=== PATIENT | male | born 1960 | race Caucasian/White ===

== ENCOUNTER → 2017-03-21 | Outpatient (CLI) | payer BC ==
[~2017-03-21] MED LIST: AC500T PO; ALPR0.5T PO; ASP325TEC PO; ASPI-587 PO; ATOR10TA66 PO; ATOR80TA PO; CATHETER FLUSH 10 ML SYR IV PRN; CEFD300C3 PO; CLPD75T; CLPD75T PO; DICY20TA57 PO; GABA-486 PO; GMFB600T; HYDR-3454 PO; HYDR1CAP2 PO; METO-272 PO; MTP25TSR PO; NFPRILOC40 PO; OMEP-10 PO; ORPH100T PO; PANT40TA3 PO; PRILOSEC OTC; RANI150T90 PO; RNT150T PO; TRZ100T PO
[2017-03-21 13:08] VITALS: BP 136/88
== END ==
LOC: CARD 11:04
PROVIDERS: ATTEND Internal Medicine Cardiovascular Disease
DX: I25.10 Atherosclerotic heart disease of native coronary artery without angina pectoris (principal); I65.23 Occlusion and stenosis of bilateral carotid arteries; I49.3 Ventricular premature depolarization; E78.4 Other hyperlipidemia; I10 Essential (primary) hypertension
CPT/HCPCS: 78452; 93017

== ENCOUNTER → 2017-04-03 | Outpatient (CLI) | payer BC ==
[~2017-04-03] MED LIST changes: -CATHETER FLUSH 10 ML SYR IV PRN
[2017-04-03 07:15] LABS: RED BLOOD COUNT 5.03 10^6/uL (4.35-5.85); RED CELL DISTRIBUTION WIDTH 13.8 % (10.0-14.5); WHITE BLOOD COUNT 5.6 10^3/uL (4.3-11.0)
[2017-04-03 07:33] LABS: ALANINE AMINOTRANSFERASE 22 U/L (0-55); ALBUMIN 4.3 G/DL (3.2-4.5); ANION GAP 8 MMOL/L (5-14); ASPARTATE AMINO TRANSFERASE 19 U/L (5-34); BILIRUBIN,TOTAL 0.7 MG/DL (0.1-1.0); BLOOD UREA NITROGEN 13 MG/DL (7-18); BUN/CREATININE RATIO 14; CALCIUM 8.9 MG/DL (8.5-10.1); CARBON DIOXIDE 25 MMOL/L (21-32); CHLORIDE 105 MMOL/L (98-107); CHOLESTEROL 149 MG/DL (< 200); CREATININE SERUM 0.95 MG/DL (0.60-1.30); DIRECT LDL 89 MG/DL (1-129); GFR ESTIMATED > 60; GLUCOSE 114 MG/DL (70-105); POTASSIUM 4.1 MMOL/L (3.6-5.0); SODIUM 138 MMOL/L (135-145); TOTAL PROTEIN 7.2 G/DL (6.4-8.2); TRIGLYCERIDES 91 MG/DL (<150); VLDL CHOLESTEROL 18 MG/DL (5-40)
[2017-04-03 07:53] LABS: THYROID STIMULATING HORMONE 2.09 UIU/ML (0.35-4.94)
--- NOTE | 2017-04-03 13:50 | Diagnostic Imaging Report ---
Three views of the left knee. INDICATION: Chronic knee pain. FINDINGS: There is significant joint space loss in the medial compartment seen with [id number] appearance in the medial aspect of the medial compartment. Prominent osteophyte formation is also noted in the medial and patellofemoral compartments with tiny osteophytes laterally. There is no significant suprapatellar effusion. There is a small osteochondroma arising from the posteromedial supracondylar region of the left femur. No acute fracture, dislocation or radiopaque foreign body. IMPRESSION: 1. Osteoarthritis, severe in the medial compartment. 2. Small osteochondroma in the posteromedial supracondylar region of the left femur. Dictated by: Dictated on workstation # [id number]
== END ==
LOC: RAD 06:57
DX: M17.12 Unilateral primary osteoarthritis, left knee (principal); D16.22 Benign neoplasm of long bones of left lower limb
CPT/HCPCS: 36415; 73562; 80053; 80061; 84153; 84443; 85027

== ENCOUNTER 2017-10-18 07:37 | Outpatient (RCR) | payer BC ==
--- NOTE | 2017-10-16 15:15 | Diagnostic Imaging Report ---
EXAMINATION: Portable upright radiograph of the chest. INDICATION: PICC line placement. FINDINGS: The lungs are clear. The heart size is enlarged. No effusion or pneumothorax. The mediastinum and adalberto appear unremarkable. A right PICC line is in place with the tip at the upper SVC level. IMPRESSION: Cardiomegaly. Dictated by: Dictated on workstation # [id number]
[2017-10-16 15:28] LABS: BUN/CREATININE RATIO 20; CALCIUM 8.9 MG/DL (8.5-10.1); CARBON DIOXIDE 25 MMOL/L (21-32); CHLORIDE 103 MMOL/L (98-107); CREATININE SERUM 1.01 MG/DL (0.60-1.30); GFR ESTIMATED > 60; GLUCOSE 129 MG/DL (70-105); POTASSIUM 3.9 MMOL/L (3.6-5.0); SODIUM 137 MMOL/L (135-145)
[2017-10-16 15:30] VITALS: BP 115/66
[2017-10-17 07:35] VITALS: BP 114/74
[2017-10-17] MEDS: VANCOMYCIN 1,750 MG/NS 500 ML IVPB IV SCH ×4 (08:06→19:54)
[2017-10-17 22:35] VITALS: BP 131/78
[~2017-10-18] VITALS: Ht 180.3 cm; Wt 116.6 kg
[~2017-10-18 07:37] MED LIST changes: +ALPR1TAB7 PO; +ASPI-983 PO; +BACI28.4; +CLOP75TA28 PO; +HYDR-3820 PO; +METO-370 PO; +TRAZ150T72 PO; +TROUGH ORDER-PHARMACY XX NR; +VANCOMYCIN 1,750 MG/NS 500 ML IVPB IV SCH; +VANCOMYCIN INJECTION 2,250 MG in NS IV 500 ML 500 ML IV NR
[2017-10-18] MEDS: VANCOMYCIN 1,750 MG/NS 500 ML IVPB IV SCH ×2 (08:38)
[2017-10-18 10:50] VITALS: BP 115/66
== END 2018-01-14 | disposition home or self-care (01) ==
LOC: SDC 07:37
PROVIDERS: ATTEND Orthopaedic Surgery
DX: Z45.2 Encounter for adjustment and management of vascular access device (principal); L03.116 Cellulitis of left lower limb
CPT/HCPCS: 36415; 36569; 71010; 76937; 80048; 80202; 96365; 96366; 96367

== ENCOUNTER → 2017-12-01 | Outpatient (CLI) | payer BC ==
[~2017-12-01] MED LIST changes: -TROUGH ORDER-PHARMACY XX NR; -VANCOMYCIN 1,750 MG/NS 500 ML IVPB IV SCH; -VANCOMYCIN INJECTION 2,250 MG in NS IV 500 ML 500 ML IV NR
[2017-12-01 17:24] LABS: BODY FLUID SOURCE SYNOVIAL
[2017-12-01 17:26] LABS: GLUCOSE,BODY FLUID 90 MG/DL; TOTAL PROTEIN,BODY FLUID 4.8 G/DL
[2017-12-01 17:36] LABS: BF OTHER CELLS 0 %; BODY FLUID APPEARENCE MOD BLDY; BODY FLUID COLOR RED; BODY FLUID RBC COUNT 32400 /uL; BODY FLUID WBC TOTAL COUNT 400 /uL; LYMPHOCYTES,BODY FLUID 92 %
== END ==
LOC: LAB 16:31
PROVIDERS: ATTEND Orthopaedic Surgery
DX: M00.9 Pyogenic arthritis, unspecified (principal)
CPT/HCPCS: 82945; 84157; 87070; 87075; 87205; 89051; 89060

== ENCOUNTER 2018-03-16 14:44 | Outpatient (RCR) | payer BC | END 2018-03-30 11:11 | disposition home or self-care (01) | PROVIDERS: ATTEND Orthopaedic Surgery | DX: Z47.1 Aftercare following joint replacement surgery (principal); Z96.651 Presence of right artificial knee joint ==

== ENCOUNTER 2018-03-19 00:11 | Emergency (ER) | payer BC ==
--- OUTSIDE RECORDS SUMMARY | 2018-03-19 17:23 | XMS REPORT | Continuity of Care Document ---
Author Author [facility] Organization [facility] Address Unknown Phone Unavailable Allergies Active Description Code Type Severity Reaction Onset Reported/Identified Relationship to Patient Clinical Status Yes NKANo Known Allergies NKA Miscellaneous Allergy Unknown N/A 12/05/2005 Yes morphine [id number] Drug Allergy Unknown N/A 05/12/2015 Yes Ylxqjdu-Hxv-Gzf Reductase Inhibitor [id number] Drug Allergy Severe MUSCLE WEAKNESS 10/26/2015 Medications There is no data. Problems Date Dx Coded Attending Type Code Diagnosis Diagnosed By 11/01/2010 Ot 787.91 11/01/2010 Ot 789.09 11/17/2014 Ot 789.06 11/17/2014 Ot 272.4 11/17/2014 Ot V58.69 11/17/2014 Ot 272.4 11/17/2014 Ot 414.01 11/17/2014 Ot V58.69 11/25/2014 Ot 789.06 11/25/2014 Ot 272.4 11/25/2014 Ot V58.69 11/25/2014 Ot 272.4 11/25/2014 Ot 414.01 11/25/2014 Ot V58.69 11/26/2014 JAYLON العراقي FACC, LIBRADO FACP CCDS Ot 272.4 11/26/2014 JAYLON العراقي FACC, ALI FACP CCDS Ot 278.00 11/26/2014 JAYLON العراقي FACC, ALI FACP CCDS Ot 401.9 11/26/2014 JAYLON العراقي FACC, ALI FACP CCDS Ot 414.01 11/26/2014 JAYLON العراقي FACC, ALI FACP CCDS Ot 414.4 11/26/2014 JAYLON العراقي FACC, ALI FACP CCDS Ot 427.69 11/26/2014 JAYLON العراقي FACC, ALI FACP CCDS Ot V45.82 11/26/2014 JAYLON MINERC, ALI FACP CCDS Ot V58.69 11/26/2014 JAYLON العراقي FACC, ALI FACP CCDS Ot V85.36 11/26/2014 Ot 789.06 11/26/2014 Ot 272.4 11/26/2014 Ot V58.69 11/26/2014 Ot 272.4 11/26/2014 Ot 414.01 11/26/2014 Ot V58.69 12/02/2014 Ot 789.06 12/02/2014 Ot 272.4 12/02/2014 Ot V58.69 12/02/2014 Ot 272.4 12/02/2014 Ot 414.01 12/02/2014 Ot V58.69 12/10/2014 Ot 272.4 12/10/2014 Ot V58.69 12/10/2014 Ot 272.4 12/10/2014 Ot 414.01 12/10/2014 Ot V58.69 12/10/2014 BAIMA, WILFRED L GRASS CUTTER Ot 453.41 12/18/2014 BAIMA, WILFRED L GRASS CUTTER Ot 453.41 12/25/2014 BAIMA, WILFRED L GRASS CUTTER Ot 729.81 12/25/2014 BAIMA, WILFRED L GRASS CUTTER Ot 789.03 04/17/2015 BAIMA, WILFRED L GRASS CUTTER Ot 272.4 04/17/2015 BAIMA, WILFRED L GRASS CUTTER Ot 401.9 04/17/2015 BAIMA, WILFRED L GRASS CUTTER Ot 414.00 04/17/2015 BAIMA, WILFRED L GRASS CUTTER Ot V12.51 05/12/2015 RUCHI MICHELLE MANAGER [employer] Ot 414.00 CORON ATHEROSCLER NOS TYPE VESSEL, NATIV 05/12/2015 RUCHI MICHELLE MANAGER [employer] Ot 723.1 CERVICALGIA 05/12/2015 RUCHI MICHELLE MANAGER [employer] Ot 786.52 PAINFUL RESPIRATION 05/12/2015 RUCHI MICHELLE MANAGER [employer] Ot V45.82 PERCUTANEOUS TRANSLUM CORON ANGIOPLASTY 05/12/2015 RUCHI MICHELLE MANAGER [employer] Ot V58.66 LONG-TERM (CURRENT) USE OF ASPIRIN 05/12/2015 RUCHI MICHELLE MANAGER [employer] Ot V58.69 OT MED,LT,CURRENT USE 05/18/2015 BAIMA, WILFRED L GRASS CUTTER Ot 272.4 05/18/2015 BAIMA, WILFRED L GRASS CUTTER Ot 780.79 05/18/2015 BAIMA, WIFLRED L GRASS CUTTER Ot 790.29 05/28/2015 BAIMA, WILFRED L GRASS CUTTER Ot 272.4 05/28/2015 BAIWILFRED RIOS L GRASS CUTTER Ot 780.79 05/28/2015 BAIMA WILFRED L GRASS CUTTER Ot 790.29 10/12/2015 CAROLINE العراقي, THEODORE Avilez Ot K44.9 DIAPHRAGMATIC HERNIA WITHOUT OBSTRUCTION 10/12/2015 CAROLINE العراقي, THEODORE Avilez Ot R10.13 EPIGASTRIC PAIN 10/21/2015 Ot 272.4 10/21/2015 BAIMAANDERSONWILFRED L GRASS CUTTER Ot 272.4 10/21/2015 BAIMA, WILFRED L GRASS CUTTER Ot 401.9 10/21/2015 BAIMA, WILFRED L GRASS CUTTER Ot 414.00 10/21/2015 BAIMA WILFRED L GRASS CUTTER Ot V12.51 10/21/2015 MYRNA ALVARADO APRN Ot 719.46 10/21/2015 BAIMAWILFRED L GRASS CUTTER Ot 272.4 10/21/2015 BAIBLANCA WILFRED L GRASS CUTTER Ot 780.79 10/21/2015 BAIMA WILFRED L GRASS CUTTER Ot 790.29 10/21/2015 CAROLINE العراقي, THEODORE Avilez Ot Z01.818 10/21/2015 CAROLINE العراقي, THEODORE Avilez Ot K43.6 10/21/2015 CAROLINE العراقي, THEODORE Avilez Ot Z01.812 10/21/2015 CAROLINE العراقي, THEODORE Avilez Ot Z11.2 10/23/2015 CAROLINE العراقي, THEODORE Avilez Ot K43.6 OTHER AND UNSP VENTRAL HERNIA WITH OBSTR 10/28/2015 CAROLINE العراقي, THEODORE Avilez Ot I10 ESSENTIAL (PRIMARY) HYPERTENSION 10/28/2015 CAROLINE الرعاقي, THEODORE Avilez Ot I25.10 ATHSCL HEART DISEASE OF [place] CORONARY 10/28/2015 THEODORE VELAZQUEZ MD Ot K21.9 GASTRO-ESOPHAGEAL REFLUX DISEASE WITHOUT 10/28/2015 THEODORE VELAZQUEZ MD Ot K56.7 ILEUS, UNSPECIFIED 10/28/2015 CAROLINE العراقي, THEODORE Avilez Ot K91.89 OTH POSTPROCEDURAL COMPLICATIONS AND DIS 10/28/2015 THEODORE VELAZQUEZ MD Ot L03.311 CELLULITIS OF ABDOMINAL WALL 10/28/2015 CAROLINE العراقي, THEODORE Avilez Ot T81.4XXA INFECTION FOLLOWING A PROCEDURE, INITIAL 11/03/2015 CAROLINE العراقي, THEODORE Avilez Ot K43.6 11/03/2015 CAROLINE العراقي, THEODORE Avilez Ot Z01.812 11/03/2015 CAROLINE العراقي, THEODORE M Ot Z11.2 09/20/2016 BAIMA, WILFRED L GRASS CUTTER Ot E78.4 OTHER HYPERLIPIDEMIA 09/20/2016 BAIMA, WILFRED L GRASS CUTTER Ot I10 ESSENTIAL (PRIMARY) HYPERTENSION 09/20/2016 BAIMA, WILFRED L GRASS CUTTER Ot I25.10 ATHSCL HEART DISEASE OF [place] CORONARY 09/20/2016 BAIMA, WILFRED L GRASS CUTTER Ot I65.23 OCCLUSION AND STENOSIS OF BILATERAL PITTS 09/21/2016 BAIMA, WILFRED L GRASS CUTTER Ot E78.4 OTHER HYPERLIPIDEMIA 09/21/2016 BAIMA, WILFRED L GRASS CUTTER Ot I10 ESSENTIAL (PRIMARY) HYPERTENSION 09/21/2016 BAIMA, WILFRED L GRASS CUTTER Ot I25.10 ATHSCL HEART DISEASE OF [place] CORONARY 09/21/2016 BAIMA, WILFRED L GRASS CUTTER Ot I65.23 OCCLUSION AND STENOSIS OF BILATERAL PITTS 09/30/2016 BAIMA, WILFRED L GRASS CUTTER Ot E78.4 OTHER HYPERLIPIDEMIA 09/30/2016 BAIMA, WILFRED L GRASS CUTTER Ot I10 ESSENTIAL (PRIMARY) HYPERTENSION 09/30/2016 BAIMA, WILFRED L GRASS CUTTER Ot I25.10 ATHSCL HEART DISEASE OF [place] CORONARY 09/30/2016 BAIMA, WILFRED L GRASS CUTTER Ot I65.23 OCCLUSION AND STENOSIS OF BILATERAL PITTS 11/02/2016 BAIMA, WILFRED L GRASS CUTTER Ot E78.4 OTHER HYPERLIPIDEMIA 11/02/2016 BAIMA, WILFRED L GRASS CUTTER Ot I10 ESSENTIAL (PRIMARY) HYPERTENSION 11/02/2016 BAIMA, WILFRED L GRASS CUTTER Ot I25.10 ATHSCL HEART DISEASE OF [place] CORONARY 11/02/2016 BAIMA, WILFRED L GRASS CUTTER Ot I65.23 OCCLUSION AND STENOSIS OF BILATERAL PITTS 11/03/2016 BAIMA, WILFRED L GRASS CUTTER Ot E78.4 OTHER HYPERLIPIDEMIA 11/03/2016 BAIMA, WILFRED L GRASS CUTTER Ot I10 ESSENTIAL (PRIMARY) HYPERTENSION 11/03/2016 BAIMA, WILFRED L GRASS CUTTER Ot I25.10 ATHSCL HEART DISEASE OF [place] CORONARY 11/03/2016 BAIMA, WILFRED L GRASS CUTTER Ot I65.23 OCCLUSION AND STENOSIS OF BILATERAL PITTS 04/03/2017 JAYLON العراقي [facility], LIBRADO JACOB CCDS Ot E78.4 OTHER HYPERLIPIDEMIA 04/03/2017 JAYLON MINER, LIBRADO FACP CCDS Ot I10 ESSENTIAL (PRIMARY) HYPERTENSION 04/03/2017 JAYLON العراقي FACC, LIBRADO FACP CCDS Ot I25.10 ATHSCL HEART DISEASE OF [place] CORONARY 04/03/2017 JAYLON العراقي [facility], LIBRADO FACP CCDS Ot I49.3 VENTRICULAR PREMATURE DEPOLARIZATION 04/03/2017 JAYLON MINER, LIBRADO FACP CCDS Ot I65.23 OCCLUSION AND STENOSIS OF BILATERAL PITTS 04/04/2017 TREVON ARGUETA MD Ot D16.22 BENIGN NEOPLASM OF LONG BONES OF LEFT LO 04/04/2017 TREVON ARGUETA MD Ot M17.12 UNILATERAL PRIMARY OSTEOARTHRITIS, LEFT 04/12/2017 TREVON ARGUETA MD Ot D16.22 BENIGN NEOPLASM OF LONG BONES OF LEFT LO 04/12/2017 TREVON ARGUETA MD Ot M17.12 UNILATERAL PRIMARY OSTEOARTHRITIS, LEFT 10/18/2017 AFIA AVERY MD Ot L03.116 CELLULITIS OF LEFT LOWER LIMB 10/18/2017 AFIA AVERY MD, Ot Z45.2 ENCOUNTER FOR ADJUSTMENT AND MANAGEMENT 10/18/2017 AFIA AVERY MD Ot L03.116 CELLULITIS OF LEFT LOWER LIMB 10/18/2017 AFIA AVERY MD, Ot Z45.2 ENCOUNTER FOR ADJUSTMENT AND MANAGEMENT 11/30/2017 Ot 272.4 HYPERLIPIDEMIA NEC/NOS 11/30/2017 WILFRED TINEO GRASS CUTTER Ot 272.4 HYPERLIPIDEMIA NEC/NOS 11/30/2017 WILFRED TINEO GRASS CUTTER Ot 401.9 HYPERTENSION NOS 11/30/2017 WILFRED TINEO L GRASS CUTTER Ot 414.00 CORON ATHEROSCLER NOS TYPE VESSEL, NATIV 11/30/2017 WILFRED TINEO GRASS CUTTER Ot V12.51 HX-VENOUS THROMBOSIS EMBOLISM 11/30/2017 MYRNA ALVARADO APRN Ot 719.46 JOINT PAIN-L/LEG 11/30/2017 WILFRED TINEO L GRASS CUTTER Ot 272.4 HYPERLIPIDEMIA NEC/NOS 11/30/2017 WILFRED TINEO L GRASS CUTTER Ot 780.79 OTH MALAISE FATIGUE 11/30/2017 WILFRED TINEO L GRASS CUTTER Ot 790.29 OTHER ABNORMAL GLUCOSE 11/30/2017 CAROLINE العراقي, THEODORE Avilez Ot Z01.818 ENCOUNTER FOR OTHER PREPROCEDURAL EXAMIN 11/30/2017 THEODORE VELAZQUEZ MD Ot K43.6 OTHER AND UNSP VENTRAL HERNIA WITH OBSTR 11/30/2017 THEODORE VELAZQUEZ MD Ot Z01.812 ENCOUNTER FOR PREPROCEDURAL LABORATORY E 11/30/2017 THEODORE VELAZQUEZ MD Ot Z11.2 ENCOUNTER FOR SCREENING FOR OTHER BACTER 11/30/2017 JAYLON MINER, ALI FACP CCDS Ot E78.4 OTHER HYPERLIPIDEMIA 11/30/2017 JAYLON العراقي FACC, ALI FACP CCDS Ot I10 ESSENTIAL (PRIMARY) HYPERTENSION 11/30/2017 JAYLON العراقي FACC, ALI FACP CCDS Ot I25.10 ATHSCL HEART DISEASE OF [place] CORONARY 11/30/2017 JAYLON العراقي FACC, ALI FACP CCDS Ot I49.3 VENTRICULAR PREMATURE DEPOLARIZATION 11/30/2017 JAYLON العراقي FACC, ALI FACP CCDS Ot I65.23 OCCLUSION AND STENOSIS OF BILATERAL PITTS 11/30/2017 TREVON ARGUETA MD Ot D16.22 BENIGN NEOPLASM OF LONG BONES OF LEFT LO 11/30/2017 TREVON ARGUETA MD Ot M17.12 UNILATERAL PRIMARY OSTEOARTHRITIS, LEFT 11/30/2017 AFIA AVERY MD Ot L03.116 CELLULITIS OF LEFT LOWER LIMB 11/30/2017 AFIA AVERY MD Ot Z45.2 ENCOUNTER FOR ADJUSTMENT AND MANAGEMENT 12/01/2017 JAYLON العراقي FACC, LIBRADO FACP CCDS Ot E78.4 OTHER HYPERLIPIDEMIA 12/01/2017 JAYLON العراقي FACC, ALI FACP CCDS Ot I10 ESSENTIAL (PRIMARY) HYPERTENSION 12/01/2017 JAYLON العراقي FACC, ALI FACP CCDS Ot I25.10 ATHSCL HEART DISEASE OF [place] CORONARY 12/01/2017 JAYLON العراقي FACC, ALI FACP CCDS Ot I49.3 VENTRICULAR PREMATURE DEPOLARIZATION 12/01/2017 JAYLON العراقي FACC, ALI FACP CCDS Ot I65.23 OCCLUSION AND STENOSIS OF BILATERAL PITTS 12/01/2017 TREVON ARGUETA MD Ot D16.22 BENIGN NEOPLASM OF LONG BONES OF LEFT LO 12/01/2017 TREVON ARGUETA MD Ot M17.12 UNILATERAL PRIMARY OSTEOARTHRITIS, LEFT 12/01/2017 AFIA AVERY MD, Ot L03.116 CELLULITIS OF LEFT LOWER LIMB 12/01/2017 AFIA AVERY MD, Ot Z45.2 ENCOUNTER FOR ADJUSTMENT AND MANAGEMENT 12/04/2017 AFIA AVERY MD, Ot M00.9 PYOGENIC ARTHRITIS, UNSPECIFIED 12/13/2017 AFIA AVERY MD, Ot M00.9 PYOGENIC ARTHRITIS, UNSPECIFIED 01/14/2018 AFIA AVERY MD, Ot L03.116 CELLULITIS OF LEFT LOWER LIMB 01/14/2018 AFIA AVERY MD, Ot Z45.2 ENCOUNTER FOR ADJUSTMENT AND MANAGEMENT 01/15/2018 AFIA AVERY MD, Ot L03.116 CELLULITIS OF LEFT LOWER LIMB 01/15/2018 AFIA AVERY MD, Ot Z45.2 ENCOUNTER FOR ADJUSTMENT AND MANAGEMENT 01/26/2018 JAYLON العراقي FACC, ALI FACP CCDS Ot E78.4 OTHER HYPERLIPIDEMIA 01/26/2018 JAYLON العراقي FACC, ALI FACP CCDS Ot I10 ESSENTIAL (PRIMARY) HYPERTENSION 01/26/2018 JAYLON العراقي FACC, ALI FACP CCDS Ot I25.10 ATHSCL HEART DISEASE OF [place] CORONARY 01/26/2018 JAYLON العراقي FACC, ALI FACP CCDS Ot I49.3 VENTRICULAR PREMATURE DEPOLARIZATION 01/26/2018 JAYLON العراقي FACC, ALI FACP CCDS Ot I65.23 OCCLUSION AND STENOSIS OF BILATERAL PITTS 01/26/2018 ELLIE العراقي, TREVON Escalona Ot D16.22 BENIGN NEOPLASM OF LONG BONES OF LEFT LO 01/26/2018 TREVON ARGUETA MD Ot M17.12 UNILATERAL PRIMARY OSTEOARTHRITIS, LEFT 01/26/2018 AFIA AVERY MD, Ot M00.9 PYOGENIC ARTHRITIS, UNSPECIFIED 01/26/2018 AFIA AVERY MD, Ot L03.116 CELLULITIS OF LEFT LOWER LIMB 01/26/2018 AFIA AVERY MD, Ot Z45.2 ENCOUNTER FOR ADJUSTMENT AND MANAGEMENT 03/14/2018 AFIA AVERY MD, Ot Z47.1 AFTERCARE FOLLOWING JOINT REPLACEMENT CALDERÓN 03/14/2018 AFIA AVERY MD, Ot Z96.651 PRESENCE OF RIGHT ARTIFICIAL KNEE JOINT Procedures There is no data. Results Test Result Range Comprehensive metabolic panel - 11/22/16 07:22 Serum or plasma sodium measurement (moles/volume) 137 mmol/L 135-145 Serum or plasma potassium measurement (moles/volume) 4.2 mmol/L 3.6-5.0 Serum or plasma chloride measurement (moles/volume) 106 mmol/L 98-107 Carbon dioxide 23 mmol/L 21-32 Serum or plasma anion gap determination (moles/volume) 8 mmol/L 5-14 Serum or plasma urea nitrogen measurement (mass/volume) 22 mg/dL 7-18 Serum or plasma creatinine measurement (mass/volume) 0.96 mg/dL 0.60-1.30 Serum or plasma urea nitrogen/creatinine mass ratio 23 NRG Serum or plasma creatinine measurement with calculation of estimated glomerular filtration rate > NRG Serum or plasma glucose measurement (mass/volume) 116 mg/dL 70-105 Serum or plasma calcium measurement (mass/volume) 9.5 mg/dL 8.5-10.1 Serum or plasma total bilirubin measurement (mass/volume) 1.4 mg/dL 0.1-1.0 Serum or plasma alkaline phosphatase measurement (enzymatic activity/volume) 76 U/L 40-136 Serum or plasma aspartate aminotransferase measurement (enzymatic activity/ volume) 26 U/L 5-34 Serum or plasma alanine aminotransferase measurement (enzymatic activity/volume ) 23 U/L 0-55 Serum or plasma protein measurement (mass/volume) 7.1 g/dL 6.4-8.2 Serum or plasma albumin measurement (mass/volume) 4.4 g/dL 3.2-4.5 Lipid 1996 panel - 09/20/16 07:22 Serum or plasma triglyceride measurement (mass/volume) 64 mg/dL <150 Serum or plasma cholesterol measurement (mass/volume) 164 mg/dL < 200 Serum or plasma cholesterol in HDL measurement (mass/volume) 48 mg/ dL 40-60 Cholesterol in LDL [mass/volume] in serum or plasma by direct assay 105 mg/dL 1-129 Serum or plasma cholesterol in VLDL measurement (mass/volume) 13 mg/ dL 5-40 Automated blood complete blood count (hemogram) panel - 04/03/17 07:08 Blood leukocytes automated count (number/volume) 5.6 10*3/uL 4.3-11.0 Blood erythrocytes automated count (number/volume) 5.03 10*6/uL 4.35-5.85 Venous blood hemoglobin measurement (mass/volume) 15.3 g/dL 13.3-17.7 Blood hematocrit (volume fraction) 45 % 40-54 Automated erythrocyte mean corpuscular volume 90 [foz_us] 80-99 Automated erythrocyte mean corpuscular hemoglobin (mass per erythrocyte) 30 pg 25-34 Automated erythrocyte mean corpuscular hemoglobin concentration measurement ( mass/volume) 34 g/dL 32-36 Automated erythrocyte distribution width ratio 13.8 % 10.0-14.5 Automated blood platelet count (count/volume) 155 10*3/uL 130-400 Automated blood platelet mean volume measurement 11.0 [foz_us] 7.4-10.4 Comprehensive metabolic panel - 04/03/17 07:08 Serum or plasma sodium measurement (moles/volume) 138 mmol/L 135-145 Serum or plasma potassium measurement (moles/volume) 4.1 mmol/L 3.6-5.0 Serum or plasma chloride measurement (moles/volume) 105 mmol/L 98-107 Carbon dioxide 25 mmol/L 21-32 Serum or plasma anion gap determination (moles/volume) 8 mmol/L 5-14 Serum or plasma urea nitrogen measurement (mass/volume) 13 mg/dL 7-18 Serum or plasma creatinine measurement (mass/volume) 0.95 mg/dL 0.60-1.30 Serum or plasma urea nitrogen/creatinine mass ratio 14 NRG Serum or plasma creatinine measurement with calculation of estimated glomerular filtration rate > NRG Serum or plasma glucose measurement (mass/volume) 114 mg/dL 70-105 Serum or plasma calcium measurement (mass/volume) 8.9 mg/dL 8.5-10.1 Serum or plasma total bilirubin measurement (mass/volume) 0.7 mg/dL 0.1-1.0 Serum or plasma alkaline phosphatase measurement (enzymatic activity/volume) 66 U/L 40-136 Serum or plasma aspartate aminotransferase measurement (enzymatic activity/ volume) 19 U/L 5-34 Serum or plasma alanine aminotransferase measurement (enzymatic activity/volume ) 22 U/L 0-55 Serum or plasma protein measurement (mass/volume) 7.2 g/dL 6.4-8.2 Serum or plasma albumin measurement (mass/volume) 4.3 g/dL 3.2-4.5 Lipid 1996 panel - 04/03/17 07:08 Serum or plasma triglyceride measurement (mass/volume) 91 mg/dL <150 Serum or plasma cholesterol measurement (mass/volume) 149 mg/dL < 200 Serum or plasma cholesterol in HDL measurement (mass/volume) 41 mg/ dL 40-60 Cholesterol in LDL [mass/volume] in serum or plasma by direct assay 89 mg/dL 1-129 Serum or plasma cholesterol in VLDL measurement (mass/volume) 18 mg/ dL 5-40 THYROID STIMULATING HORMONE - 04/03/17 07:08 THYROID STIMULATING HORMONE 2.09 u[iU]/mL 0.35-4.94 Prostate specific ag [mass/volume] in serum or plasma - 04/03/17 07:08 Prostate specific ag [mass/volume] in serum or plasma 0.27 % 0.00-4.00 Whole blood basic metabolic panel - 10/16/17 14:56 Serum or plasma sodium measurement (moles/volume) 137 mmol/L 135-145 Serum or plasma potassium measurement (moles/volume) 3.9 mmol/L 3.6-5.0 Serum or plasma chloride measurement (moles/volume) 103 mmol/L 98-107 Carbon dioxide 25 mmol/L 21-32 Serum or plasma anion gap determination (moles/volume) 9 mmol/L 5-14 Serum or plasma urea nitrogen measurement (mass/volume) 20 mg/dL 7-18 Serum or plasma creatinine measurement (mass/volume) 1.01 mg/dL 0.60-1.30 Serum or plasma urea nitrogen/creatinine mass ratio 20 NRG Serum or plasma creatinine measurement with calculation of estimated glomerular filtration rate > NRG Serum or plasma glucose measurement (mass/volume) 129 mg/dL 70-105 Serum or plasma calcium measurement (mass/volume) 8.9 mg/dL 8.5-10.1 Vancomycin trough - 10/18/17 07:42 Vancomycin trough 13.5 ug/mL 10.0-20.0 Body fluid cell count - 12/01/17 16:44 Specimen source identification of body fluid SYNOVIAL NRG Evaluation of color of body fluid RED NRG Determination of appearance of body fluid MOD BLDY NRG Body fluid leukocytes count (number/volume) 400 /uL NRG Body fluid erythrocytes count (number/volume) 59380 /uL NRG Manual body fluid polymorphonuclear cells/100 leukocytes 8 % NRG Manual body fluid mononuclear cells/100 leukocytes 0 % NRG Manual body fluid lymphocytes/100 leukocytes 92 % NRG Other cells/100 leukocytes in body fluid by manual count 0 % NRG Glucose body fluid - 12/01/17 16:44 Glucose body fluid 90 mg/dL NRG Body fluid total protein measurement - 12/01/17 16:44 Body fluid total protein measurement 4.8 g/dL NRG Gram stain microscopy - 12/01/17 16:44 GRAM STAIN RESULT NO BACTERIA NRG Bacterial body fluid culture - 12/01/17 16:44 Bacterial body fluid culture NG NRG Bacteria identification in isolate by anaerobe culture - 12/01/17 16:44 Bacteria identification in isolate by anaerobe culture NG NRG * Body fluid crystals type by light microscopy - 12/01/17 16:50 * Body fluid crystals type by light microscopy NOT SEEN NRG Encounters ACCT No. Visit Date/Time Discharge Status Pt. Type Provider Facility Loc./Unit Complaint [id number] 03/14/2018 12:57:00 03/14/2018 23:59:59 CLS Outpatient AFIA AVERY MD [facility] REHAB S/P R TKR [id number] 01/15/2018 00:23:00 01/15/2018 23:59:59 CLS Preadmit AFIA AVERY MD [facility] SDC CELLULITIS L KNEE [id number] 10/18/2017 07:37:00 01/14/2018 00:01:00 DIS Outpatient AFIA AVERY MD [facility] SDC CELLULITIS L KNEE [id number] 12/01/2017 16:31:00 12/01/2017 23:59:59 CLS Outpatient AFIA AVERY MD [facility] LAB HX SEPTIC L KNEE [id number] 04/03/2017 06:57:00 04/03/2017 23:59:59 CLS Outpatient ELLIE العراقي, TREVON Escalona [facility] RAD M25.562 ADULT HEALTH EXAM HLP SCREENING [id number] 03/21/2017 11:04:00 03/21/2017 23:59:59 CLS Outpatient JAYLON العراقي FACCLIBRADO FACP CCDS [facility] CARD I25.10 CAD [id number] 09/20/2016 07:05:00 09/20/2016 23:59:59 CLS Outpatient WILFRED TINEO [facility] LAB CAD,CAROTID ARTERY NARROWING,HLP,HTN [id number] 10/25/2015 17:15:00 10/28/2015 16:30:00 DIS Inpatient THEODORE VELAZQUEZ MD [facility] 4TH SBO PNEUMONIA S/P LAP VENTRAL HERNIA REPAIR [id number] 10/21/2015 06:02:00 10/23/2015 11:20:00 DIS Outpatient THEODORE VELAZQUEZ MD [facility] INCARCERATED VENTRAL HERNIA [id number] 10/14/2015 09:29:00 10/14/2015 23:59:59 CLS Outpatient THEODORE VELAZQUEZ MD [facility] PREOP INCARCERATED VENTRAL HERNIA [id number] 10/12/2015 10:17:00 10/12/2015 12:25:00 DIS Outpatient THEODORE VELAZQUEZ MD [facility] GERD [id number] 10/09/2015 06:37:00 10/09/2015 23:59:59 CLS Outpatient THEODORE VELAZQUEZ MD [facility] PREOP GERD [id number] 05/12/2015 06:20:00 05/12/2015 23:59:59 CLS Outpatient WILFRED TINEO [facility] LAB MALAISE,FATIGUE, HYPERLIPIDEMIA [id number] 05/12/2015 14:00:00 05/12/2015 16:05:00 DIS Emergency RUCHI MICHELLE MANAGER [employer]QU[employer]MENT [facility] ER NECK/SHOULDER/UPPER BODY PAIN NAUSEA [id number] 03/20/2015 08:36:00 03/20/2015 23:59:59 CLS Outpatient MYRNA ALVARADO MANAGER [employer]MENT [facility] RAD PAIN IN LOWER LIMB [id number] 03/11/2015 08:02:00 03/11/2015 23:59:59 CLS Outpatient WILFRED TINEO [facility] RAD HX OF DVT [id number] 12/10/2014 10:07:00 12/10/2014 23:59:59 CLS Outpatient WILFRED TINEO [facility] RAD [id number] 12/02/2014 15:30:00 12/02/2014 23:59:59 CLS Outpatient WILFRED TINEO [employer] [facility] RAD [id number] 11/25/2014 06:38:00 11/26/2014 10:39:00 DIS Outpatient JAYLON العراقي FACC, LIBRADO JACOB CCDS [facility] CATH [id number] 12/24/2014 07:35:00 Document Registration [id number] 11/17/2014 11:48:00 Document Registration [id number] 11/17/2014 11:48:00 Document Registration [id number] 11/17/2014 11:48:00 Document Registration [id number] 11/17/2014 11:48:00 Document Registration [id number] 10/31/2010 21:35:00 Document Registration [id number] 03/11/2010 07:29:00 Document Registration [id number] 10/14/2009 07:32:00 Document Registration [id number] 06/19/2009 06:51:00 Document Registration [email or web address] 05/12/2015 14:02:04 ACT Document Registration
== END 2018-03-19 01:04 | disposition left against medical advice (07) ==
LOC: EDUNIT# 00:11 → ER 00:12
DX: G58.9 Mononeuropathy, unspecified (principal); M79.604 Pain in right leg

== ENCOUNTER 2018-05-21 05:36 | Outpatient (CLI) | payer BC ==
[~2018-05-21] VITALS: Ht 180.3 cm; Wt 116.6 kg
[2018-05-21] MEDS ORDERED: GABA-488 PO (15:21)
[2018-05-21] MEDS ORDERED: OXYC40TA46 PO (15:21)
== END 2018-05-21 15:22 | disposition home or self-care (01) ==
LOC: PREOP 05:36
PROVIDERS: ATTEND Surgery
DX: Z01.818 Encounter for other preprocedural examination (principal)

== ENCOUNTER 2018-05-28 08:15 | Day surgery (SDC) | payer BC ==
[~2018-05-28] VITALS: Ht 180.3 cm; Wt 126.1 kg
[~2018-05-28 08:15] MED LIST changes: +GABA-488 PO; +OXYC40TA46 PO
[2018-05-28 08:20] VITALS: BP 136/86
[2018-05-28] MEDS ORDERED: NS IV 500 ML 500 ML ONE (08:23)
[2018-05-28] MEDS ORDERED: NS IV 500 ML 500 ML IV PRN (08:24)
[2018-05-28] MEDS ORDERED: MIDAZOLAM 2 MG/2 ML (VERSED) VIAL ONE ×3 (08:26→08:52)
[2018-05-28] MEDS ORDERED: fentaNYL INJECTION 100 MCG/2 ML AMP ONE (08:27)
--- NOTE | 2018-05-28 08:38 | Conscious Sedation/ASA ---
Conscious Sedation Pre-Proced Time Reviewed: 08:38 ASA Class: 2 Airway Mallampati Classification: ([place] appropriate class) I. II. III, IV Lungs Heart ASA score ASA 1: a normal healthy patient ASA 2: a patient with a mild systemic disease (mid diabetes, controlled hypertension, obesity ASA 3: a patient with a severe systemic disease that limits activity (angina , COPD, prior Myocardial infarction) ASA 4: a patient with an incapacitating disease that is a constant threat to life (CHF, renal failure) ASA 5: a moribund patient not expected to survive 24 hrs. (ruptured aneurysm) ASA 6: a declared brain patient whose organs are being harvested. For emergent operations, add the letter E after the classification Grade 1 Sedation Plan: Discussed options with patient/fam Note The patient is an appropriate candidate to undergo the planned procedure, sedation, and anesthesia. The patient immediately re-assessed prior to indication. THEODORE VELAZQUEZ MD May 28, 2018 8:38 am
--- NOTE | 2018-05-28 08:38 | History & Physicial ---
History of Present Illness History of Present Illness Reason for visit/HPI to undergo screening colonoscopy Date of Admission 05/28/18 Date Seen by Provider: May 28, 2018 Time Seen by Provider: 08:35 I consulted on this patient on 05/28/18 08:35 Attending Physician Theodore Rich MD Admitting Physician Nacho Bill MD Consult Allergies and Home Medications Allergies Coded Allergies: Gcuhshm-Anz-Ihn Reductase Inhibitor (Verified Allergy, Severe, MUSCLE WEAKNESS, PT TAKE LIPITOR AT HOME, 10/26/15) morphine (Verified Adverse Reaction, Unknown, 05/12/15) Home Medications Alprazolam 1 Mg Tablet, 1 MG PO PRN PRN for ANXIETY, (Reported) Aspirin 81 Mg Tablet.dr, 81 MG PO DAILY, (Reported) Atorvastatin Calcium 10 Mg Tablet, 10 MG PO HS, (Reported) Clopidogrel Bisulfate 75 Mg Tablet, 75 MG PO DAILY, (Reported) Gabapentin 300 Mg Capsule, 600 MG PO BID, (Reported) take 2 (300mg) tab Metoprolol Succinate 50 Mg Tab.er.24h, 50 MG PO DAILY, (Reported) Oxycodone HCl 40 Mg Tab.er.12h, 40 MG PO Q12H, (Reported) Pantoprazole Sodium 40 Mg Tablet.dr, 40 MG PO DAILY, (Reported) Trazodone HCl 150 Mg Tablet, 150 MG PO HS PRN for SLEEP, (Reported) Patient Home Medication List Home Medication List Reviewed: Yes Past Vmjzjaa-Aygqai-Nuahso Hx Patient Social History Recent Foreign Travel: No Contact w/other who traveled: No Recent Hopitalizations: No Immunizations Up To Date Tetanus Booster (TDap): More than 5yrs Pediatric: No Date of Pneumonia Vaccine: Nov 03, 2014 Seasonal Allergies Seasonal Allergies: No Surgeries Abdominal, Appendectomy, Coronary Stent Respiratory Currently Using CPAP: No Currently Using BIPAP: No Cardiovascular Coronary Artery Disease, Deep Vein Thrombosis, Hypertension Reproductive System Hx Reproductive Disorders: No Sexually Transmitted Disease: No HIV/AIDS: No Genitourinary Kidney Stones Gastrointestinal Abdominal Hernia, Gastroesophageal Reflux Musculoskeletal Arthritis HEENT Loss of Vision: Bilateral Hearing Impairment: Denies Blood Transfusions Adverse Reaction to a Blood Tr: No Family Medical History Significant Family History: No Pertinent Family Hx Family Hx: Asthma G8 BROTHER Cancer of mouth G8 BROTHER Cardiovascular disease 19 MOTHER Cataracts G8 BROTHER Deafness or hearing loss G8 BROTHER Hypercholesterolemia G8 SISTER Myocardial infarction 19 FATHER Constitutional: no symptoms reported EENTM: no symptoms reported Respiratory: no symptoms reported Cardiovascular: no symptoms reported Gastrointestinal: no symptoms reported Genitourinary: no symptoms reported Musculoskeletal: no symptoms reported Skin: no symptoms reported Psychiatric/Neurological: No Symptoms Reported Physical Exam Vital Signs Capillary Refill : Height, Weight, BMI Height: 5'11.00" Weight: 257lbs. 2.0oz. 116.957652nu; 35.9 BMI Method:Stated General Appearance: No Apparent Distress Neck: Normal Inspection Respiratory: Lungs Clear Cardiovascular: Regular Rate, Rhythm Gastrointestinal: Non Tender, Soft Rectal: Deferred Extremity: Normal Inspection Neurologic/Psychiatric: Oriented x3 Skin: Warm/Dry Assessment/Plan Assessment and Plan gentleman to undergo screening colonoscopy. Discussed in detail. Admission Diagnosis Admission Status: Other (Outpt Proc) THEODORE RICH MD May 28, 2018 8:37 am
[2018-05-28] MEDS: fentaNYL INJECTION 100 MCG/2 ML AMP IVP PRN ×2 (08:47→08:55)
[2018-05-28] MEDS: MIDAZOLAM 2 MG/2 ML (VERSED) VIAL IVP PRN ×3 (08:50→08:58)
--- NOTE | 2018-05-28 09:05 | Endo Procedure Record ---
Endo Procedure Report Date of Procedure Last Colonoscopy: No May 28, 2018 Surgeon (s) THEODORE VELAZQUEZ MD Post Procedure/Op Diagnosis diffuse diverticulosis Procedure Performed colonoscopy to cecum Description of Procedure Anesthesia Type: Conscious Sedation Specimen(s) collected/removed None Description of the Procedure indication for the procedure: This gentleman came in for screening colonoscopy. He denied any relevant family history. Informed consent was obtained after reviewing the procedure in detail. Description of procedure: He was placed in left lateral decubitus position and his vital signs were monitored. Conscious sedation was achieved using Versed and fentanyl. Digital rectal examination was unremarkable. The colonoscope was then introduced in the rectum and advanced all the way up to the cecum. The quality of bowel preparation was rather sub-optimal. I was able to irrigate the mucosa and complete the examination The scope was then withdrawn slowly and the mucosa examined in a systematic fashion Finding: Diffuse diverticulosis. No polyps were found He tolerated the procedure well and was taken back to the nursing area in a stable condition. Impression: Screening colonoscopy. No polyps. No family history. Recommend repeat in 10 years. Copy Copies To 1: TREVON ARGUETA MD, XAVIER M MD May 28, 2018 9:05 am
--- NOTE | 2018-05-28 09:06 | Discharge Inst-Simple/Standard ---
Discharge Inst-Standard Discharge Medications New, Converted or Re-Newed RX: Other Patient Instructions/Follow Up Plan of Care/Instructions/FU: repeat colonoscopy in 10 years Activity as Tolerated: Yes Discharge Diet: No Restrictions THEODORE VELAZQUEZ MD May 28, 2018 9:06 am
[2018-05-28 09:20] VITALS: BP 152/77
[2018-05-28 10:00] VITALS: BP 117/71
[2018-05-28 10:10] VITALS: BP 117/71
== END 2018-05-28 10:50 | disposition home or self-care (01) ==
LOC: ENDO 08:15
PROVIDERS: ATTEND Surgery
DX: Z12.11 Encounter for screening for malignant neoplasm of colon (principal); K57.30 Diverticulosis of large intestine without perforation or abscess without bleeding; I25.10 Atherosclerotic heart disease of native coronary artery without angina pectoris; Z95.5 Presence of coronary angioplasty implant and graft; I10 Essential (primary) hypertension; Z86.718 Personal history of other venous thrombosis and embolism; K21.9 Gastro-esophageal reflux disease without esophagitis; Z87.442 Personal history of urinary calculi

== ENCOUNTER 2018-05-30 13:04 | Outpatient (RCR) | payer BC | END 2018-06-14 11:18 | disposition home or self-care (01) | PROVIDERS: ATTEND Orthopaedic Surgery Orthopaedic Trauma | DX: M47.26 Other spondylosis with radiculopathy, lumbar region (principal) ==

== ENCOUNTER 2018-09-18 16:52 | Observation (INO) | payer BC ==
[~2018-09-18] VITALS: Ht 180.3 cm; Wt 120.0 kg
[2018-09-18] VITALS (7 sets, daily range): BP systolic 130–165; BP diastolic 73–90
--- OUTSIDE RECORDS SUMMARY | 2018-09-18 17:16 | XMS REPORT | Continuity of Care Document ---
Author Author [facility] Organization [facility] Address Unknown Phone Unavailable Allergies Active Description Code Type Severity Reaction Onset Reported/Identified Relationship to Patient Clinical Status Yes NKANo Known Allergies NKA Miscellaneous Allergy Unknown N/A 12/05/2005 Yes morphine [id number] Drug Allergy Unknown N/A 05/12/2015 Yes Fyrirdp-Chd-Bpg Reductase Inhibitor [id number] Drug Allergy Severe MUSCLE WEAKNESS 10/26/2015 Medications There is no data. Problems Date Dx Coded Attending Type Code Diagnosis Diagnosed By 09/28/1110 BENNIE العراقي, AFIA Jackson Ot Z47.1 AFTERCARE FOLLOWING JOINT REPLACEMENT CALDERÓN 09/28/1110 BENNIE العراقي, AFIA Jackson Ot Z96.651 PRESENCE OF RIGHT ARTIFICIAL KNEE JOINT 09/28/1117 GAVINO CARSON DO Ot M47.26 OTHER SPONDYLOSIS WITH RADICULOPATHY, KEESHA 11/01/2010 Ot 787.91 11/01/2010 Ot 789.09 11/17/2014 Ot 789.06 11/17/2014 Ot 272.4 11/17/2014 Ot V58.69 11/17/2014 Ot 272.4 11/17/2014 Ot 414.01 11/17/2014 Ot V58.69 11/25/2014 Ot 789.06 11/25/2014 Ot 272.4 11/25/2014 Ot V58.69 11/25/2014 Ot 272.4 11/25/2014 Ot 414.01 11/25/2014 Ot V58.69 11/26/2014 JAYLON العراقي FACC, LIBRADO MINERP CCDS Ot 272.4 11/26/2014 JAYLON العراقي FACC, LIBRADO FACP CCDS Ot 278.00 11/26/2014 JAYLON العراقي FACC, LIBRADO FACP CCDS Ot 401.9 11/26/2014 JAYLON العراقي FACC, LIBRADO FACP CCDS Ot 414.01 11/26/2014 JAYLON العراقي FACC, LIBRADO FACP CCDS Ot 414.4 11/26/2014 JAYLON العراقي [facility], LIBRADO FACP CCDS Ot 427.69 11/26/2014 JAYLON العراقي FAC, ALI FACP CCDS Ot V45.82 11/26/2014 JAYLON العراقي [facility], [facility] FACP CCDS Ot V58.69 11/26/2014 JAYLON العراقي [facility], ALI FACP CCDS Ot V85.36 11/26/2014 Ot 789.06 11/26/2014 Ot 272.4 11/26/2014 Ot V58.69 11/26/2014 Ot 272.4 11/26/2014 Ot 414.01 11/26/2014 Ot V58.69 12/02/2014 Ot 789.06 12/02/2014 Ot 272.4 12/02/2014 Ot V58.69 12/02/2014 Ot 272.4 12/02/2014 Ot 414.01 12/02/2014 Ot V58.69 12/10/2014 Ot 272.4 12/10/2014 Ot V58.69 12/10/2014 Ot 272.4 12/10/2014 Ot 414.01 12/10/2014 Ot V58.69 12/10/2014 BAIMA, WILFRED L CASE PREPARER AND LINER Ot 453.41 12/18/2014 BAIMA, WILFRED L CASE PREPARER AND LINER Ot 453.41 12/25/2014 BAIMA, WILFRED L CASE PREPARER AND LINER Ot 729.81 12/25/2014 BAIMA, WILFRED L CASE PREPARER AND LINER Ot 789.03 04/17/2015 BAIMA, WILFRED L CASE PREPARER AND LINER Ot 272.4 04/17/2015 BAIMA, WILFRED L CASE PREPARER AND LINER Ot 401.9 04/17/2015 BAIMA, WILFRED L CASE PREPARER AND LINER Ot 414.00 04/17/2015 BAIMA, WILFRED L CASE PREPARER AND LINER Ot V12.51 05/12/2015 RUCHI MICHELLE APRN Ot 414.00 CORON ATHEROSCLER NOS TYPE VESSEL, NATIV 05/12/2015 RUCHI MICHELLE APRN Ot 723.1 CERVICALGIA 05/12/2015 RUCHI MICHELLE APRN Ot 786.52 PAINFUL RESPIRATION 05/12/2015 RUCHI MICHELLE APRN Ot V45.82 PERCUTANEOUS TRANSLUM CORON ANGIOPLASTY 05/12/2015 RUCHI MIHCELLE APRN Ot V58.66 LONG-TERM (CURRENT) USE OF ASPIRIN 05/12/2015 RUCHI MICHELLE APRN Ot V58.69 OT MED,LT,CURRENT USE 05/18/2015 BAIMA, WILFRED L CASE PREPARER AND LINER Ot 272.4 05/18/2015 BAIMA, WILFRED L CASE PREPARER AND LINER Ot 780.79 05/18/2015 BAIMA, WILFRED L CASE PREPARER AND LINER Ot 790.29 05/28/2015 BAIMA, WILFRED L CASE PREPARER AND LINER Ot 272.4 05/28/2015 BAIMA, WILFRED L CASE PREPARER AND LINER Ot 780.79 05/28/2015 BAIMA, WILFRED L CASE PREPARER AND LINER Ot 790.29 10/12/2015 CAROLINE العراقي, THEODORE Avilez Ot K44.9 DIAPHRAGMATIC HERNIA WITHOUT OBSTRUCTION 10/12/2015 CAROLINE العراقي, THEODORE Avilez Ot R10.13 EPIGASTRIC PAIN 10/21/2015 Ot 272.4 10/21/2015 BAIMA, WILFRED L CASE PREPARER AND LINER Ot 272.4 10/21/2015 BAIMA, WILFRED L CASE PREPARER AND LINER Ot 401.9 10/21/2015 BAIMA, WILFRED L CASE PREPARER AND LINER Ot 414.00 10/21/2015 BAIMA, WILFRED L CASE PREPARER AND LINER Ot V12.51 10/21/2015 JENNY MYRNA Javier LOSS PREVENTION LEAD Ot 719.46 10/21/2015 BAIMA, WILFRED L CASE PREPARER AND LINER Ot 272.4 10/21/2015 BAIMA, WILFRED L CASE PREPARER AND LINER Ot 780.79 10/21/2015 BAIMA, WILFRED L CASE PREPARER AND LINER Ot 790.29 10/21/2015 CAROLINE العراقي, THEODORE Avilez Ot Z01.818 10/21/2015 CAROLINE العراقي, THEODORE Avilez Ot K43.6 10/21/2015 CAROLINE العراقي, THEODORE Avilez Ot Z01.812 10/21/2015 CAROLINE العراقي, THEODORE Avilez Ot Z11.2 10/23/2015 CAROLINE العراقي, THEODORE Avilez Ot K43.6 OTHER AND UNSP VENTRAL HERNIA WITH OBSTR 10/28/2015 CAROLINE العراقي, THEODORE Avilez Ot I10 ESSENTIAL (PRIMARY) HYPERTENSION 10/28/2015 CAROLINE العراقي, THEODORE Avilez Ot I25.10 ATHSCL HEART DISEASE OF [place] CORONARY 10/28/2015 CAROLINE العراقي, THEODORE Avilez Ot K21.9 GASTRO-ESOPHAGEAL REFLUX DISEASE WITHOUT 10/28/2015 CAROLINE العراقي, THEODORE Avilez Ot K56.7 ILEUS, UNSPECIFIED 10/28/2015 CAROLINE العراقي, THEODORE Avilez Ot K91.89 OTH POSTPROCEDURAL COMPLICATIONS AND DIS 10/28/2015 CAROLINE العراقي, THEODORE Avilez Ot L03.311 CELLULITIS OF ABDOMINAL WALL 10/28/2015 CAROLINE العراقي, THEODORE Raghav Ot T81.4XXA INFECTION FOLLOWING A PROCEDURE, INITIAL 11/03/2015 CAROLINE العراقي, THEODORE M Ot K43.6 11/03/2015 CAROLINE العراقي, THEODORE Raghav Ot Z01.812 11/03/2015 CAROLINE العراقي, THEODORE Avilez Ot Z11.2 09/20/2016 BAIMA, WILFRED L CASE PREPARER AND LINER Ot E78.4 OTHER HYPERLIPIDEMIA 09/20/2016 BAIMA, WILFRED L CASE PREPARER AND LINER Ot I10 ESSENTIAL (PRIMARY) HYPERTENSION 09/20/2016 BAIMA, WILFRED L CASE PREPARER AND LINER Ot I25.10 ATHSCL HEART DISEASE OF [place] CORONARY 09/20/2016 BAIMA, WILFRED L CASE PREPARER AND LINER Ot I65.23 OCCLUSION AND STENOSIS OF BILATERAL PITTS 09/21/2016 BAIMA, WILFRED L CASE PREPARER AND LINER Ot E78.4 OTHER HYPERLIPIDEMIA 09/21/2016 BAIMA, WILFRED L CASE PREPARER AND LINER Ot I10 ESSENTIAL (PRIMARY) HYPERTENSION 09/21/2016 BAIMA, WILFRED L CASE PREPARER AND LINER Ot I25.10 ATHSCL HEART DISEASE OF [place] CORONARY 09/21/2016 BAIMA, WILFRED L CASE PREPARER AND LINER Ot I65.23 OCCLUSION AND STENOSIS OF BILATERAL PITTS 09/30/2016 BAIMA, WILFRED L CASE PREPARER AND LINER Ot E78.4 OTHER HYPERLIPIDEMIA 09/30/2016 BAIMA, WILFRED L CASE PREPARER AND LINER Ot I10 ESSENTIAL (PRIMARY) HYPERTENSION 09/30/2016 BAIMA, WILFRED L CASE PREPARER AND LINER Ot I25.10 ATHSCL HEART DISEASE OF [place] CORONARY 09/30/2016 BAIMA, WILFRED L CASE PREPARER AND LINER Ot I65.23 OCCLUSION AND STENOSIS OF BILATERAL PITTS 11/02/2016 BAIMA, WILFRED L CASE PREPARER AND LINER Ot E78.4 OTHER HYPERLIPIDEMIA 11/02/2016 BAIMA, WILFRED L CASE PREPARER AND LINER Ot I10 ESSENTIAL (PRIMARY) HYPERTENSION 11/02/2016 BAIMA, WILFRED L CASE PREPARER AND LINER Ot I25.10 ATHSCL HEART DISEASE OF [place] CORONARY 11/02/2016 BAIMA, WILFRED L CASE PREPARER AND LINER Ot I65.23 OCCLUSION AND STENOSIS OF BILATERAL PITTS 11/03/2016 BAIMA, WILFRED L CASE PREPARER AND LINER Ot E78.4 OTHER HYPERLIPIDEMIA 11/03/2016 BAIWILFRED RIOS L CASE PREPARER AND LINER Ot I10 ESSENTIAL (PRIMARY) HYPERTENSION 11/03/2016 BAIANDERSON RIOSHER L CASE PREPARER AND LINER Ot I25.10 ATHSCL HEART DISEASE OF [place] CORONARY 11/03/2016 BAIWILFRED RIOS L CASE PREPARER AND LINER Ot I65.23 OCCLUSION AND STENOSIS OF BILATERAL PITTS 04/03/2017 JAYLON العراقي FAC, ALI FACP CCDS Ot E78.4 OTHER HYPERLIPIDEMIA 04/03/2017 JAYLON العراقي FAC, ALI FACP CCDS Ot I10 ESSENTIAL (PRIMARY) HYPERTENSION 04/03/2017 JAYLON العراقي FAC, ALI FACP CCDS Ot I25.10 ATHSCL HEART DISEASE OF [place] CORONARY 04/03/2017 JAYLON العراقي FAC, ALI FACP CCDS Ot I49.3 VENTRICULAR PREMATURE DEPOLARIZATION 04/03/2017 JAYLON العراقي FACC, ALI FACP CCDS Ot I65.23 OCCLUSION AND STENOSIS OF BILATERAL PITTS 04/04/2017 ELLIE العراقي, TREVON Escalona Ot D16.22 BENIGN [...] 272.4 HYPERLIPIDEMIA NEC/NOS 11/30/2017 WILFRED TINEO L CASE PREPARER AND LINER Ot 272.4 HYPERLIPIDEMIA NEC/NOS 11/30/2017 WILFRED TINEO CASE PREPARER AND LINER Ot 401.9 HYPERTENSION NOS 11/30/2017 WILFRED TINEO CASE PREPARER AND LINER Ot 414.00 CORON ATHEROSCLER NOS TYPE VESSEL, NATIV 11/30/2017 WILFRED TINEO CASE PREPARER AND LINER Ot V12.51 HX-VENOUS THROMBOSIS EMBOLISM 11/30/2017 ALVARADO, ASHDEN N LOSS PREVENTION LEAD Ot 719.46 JOINT PAIN-L/LEG 11/30/2017 WILFRED TINEO CASE PREPARER AND LINER Ot 272.4 HYPERLIPIDEMIA NEC/NOS 11/30/2017 WILFRED TINEO CASE PREPARER AND LINER Ot 780.79 OTH MALAISE FATIGUE 11/30/2017 WILFRED TINEO CASE PREPARER AND LINER Ot 790.29 OTHER ABNORMAL GLUCOSE 11/30/2017 CAROLINE العراقي, THEODORE Avilez Ot Z01.818 ENCOUNTER FOR OTHER PREPROCEDURAL EXAMIN 11/30/2017 CAROLINE العراقي, THEODORE Avilez Ot K43.6 OTHER AND UNSP VENTRAL HERNIA WITH OBSTR 11/30/2017 CAROLINE العراقي, THEODORE Avilez Ot Z01.812 ENCOUNTER FOR PREPROCEDURAL LABORATORY E 11/30/2017 THEODORE VELAZQUEZ MD Ot Z11.2 ENCOUNTER FOR SCREENING FOR OTHER BACTER 11/30/2017 JAYLON العراقي FACC, LIBRADO FACP CCDS Ot E78.4 OTHER HYPERLIPIDEMIA 11/30/2017 JAYLON العراقي FACC, LIBRADO FACP CCDS Ot I10 ESSENTIAL (PRIMARY) HYPERTENSION 11/30/2017 JAYLON العراقي FACC, ALI FACP CCDS Ot I25.10 ATHSCL HEART DISEASE OF 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 12/01/2017 TREVON ARGUETA MD Ot M17.12 UNILATERAL PRIMARY OSTEOARTHRITIS, LEFT 12/01/2017 AFIA AVERY MD Ot L03.116 CELLULITIS OF LEFT LOWER LIMB 12/01/2017 AFIA AVERY MD Ot Z45.2 ENCOUNTER FOR ADJUSTMENT AND MANAGEMENT 12/04/2017 AFIA AVERY MD Ot M00.9 PYOGENIC ARTHRITIS, UNSPECIFIED 12/13/2017 AFIA AVERY MD, Ot M00.9 PYOGENIC ARTHRITIS, UNSPECIFIED 01/14/2018 AFIA AVERY MD Ot L03.116 CELLULITIS OF LEFT LOWER LIMB 01/14/2018 AFIA AVERY MD, Ot Z45.2 ENCOUNTER FOR ADJUSTMENT AND MANAGEMENT 01/15/2018 AFIA AVERY MD Ot L03.116 CELLULITIS OF LEFT LOWER LIMB 01/15/2018 AFIA AVERY MD Ot Z45.2 ENCOUNTER FOR ADJUSTMENT AND MANAGEMENT 01/26/2018 JAYLON العراقي FACManuel, LIBRADO FACP CCDS Ot E78.4 OTHER HYPERLIPIDEMIA 01/26/2018 JAYLON العراقي FACC, ALI FACP CCDS Ot I10 ESSENTIAL (PRIMARY) HYPERTENSION 01/26/2018 JAYLON العراقي FACManuel, ALI FACP CCDS Ot I25.10 ATHSCL HEART DISEASE OF 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 01/26/2018 TREVON ARGUETA MD Ot M17.12 UNILATERAL PRIMARY OSTEOARTHRITIS, LEFT 01/26/2018 AFIA AVERY MD Ot M00.9 PYOGENIC ARTHRITIS, UNSPECIFIED 01/26/2018 AFIA AVERY MD Ot L03.116 CELLULITIS OF LEFT LOWER LIMB 01/26/2018 BANWART MD, AFIA C Ot Z45.2 ENCOUNTER FOR ADJUSTMENT AND MANAGEMENT 03/14/2018 AFIA AVERY MD, Ot Z47.1 AFTERCARE FOLLOWING JOINT REPLACEMENT CALDERÓN 03/14/2018 AFIA AVERY MD, Ot Z96.651 PRESENCE OF RIGHT ARTIFICIAL KNEE JOINT 03/19/2018 JAYLON العراقي FACC, ALI FACP CCDS Ot E78.4 OTHER HYPERLIPIDEMIA 03/19/2018 JAYLON العراقي FACC, ALI FACP CCDS Ot I10 ESSENTIAL (PRIMARY) HYPERTENSION 03/19/2018 JAYLON العراقي FACC, ALI FACP CCDS Ot I25.10 ATHSCL HEART DISEASE OF 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 03/19/2018 TREVON ARGUETA MD Ot M17.12 UNILATERAL PRIMARY OSTEOARTHRITIS, LEFT 03/19/2018 AFIA AVERY MD Ot M00.9 PYOGENIC ARTHRITIS, UNSPECIFIED 03/19/2018 AFIA AVERY MD Ot L03.116 CELLULITIS OF LEFT LOWER LIMB 03/19/2018 AFIA AVERY MD, Ot Z45.2 ENCOUNTER FOR ADJUSTMENT AND MANAGEMENT 03/19/2018 AFIA AVERY MD, Ot Z47.1 AFTERCARE FOLLOWING JOINT REPLACEMENT CALDERÓN 03/19/2018 AFIA AVERY MD, Ot Z96.651 PRESENCE OF RIGHT ARTIFICIAL KNEE JOINT 03/21/2018 CASE GRACE DOA K Ot G58.9 MONONEUROPATHY, UNSPECIFIED 03/21/2018 QUE GRACE DO K Ot M79.604 PAIN IN RIGHT LEG 03/30/2018 AFIA AVERY MD, Ot Z47.1 AFTERCARE FOLLOWING JOINT REPLACEMENT CALDERÓN 03/30/2018 AFIA AVERY MD, Ot Z96.651 PRESENCE OF RIGHT ARTIFICIAL KNEE JOINT 05/18/2018 GAVINO CARSON DO Ot M47.26 OTHER SPONDYLOSIS WITH RADICULOPATHY, KEESHA 05/18/2018 GAVINO CARSON DO Ot M47.26 OTHER SPONDYLOSIS WITH RADICULOPATHY, KEESHA 05/22/2018 THEODORE VELAZQUEZ MD, Ot Z01.818 ENCOUNTER FOR OTHER PREPROCEDURAL EXAMIN 05/29/2018 THEODORE VELAZQUEZ MD Ot I10 ESSENTIAL (PRIMARY) HYPERTENSION 05/29/2018 THEODORE VELAZQUEZ MD, Ot I25.10 ATHSCL HEART DISEASE OF [place] CORONARY 05/29/2018 THEODORE VELAZQUEZ MD Ot K21.9 GASTRO-ESOPHAGEAL REFLUX DISEASE WITHOUT 05/29/2018 THEODORE VELAZQUEZ MD, Ot K57.30 DVRTCLOS OF LG INT W/O PERFORATION OR AB 05/29/2018 THEODORE VELAZQUEZ MD, Ot Z12.11 ENCOUNTER FOR SCREENING FOR MALIGNANT NE 05/29/2018 THEODORE VELAZQUEZ MD, Ot Z86.718 PERSONAL HISTORY OF OTHER VENOUS THROMBO 05/29/2018 THEODORE VELAZQUEZ MD, Ot Z87.442 PERSONAL HISTORY OF URINARY CALCULI 05/29/2018 THEODORE VELAZQUEZ MD, Ot Z95.5 PRESENCE OF CORONARY ANGIOPLASTY IMPLANT 06/14/2018 YAMILETH PRABHAKAR, GAVINO Silva Ot M47.26 OTHER SPONDYLOSIS WITH RADICULOPATHY, KEESHA 07/11/2018 BENNIE العراقي, AFIA Jackson Ot M00.9 PYOGENIC ARTHRITIS, UNSPECIFIED Procedures There is no data. Results Test Result Range Comprehensive metabolic panel - 09/20/16 07:22 Serum or plasma sodium measurement (moles/volume) [...] /uL NRG Body fluid erythrocytes count (number/volume) 75002 /uL NRG Manual body fluid polymorphonuclear cells/100 [...] Status Pt. Type Provider Facility Loc./Unit Complaint [id number] 05/30/2018 13:04:00 06/14/2018 11:18:00 DIS Outpatient CARSON DO, GAVINO G [facility] REHAB LUMBAR SPONDYLOSIS WITH RADICULOPATHY [id number] 05/28/2018 08:15:00 05/28/2018 10:50:00 DIS Outpatient THEODORE VELAZQUEZ MD [facility] ENDO SCREENING [id number] 05/21/2018 05:36:00 05/21/2018 15:22:00 DIS Outpatient THEODORE VELAZQUEZ MD [facility] PREOP COLONOSCOPY [id number] 03/16/2018 14:44:00 03/30/2018 11:11:00 DIS Outpatient AFIA AVERY MD [facility] REHAB S/P R TKR [id number] 03/19/2018 00:12:00 03/19/2018 01:04:00 DIS Outpatient QUE GRACE DO [facility] ER PINCHED NERVES IN BACK/R LEG PAIN [id number] 01/15/2018 00:23:00 01/15/2018 23:59:59 CLS Preadmit AFIA AVERY MD [facility] CELLULITIS L KNEE [id number] 10/18/2017 07:37:00 01/14/2018 00:01:00 DIS Outpatient AFIA AVERY MD [facility] CELLULITIS L KNEE [id number] 12/01/2017 16:31:00 12/01/2017 23:59:59 CLS Outpatient AFIA AVERY MD [facility] LAB HX SEPTIC L KNEE [id number] 04/03/2017 06:57:00 04/03/2017 23:59:59 CLS Outpatient ELLIE العراقي, TREVON Escalona [facility] RAD M25.562 ADULT HEALTH EXAM HLP SCREENING [id number] 03/21/2017 11:04:00 03/21/2017 23:59:59 CLS Outpatient JAYLON MINERCLIBRADO FACP CCDS [facility] CARD I25.10 CAD [id number] 09/20/2016 07:05:00 09/20/2016 23:59:59 CLS Outpatient WILFRED TINEO [facility] LAB CAD,CAROTID ARTERY NARROWING,HLP,HTN [id number] 10/25/2015 17:15:00 10/28/2015 16:30:00 DIS Inpatient THEODORE VELAZQUEZ MD [facility] 4TH SBO PNEUMONIA S/P LAP VENTRAL HERNIA REPAIR [id number] 10/21/2015 06:02:00 10/23/2015 11:20:00 DIS Outpatient THEODORE VELAZQUEZ MD [facility] INCARCERATED VENTRAL HERNIA [id number] 10/14/2015 09:29:00 10/14/2015 23:59:59 CLS Outpatient THEODORE VELAZQUEZ MD [facility] PREOP INCARCERATED VENTRAL HERNIA [id number] 10/12/2015 10:17:00 10/12/2015 12:25:00 DIS Outpatient THEODORE VELAZQUEZ MD [facility] GERD [id number] 10/09/2015 06:37:00 10/09/2015 23:59:59 CLS Outpatient THEODORE VELAZQUEZ MD [facility] PREOP GERD [id number] 05/12/2015 06:20:00 05/12/2015 23:59:59 CLS Outpatient WILFRED TINEO [facility] LAB MALAISE,FATIGUE, HYPERLIPIDEMIA [id number] 05/12/2015 14:00:00 05/12/2015 16:05:00 DIS Emergency RUCHI MICHELLE LOSS PREVENTION LEAD [facility] ER NECK/SHOULDER/UPPER BODY PAIN NAUSEA [id number] 03/20/2015 08:36:00 03/20/2015 23:59:59 CLS Outpatient MYRNA ALVARADO LOSS PREVENTION LEAD [facility] RAD PAIN IN LOWER LIMB [id number] 03/11/2015 08:02:00 03/11/2015 23:59:59 CLS Outpatient WILFRED TINEO [facility] RAD HX OF DVT [id number] 12/10/2014 10:07:00 12/10/2014 23:59:59 CLS Outpatient WILFRED TINEO [facility] RAD [id number] 12/02/2014 15:30:00 12/02/2014 23:59:59 CLS Outpatient WILFRED TINEO Sundeep HERNANDEZ [facility] RAD [id number] 11/25/2014 06:38:00 11/26/2014 10:39:00 DIS Outpatient JAYLON العراقي FACCLIBRADO FACP CCDS [facility] CATH [id number] 09/18/2018 16:53:00 ACT Emergency SIMONE GAMEZ MD [facility] ER WEAK,NAUSEA,CAN HARDLY STAND,SENT BY TECHNOLOGY ADOPTION MANAGER [id number] 12/24/2014 07:35:00 Document Registration [id number] 11/17/2014 11:48:00 Document Registration [id number] 11/17/2014 11:48:00 Document Registration [id number] 11/17/2014 11:48:00 Document Registration [id number] 11/17/2014 11:48:00 Document Registration [id number] 10/31/2010 21:35:00 Document Registration [id number] 03/11/2010 07:29:00 Document Registration [id number] 10/14/2009 07:32:00 Document Registration [id number] 06/19/2009 06:51:00 Document Registration [id number] 05/12/2015 14:02:04 ACT Document Registration
[2018-09-18 17:38] LABS: BASOPHILS % (AUTO) 0 % (0-10); EOSINOPHILS # (AUTO) 0.1 10^3/uL (0.0-0.3); EOSINOPHILS % (AUTO) 1 % (0-10); HEMATOCRIT 44 % (40-54); HEMOGLOBIN 14.9 G/DL (13.3-17.7); LYMPHOCYTES # (AUTO) 2.3 X 10^3 (1.0-4.0); LYMPHOCYTES % (AUTO) 34 % (12-44); MEAN CORPUSCULAR HEMOGLOBIN 30 PG (25-34); MEAN CORPUSCULAR HGB CONC 34 G/DL (32-36); MEAN CORPUSCULAR VOLUME 88 FL (80-99); MEAN PLATELET VOLUME 10.9 FL (7.4-10.4); MONOCYTES # (AUTO) 0.6 X 10^3 (0.0-1.0); MONOCYTES % (AUTO) 9 % (0-12); NEUTROPHILS # (AUTO) 3.7 X 10^3 (1.8-7.8); NEUTROPHILS % (AUTO) 56 % (42-75); PLATELET COUNT 181 10^3/uL (130-400); RED BLOOD COUNT 4.97 10^6/uL (4.35-5.85); RED CELL DISTRIBUTION WIDTH 13.6 % (10.0-14.5); WHITE BLOOD COUNT 6.7 10^3/uL (4.3-11.0)
[2018-09-18] MEDS ORDERED: HYDR-3063 PO (17:40)
[2018-09-18] MEDS ORDERED: ONDANSETRON 4 MG/2 ML (SDV) Z0FRAN IVP ONE (17:45)
[2018-09-18] MEDS ORDERED: ASPIRIN 81 MG CHEW (CHILDREN'S ASA) PO ONE (17:45)
[2018-09-18 17:46] LABS: INR 1.1 (0.8-1.4); PROTHROMBIN TIME PATIENT 13.8 SEC (12.2-14.7)
[2018-09-18 17:54] LABS: ALANINE AMINOTRANSFERASE 23 U/L (0-55); ALBUMIN 4.7 GM/DL (3.2-4.5); ALKALINE PHOSPHATASE 98 U/L (40-136); BILIRUBIN,TOTAL 1.4 MG/DL (0.1-1.0); BUN/CREATININE RATIO 16; CALCIUM 10.1 MG/DL (8.5-10.1); CARBON DIOXIDE 24 MMOL/L (21-32); CHLORIDE 106 MMOL/L (98-107); CREATININE SERUM 0.87 MG/DL (0.60-1.30); GFR ESTIMATED > 60; GLUCOSE 130 MG/DL (70-105); MAGNESIUM 2.5 MG/DL (1.8-2.4); POTASSIUM 3.9 MMOL/L (3.6-5.0); SODIUM 141 MMOL/L (135-145); TOTAL PROTEIN 7.9 GM/DL (6.4-8.2)
--- NOTE | 2018-09-18 17:57 | Diagnostic Imaging Report ---
INDICATION: Weakness, nausea, vomiting. COMPARISON: 10/16/2017 FINDINGS: Single view of the chest demonstrates stable cardiac enlargement. The lungs are clear. There is no pneumothorax. The osseous structures are normal. IMPRESSION: Stable cardiac enlargement without pulmonary edema or infiltrate. Dictated by: Dictated on workstation # [id number]
[2018-09-18 18:01] LABS: MYOGLOBIN SERUM 54.3 NG/ML (10.0-92.0)
--- NOTE | 2018-09-18 18:25 | ED Chest Pain ---
General Chief Complaint: Chest Pain Stated Complaint: WEAK,NAUSEA,CAN HARDLY STAND,SENT BY [employer]ER[employer]OR Nursing Triage Note: PT AMBULATED TO ROOM 4 PT CO OF CHEST PAIN LAST PM, L ARM PAIN AND NUMBNESS TODAY CO OF BEING VERY WEAK NOT ABLE TO GO TODAY.CO OF NAUSEA Nursing Sepsis Screen: No Definite Risk Source: patient Exam Limitations: no limitations History of Present Illness Date Seen by Provider: Sep 18, 2018 Time Seen by Provider: 17:20 Initial Comments Patient is a 57-year-old male who presents to the emergency room with complaints of chest pain, left arm pain and nausea that started last night and progressed throughout today. He reports that he's also been very weak today and he has not been able to do a lot due to low energy. He has had history of AR and stents in the past. Denies any shortness of breath. Describes the pain as an ache that is substernal and radiates down his left arm. Timing/Duration: 1-2 days Location: substernal Radiation: arms (left) Activities at Onset: none Prior CP/Workup: cardiac cath, heart attack ASA po POWER SHOVEL MECHANIC: No NTG SL POWER SHOVEL MECHANIC: No Associated Symptoms: fatigue, nausea/vomiting, weakness Allergies and Home Medications Allergies Coded Allergies: Modoaqt-Ulp-Hxd Reductase Inhibitor (Verified Allergy, Severe, MUSCLE WEAKNESS, PT TAKE LIPITOR AT HOME, 10/26/15) ezetimibe (Verified Allergy, Unknown, 09/18/18) morphine (Verified Adverse Reaction, Unknown, 05/12/15) Home Medications Alprazolam 1 Mg Tablet, 1 MG PO PRN PRN for ANXIETY, (Reported) Aspirin 81 Mg Tablet.dr, 81 MG PO DAILY, (Reported) Atorvastatin Calcium 10 Mg Tablet, 10 MG PO HS, (Reported) Clopidogrel Bisulfate 75 Mg Tablet, 75 MG PO DAILY, (Reported) Gabapentin 300 Mg Capsule, 600 MG PO BID, (Reported) take 2 (300mg) tab Hydrocodone/Acetaminophen 1 Each Tablet, 1 EACH PO Q4H PRN for PAIN-MODERATE, ( Reported) Metoprolol Succinate 50 Mg Tab.er.24h, 50 MG PO DAILY, (Reported) Oxycodone HCl 40 Mg Tab.er.12h, 40 MG PO Q12H, (Reported) Pantoprazole Sodium 40 Mg Tablet.dr, 40 MG PO DAILY, (Reported) Trazodone HCl 150 Mg Tablet, 150 MG PO HS PRN for SLEEP, (Reported) Patient Home Medication List Home Medication List Reviewed: Yes Review of Systems Review of Systems Constitutional: see HPI, malaise, weakness Cardiovascular: See HPI, Chest Pain Gastrointestinal: See HPI, Nausea All Other Systems Reviewed Negative Unless Noted: Yes Past Bkvunwc-Rkpjsq-Qxzocr Hx Past Med/Social Hx: Reviewed Nursing Past Med/Soc Hx Patient Social History Alcohol Use: Denies Use Recreational Drug Use: No Smoking Status: Never a Smoker Recent Foreign Travel: No Contact w/Someone Who Travel: No Recent Infectious Disease Expo: No Recent Hopitalizations: No Physical Abuse: No Sexual Abuse: No Immunizations Up To Date Tetanus Booster (TDap): More than 5yrs PED Vaccines UTD: No Date of Pneumonia Vaccine: Nov 03, 2014 Seasonal Allergies Seasonal Allergies: Yes (at times) Past Medical History Surgeries: Yes (STENTS IN HEART x2, ESOPHAGEAL STRETCHING, HERNIA REPAIR) Abdominal, Appendectomy, Coronary Stent, Joint Replacement Respiratory: No Currently Using CPAP: No Currently Using BIPAP: No Cardiac: Yes (stents x2) Coronary Artery Disease, Deep Vein Thrombosis, Hypertension Neurological: No Reproductive Disorders: No Sexually Transmitted Disease: No HIV/AIDS: No Kidney Stones Gastrointestinal: Yes (ESOPHAGEAL STRETCHING) Gastroesophageal Reflux Musculoskeletal: Yes (ARTHRITIS ON LEGS/KNEES) Arthritis Endocrine: No Loss of Vision: Bilateral Hearing Impairment: Denies Cancer: No Psychosocial: No Integumentary: No Blood Disorders: No Adverse Reaction/Blood Tranf: No Family Medical History Reviewed Nursing Family Hx Asthma G8 BROTHER Cancer of mouth G8 BROTHER Cardiovascular disease 19 MOTHER Cataracts G8 BROTHER Deafness or hearing loss G8 BROTHER Hypercholesterolemia G8 SISTER Myocardial infarction 19 FATHER No Pertinent Family Hx Physical Exam Vital Signs Vital Signs - First Documented 09/18/18 17:15 Temp 98.0 Pulse 90 Resp 18 B/P (MAP) 140/94 (109) Pulse Ox 99 O2 Delivery Room Air Capillary Refill : Less Than 3 Seconds Height, Weight, BMI Height: 5'11.00" Weight: 280lbs. 0.0oz. 127.429380ta; 38.8 BMI Method:Stated General Appearance: No Apparent Distress, WD/WN Neck: Full Range of Motion, Normal Inspection, Non Tender Respiratory: Chest Non Tender, Lungs Clear, Normal Breath Sounds, No Accessory Muscle Use, No Respiratory Distress Cardiovascular: Regular Rate, Rhythm, No Edema, No Gallop, No JVD, No Murmur, Normal Peripheral Pulses Gastrointestinal: Normal Bowel Sounds, No Organomegaly, No Pulsatile Mass, Non Tender Neurologic/Psychiatric: Alert, Oriented x3, Normal Mood/Affect Skin: Normal Color, Warm/Dry Progress/Results/Core Measures Results/Orders Lab Results Laboratory Tests Test 09/18/18 17:20 Range/Units White Blood Count 6.7 4.3-11.0 10^3/uL Red Blood Count 4.97 4.35-5.85 10^6/uL Hemoglobin 14.9 13.3-17.7 G/DL Hematocrit 44 40-54 % Mean Corpuscular Volume 88 80-99 FL Mean Corpuscular Hemoglobin 30 25-34 PG Mean Corpuscular Hemoglobin Concent 34 32-36 G/DL Red Cell Distribution Width 13.6 10.0-14.5 % Platelet Count 181 130-400 10^3/uL Mean Platelet Volume 10.9 H 7.4-10.4 FL Neutrophils (%) (Auto) 56 42-75 % Lymphocytes (%) (Auto) 34 12-44 % Monocytes (%) (Auto) 9 0-12 % Eosinophils (%) (Auto) 1 0-10 % Basophils (%) (Auto) 0 0-10 % Neutrophils # (Auto) 3.7 1.8-7.8 X 10^3 Lymphocytes # (Auto) 2.3 1.0-4.0 X 10^3 Monocytes # (Auto) 0.6 0.0-1.0 X 10^3 Eosinophils # (Auto) 0.1 0.0-0.3 10^3/uL Basophils # (Auto) 0.0 0.0-0.1 10^3/uL Prothrombin Time 13.8 12.2-14.7 SEC INR Comment 1.1 0.8-1.4 Activated Partial Thromboplast Time 28 24-35 SEC Sodium Level 141 135-145 MMOL/L Potassium Level 3.9 3.6-5.0 MMOL/L Chloride Level 106 98-107 MMOL/L Carbon Dioxide Level 24 21-32 MMOL/L Anion Gap 11 5-14 MMOL/L Blood Urea Nitrogen 14 7-18 MG/DL Creatinine 0.87 0.60-1.30 MG/DL Estimat Glomerular Filtration Rate > 60 BUN/Creatinine Ratio 16 Glucose Level 130 H 70-105 MG/DL Calcium Level 10.1 8.5-10.1 MG/DL Corrected Calcium 8.5-10.1 MG/DL Magnesium Level 2.5 H 1.8-2.4 MG/DL Total Bilirubin 1.4 H 0.1-1.0 MG/DL Aspartate Amino Transf (AST/SGOT) 24 5-34 U/L Alanine Aminotransferase (ALT/SGPT) 23 0-55 U/L Alkaline Phosphatase 98 40-136 U/L Myoglobin 54.3 10.0-92.0 NG/ML Troponin I < 0.30 <0.30 NG/ML B-Type Natriuretic Peptide 29.6 <100.0 PG/ML Total Protein 7.9 6.4-8.2 GM/DL Albumin 4.7 H 3.2-4.5 GM/DL My Orders Orders - NAIMA SIFUENTES Cbc With Automated Diff (09/18/18 17:31) Magnesium (09/18/18:) Chest 1 View, Ap/Pa Only (09/18/18:31) Ekg Tracing (09/18/18:31) Cardiac Profile 1 (09/18/18 17:31) Comprehensive Metabolic Panel (09/18/18:) Myoglobin Serum (09/18/18:31) Protime With Inr (09/18/18:) Partial Thromboplastin Time (09/18/18 17:31) O2 (09/18/18:31) Monitor-Rhythm Ecg Trace Only (09/18/18 17:31) Lipid Panel (09/19/18 06:00) Aspirin Chewable Tablet (Baby Aspirin Ch (09/18/18 17:45) Saline Lock/Iv-Start (09/18/18 17:31) BNP (09/18/18 17:31) Ondansetron Injection (Zofran Injectio (09/18/18 17:45) Medications Given in ED Current Medications Medications Dose Ordered Sig/Lane Route Start Time Stop Time Status Last Admin Dose Admin Aspirin 324 mg ONCE ONCE PO 09/18/18 17:45 09/18/18 17:46 DC 09/18/18 18:12 324 MG Ondansetron HCl 4 mg ONCE ONCE IVP 09/18/18 17:45 09/18/18 17:46 DC 09/18/18 17:57 4 MG Vital Signs/I&O 09/18/18 09/18/18 17:15 17:15 Temp 98.0 Pulse 90 Resp 18 B/P (MAP) 140/94 (109) Pulse Ox 99 O2 Delivery Room Air Blood Pressure Mean: 109 Progress Progress Note : Time: 18:27 Progress Note I have seen and evaluated the patient. I informed him with plans for admission. I spoke to Dr. Hoyt at this time and she agrees to accept the patient to her service with a consult to cardiology. Dr. Santamaria was consulted. Initial ECG Impression Date: Sep 18, 2018 Initial ECG Impression Time: 17:20 Initial ECG Rate: 84 Initial ECG Rhythm: Normal Sinus Initial ECG Intervals: Normal Initial ECG Comparisson: Unchanged Diagnostic Imaging Diagonstic Imaging: Xray Plain Films/CT/US/NM/MRI: chest Comments NAME: BERTHA FELIZ [facility] REC#: [id number] PT STATUS: REG ER : 1960 PHYSICIAN: NAIMA SIFUENTES ADMIT DATE: 09/18/18/ER Signed Date of Exam: 09/18/18 CHEST 1 VIEW, AP/PA ONLY INDICATION: Weakness, nausea, vomiting. COMPARISON: 10/16/2017 FINDINGS: Single view of the chest demonstrates stable cardiac enlargement. The lungs are clear. There is no pneumothorax. The osseous structures are normal. IMPRESSION: Stable cardiac enlargement without pulmonary edema or infiltrate. Dictated by: Dictated on workstation # [id number] Dict: 09/18/181749 Trans: 09/18/181757 Interpreted by: SAMARA WINKLER Electronically signed by: SAMARA WINKLER 09/18/181757 Reviewed: Reviewed by Me Departure Communication (Admissions) Time/Spoke to Admitting Phy: 18:27 Dr. Hoyt Time/Spoke to Consulting Phy: 18:59 Dr. Santamaria Impression Primary Impression: Chest pain Disposition: ADMITTED INPATIENT Condition: Stable/Unchanged Admissions Decision to Admit Reason: Admit from ER (General) Decision to Admit/Date: Sep 18, 2018 Time/Decision to Admit Time: 18:59 Departure-Patient Inst. Referrals: TREVON ARGUETA MD (PCP/Family) Primary Care Physician NAIMA SIFUENTES Sep 18, 2018 18:25
--- OUTSIDE RECORDS SUMMARY | 2018-09-18 19:08 | XMS REPORT | Continuity of Care Document ---
Author Author [facility] Organization [facility] Address Unknown Phone Unavailable Allergies Active Description Code Type Severity Reaction Onset Reported/Identified Relationship to Patient Clinical Status Yes NKANo Known Allergies NKA Miscellaneous Allergy Unknown N/A 12/05/2005 Yes morphine [id number] Drug Allergy Unknown N/A 05/12/2015 Yes Uzizyxw-Odw-Gnc Reductase Inhibitor [id number] Drug Allergy Severe MUSCLE WEAKNESS 10/26/2015 Yes ezetimibe [id number] Drug Allergy Unknown N/A 09/18/2018 Medications There is no data. Problems Date [...] FACP CCDS Ot 414.01 11/26/2014 JAYLON العراقي FAC, LIBRADO FACP CCDS Ot 414.4 11/26/2014 JAYLON MINER, ALI FACP CCDS Ot 427.69 11/26/2014 JAYLON MINER, LIBRADO FACP CCDS Ot V45.82 11/26/2014 JAYLON العراقي FACC, ALI FACP CCDS Ot V58.69 11/26/2014 JAYLON MINER, ALI FACP CCDS Ot V85.36 11/26/2014 Ot 789.06 11/26/2014 Ot 272.4 11/26/2014 Ot V58.69 11/26/2014 Ot 272.4 11/26/2014 Ot 414.01 11/26/2014 Ot V58.69 12/02/2014 Ot 789.06 12/02/2014 Ot 272.4 12/02/2014 Ot V58.69 12/02/2014 Ot 272.4 12/02/2014 Ot 414.01 12/02/2014 Ot V58.69 12/10/2014 Ot 272.4 12/10/2014 Ot V58.69 12/10/2014 Ot 272.4 12/10/2014 Ot 414.01 12/10/2014 Ot V58.69 12/10/2014 BAIMA, WILFRED L MOTORIZED SQUAD LIEUTENANT Ot 453.41 12/18/2014 BAIMA, WILFRED L MOT[employer]ED [employer] Ot 453.41 12/25/2014 BAIMA, WILFRED L MOTORIZED [employer] Ot 729.81 12/25/2014 BAIMA, WILFRED L MOTORIZED [employer] Ot 789.03 04/17/2015 BAIMA, WILFRED L MOTORIZED [employer] Ot 272.4 04/17/2015 BAIMA, WILFRED L MOTORIZED [employer] Ot 401.9 04/17/2015 BAIMA, WILFRED L MOTORIZED [employer] Ot 414.00 04/17/2015 BAIMA, WILFRED L MOTORIZED [employer] Ot V12.51 05/12/2015 RUCHI MICHELLE APRN Ot 414.00 CORON ATHEROSCLER NOS TYPE VESSEL, NATIV 05/12/2015 RUCHI MICHELLE APRN Ot 723.1 CERVICALGIA 05/12/2015 RUCHI MICHELLE APRN Ot 786.52 PAINFUL RESPIRATION 05/12/2015 RUCHI MICHELLE APRN Ot V45.82 PERCUTANEOUS TRANSLUM CORON ANGIOPLASTY 05/12/2015 MICHELLE, PETER J RUBBER MOLDER Ot V58.66 LONG-TERM (CURRENT) USE OF ASPIRIN 05/12/2015 RUCHI MICHELLE RUBBER MOLDER Ot V58.69 OTH MED,LT,CURRENT USE 05/18/2015 BAIMA, WILFRED L MOTORIZED [employer]QU[employer] Ot 272.4 05/18/2015 BAIMA, WILFRED L MOTORIZED [employer] Ot 780.79 05/18/2015 BAIMA, WILFRED L MOTORIZED [employer] Ot 790.29 05/28/2015 BAIMA, WILFRED L MOTORIZED [employer] Ot 272.4 05/28/2015 BAIMA, WILFRED L MOTORIZED [employer] Ot 780.79 05/28/2015 BAIMA, WILFRED L MOTORIZED [employer] Ot 790.29 10/12/2015 CAROLINE العراقي, THEODORE Avilez Ot K44.9 DIAPHRAGMATIC HERNIA WITHOUT OBSTRUCTION 10/12/2015 CAROLINE العراقي, THEODORE Avilez Ot R10.13 EPIGASTRIC PAIN 10/21/2015 Ot 272.4 10/21/2015 BAIMA, WILFRED L MOTORIZED [employer] Ot 272.4 10/21/2015 BAIMA, WILFRED L MOTORIZED [employer] Ot 401.9 10/21/2015 BAIMA, WILFRED L MOTORIZED [employer] Ot 414.00 10/21/2015 BAIMA, WILFRED L MOTORIZED [employer] Ot V12.51 10/21/2015 MYRNA ALVARADO RUBBER MOLDER Ot 719.46 10/21/2015 BAIMA, WILFRED L MOTORIZED [employer] Ot 272.4 10/21/2015 BAIMA, WILFRED L MOTORIZED [employer] Ot 780.79 10/21/2015 BAIMA, WILFRED L MOTORIZED [employer] Ot 790.29 10/21/2015 CAROLINE العراقي, THEODORE Avilez [...] Avilez Ot I25.10 ATHSCL HEART DISEASE OF [place] CORONARY 10/28/2015 CAROLINE العراقي, THEODORE Avilez Ot K21.9 GASTRO-ESOPHAGEAL REFLUX DISEASE WITHOUT 10/28/2015 CAROLINE العراقي, THEODORE Avilez Ot K56.7 ILEUS, UNSPECIFIED 10/28/2015 CAROLINE العراقي, THEODORE M Ot K91.89 OTH POSTPROCEDURAL COMPLICATIONS AND DIS 10/28/2015 CAROLINE العراقي, THEODORE Avilez Ot L03.311 CELLULITIS OF ABDOMINAL WALL 10/28/2015 CAROLINE العراقي, THEODORE Avilez Ot T81.4XXA INFECTION FOLLOWING A PROCEDURE, INITIAL 11/03/2015 CAROLINE العراقي, THEODORE Avilez Ot K43.6 11/03/2015 CAROLINE العراقي, THEODORE Raghav Ot Z01.812 11/03/2015 CAROLINE العراقي, THEODORE Avilez Ot Z11.2 09/20/2016 BAIMA, WILFRED L [employer]ORIZED [employer] Ot E78.4 OTHER HYPERLIPIDEMIA 09/20/2016 BAIMA, WILFRED L [employer]IZED [employer] Ot I10 ESSENTIAL (PRIMARY) HYPERTENSION 09/20/2016 BAIMA, WILFRED L MOTORIZED [employer] Ot I25.10 ATHSCL HEART DISEASE OF [place] CORONARY 09/20/2016 BAIMA, WILFRED L MOTORIZED [employer] Ot I65.23 OCCLUSION AND STENOSIS OF BILATERAL PITTS 09/21/2016 BAIMA, WILFRED L MOTORIZED [employer] Ot E78.4 OTHER HYPERLIPIDEMIA 09/21/2016 BAIMA, WILFRED L MOTORIZED [employer] Ot I10 ESSENTIAL (PRIMARY) HYPERTENSION 09/21/2016 BAIMA, WILFRED L MOTORIZED S[employer] Ot I25.10 ATHSCL HEART DISEASE OF [place] CORONARY 09/21/2016 BAIMA, WILFRED L MOTORIZED SQU[employer] Ot I65.23 OCCLUSION AND STENOSIS OF BILATERAL PITTS 09/30/2016 BAIMA, WILFRED L MOTORIZED [employer] Ot E78.4 OTHER HYPERLIPIDEMIA 09/30/2016 BAIMA, WILFRED L MOTORIZED [employer] Ot I10 ESSENTIAL (PRIMARY) HYPERTENSION 09/30/2016 BAIMA, WILFRED L MOTORIZED [employer] Ot I25.10 ATHSCL HEART DISEASE OF [place] CORONARY 09/30/2016 BAIMA, WILFRED L MOTORIZED SQU[employer] Ot I65.23 OCCLUSION AND STENOSIS OF BILATERAL PITTS 11/02/2016 BAIMA, WILFRED L MOTORIZED [employer] Ot E78.4 OTHER HYPERLIPIDEMIA 11/02/2016 BAIMA, WILFRED L MOTORIZED [employer] Ot I10 ESSENTIAL (PRIMARY) HYPERTENSION 11/02/2016 BAIMA, WILFRED L MOTORIZED [employer] Ot I25.10 ATHSCL HEART DISEASE OF [place] CORONARY 11/02/2016 BAIMA, WILFRED L MOTORIZED SQU[employer] Ot I65.23 OCCLUSION AND STENOSIS OF BILATERAL PITTS 11/03/2016 BAIMAWILFRED L MOTORIZED SQUAD LIEUTENANT Ot E78.4 OTHER HYPERLIPIDEMIA 11/03/2016 BAIMA, WILFRED L MOTORIZED [employer] Ot I10 ESSENTIAL (PRIMARY) HYPERTENSION 11/03/2016 BAIMA, WILFRED L MOTORIZED [employer] Ot I25.10 ATHSCL HEART DISEASE OF [place] CORONARY 11/03/2016 BAIMAANDERSONWILFRED L MOTORIZED SQUAD LIE[employer]ENANT Ot I65.23 OCCLUSION AND STENOSIS OF BILATERAL PITTS 04/03/2017 JAYLON العراقي FAC, ALI FACP CCDS Ot E78.4 OTHER HYPERLIPIDEMIA 04/03/2017 JAYLON العراقي FAC, ALI FACP CCDS Ot I10 ESSENTIAL (PRIMARY) HYPERTENSION 04/03/2017 JAYLON العراقي FAC, ALI FACP CCDS Ot I25.10 ATHSCL HEART DISEASE OF [place] CORONARY 04/03/2017 JAYLON العراقي FAC, ALI FACP CCDS Ot I49.3 VENTRICULAR PREMATURE DEPOLARIZATION 04/03/2017 JAYLON العراقي FAC, ALI FACP CCDS Ot I65.23 OCCLUSION AND [...] OF LEFT LOWER LIMB 10/18/2017 AFIA AVERY MD Ot Z45.2 ENCOUNTER FOR ADJUSTMENT AND MANAGEMENT 10/18/2017 AFIA AVERY MD Ot L03.116 CELLULITIS OF LEFT LOWER LIMB 10/18/2017 AFIA AVERY MD, Ot Z45.2 ENCOUNTER FOR ADJUSTMENT AND MANAGEMENT 11/30/2017 Ot 272.4 HYPERLIPIDEMIA NEC/NOS 11/30/2017 BAIMA, WILFRED L MOTORIZED [employer]QU[employer] Ot 272.4 HYPERLIPIDEMIA NEC/NOS 11/30/2017 BAIMA WILFRED L MOTORIZED SQU[employer] Ot 401.9 HYPERTENSION NOS 11/30/2017 RIVKA WILFRED L MOTORIZED SQU[employer]ENANT Ot 414.00 CORON ATHEROSCLER NOS TYPE VESSEL, NATIV 11/30/2017 RIVKA WILFRED L MOTORIZED SQU[employer]ENA[employer] Ot V12.51 HX-VENOUS THROMBOSIS EMBOLISM 11/30/2017 MYRNA ALVARADO RUBBER MOLDER Ot 719.46 JOINT PAIN-L/LEG 11/30/2017 WILFRED TINEO MOTORIZED SQU[employer]ENANT Ot 272.4 HYPERLIPIDEMIA NEC/NOS 11/30/2017 WILFRED TINEO MOTORIZED SQU[employer] Ot 780.79 OTH MALAISE FATIGUE 11/30/2017 WILFRED TINEO MOTORIZED [employer]QU[employer] Ot 790.29 OTHER ABNORMAL GLUCOSE 11/30/2017 CAROLINE العراقي, THEODORE Avilez Ot Z01.818 ENCOUNTER FOR OTHER PREPROCEDURAL EXAMIN 11/30/2017 THEODORE VELAZQUEZ MD Ot K43.6 OTHER AND UNSP VENTRAL HERNIA WITH OBSTR 11/30/2017 CAROLINE العراقي, THEODORE Avilez Ot Z01.812 ENCOUNTER FOR PREPROCEDURAL LABORATORY E 11/30/2017 THEODORE VELAZQUEZ MD Ot Z11.2 ENCOUNTER FOR SCREENING FOR OTHER BACTER 11/30/2017 JAYLON العراقي FACC, ALI FACP CCDS Ot E78.4 OTHER HYPERLIPIDEMIA 11/30/2017 JAYLON العراقي FACC, ALI FACP CCDS Ot I10 ESSENTIAL (PRIMARY) HYPERTENSION 11/30/2017 JAYLON العراقي FACC, ALI FACP CCDS Ot I25.10 ATHSCL HEART DISEASE OF [place] CORONARY 11/30/2017 JAYLON العراقي FACC, ALI FACP [...] ADJUSTMENT AND MANAGEMENT 12/01/2017 JAYLON العراقي FACC, ALI FACP CCDS Ot E78.4 OTHER HYPERLIPIDEMIA 12/01/2017 JAYLON العراقي FACC, ALI FACP CCDS Ot I10 ESSENTIAL (PRIMARY) HYPERTENSION 12/01/2017 JAYLON العراقي FACC, ALI FACP CCDS Ot I25.10 ATHSCL HEART DISEASE OF [place] CORONARY 12/01/2017 JAYLON MINER, ALI FACP CCDS Ot I49.3 VENTRICULAR PREMATURE DEPOLARIZATION 12/01/2017 JAYLON العراقي FACManuel, ALI FACP CCDS Ot [...] OF LEFT LOWER LIMB 01/14/2018 AFIA AVERY MD Ot Z45.2 ENCOUNTER FOR ADJUSTMENT AND MANAGEMENT 01/15/2018 AFIA AVERY MD Ot L03.116 CELLULITIS OF LEFT LOWER LIMB 01/15/2018 AFIA AVERY MD Ot Z45.2 ENCOUNTER FOR ADJUSTMENT AND MANAGEMENT 01/26/2018 JAYLON العراقي [facility], LIBRADO FACP CCDS Ot E78.4 OTHER HYPERLIPIDEMIA 01/26/2018 JAYLON MINER, ALI FACP CCDS Ot I10 ESSENTIAL (PRIMARY) HYPERTENSION 01/26/2018 JAYLON العراقي FACC, ALI FACP CCDS Ot I25.10 ATHSCL HEART DISEASE OF [place] CORONARY 01/26/2018 JAYLON العراقي FAC, ALI FACP CCDS Ot [...] Z47.1 AFTERCARE FOLLOWING JOINT REPLACEMENT CALDERÓN 03/14/2018 AIFA AVERY MD, Ot Z96.651 PRESENCE OF RIGHT ARTIFICIAL KNEE JOINT 03/19/2018 JAYLON العراقي FAC, ALI FACP CCDS Ot E78.4 OTHER HYPERLIPIDEMIA 03/19/2018 JAYLON العراقي FACC, ALI FACP CCDS Ot I10 ESSENTIAL (PRIMARY) HYPERTENSION 03/19/2018 JAYLON العراقي FAC, ALI FACP CCDS Ot I25.10 ATHSCL HEART DISEASE OF [place] CORONARY 03/19/2018 JAYLON العراقي FACC, ALI FACP [...] PRESENCE OF RIGHT ARTIFICIAL KNEE JOINT 03/21/2018 QUE GRACE DO Ot G58.9 MONONEUROPATHY, UNSPECIFIED 03/21/2018 QUE GRACE DO Ot M79.604 PAIN IN RIGHT LEG 03/30/2018 AFIA AVERY MD Ot Z47.1 AFTERCARE FOLLOWING JOINT REPLACEMENT CALDERÓN [...] MD, Ot I25.10 ATHSCL HEART DISEASE OF [place] CORONARY 05/29/2018 THEODORE VELAZQUEZ MD, Ot K21.9 GASTRO-ESOPHAGEAL REFLUX DISEASE WITHOUT 05/29/2018 [...] Z95.5 PRESENCE OF CORONARY ANGIOPLASTY IMPLANT 06/14/2018 GAVINO CARSON DO Ot M47.26 OTHER SPONDYLOSIS WITH RADICULOPATHY, KEESHA 07/11/2018 AFIA AVERY MD, Ot M00.9 PYOGENIC ARTHRITIS, UNSPECIFIED 09/18/2018 AFIA AVERY MD Ot L03.116 CELLULITIS OF LEFT LOWER LIMB 09/18/2018 AFIA AVERY MD, Ot Z45.2 ENCOUNTER FOR ADJUSTMENT AND MANAGEMENT Procedures There is no data. Results Test [...] /uL NRG Body fluid erythrocytes count (number/volume) 07763 /uL NRG Manual body fluid polymorphonuclear cells/100 leukocytes 8 % NRG Manual body fluid mononuclear cells/100 leukocytes 0 % NRG Manual body fluid lymphocytes/100 leukocytes 92 % NRG Other cells/100 leukocytes in body fluid by manual count 0 % NRG Glucose body fluid - 12/01/17 16:44 Glucose body fluid 90 mg/dL NR Body fluid total protein measurement - 12/01/17 16:44 Body fluid total protein measurement 4.8 g/dL NRG Gram stain microscopy - 12/01/17 16:44 GRAM STAIN RESULT NO BACTERIA NRG Bacterial body fluid culture - 12/01/17 16:44 Bacterial body fluid culture [facility] Bacteria identification in isolate by anaerobe culture - 12/01/17 16:44 Bacteria identification in isolate by anaerobe culture [facility] * Body fluid crystals type by light microscopy - 12/01/17 16:50 * Body fluid crystals type by light microscopy NOT SEEN NRG Complete blood count (CBC) with automated white blood cell (WBC) differential - 09/18/18 17:20 Blood leukocytes automated count (number/volume) 6.7 10*3/uL 4.3-11.0 Blood erythrocytes automated count (number/volume) 4.97 10*6/uL 4.35-5.85 Venous blood hemoglobin measurement (mass/volume) 14.9 g/dL 13.3-17.7 Blood hematocrit (volume fraction) 44 % 40-54 Automated erythrocyte mean corpuscular volume 88 [foz_us] 80-99 Automated erythrocyte mean corpuscular hemoglobin (mass per erythrocyte) 30 pg 25-34 Automated erythrocyte mean corpuscular hemoglobin concentration measurement ( mass/volume) 34 g/dL 32-36 Automated erythrocyte distribution width ratio 13.6 % 10.0-14.5 Automated blood platelet count (count/volume) 181 10*3/uL 130-400 Automated blood platelet mean volume measurement 10.9 [foz_us] 7.4-10.4 Automated blood neutrophils/100 leukocytes 56 % 42-75 Automated blood lymphocytes/100 leukocytes 34 % 12-44 Blood monocytes/100 leukocytes 9 % 0-12 Automated blood eosinophils/100 leukocytes 1 % 0-10 Automated blood basophils/100 leukocytes 0 % 0-10 Blood neutrophils automated count (number/volume) 3.7 10*3 1.8-7.8 Blood lymphocytes automated count (number/volume) 2.3 10*3 1.0-4.0 Blood monocytes automated count (number/volume) 0.6 10*3 0.0-1.0 Automated eosinophil count 0.1 10*3/uL 0.0-0.3 Automated blood basophil count (count/volume) 0.0 10*3/uL 0.0-0.1 PT panel in platelet poor plasma by coagulation assay - 09/18/18 17:20 Prothrombin time (PT) in platelet poor plasma by coagulation assay 13.8 s 12.2-14.7 INR in platelet poor plasma or blood by coagulation assay 1.1 0.8-1.4 Activated partial thromboplastin time (aPTT) in platelet poor plasma bycoagulation assay - 09/18/18 17:20 Activated partial thromboplastin time (aPTT) in platelet poor plasma bycoagulation assay 28 s 24-35 Comprehensive metabolic panel - 09/18/18 17:20 Serum or plasma sodium measurement (moles/volume) 141 mmol/L 135-145 Serum or plasma potassium measurement (moles/volume) 3.9 mmol/L 3.6-5.0 Serum or plasma chloride measurement (moles/volume) 106 mmol/L 98-107 Carbon dioxide 24 mmol/L 21-32 Serum or plasma anion gap determination (moles/volume) 11 mmol/L 5-14 Serum or plasma urea nitrogen measurement (mass/volume) 14 mg/dL 7-18 Serum or plasma creatinine measurement (mass/volume) 0.87 mg/dL 0.60-1.30 Serum or plasma urea nitrogen/creatinine mass ratio 16 NRG Serum or plasma creatinine measurement with calculation of estimated glomerular filtration rate > NRG Serum or plasma glucose measurement (mass/volume) 130 mg/dL 70-105 Serum or plasma calcium measurement (mass/volume) 10.1 mg/dL 8.5-10.1 Serum or plasma total bilirubin measurement (mass/volume) 1.4 mg/dL 0.1-1.0 Serum or plasma alkaline phosphatase measurement (enzymatic activity/volume) 98 U/L 40-136 Serum or plasma aspartate aminotransferase measurement (enzymatic activity/ volume) 24 U/L 5-34 Serum or plasma alanine aminotransferase measurement (enzymatic activity/volume ) 23 U/L 0-55 Serum or plasma protein measurement (mass/volume) 7.9 g/dL 6.4-8.2 Serum or plasma albumin measurement (mass/volume) 4.7 g/dL 3.2-4.5 Magnesium - 09/18/18 17:20 Magnesium 2.5 mg/dL 1.8-2.4 Serum or plasma troponin i.cardiac measurement (mass/volume) - 09/18/18 17:20 Serum or plasma troponin i.cardiac measurement (mass/volume) < ng/ mL <0.30 Serum or plasma lithium measurement (moles/volume) - 09/18/18 17:20 BNP level 29.6 pg/mL <100.0 Myoglobin, serum - 09/18/18 17:20 Myoglobin, serum 54.3 ng/mL 10.0-92.0 Encounters ACCT No. Visit Date/Time Discharge Status Pt. Type Provider Facility Loc./Unit Complaint [id number] 05/30/2018 13:04:00 06/14/2018 11:18:00 DIS Outpatient GAVINO CARSON DO [facility] REHAB LUMBAR SPONDYLOSIS WITH RADICULOPATHY [id number] 05/28/2018 08:15:00 05/28/2018 10:50:00 DIS Outpatient THEODORE VELAZQUEZ MD [facility] ENDO SCREENING [id number] 05/21/2018 05:36:00 05/21/2018 15:22:00 DIS Outpatient THEODORE VELAZQUEZ MD [facility] PREOP COLONOSCOPY [id number] 03/16/2018 14:44:00 03/30/2018 11:11:00 DIS Outpatient AFIA AVERY MD [facility] REHAB S/P R TKR [id number] 03/19/2018 00:12:00 03/19/2018 01:04:00 DIS Outpatient SANJAY QUE PRABHAKAR [facility] ER PINCHED NERVES IN BACK/R LEG PAIN [id number] 01/15/2018 00:23:00 01/15/2018 23:59:59 CLS Preadmit AFIA AVERY MD [facility] CELLULITIS L KNEE [id number] 10/18/2017 07:37:00 01/14/2018 00:01:00 DIS Outpatient AFIA AVERY MD [facility] CELLULITIS L KNEE [id number] 12/01/2017 16:31:00 12/01/2017 23:59:59 CLS Outpatient AFIA AVERY MD [facility] LAB HX SEPTIC L KNEE [id number] 04/03/2017 06:57:00 04/03/2017 23:59:59 CLS Outpatient ELLIE العراقي, TREVON Escalona [facility] RAD M25.562 ADULT HEALTH EXAM HLP SCREENING [id number] 03/21/2017 11:04:00 03/21/2017 23:59:59 CLS Outpatient JAYLON العراقي FACC, LIBRADO JACOB CCDS [facility] CARD I25.10 CAD [id number] 09/20/2016 07:05:00 09/20/2016 23:59:59 CLS Outpatient WILFRED TINEO [facility] LAB CAD,CAROTID ARTERY NARROWING,HLP,HTN [id number] 10/25/2015 17:15:00 10/28/2015 16:30:00 DIS Inpatient THEODORE VELAZQUEZ MD [facility] 4TH SBO PNEUMONIA S/P LAP VENTRAL HERNIA REPAIR [id number] 10/21/2015 06:02:00 10/23/2015 11:20:00 DIS Outpatient THEODORE VELAZQUEZ MD [facility] INCARCERATED VENTRAL HERNIA [id number] 10/14/2015 09:29:00 10/14/2015 23:59:59 CLS Outpatient THEODORE VELAZQUEZ MD [facility] PREOP INCARCERATED VENTRAL HERNIA [id number] 10/12/2015 10:17:00 10/12/2015 12:25:00 DIS Outpatient THEODORE VELAZQUEZ MD [facility] GERD [id number] 10/09/2015 06:37:00 10/09/2015 23:59:59 CLS Outpatient THEODORE VELAZQUEZ MD [facility] PREOP GERD [id number] 05/12/2015 06:20:00 05/12/2015 23:59:59 CLS Outpatient WILFRED TINEO [facility] LAB MALAISE,FATIGUE, HYPERLIPIDEMIA [id number] 05/12/2015 14:00:00 05/12/2015 16:05:00 DIS Emergency RUCHI MICHELLE APRN [facility] ER NECK/SHOULDER/UPPER BODY PAIN NAUSEA [id number] 03/20/2015 08:36:00 03/20/2015 23:59:59 CLS Outpatient MYRNA ALVARADO APRN [facility] RAD PAIN IN LOWER LIMB [id number] 03/11/2015 08:02:00 03/11/2015 23:59:59 CLS Outpatient WILFRED TINEO [facility] RAD HX OF DVT [id number] 12/10/2014 10:07:00 12/10/2014 23:59:59 CLS Outpatient WILFRED TINEOP [facility] RAD [id number] 12/02/2014 15:30:00 12/02/2014 23:59:59 CLS Outpatient WILFRED TINEOP [facility] RAD [id number] 11/25/2014 06:38:00 11/26/2014 10:39:00 DIS Outpatient JAYLON العراقي FACC, LIBRADO JACOB CCDS [facility] [id number] 09/18/2018 19:01:00 ACT Inpatient SAMUEL العراقي, VIANNEY Avilez [facility] 4TH CHEST PAIN [id number] 12/24/2014 07:35:00 Document Registration [id number] 11/17/2014 11:48:00 Document Registration [id number] 11/17/2014 11:48:00 Document Registration [id number] 11/17/2014 11:48:00 Document Registration [id number] 11/17/2014 11:48:00 Document Registration [id number] 10/31/2010 21:35:00 Document Registration [id number] 03/11/2010 07:29:00 Document Registration [id number] 10/14/2009 07:32:00 Document Registration [id number] 06/19/2009 06:51:00 Document Registration [email or web address] 05/12/2015 14:02:04 ACT Document Registration
[2018-09-18 23:41] LABS: CREATINE KINASE 113 U/L (30-200)
[2018-09-19 00:06] VITALS: BP 154/83
[2018-09-19] MEDS ORDERED: NITROGLYCERIN 0.4 MG SL TABS BTL 25'S SL PRN (02:15)
[2018-09-19 04:08] VITALS: BP 147/81
[2018-09-19 06:27] LABS: BASOPHILS % (AUTO) 1 % (0-10); EOSINOPHILS # (AUTO) 0.1 10^3/uL (0.0-0.3); EOSINOPHILS % (AUTO) 2 % (0-10); HEMATOCRIT 42 % (40-54); HEMOGLOBIN 13.8 G/DL (13.3-17.7); LYMPHOCYTES % (AUTO) 37 % (12-44); MEAN CORPUSCULAR HEMOGLOBIN 29 PG (25-34); MEAN CORPUSCULAR HGB CONC 33 G/DL (32-36); MEAN CORPUSCULAR VOLUME 89 FL (80-99); MEAN PLATELET VOLUME 11.2 FL (7.4-10.4); MONOCYTES # (AUTO) 0.6 X 10^3 (0.0-1.0); MONOCYTES % (AUTO) 12 % (0-12); NEUTROPHILS # (AUTO) 2.6 X 10^3 (1.8-7.8); NEUTROPHILS % (AUTO) 48 % (42-75); PLATELET COUNT 152 10^3/uL (130-400); RED BLOOD COUNT 4.71 10^6/uL (4.35-5.85); RED CELL DISTRIBUTION WIDTH 13.6 % (10.0-14.5); WHITE BLOOD COUNT 5.4 10^3/uL (4.3-11.0)
[2018-09-19 06:49] LABS: ALANINE AMINOTRANSFERASE 17 U/L (0-55); ALBUMIN 4.1 GM/DL (3.2-4.5); ALKALINE PHOSPHATASE 81 U/L (40-136); BILIRUBIN,TOTAL 1.2 MG/DL (0.1-1.0); BUN/CREATININE RATIO 17; CALCIUM 9.1 MG/DL (8.5-10.1); CARBON DIOXIDE 24 MMOL/L (21-32); CHLORIDE 107 MMOL/L (98-107); CHOLESTEROL 128 MG/DL (< 200); CREATINE KINASE 95 U/L (30-200); CREATININE SERUM 0.83 MG/DL (0.60-1.30); GFR ESTIMATED > 60; GLUCOSE 102 MG/DL (70-105); HDL CHOLESTEROL 38 MG/DL (40-60); POTASSIUM 4.2 MMOL/L (3.6-5.0); SODIUM 141 MMOL/L (135-145); TOTAL PROTEIN 6.6 GM/DL (6.4-8.2); TRIGLYCERIDES 72 MG/DL (<150); VLDL CHOLESTEROL 14 MG/DL (5-40)
[2018-09-19 08:00] VITALS: BP 156/90
[2018-09-19] MEDS ORDERED: ASPIRIN E.C. 81 MG (ECOTRIN) TAB PO SCH (09:00)
[2018-09-19] MEDS ORDERED: HYDR80TA PO (09:34)
[2018-09-19] MEDS ORDERED: MELO7.5T46 PO (09:36)
[2018-09-19 12:00] VITALS: BP 131/92
--- NOTE | 2018-09-19 12:44 | Short Stay Summary-Hospitalist ---
History of Present Illness HPI/Chief Complaint Pt is a 57yoCM with a PMH of CAD and [place] who presented to the ERe with CC of nausea and weakness. He states he felt very weak yesterday and and was hardly able to get out of bed. He states he was lightheaded during this and was nauseated. He did not have any chest pain but had some left side pain. He did not think his symptoms were similar to his previous heart attack. He was found to have a a negative troponin but was admitted for ACS rule out and cardiology evaluation. Source: patient Date Seen 09/19/18 Time Seen by a Provider: 12:01 Attending Physician Vianney Hoyt MD PCP Nacho Bill MD Referring Physician Date of Admission Sep 18, 2018 at 7:01 pm Home Medications & Allergies Home Medications Reviewed patient Home Medication Reconciliation performed by pharmacy medication reconciliations claim technician and/or nursing. Patients Allergies have been reviewed. Allergies Allergies Coded Allergies Bphhgiw-Jep-Qnr Reductase Inhibitor (Verified Allergy, Severe, MUSCLE WEAKNESS , PT TAKE LIPITOR AT HOME, 10/26/15) ezetimibe (Verified Allergy, Unknown, 09/18/18) morphine (Verified Adverse Reaction, Unknown, 05/12/15) Past Ypajtzs-Gnucwh-Fqcrus Hx Past Med/Social Hx: Reviewed Nursing Past Med/Soc Hx Patient Social History Alcohol Use: Denies Use Recreational Drug Use: No Smoking Status: Never a Smoker Physical Abuse Screen: No Sexual Abuse: No Recent Foreign Travel: No Contact w/other who traveled: No Recent Hopitalizations: No Recent Infectious Disease Expo: No Immunizations Up To Date Tetanus Booster (TDap): More than 5yrs Pediatric: No Date of Pneumonia Vaccine: Nov 03, 2014 Date of Influenza Vaccine: Aug 18, 2018 Seasonal Allergies Seasonal Allergies: Yes (at times) Past Medical History Surgeries: Abdominal, Appendectomy, Coronary Stent, Joint Replacement Currently Using CPAP: No Currently Using BIPAP: No Cardiac: Coronary Artery Disease, Deep Vein Thrombosis, Hypertension Reproductive: No Sexually Transmitted Disease: No HIV/AIDS: No Genitourinary: Kidney Stones Gastrointestinal: Gastroesophageal Reflux Musculoskeletal: Arthritis Loss of Vision: Bilateral Hearing Impairment: Denies Psychosocial: Anxiety History of Blood Disorders: No Adverse Reaction to Blood Meek: No Family History Reviewed Nursing Family Hx Asthma G8 BROTHER Cancer of mouth G8 BROTHER Cardiovascular disease 19 MOTHER Cataracts G8 BROTHER Deafness or hearing loss G8 BROTHER Hypercholesterolemia G8 SISTER Myocardial infarction 19 FATHER No Pertinent Family Hx Review of Systems Constitutional: diaphoresis EENTM: No blurred vision, No double vision, No nose congestion, No throat pain Respiratory: short of breath Cardiovascular: see HPI Gastrointestinal: nausea Genitourinary: No dysuria, No frequency Musculoskeletal: No joint pain, No muscle pain Skin: No lesions, No rash Psychiatric/Neurological: Denies Headache, Denies Numbness, Denies Tingling Physical Exam Physical Exam Vital Signs Vital Signs - First Documented 09/18/18 17:15 Temp 98.0 Pulse 90 Resp 18 B/P (MAP) 140/94 (109) Pulse Ox 99 O2 Delivery Room Air Capillary Refill : Less Than 3 Seconds Height, Weight, BMI Height: 5'11.00" Weight: 264lbs. 10.0oz. [id number]; 36.9 BMI Method:Stated General Appearance: No Apparent Distress, WD/WN HEENT: PERRL/EOMI, Moist Mucous Membranes Neck: Non Tender, Supple Respiratory: Lungs Clear, No Respiratory Distress Cardiovascular: Regular Rate, Rhythm, No Murmur Gastrointestinal: Normal Bowel Sounds, Non Tender, Soft Extremity: Normal Capillary Refill, No Calf Tenderness Neurologic/Psychiatric: Alert, Oriented x3, Normal Mood/Affect Skin: Normal Color, Warm/Dry Results Results/Procedures Labs Patient resulted labs reviewed. Imaging: Reviewed Imaging Report Short Stay Diagnosis Discharge Diagnosis-Short Stay Admission Diagnosis Chest Pain Final Discharge Diagnosis Atypical Chest Pain Conclusion Plan Atypical chest pain Has personal history of CAD and stents Serial Troponins negative Discussed with Dr Santamaria who will attempt to get close follow up for outpatient stress test Attempted to get echo prior to discharge but patient elected to leave AMA prior to it getting done Diagnosis/Problems Diagnosis/Problems (1) CAD (coronary artery disease) Qualifiers: Qualified Codes: I25.10 - Atherosclerotic heart disease of [place] coronary artery without angina pectoris (2) Chest pain Status: Acute Qualifiers: Qualified Codes: R07.89 - Other chest pain Clinical Quality Measures AMI/AHF: ASA po Prior to arrival: No DVT/VTE Risk/Contraindication: Risk Factor Score Per Nursin RFS Level Per Nursing on Admit: 2=Moderate VIANNEY HOYT MD Sep 19, 2018 12:43
--- NOTE | 2018-09-19 13:13 | Discharge Inst-Simple/Standard ---
Discharge Inst-Standard Patient Instructions/Follow Up Plan of Care/Instructions/FU: Please continue to take your medications as written. Please follow up with your PCP as recommended below. Activity as Tolerated: Yes Discharge Diet: Cardiac Diet Return to The Hospital For: Chest pain, shortness of breath, if you feel you are getting worse. VIANNEY BAKER MD Sep 19, 2018 1:13 pm
--- NOTE | 2018-09-19 13:21 | Consultation-Cardiology ---
HPI-Cardiology Cardiology Consultation: Date of Consultation 09/19/18 Date of Admission Attending Physician Katey Hoyt MD Admitting Physician Nacho Bill MD Consulting Physician Raghav SANTAMARIA MD HPI: Time Seen by a Provider: 12:30 Chief Complaint: Chest pain This is a 57-year-old gentleman who sees Dr. Lopes as an outpatient. He has history of CAD with PCI in 2004 and in 2014. The patient also had an NE in 2004. He complained of chest pain radiating to the left arm with nausea. He also felt weakness as well. Substernal with radiation. No shortness of breath , syncope or near syncope. Moderate intensity with no exacerbating or relieving factors. Review of Systems-Cardiology Review of Systems Constitutional: As described under HPI; No As described under HPI, No no symptoms reported, No chills, No fever, No lightheadedness Eyes: No As described under HPI, No no symptoms reported, No blindness, No blurred vision, No contact lenses, No drainage, No decreased acuity, No foreign body sensation, No pain, No vision change Ears/Nose/Throat: No As described under HPI, No no symptoms reported, No chronic hearing loss, No ear discharge, No ear pain, No nasal drainage, No ulcerations Respiratory: No no symptoms reported; As described under HPI; No As described under HPI, No cough, No orthopnea, No shortness of breath, No SOB with excertion Cardiovascular: No no symptoms reported; As described under HPI; No As described under HPI; chest pain; No edema, No irregular heart rate, No lightheadedness, No palpitations Gastrointestinal: No no symptoms reported, No As described under HPI, No abdomen distended, No abdominal pain, No blood streaked bowels, No constipation , No diarrhea, No nausea, No vomiting, No stool coloration changes Genitourinary: No As described under HPI, No burning, No dysuria, No discharge , No frequency, No flank pain, No hematuria, No urgency Skin: No rash, No skin related problems, No ulcerations Psychiatric/Neurological: No anxiety, No depression, No seizure, No focal weakness, No syncope Hematologic: No bleeding abnormalities All Other Systems Reviewed Negative Unless Noted: Yes [facility] Hx Patient Social History Alcohol Use: Denies Use Recreational Drug Use: No Smoking Status: Never a Smoker Recent Foreign Travel: No Recent Infectious Disease Expo: No Hospitalization with Isolation: Denies Physical Abuse Screen: No Sexual Abuse: No Immunizations Up To Date Tetanus Booster (TDap): More than 5yrs Date of Pneumonia Vaccine: Nov 03, 2014 Date of Influenza Vaccine: Aug 18, 2018 Past Medical History PMH As described under Assessment. Family Medical History Family History: Asthma G8 BROTHER Cancer of mouth G8 BROTHER Cardiovascular disease 19 MOTHER Cataracts G8 BROTHER Deafness or hearing loss G8 BROTHER Hypercholesterolemia G8 SISTER Myocardial infarction 19 FATHER Allergies and Home Medications Allergies Coded Allergies: Pljapoz-Hzj-Pdv Reductase Inhibitor (Verified Allergy, Severe, MUSCLE WEAKNESS, PT TAKE LIPITOR AT HOME, 10/26/15) ezetimibe (Verified Allergy, Unknown, 09/18/18) morphine (Verified Adverse Reaction, Unknown, 05/12/15) Home Medications Alprazolam 1 Mg Tablet, 1 MG PO BID PRN for ANXIETY, (Reported) Aspirin 81 Mg Tablet.dr, 81 MG PO DAILY, (Reported) Atorvastatin Calcium 10 Mg Tablet, 10 MG PO HS, (Reported) Clopidogrel Bisulfate 75 Mg Tablet, 75 MG PO DAILY, (Reported) Gabapentin 300 Mg Capsule, 300 MG PO HS, (Reported) Hydrocodone Bitartrate 80 Mg Tab.er.24h, 80 MG PO HS, (Reported) Meloxicam 7.5 Mg Tablet, 7.5 MG PO BID, (Reported) Metoprolol Succinate 50 Mg Tab.er.24h, 50 MG PO DAILY, (Reported) Pantoprazole Sodium 40 Mg Tablet.dr, 40 MG PO DAILY, (Reported) Trazodone HCl 150 Mg Tablet, 150 MG PO HS PRN for SLEEP, (Reported) Patient Home Medication List Home Medication List Reviewed: Yes Physical Exam-Cardiology Physical Exam Vital Signs/I&O 09/19/18 09/19/18 09/19/18 09/19/18 08:00 08:00 12:00 13:00 Temp 98.0 98.0 Pulse 80 80 79 Resp 20 16 B/P (MAP) 156/90 (112) 131/92 (105) Pulse Ox 95 97 O2 Delivery Room Air Room Air Room Air 09/19/18 00:00 Intake Total 570 ml Output Total 125 ml Balance 445 ml Capillary Refill : Less Than 3 Seconds Constitutional: appears stated age; No apparent distress; well-developed, well- nourished HEENT: PERRL; No normal ENT inspection, No TMs normal, No pharynx normal, No scleral icterus (R), No scleral icterus (L), No pale conjunctivae (R), No pale conjunctivae (L), No photophobia, No TM abnormal (R), No TM abnormal (L), No pharyngeal erythema, No tonsillar exudate, No other, No discharge, No EOMI; hearing is well preserved; No hard of hearing; oral hygience is good; No ulceration, No xanthelasmas are seen Neck: No non-tender, No full range of motion, No supple, No normal inspection, No carotid bruit, No limited range of motion, No lymphadenopathy (R), No lymphadenopathy (L), No tender lateral, No tender midline, No thyromegaly, No other; carotid pulses are 2 + bilaterally; No with good upstrokes Respiratory: No accessory muscle use, No respiratory distress, No chest tender , No chest expansion is symmetric; chest is bilaterally symmetric; No lungs clear to percussion; lungs clear to auscultation; No crackles, No rhonchi, No rales, No stridor, No wheezing, No pleural rub, No other Cardiovascular: regular rate-rhythm; No irregularly irregular, No extra beats, No parasternal heave is noted, No JVD, No edema, No bradycardia, No tachycardia , No point of maximal impulse, No cardiac thrills are palpable; S1 and S2; No gallop/S3, No gallop/S4, No diastolic murmur, No systolic murmur, No friction rub, No click, No other Gastrointestinal: No tender, No soft, No round, No distended, No pulsatile mass , No organomegaly, No guarding, No rebound, No tenderness, No hernia, No mass, No audible bowel sounds, No abnormal bowel sounds, No abdominal bruits, No spleenomegaly, No other Rectal: deferred Extremities: No normal range of motion, No non-tender, No normal inspection, No pedal edema, No calf tenderness, No normal capillary refill, No pelvis stable , No calf tenderness, No inflammation, No pedal edema, No slow capillary refill , No swelling, No other, No abrasion, No clubbing, No cyanosis, No ecchymosis, No laceration, No no lower extremity edema bilateral, No significant edema, No tenderness, No wound Neurologic/Psychiatric: no motor/sensory deficits, alert, normal mood/affect, oriented x 3, power is 5/5 both on sides Skin: No normal color, No warm/dry, No cyanosis, No cool, No diaphoresis, No damp, No ecchymosis, No jaundice, No mottled, No pallor, No rash, No tattoos/ piercings, No ulcerations, No rash on exposed areas, No ulcerations on exposed areas, No other Data Review Labs Laboratory Tests 09/18/18 23:15: Total Creatine Kinase 113, Troponin I < 0.30 09/19/18 05:25: Total Creatine Kinase 95, Troponin I < 0.30, White Blood Count 5.4, Red Blood Count 4.71, Hemoglobin 13.8, Hematocrit 42, Mean Corpuscular Volume 89, Mean Corpuscular Hemoglobin 29, Mean Corpuscular Hemoglobin Concent 33, Red Cell Distribution Width 13.6, Platelet Count 152, Mean Platelet Volume 11.2H, Neutrophils (%) (Auto) 48, Lymphocytes (%) (Auto) 37, Monocytes (%) (Auto) 12, Eosinophils (%) (Auto) 2, Basophils (%) (Auto) 1, Neutrophils # (Auto) 2.6, Lymphocytes # (Auto) 2.0, Monocytes # (Auto) 0.6, Eosinophils # (Auto) 0.1, Basophils # (Auto) 0.0, Sodium Level 141, Potassium Level 4.2, Chloride Level 107, Carbon Dioxide Level 24, Anion Gap 10, Blood Urea Nitrogen 14, Creatinine 0.83, Estimat Glomerular Filtration Rate > 60, BUN/Creatinine Ratio 17, Glucose Level 102, Calcium Level 9.1, Corrected Calcium 9.0, Total Bilirubin 1.2H, Aspartate Amino Transf (AST/SGOT) 20, Alanine Aminotransferase (ALT/SGPT) 17, Alkaline Phosphatase 81, Myoglobin 32.0, Total Protein 6.6, Albumin 4.1, Triglycerides Level 72, Cholesterol Level 128, LDL Cholesterol Direct 78, VLDL Cholesterol 14, HDL Cholesterol 38L ECG Impression ECG Initial ECG Rhythm: Normal Sinus Initial ECG Impression: Normal A/P-Cardiology Assessment/Admission Diagnosis Chest pain, CAD, Hypertension, Hyperlipidemia Plan Chest pain: Acute coronary syndrome ruled out with negative serial troponin and negative EKG. Nuclear stress test is recommended but patient would like to get it done as an outpatient. I have recommended that he follows with Dr. Lopes on Monday. If he has any further chest pain he should seek immediate medical attention. CAD: Continue dual antiplatelet therapy. Hyperlipidemia: Continue statin therapy. LDL is on target. Hypertension: Well controlled. Thank you for your consultation. Please call me if you have any questions. Marla Santamaria MD, FACP, FACC, FSCAI, FHRS, CCDS Interventional Cardiology Cardiac Electrophysiology Vascular Medicine and Endovascular Interventions Clinical Quality Measures AMI/AHF: ASA po Prior to arrival: No DVT/VTE Risk/Contraindication: Risk Factor Score Per Nursin RFS Level Per Nursing on Admit: 2=Moderate Raghav SANTAMARIA MD Sep 19, 2018 13:21
== END 2018-09-19 13:15 | disposition left against medical advice (07) ==
LOC: EDUNIT# 16:52 → ER 16:53 → 4TH 19:01 → UNDOADMOB 19:01 → 4TH 19:55 → UNDODISOB 09-19 14:30
PROVIDERS: ADMIT Family Medicine; ATTEND Family Medicine
DX: R07.89 Other chest pain (principal); I25.10 Atherosclerotic heart disease of native coronary artery without angina pectoris; I10 Essential (primary) hypertension; R53.1 Weakness; K21.9 Gastro-esophageal reflux disease without esophagitis; F41.9 Anxiety disorder, unspecified; I25.2 Old myocardial infarction; Z95.5 Presence of coronary angioplasty implant and graft; Z79.82 Long term (current) use of aspirin; Z79.899 Other long term (current) drug therapy; Z86.718 Personal history of other venous thrombosis and embolism
CPT/HCPCS: 36415; 71045; 80053; 80061; 82550; 83735; 83874; 83880; 84484; 85025; 85610; 85730; 93005; 93041; 93306; G0378

== ENCOUNTER 2018-09-25 09:39 | Day surgery (SDC) | payer BC ==
[~2018-09-25] VITALS: Ht 180.3 cm; Wt 123.8 kg
[~2018-09-25 09:39] MED LIST changes: +HYDR-3063 PO; +HYDR80TA PO; +MELO7.5T46 PO
[2018-09-25] MEDS ORDERED: LIDOCAINE 1% INJ 20 ML 20 ML VIAL ONE (09:45)
[2018-09-25] MEDS ORDERED: HEParin (CATH LAB) 2,000 ML IV ONE (09:45)
[2018-09-25] MEDS ORDERED: NS IV 1000 ML 1,000 ML ONE ×2 (09:45→15:10)
[2018-09-25 10:22] VITALS: BP 125/83
[2018-09-25] MEDS: NS IV 1000 ML 1,000 ML IV SCH ×2 (10:26→15:34)
[2018-09-25 10:29] LABS: HEMOGLOBIN 14.4 G/DL (13.3-17.7); MEAN PLATELET VOLUME 10.7 FL (7.4-10.4); RED BLOOD COUNT 4.83 10^6/uL (4.35-5.85); RED CELL DISTRIBUTION WIDTH 14.1 % (10.0-14.5); WHITE BLOOD COUNT 6.2 10^3/uL (4.3-11.0)
[2018-09-25] MEDS ORDERED: NORT25CA3 PO (10:32)
[2018-09-25 10:44] LABS: INR 1.1 (0.8-1.4); PROTHROMBIN TIME PATIENT 13.9 SEC (12.2-14.7)
[2018-09-25 10:52] LABS: ALANINE AMINOTRANSFERASE 23 U/L (0-55); ALBUMIN 4.3 GM/DL (3.2-4.5); ALKALINE PHOSPHATASE 88 U/L (40-136); BILIRUBIN,TOTAL 1.7 MG/DL (0.1-1.0); BUN/CREATININE RATIO 18; CARBON DIOXIDE 21 MMOL/L (21-32); CHLORIDE 109 MMOL/L (98-107); CHOLESTEROL 144 MG/DL (< 200); CREATININE SERUM 0.84 MG/DL (0.60-1.30); GFR ESTIMATED > 60; GLUCOSE 105 MG/DL (70-105); HDL CHOLESTEROL 40 MG/DL (40-60); SODIUM 141 MMOL/L (135-145); TOTAL PROTEIN 7.1 GM/DL (6.4-8.2); TRIGLYCERIDES 66 MG/DL (<150); VLDL CHOLESTEROL 13 MG/DL (5-40)
[2018-09-25] MEDS ORDERED: fentaNYL INJECTION 100 MCG/2 ML AMP ONE (14:06)
[2018-09-25] MEDS ORDERED: MIDAZOLAM 5 MG/5 ML (VERSED) VIAL ONE (14:06)
[2018-09-25] MEDS ORDERED: ADENOSINE 3 MG/1 ML (ADENOSCAN) 30ML VIAL IV ONE ×2 (14:57→15:20)
[2018-09-25] MEDS ORDERED: HEParin 1000 UNIT/ML (10ML VIAL) FOR BOLUS ONE (14:57)
[2018-09-25] MEDS ORDERED: NITRO DRIP 25000 MCG/D5W 250 ML IV ONE (15:11)
[2018-09-25] MEDS ORDERED: EPTIFIBATIDE BOLUS 20 ML IV ONE (15:12)
[2018-09-25] MEDS ORDERED: EPTIFIBATIDE BOLUS 10 ML IV ONE (15:15)
[2018-09-25] MEDS ORDERED: ASPIRIN 81 MG CHEW (CHILDREN'S ASA) ONE (16:00)
[2018-09-25] MEDS ORDERED: CLOPIDOGREL 300 MG (PLAVIX) TABLET PO ONE (16:00)
[2018-09-25] MEDS ORDERED: NS IV 1000 ML 1,000 ML IV SCH (16:14)
--- NOTE | 2018-09-25 16:14 | Cardiac Procedure Note-CS/ASA ---
Pre-Procedure Note Pre-Op Procedure Note H&P Reviewed The H&P was reviewed, patient examined and no changes noted. Date H&P Reviewed: Sep 25, 2018 Time H&P Reviewed: 15:10 Conscious Sedation Pre-Proced Time 15:10 ASA Score 3 For ASA 3 and 4: Consider anesthesia and medical clearance. Also, for patients with a history of failed moderate sedation consider anesthesia. Airway Lungs Heart ASA score ASA 1: a normal healthy patient ASA 2: a patient with a mild systemic disease (mid diabetes, controlled hypertension, obesity ASA 3: a patient with a severe systemic disease that limits activity (angina , COPD, prior Myocardial infarction) ASA 4: a patient with an incapacitating disease that is a constant threat to life (CHF, renal failure) ASA 5: a moribund patient not expected to survive 24 hrs. (ruptured aneurysm) ASA 6: a declared brain patient whose organs are being harvested. For emergent operations, add the letter E after the classification Mallampati Classification Grade 2 Sedation Plan Analgesia, Amnesia, Plan communicated to team members, Discussed options with patient/fam, Discussed risks with patient/fam The patient is an appropriate candidate to undergo the planned procedure, sedation, and anesthesia. The patient immediately re-assessed prior to indication. LIBRADO IYER MD FACP FAC CCDS Sep 25, 2018 16:14
[2018-09-25] MEDS ORDERED: ALPRAZolam 1 MG (XANAX) TAB PO PRN (16:15)
[2018-09-25] MEDS ORDERED: PATIENT MAY USE OWN MEDS, ALL PO SCH (16:15)
[2018-09-25] MEDS ORDERED: traZODone 150 MG (DESYREL) TABLET PO PRN (16:15)
[2018-09-25 18:00] VITALS: BP 132/92
[2018-09-25 20:00] VITALS: BP 129/80
[2018-09-25] MEDS: MELOXICAM 7.5 MG (MOBIC) TABLET PO SCH (20:17)
[2018-09-25] MEDS ORDERED: HYDROCODONE PO SCH (21:00)
[2018-09-25] MEDS ORDERED: GABAPENTIN 300 MG (NEURONTIN) CAP PO SCH (21:00)
[2018-09-25] MEDS ORDERED: HYDROCODONE BITARTRATE 80 MG PO SCH (21:00)
[2018-09-25] MEDS ORDERED: ATORVASTATIN 10 MG (LIPITOR) TABLET PO SCH (21:00)
--- NOTE | 2018-09-25 21:42 | CARDIAC CATHETERIZATION ---
DATE OF SERVICE: 09/25/2018 CARDIAC CATHETERIZATION AND CORONARY INTERVENTION REPORT The patient is a 57-year-old man who is known to have coronary artery disease and has had stenting of the mid left anterior descending and the first diagonal of the left anterior descending artery a few years back. He has lately started to have chest discomfort suggestive of recurrent angina. Cardiac catheterization was carried out today after having obtained an informed consent for cardiac catheterization and possible ad hoc coronary intervention. PROCEDURE: He was brought to the cardiac catheterization laboratory in a fasting state. Right groin was prepared and draped in usual sterile fashion. A 1% lidocaine was used for local anesthesia. Modified Seldinger technique was used to advance a 5-Turkish sheath in the right femoral artery. We used 5-Turkish JL4 catheter for left coronary angiography and 5-Turkish JR4 catheter for right coronary angiography. We used a 5-Turkish pigtail catheter for left heart catheterization, left ventricular angiography. FRACTIONAL FLOW RESERVE MEASUREMENT IN THE RIGHT CORONARY ARTERY: Following completion of the diagnostic procedure, we carried out fractional flow reserve measurement in the right coronary artery, which was exhibiting 60% to 70% stenosis in the mid right coronary artery. We exchanged the sheath over a wire for a 6-Turkish sheath. We gave 8000 units of intravenous heparin. We used 6-Turkish JR4 guide catheter to engage the right coronary artery. We used pressure wire X (PWX), which was advanced across the mid right coronary artery lesion and the tip of the wire was placed in the posterior descending branch of the right coronary artery. We gave adenosine 140 mcg per kilogram per minute infusion. The fractional flow reserve was measured at 0.79, indicating hemodynamic significance. PERCUTANEOUS INTERVENTION TO THE RIGHT CORONARY ARTERY: Because the mid right coronary artery lesion was hemodynamically significant, as indicated by a significant fractional flow reserve measurement, we stented the mid right coronary artery with Xience Alma 4.0 x 18 mm stent that was deployed at 16 atmospheres. Subsequent angiography revealed 0% residual stenosis at the previous site of 70% stenosis in the mid right coronary artery. Flow throughout the vessel is normal. The distal right coronary artery, prior to the origin of the posterior descending branch has approximately 40% stenosis, which was not intervened on. Prior to the intervention procedure, we did initiate a double bolus of Integrilin, weight-based. FRACTIONAL FLOW RESERVE MEASUREMENT IN THE OBTUSE MARGINAL OF THE LEFT CIRCUMFLEX ARTERY: Following completion of the intervention procedure of the right coronary artery, we carried out fractional flow reserve measurement in the first obtuse marginal branch of the left circumflex artery that was exhibiting approximately 60% to 70% angiographic stenosis. We removed right coronary guide catheter and advanced JL4 guide catheter to engage the left coronary artery and advanced the same pressure wire across the lesion in the first obtuse marginal branch with moderate difficulty and the tip was placed in the distal vessel. We gave adenosine infusion 140 mcg per kilogram per minute. Fractional flow reserve was 0.79, indicating hemodynamic significance and we proceeded with percutaneous intervention as noted below. PERCUTANEOUS INTERVENTION TO THE FIRST OBTUSE MARGINAL BRANCH OF THE LEFT CIRCUMFLEX ARTERY: Over the pressure wire X, we advanced Emerge 2.0 x 20 mm balloon and balloon angioplasty was carried out in the proximal and ostial first obtuse marginal branch of the left circumflex artery reducing the stenosis from approximately 70% to less than 40%. Flow throughout the vessel was normal and he tolerated the procedure well. The angioplasty equipment was then removed. Angiography of the right femoral artery was carried out through the sheath. Mynx was used to achieve hemostasis. He tolerated the procedure well. HEMODYNAMICS: Left ventricular end-diastolic pressure following coronary angiography was 21 mmHg. There is no significant pressure gradient on pullback across the aortic valve. The ascending aortic pressure was 123/75 with a mean of 85 mmHg. CORONARY ANGIOGRAPHY: Diffuse moderate coronary calcification is seen and involving all three coronary vessels. Left main coronary artery does not exhibit significant obstructive disease. Left anterior descending artery has patent stents in its mid portion and in the proximal portion of his first diagonal branch. The left anterior descending artery has diffuse mild to moderate disease. The stent in the mid left anterior descending artery is known to be Promus Premier 3.0 mm x 32 mm and the stent in the first diagonal branch, left anterior descending artery is known to the Taxus 2.5 x 16 mm. The left circumflex artery had diffuse mild to moderate disease. The first obtuse marginal branch, left circumflex artery had 70% ostial and proximal stenosis with a fractional flow reserve 0.79 and balloon angioplasty was carried out to this lesion reducing the stenosis to less than 40%. The right coronary artery is large and dominant and had a 70% mid vessel stenosis. Fractional flow reserve 0.79 and the stenting was carried out to this mid vessel lesion with Alma 4.0 x 18 mm stent with reduction of stenosis to 0% residual. CONCLUSIONS: 1. Coronary artery disease as detailed above. Left main coronary artery does not have significant disease. Left anterior descending artery has previously placed patent stents, Promus Premier 3.0 mm x 32 mm in the mid left anterior descending and a Taxus 2.5 x 16 mm in the first diagonal branch. The first obtuse marginal branch of the left circumflex artery had 70% stenosis to which successful balloon angioplasty was carried out with reduction of stenosis to less than 40%. The right coronary artery had 70% mid vessel stenosis to which successful stenting was carried out with Alma 4.0 x 18 mm stent. 2. Elevated left ventricular end-diastolic pressure. 3. Normal global left ventricular systolic function with ejection fraction approximately 60%. DISCUSSION AND RECOMMENDATIONS: He is being admitted for overnight observation. Dual antiplatelet therapy and previous cardiac regimen are being continued. Job ID: [id number] DocumentID: [id number] Dictated Date: 09/25/2018 16:08:27 Hydro Generation Manager Date: 09/25/2018 21:41:12 Dictated By: LIBRADO IYER MD, MA, FACP, FACC, MTDD
[2018-09-26] VITALS: BP 142/77
[2018-09-26 02:00] VITALS: BP 144/88
[2018-09-26 03:00] VITALS: BP 114/71
[2018-09-26 03:21] LABS: HEMOGLOBIN 13.6 G/DL (13.3-17.7); MEAN PLATELET VOLUME 11.1 FL (7.4-10.4); RED BLOOD COUNT 4.44 10^6/uL (4.35-5.85); WHITE BLOOD COUNT 5.2 10^3/uL (4.3-11.0)
[2018-09-26 03:39] LABS: BUN/CREATININE RATIO 15; CALCIUM 8.7 MG/DL (8.5-10.1); CARBON DIOXIDE 21 MMOL/L (21-32); CHLORIDE 109 MMOL/L (98-107); CREATININE SERUM 0.78 MG/DL (0.60-1.30); GFR ESTIMATED > 60; GLUCOSE 111 MG/DL (70-105); POTASSIUM 3.9 MMOL/L (3.6-5.0); SODIUM 140 MMOL/L (135-145)
[2018-09-26 05:00] VITALS: BP 122/73
[2018-09-26] MEDS: NS IV 1000 ML 1,000 ML IV SCH (05:11)
[2018-09-26 07:00] VITALS: BP 134/97
[2018-09-26] MEDS ORDERED: PANTOPRAZOLE 40 MG (PROTONIX) TAB PO SCH (07:00)
--- NOTE | 2018-09-26 07:59 | Progress Note-Cardiology ---
Cardiology SOAP Progress Note Subjective: Sitting up in bed. Denies any c/o CP, dyspnea, palpitations, syncope or near syncope. No c/o right groin pain. Objective: I&O/Vital Signs 09/26/18 09/26/18 09/26/18 09/26/18 00:00 01:00 02:00 03:00 Pulse 62 62 61 66 Resp 12 14 7 B/P (MAP) 142/77 (98) 144/88 (106) 114/71 (85) O2 Delivery Room Air Room Air Room Air 09/26/18 09/26/18 09/26/18 09/26/18 05:00 07:00 07:00 07:42 Temp 98.6 Pulse 61 66 66 Resp 11 12 B/P (MAP) 122/73 (89) 134/97 (109) O2 Delivery Room Air Room Air 09/26/18 08:00 Pulse Ox 97 O2 Delivery Room Air 09/26/18 00:00 Intake Total 1000 ml Balance 1000 ml Weight (Pounds): 273 Weight (Ounces): 0.0 Weight (Calculated Kilograms): 123.396890 Side: right Groin site without hematoma: Yes Condition: DP/PT pulses palpable, extremity w/d/p Bruising: mild bruising Constitutional: AAO x 3 Respiratory: No accessory muscle use, No respiratory distress; chest expansion is symmetric, chest is bilaterally symmetric, lungs clear to auscultation Cardiovascular: regular rate-rhythm; No JVD; S1 and S2 Gastrointestional: No tender; soft, round, audible bowel sounds Extremities: no lower extremity edema bilateral Neurologic/Psychiatric: grossly intact Skin: No rash, No ulcerations Results/Procedures: Labs Laboratory Tests 09/25/18 10:20: White Blood Count 6.2, Red Blood Count 4.83, Hemoglobin 14.4, Hematocrit 43, Mean Corpuscular Volume 88, Mean Corpuscular Hemoglobin 30, Mean Corpuscular Hemoglobin Concent 34, Red Cell Distribution Width 14.1, Platelet Count 171, Mean Platelet Volume 10.7H, Prothrombin Time 13.9, INR Comment 1.1, Activated Partial Thromboplast Time 27, Sodium Level 141, Potassium Level 4.0, Chloride Level 109H, Carbon Dioxide Level 21, Anion Gap 11, Blood Urea Nitrogen 15, Creatinine 0.84, Estimat Glomerular Filtration Rate > 60, BUN/Creatinine Ratio 18, Glucose Level 105, Calcium Level 9.0, Corrected Calcium 8.8, Total Bilirubin 1.7H, Aspartate Amino Transf (AST/SGOT) 22, Alanine Aminotransferase ( ALT/SGPT) 23, Alkaline Phosphatase 88, Total Protein 7.1, Albumin 4.3, Triglycerides Level 66, Cholesterol Level 144, LDL Cholesterol Direct 92, VLDL Cholesterol 13, HDL Cholesterol 40 09/26/18 03:00: White Blood Count 5.2, Red Blood Count 4.44, Hemoglobin 13.6, Hematocrit 39L, Mean Corpuscular Volume 88, Mean Corpuscular Hemoglobin 31, Mean Corpuscular Hemoglobin Concent 35, Red Cell Distribution Width 14.0, Platelet Count 159, Mean Platelet Volume 11.1H, Sodium Level 140, Potassium Level 3.9, Chloride Level 109H, Carbon Dioxide Level 21, Anion Gap 10, Blood Urea Nitrogen 12, Creatinine 0.78, Estimat Glomerular Filtration Rate > 60, BUN/Creatinine Ratio 15, Glucose Level 111H, Calcium Level 8.7 Procedures S/P cardiac cath with successful intervention on 09-25-18. Please refer to Dr Lopes's cardiac cath report for details. A/P: Assessment: Coronary artery disease. Last card cath on 09/25/18: Left main coronary artery does not have significant disease. Left anterior descending artery has previously placed patent stents, Promus Premier 3.0 mm x 32 mm in the mid left anterior descending and a Taxus 2.5 x 16 mm in the first diagonal branch. The first obtuse marginal branch of the left circumflex artery had 70% stenosis to which successful balloon angioplasty was carried out with reduction of stenosis to less than 40%. The right coronary artery had 70% mid vessel stenosis to which successful stenting was carried out with Alma 4.0 x 18 mm stent. LVEF was 60% MPI of February 2017 showed no evidence of significant myocardial ischemia or infarction. Normal regional wall motion LVEF 71% Mild bilat carotid art disease on u/s of 08/18/18 Hyperlipidemia Relative intolerance to statin. Currently on low dose statin and able to tolerate it well Chronic ventral abdominal hernia Impaired fasting glucose GERD H/o esophageal stricture that was dilated several years ago PVCs Hypertension Obesity, with BMI approx 38 Suspected sleep apnea Plan: Discussed results of cardiac cath Risk factor modification advised Continue current medication regimen including statin, ASA, Plavix and BB Out pt f/u in a week Will make out pt referral for sleep studies d/t suspected sleep apnea Physician Assessment Physician Assessment No cp or palp or syncope or shortness of breath or groin discomfort. Wishes to go home Lung: good bilat air entry Cor: reg Ext: no c/c/e No significant groin swelling, mild bruising, palp distal pulses A&R: * As documented in our note above that I updated (italics) * I had a detailed discussion with him and his and explained the procedures and interventions undertaken * We discussed risk factor mod * We recommended sleep studies and outpt f/u. He agrees. Arrangements are being made WLIFRED TINEO [employer] START ASSISTANT TEACHER Sep 26, 2018 07:59 LIBRADO LOPES MD [facility] Sep 26, 2018 09:32
[2018-09-26] MEDS: MELOXICAM 7.5 MG (MOBIC) TABLET PO SCH (08:34)
--- NOTE | 2018-09-26 08:46 | Discharge Inst-Cardiology ---
Discharge Inst-Cardiac Discharge Medications Continued Medications: Alprazolam (Alprazolam) 1 Mg Tablet 1 MG PO BID PRN for ANXIETY, TAB Aspirin (Aspirin EC) 81 Mg Tablet.dr 81 MG PO DAILY, TAB Atorvastatin Calcium (Atorvastatin Calcium) 10 Mg Tablet 10 MG PO HS, TAB Clopidogrel Bisulfate (Clopidogrel) 75 Mg Tablet 75 MG PO DAILY, TAB Gabapentin (Gabapentin) 300 Mg Capsule 300 MG PO HS, CAP Hydrocodone Bitartrate (Hysingla ER) 80 Mg Tab.er.24h 80 MG PO HS, TAB Meloxicam (Meloxicam) 7.5 Mg Tablet 7.5 MG PO BID, TAB Metoprolol Succinate (Metoprolol Succinate) 50 Mg Tab.er.24h 50 MG PO DAILY, TAB Pantoprazole Sodium (Pantoprazole Sodium) 40 Mg Tablet.dr 40 MG PO DAILY, TAB Trazodone HCl (Trazodone HCl) 150 Mg Tablet 150 MG PO HS PRN for SLEEP, TAB Patient Instructions Patient Instructions: Please schedule out pt follow up appointment to see Dr. Lopes in one week WILFRED TINEO Sep 26, 2018 08:45
[2018-09-26] MEDS ORDERED: CLOPIDOGREL 75 MG (PLAVIX) TABLET PO SCH (09:00)
[2018-09-26] MEDS ORDERED: ASPIRIN 81 MG CHEW (CHILDREN'S ASA) PO SCH (09:00)
[2018-09-26] MEDS ORDERED: meTOproloL SUCCINATE 50 MG (TOPROL XL) TAB PO SCH (09:00)
== END 2018-09-26 09:17 | disposition home or self-care (01) ==
LOC: CATH 09:39 → ICU 16:12 → CATH 09-26 09:17
PROVIDERS: ATTEND Internal Medicine Cardiovascular Disease
DX: I25.10 Atherosclerotic heart disease of native coronary artery without angina pectoris (principal); I10 Essential (primary) hypertension; E78.5 Hyperlipidemia, unspecified; I65.23 Occlusion and stenosis of bilateral carotid arteries; I49.3 Ventricular premature depolarization; R73.01 Impaired fasting glucose; K21.9 Gastro-esophageal reflux disease without esophagitis; E66.9 Obesity, unspecified; Z68.38 Body mass index [BMI] 38.0-38.9, adult; Z79.82 Long term (current) use of aspirin; Z79.899 Other long term (current) drug therapy; Z95.5 Presence of coronary angioplasty implant and graft
CPT/HCPCS: 36415; 80048; 80053; 80061; 85027; 85610; 85730; 87081; 93005; 93458

== ENCOUNTER 2018-11-25 22:54 | Emergency (ER) | payer BC ==
[~2018-11-25] VITALS: Ht 180.3 cm; Wt 124.7 kg
[~2018-11-25 22:54] MED LIST changes: +NORT25CA3 PO
[2018-11-25 23:34] LABS: CLARITY,URINE CLEAR; COLOR,URINE AMBER; GLUCOSE, URINE (UA) NEGATIVE (NEGATIVE); KETONES,URINE NEGATIVE (NEGATIVE); LEUKOCYTE ESTERASE ,URINE 1+ (NEGATIVE); NITRITE,URINE POSITIVE (NEGATIVE); PH,URINE 6 (5-9); PROTEIN,URINE NEGATIVE (NEGATIVE); UROBILINOGEN,URINE 4 MG/DL (NORMAL)
[2018-11-25 23:59] LABS: BACTERIA,URINE NEGATIVE /HPF; BILIRUBIN,URINE 1+ (NEGATIVE); SQUAMOUS EPITHELIAL CELL,UR 0-2 /HPF; WBC,URINE 0-2 /HPF
[2018-11-26] MEDS ORDERED: ORPHENADRINE 60 MG/2 ML (NORFLEX) AMP IM ONE
[2018-11-26] MEDS ORDERED: diphenhydrAMINE 50 MG/ML INJ (BENADRYL) IM ONE
[2018-11-26] MEDS ORDERED: KETOROLAC 60 MG/2 ML VIAL IM ONE
[2018-11-26] MEDS ORDERED: TIZA4CAP PO (00:15)
[2018-11-26] MEDS ORDERED: SULF1TAB35 PO (00:15)
[2018-11-26] MEDS ORDERED: RX-TRIMETH/SULFA. 160-800 MG (BACTRIM DS) TAB PPK#2 PO STA (00:15)
--- NOTE | 2018-11-26 00:15 | ED Back Pain ---
General Chief Complaint: Back Problems Stated Complaint: BACK PAIN Nursing Triage Note: Patient advises that he has been experiencing severe back pain since monday that has become progressively worse. He advises that the pain radiates down both legs and into his groin area. He advises hx of tension in L4 and L5 and received injections last year. Nursing Sepsis Screen: No Definite Risk Source of Information: Patient History of Present Illness Date Seen by Provider: Nov 25, 2018 Time Seen by Provider: 23:15 Initial Comments PT ARRIVES VIA POV FROM HOME C/O LOWER BACK PAIN SINCE MONDAY / 1 WEEK AGO NO INJURY OR UNUSUAL ACTIVITY HAS CHRONIC LOWER BACK PAIN AND STATES HE "WAS SUPPOSED TO HAVE SURGERY ON IT LAST YEAR" BUT DID NOT GO THROUGH WITH IT. HAS HAD INJECTIONS IN HIS BACK, OVER A YEAR AGO, FOR THIS PROBLEM. ALSO STATES HE WAS TOLD HE NEEDED LEFT KNEE REPLACEMENT BUT HAS NOT GONE THROUGH WITH THAT EITHER. HAS HAD RIGHT KNEE REPLACEMENT IN THE PAST. STATES HE HAS "L4-L5 RESTRICTIONS" STATES PAIN ALWAYS GOES DOWN INTO BOTH OF HIS LEGS, BUT STATES FOR THE LAST WEEK IT HAS ALSO BEEN RADIATING TO HIS GROIN AND RECTAL AREA WELL NO PARESTHESIAS OR MOTOR DEFICITS NO PROBLEMS WITH BOWEL FUNCTION--IS ALWAYS CONSTIPATED DUE TO CHRONIC NARCOTIC USE, AND TAKES STOOL SOFTENERS, AND HAS HAD 2 BM'S TODAY HAS CHRONIC URINARY URGENCY AND FREQUENCY, BUT HAS BEEN WORSE "LATELY" . NO INCONTINENCE. NO PAIN OR BURNING ON URINATION. PT TAKES HYDROCODONE 10/325 MG EVERY 4 HOURS EVERY DAY, ALSO TAKES MELOXICAM DAILY--STATES IT IS NOT HELPING Other Comments PCP: DR. ARGUETA ORTHOPEDIC SURGEON: DR. CARSON [facility] STATES--HAS AN APPOINTMENT ON MONDAY FOR THIS PROBLEM 11/27/18 Allergies and Home Medications Allergies Coded Allergies: Cexpvcc-Qzy-Usf Reductase Inhibitor (Verified Allergy, Severe, MUSCLE WEAKNESS, PT TAKE LIPITOR AT HOME, 11/25/18) ezetimibe (Verified Allergy, Unknown, 11/25/18) morphine (Verified Adverse Reaction, Unknown, 11/25/18) Home Medications Alprazolam 1 Mg Tablet, 1 MG PO BID PRN for ANXIETY, (Reported) Aspirin 81 Mg Tablet., 81 MG PO DAILY, (Reported) Atorvastatin Calcium 10 Mg Tablet, 10 MG PO HS, (Reported) Clopidogrel Bisulfate 75 Mg Tablet, 75 MG PO DAILY, (Reported) Gabapentin 300 Mg Capsule, 300 MG PO HS, (Reported) Hydrocodone Bitartrate 80 Mg Tab.er.24h, 80 MG PO HS, (Reported) Meloxicam 7.5 Mg Tablet, 7.5 MG PO BID, (Reported) Metoprolol Succinate 50 Mg Tab.er.24h, 50 MG PO DAILY, (Reported) Pantoprazole Sodium 40 Mg Tablet.dr, 40 MG PO DAILY, (Reported) Sulfamethoxazole/Trimethoprim 1 Each Tablet, 1 EACH PO BID Prescribed by: UQE GRACE on 11/26/1814 Tizanidine HCl 4 Mg Capsule, 4 MG PO BID Prescribed by: QUE GRACE on 11/26/1814 Trazodone HCl 150 Mg Tablet, 150 MG PO HS PRN for SLEEP, (Reported) Patient Home Medication List Home Medication List Reviewed: Yes Review of Systems Constitutional: no symptoms reported Respiratory: no symptoms reported Cardiovascular: no symptoms reported Gastrointestinal: no symptoms reported Genitourinary: see HPI, frequency Musculoskeletal: see HPI, back pain Skin: no symptoms reported Psychiatric/Neurological: No Symptoms Reported Past Affjlvy-Yvqlxr-Pyaoao Hx Patient Social History Alcohol Use: Denies Use Recreational Drug Use: No Smoking Status: Never a Smoker Recent Foreign Travel: No Contact w/Someone Who Travel: No Recent Infectious Disease Expo: No Recent Hopitalizations: No Immunizations Up To Date Tetanus Booster (TDap): More than 5yrs PED Vaccines UTD: No Date of Pneumonia Vaccine: Nov 03, 2014 Date of Influenza Vaccine: Aug 18, 2018 Seasonal Allergies Seasonal Allergies: Yes (at times) Past Medical History Surgeries: Yes (CARDIAC CATHS WITH STENTS IN HEART x 4 ( 2001, 2014, 2017 ); EGD'S WITH ESOPHAGEAL DILATION; COLONOSCOPY; HERNIA REPAIR; RIGHT TOTAL KNEE REPLACEMENT) Abdominal, Appendectomy, Cardiac, Coronary Stent, Joint Replacement, Orthopedic Respiratory: No Currently Using CPAP: No Currently Using BIPAP: No Cardiac: Yes (SCAR 2004; CARDIAC CATHS WITH CARDIAC STENTS X 4 ( 2004, 2014, 2017 )) Chronic Edema/Swelling, Coronary Artery Disease, Deep Vein Thrombosis, Heart Attack, High Cholesterol, Hypertension Neurological: No Reproductive Disorders: No Sexually Transmitted Disease: No HIV/AIDS: No Genitourinary: Yes Kidney Stones Gastrointestinal: Yes (ESOPHAGEAL DILATION; DIVERTICULITIS) Abdominal Hernia, Gastroesophageal Reflux, Diverticulosis Musculoskeletal: Yes (ARTHRITIS ON LEGS/KNEES) Degenerate Disk Disease, Arthritis, Chronic Back Pain Endocrine: No HEENT: No Loss of Vision: Denies Hearing Impairment: Denies Cancer: No Psychosocial: Yes Anxiety Integumentary: Yes (MRSA) Blood Disorders: No Adverse Reaction/Blood Tranf: No Family Medical History Asthma G8 BROTHER Cancer of mouth G8 BROTHER Cardiovascular disease 19 MOTHER Cataracts G8 BROTHER Deafness or hearing loss G8 BROTHER Hypercholesterolemia G8 SISTER Myocardial infarction 19 FATHER No Pertinent Family Hx Physical Exam Vital Signs Vital Signs - First Documented 11/25/18 23:09 Temp 98.6 Pulse 86 Resp 14 B/P (MAP) 128/112 (117) Pulse Ox 94 O2 Delivery Room Air Capillary Refill : Less Than 3 Seconds Height, Weight, BMI Height: 5'11.00" Weight: 275lbs. 0.0oz. 124.111577vk; 38.1 BMI Method:Stated General Appearance: No Apparent Distress, WD/WN, Other (CONSTANT MOVEMENTS, PACING, BENDING OVER BED, SITTING ON BED, ETC. ) Neck: Full Range of Motion, Normal Inspection, Non Tender, Carotid Bruit Cardiovascular: Regular Rate, Rhythm, No Edema, No Murmur Respiratory: Normal Breath Sounds, No Accessory Muscle Use, No Respiratory Distress Peripheral Pulses: 1+ Dorsalis Pedis (R), 1+ Left Dors-Pedis (L) Back: No CVA Tenderness, Decreased Range of Motion, Other (VERY MILD LOWER LUMBAR TENDERNESS; DTR'S +1/4 BILATERALLY. NEGATIVE STRAIGHT LEG RAISING AT 90 DEGREES BILATERALLY) Extremity: Normal Range of Motion, Non Tender, No Calf Tenderness, No Pedal Edema Neurologic/Psychiatric: Alert, Oriented x3, No Motor/Sensory Deficits, Normal Mood/Affect, air brush decorator II-XII Norm as Tested Skin: Normal Color, Warm/Dry; No Rash Progress/Results/Core Measures Results/Orders Lab Results Laboratory Tests Test 11/25/18 23:09 Range/Units Urine Color AAMIR H Urine Clarity CLEAR Urine pH 6 5-9 Urine Specific [place] 1.010 L 1.016-1.022 Urine Protein NEGATIVE NEGATIVE Urine Glucose (UA) NEGATIVE NEGATIVE Urine Ketones NEGATIVE NEGATIVE Urine Nitrite POSITIVE H NEGATIVE Urine Bilirubin 1+ H NEGATIVE Urine Urobilinogen 4 H NORMAL MG/DL Urine Leukocyte Esterase 1+ H NEGATIVE Urine RBC (Auto) NEGATIVE NEGATIVE Urine RBC NONE /HPF Urine WBC 0-2 /HPF Urine Squamous Epithelial Cells 0-2 /HPF Urine Crystals NONE /LPF Urine Bacteria NEGATIVE /HPF Urine Casts NONE /LPF Urine Mucus NEGATIVE /LPF Urine Culture Indicated YES My Orders Orders - QUE RGACE DO Ua Culture If Indicated (11/25/18 23:18) Ketorolac Injection (Toradol Injection) (11/26/18 00:00) Orphenadrine Injection (Norflex Injectio (11/26/18 00:00) Diphenhydramine Injection (Benadryl Inje (11/26/18 00:00) Urine Culture (11/25/18 23:09) Rx-Trimeth/Sulfameth Ds Tab (Rx-Bactrim/ (11/26/18 00:15) Medications Given in ED Current Medications Medications Dose Ordered Sig/Lane Route Start Time Stop Time Status Last Admin Dose Admin Diphenhydramine HCl 50 mg ONCE ONCE IM 11/26/18 00:00 11/26/18 00:01 DC 11/26/18 00:08 50 MG Ketorolac Tromethamine 60 mg ONCE ONCE IM 11/26/18 00:00 11/26/18 00:01 DC 11/26/18 00:09 60 MG Orphenadrine Citrate 60 mg ONCE ONCE IM 11/26/18 00:00 11/26/18 00:01 DC 11/26/18 00:09 60 MG Vital Signs/I&O 11/25/18 11/26/18 23:09 00:35 Temp 98.6 Pulse 86 76 Resp 14 14 B/P (MAP) 128/112 (117) 114/80 (91) Pulse Ox 94 98 O2 Delivery Room Air Room Air Blood Pressure Mean: 117 Departure Impression Primary Impression: Acute exacerbation of chronic low back pain Additional Impression: UTI (urinary tract infection) Disposition: HOME, SELF-CARE Condition: Stable Departure-Patient Inst. Referrals: GAVINO CARSON RICK D MD (PCP/Family) Primary Care Physician Patient Instructions: Low Back Pain (DC), MANAGING YOUR CHRONIC PAIN, Urinary Tract Infection, Adult (DC) Add. Discharge Instructions: MOIST HEAT TO BACK AT 20 MINUTE INTERVALS CONTINUE YOUR CURRENT MEDICATIONS PRESCRIBED LOTS OF CLEAR LIQUIDS KEEP YOUR APPOINTMENT WITH DR. CARSON ON MONDAY All discharge instructions reviewed with patient and/or family. Voiced understanding. Scripts Tizanidine HCl (Zanaflex) 4 Mg Capsule 4 MG PO BID, #10 CAP Prov: QUE GRACE DO 11/26/18 Sulfamethoxazole/Trimethoprim (Bactrim Ds Tablet) 1 Each Tablet 1 EACH PO BID, #20 TAB Prov: QUE GRACE DO 11/26/18 QUE GRACE DO Nov 26, 2018 00:15
[2018-11-26 00:35] VITALS: BP 114/80
== END 2018-11-26 00:37 | disposition home or self-care (01) ==
LOC: EDUNIT# 22:54 → ER 22:55
DX: M54.5 Low back pain (principal); G89.29 Other chronic pain; N39.0 Urinary tract infection, site not specified; I25.10 Atherosclerotic heart disease of native coronary artery without angina pectoris; I25.2 Old myocardial infarction; E78.00 Pure hypercholesterolemia, unspecified; I10 Essential (primary) hypertension; K21.9 Gastro-esophageal reflux disease without esophagitis; M17.0 Bilateral primary osteoarthritis of knee; F41.9 Anxiety disorder, unspecified; Z86.14 Personal history of Methicillin resistant Staphylococcus aureus infection; Z80.0 Family history of malignant neoplasm of digestive organs; Z82.49 Family history of ischemic heart disease and other diseases of the circulatory system; Z87.19 Personal history of other diseases of the digestive system; Z87.442 Personal history of urinary calculi; Z86.718 Personal history of other venous thrombosis and embolism; Z88.8 Allergy status to other drugs, medicaments and biological substances; Z88.5 Allergy status to narcotic agent; Z79.82 Long term (current) use of aspirin; Z79.02 Long term (current) use of antithrombotics/antiplatelets; Z95.5 Presence of coronary angioplasty implant and graft; Z98.890 Other specified postprocedural states; Z96.651 Presence of right artificial knee joint; Z90.49 Acquired absence of other specified parts of digestive tract
CPT/HCPCS: 81000; 87088; 96372; 99284

== ENCOUNTER → 2018-11-26 | Outpatient (CLI) | payer BC ==
[~2018-11-26] MED LIST changes: +SULF1TAB35 PO; +TIZA4CAP PO
--- NOTE | 2018-11-26 11:14 | Diagnostic Imaging Report ---
PROCEDURE: CT abdomen and pelvis without contrast. TECHNIQUE: Multiple contiguous axial images were obtained through the abdomen and pelvis without the use of intravenous contrast. INDICATION: Left lower quadrant pain. CORRELATION STUDY: 10/25/2015. FINDINGS: LOWER THORAX: Heart size is enlarged with at least moderate severity of coronary artery calcification. There are areas of scarring and/or atelectasis about the lung bases. No significant basilar infiltrate. Trace effusions. LIVER: Unremarkable. GALLBLADDER: Present and does contain likely some sludge or debris. Probable small gallstone. No definitive gallbladder wall thickening. No significant bile ductal dilatation. SPLEEN: Unremarkable. PANCREAS: Fatty atrophic changes are present. ADRENAL GLANDS: Unremarkable. KIDNEYS: 13 mm rounded low-density foci in the interpolar region of the left kidney. There is probable cyst as visualized on prior study. Mild perinephric stranding. No calcification or evidence for obstructive uropathy. ABDOMINAL AORTA: Normal in contour. Minimal wall calcification. GASTROINTESTINAL TRACT: Prominent severity of colonic diverticulosis without evidence for acute diverticulitis. No obstruction. The appendix is not localized. No right lower quadrant inflammatory changes. No abdominal ascites or free air. URINARY BLADDER: Relatively decompressed and therefore not well evaluated. REPRODUCTIVE: Prostate gland is likely within normal limits in size. A few calcifications are present. OSSEOUS STRUCTURES: Mild to moderately advanced degenerative changes about the lumbar spine. Likely benign sclerotic bone on the right femoral head. Slight bony protuberance off the left pubic ramus. OTHER: Fat-containing retro-umbilical hernia. A few closely positioned loops of bowel seen in the anterior abdominal wall could be reflective of adhesions. There is a small gas collection in the subcutaneous fat tissues of the left gluteal region. IMPRESSION: 1. Extensive colonic diverticulosis. No definitive evidence for acute diverticulitis. 2. Trace pleural effusions. 3. Probable gallstone and some biliary sludge. Dictated by: Dictated on workstation # [id number]
== END ==
LOC: RAD 09:54
PROVIDERS: ATTEND Nurse Practitioner Family
DX: K57.30 Diverticulosis of large intestine without perforation or abscess without bleeding (principal); J90 Pleural effusion, not elsewhere classified
CPT/HCPCS: 74176

== ENCOUNTER → 2018-11-30 | Outpatient (CLI) | payer BC ==
--- NOTE | 2018-11-30 18:13 | Diagnostic Imaging Report ---
INDICATION: Left leg pain. COMPARISON: 12/10/2014. FINDINGS: Minimal atherosclerosis is seen throughout the lower extremity arterial system. Peak systolic velocities are normal. The flow pattern is triphasic. Runoff flow is present. There is no vascular occlusion or stenosis. IMPRESSION: Minimal atherosclerosis without stenosis or occlusion. Dictated by: Dictated on workstation # [id number]
== END ==
LOC: RAD 12:13
PROVIDERS: ATTEND Nurse Practitioner Family
DX: M79.605 Pain in left leg (principal)
CPT/HCPCS: 93926

== ENCOUNTER 2019-02-02 20:52 | Emergency (ER) | payer BC ==
[~2019-02-02] VITALS: Ht 180.3 cm; Wt 129.3 kg
[~2019-02-02 20:52] MED LIST changes: -HYDR-3454 PO; +HYDR-3455 PO
[2019-02-02] MEDS ORDERED: methylPREDNISolone 125 MG (Solu-MEDROL) VIAL IV STA (21:04)
--- NOTE | 2019-02-02 21:13 | ED Respiratory ---
General Stated Complaint: CONGESTION,SOA Source: patient History of Present Illness Date Seen by Provider: Feb 02, 2019 Time Seen by Provider: 20:57 Initial Comments PT ARRIVES VIA POV FROM HOME, USING A WALKER C/O SHORTNESS OF BREATH AND PAIN WITH BREATHING SINCE MONDAY HAD FEVER OF 102 LAST PM HAS PRODUCTIVE COUGH WITH COLORED SPUTUM C/O HEADACHE C/O BODY ACHES C/O NASAL CONGESTION HAS NOT TAKEN ANYTHING FOR SYMPTOMS PT AND WERE ON VACATION IN [place]--LEFT LAST MONDAY/1 WEEK AGO ([place]) -- AND GOT SICK WITH SAME SYMPTOMS WHILE THEY WERE IN [place], AND THEY CAME HOME ON MONDAY, A FEW DAYS EARLY, DUE TO THEM BEING SICK. STATES SHE IS GETTING BETTER ( DID NOT SEEK TREATMENT) PT DENIES HISTORY OF RESPIRATORY PROBLEMS PT HAS HAD PA IN WITH STENTS X4--LAST STENT WAS 08/2018 PT HAS OCCASIONAL SWELLING IN LEGS/FEET AND NO SWELLING TODAY PCP: DR. ARGUETA TROMMEL TENDER: DR. IYER Allergies and Home Medications Allergies Coded Allergies: Khbxhvi-Ckj-Itt Reductase Inhibitor (Verified Allergy, Severe, MUSCLE WEAKNESS, PT TAKE LIPITOR AT HOME, 11/25/18) ezetimibe (Verified Allergy, Unknown, 11/25/18) morphine (Verified Adverse Reaction, Unknown, 11/25/18) Home Medications Albuterol Sulfate 2.5 Mg/3 Ml Vial.neb, 2.5 MG IH Q4H Prescribed by: QUE GRACE on 02/02/192253 Alprazolam 1 Mg Tablet, 1 MG PO BID PRN for ANXIETY, (Reported) Aspirin 81 Mg Tablet.dr, 81 MG PO DAILY, (Reported) Atorvastatin Calcium 10 Mg Tablet, 10 MG PO HS, (Reported) Benzonatate 100 Mg Capsule, 1-2 TAB PO TID Prescribed by: QUE GRACE on 02/02/192254 Cefdinir 300 Mg Capsule, 300 MG PO BID FOR INFECTION Prescribed by: QUE GRACE on 02/02/192253 Clopidogrel Bisulfate 75 Mg Tablet, 75 MG PO DAILY, (Reported) Gabapentin 300 Mg Capsule, 300 MG PO HS, (Reported) Guaifenesin/Dextromethorphan 1 Each Tbmp.12hr, 1 EACH PO BID Prescribed by: QUE GRACE on 02/02/192253 Hydrocodone Bitartrate 80 Mg Tab.er.24h, 80 MG PO HS, (Reported) Meloxicam 7.5 Mg Tablet, 7.5 MG PO BID, (Reported) Methylprednisolone 4 Mg Tab.ds.pk, 4 MG PO UD Prescribed by: QUE GRACE on 02/02/192253 Metoprolol Succinate 50 Mg Tab.er.24h, 50 MG PO DAILY, (Reported) Pantoprazole Sodium 40 Mg Tablet.dr, 40 MG PO DAILY, (Reported) Sulfamethoxazole/Trimethoprim 1 Each Tablet, 1 EACH PO BID Prescribed by: QUE GRACE on 11/26/1814 Tizanidine HCl 4 Mg Capsule, 4 MG PO BID Prescribed by: QUE GRACE on 11/26/1814 Trazodone HCl 150 Mg Tablet, 150 MG PO HS PRN for SLEEP, (Reported) Review of Systems Review of Systems Constitutional: see HPI, fever EENTM: see HPI, nose congestion Respiratory: see HPI, cough, dyspnea on exertion, phlegm, short of breath Cardiovascular: see HPI, chest pain Gastrointestinal: no symptoms reported Genitourinary: no symptoms reported Musculoskeletal: see HPI (BODY ACHES) Skin: no symptoms reported Psychiatric/Neurological: Headache Hematologic/Lymphatic: No Symptoms Reported Immunological/Allergic: no symptoms reported Past Uwkaqyj-Iyygag-Feyscp Hx Patient Social History Alcohol Use: Denies Use Recreational Drug Use: No Smoking Status: Never a Smoker Type Used: Smokeless Tobacco (QUIT CHEWING TOBACCO > 20 YEARS AGO) Recent Foreign Travel: No Contact w/Someone Who Travel: No Recent Hopitalizations: No Immunizations Up To Date Tetanus Booster (TDap): More than 5yrs PED Vaccines UTD: No Date of Pneumonia Vaccine: Nov 03, 2014 Date of Influenza Vaccine: Aug 18, 2018 Seasonal Allergies Seasonal Allergies: Yes (at times) Past Medical History Surgeries: Yes (HERNIA REPAIR; CARDIAC CATHS WITH STENTS X 4--LAST ONE 08/2018 ; RIGHT KNEE REPLACEMENT; EGD/ESOPHAGEAL DILATIONS) Abdominal, Appendectomy, Cardiac, Coronary Stent, Joint Replacement, Orthopedic Respiratory: No Currently Using CPAP: No Currently Using BIPAP: No Cardiac: Yes (SCAR 2004; CARDIAC CATHS WITH CARDIAC STENTS X 4 ( 2004, 2014, 2017 )) Chronic Edema/Swelling, Coronary Artery Disease, Deep Vein Thrombosis, Heart Attack, High Cholesterol, Hypertension Neurological: No Reproductive Disorders: No Sexually Transmitted Disease: No HIV/AIDS: No Genitourinary: Yes Kidney Stones Gastrointestinal: Yes (ESOPHAGEAL DILATION; DIVERTICULITIS) Abdominal Hernia, Gastroesophageal Reflux, Diverticulosis Musculoskeletal: Yes (ARTHRITIS ON LEGS/KNEES; RIGHT KNEE REPLACEMENT; 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 0.0oz. 124.938249so; 38.1 BMI Method:Stated General Appearance: mild distress (MILDLY DYSPNEIC ON ARRIVAL), obese HEENT: PERRL/EOMI, TMs normal, pharynx normal, other (NASAL CONGESTION WITH CLEAR RHINORRHEA) Respiratory: decreased breath sounds (IN BASES ), other (MILDLY DYSPNEIC ON ARRIVAL, ABLE TO TALK IN FULL SENTENCES. O2 SATS 96% ON ROOM AIR ON ARRIVAL) Cardiovascular: regular rate, rhythm, no edema, no JVD, no murmur Gastrointestinal: non tender, soft Extremities: normal inspection, no pedal edema, no calf tenderness, normal capillary refill Neurologic/Psychiatric: business continuity specialist II-XII nml as tested, no motor/sensory deficits, alert, normal mood/affect, oriented x 3 Skin: normal color, warm/dry Focused Exam Lactate Level 02/02/19 21:12: Lactic Acid Level 1.16 Lactic Acid Level Laboratory Tests Test 02/02/19 21:12 Lactic Acid Level 1.16 MMOL/L (0.50-2.00) Progress/Results/Core Measures Suspected Sepsis SIRS Temperature: Pulse: Respiratory Rate: Laboratory Tests 02/02/19 21:12: White Blood Count 4.2L Blood Pressure / Mean: 02/02/19 21:12: Lactic Acid Level 1.16 Laboratory Tests 02/02/19 21:12: Creatinine 0.91, INR Comment 0.9, Platelet Count 118L, Total Bilirubin 1.0 Results/Orders Lab Results Laboratory Tests Test 02/02/19 21:12 Range/Units White Blood Count 4.2 L 4.3-11.0 10^3/uL Red Blood Count 4.63 4.35-5.85 10^6/uL Hemoglobin 14.2 13.3-17.7 G/DL Hematocrit 41 40-54 % Mean Corpuscular Volume 88 80-99 FL Mean Corpuscular Hemoglobin 31 25-34 PG Mean Corpuscular Hemoglobin Concent 35 32-36 G/DL Red Cell Distribution Width 14.3 10.0-14.5 % Platelet Count 118 L 130-400 10^3/uL Mean Platelet Volume 10.7 H 7.4-10.4 FL Neutrophils (%) (Auto) 41 L 42-75 % Lymphocytes (%) (Auto) 36 12-44 % Monocytes (%) (Auto) 22 H 0-12 % Eosinophils (%) (Auto) 1 0-10 % Basophils (%) (Auto) 1 0-10 % Neutrophils # (Auto) 1.7 L 1.8-7.8 X 10^3 Lymphocytes # (Auto) 1.5 1.0-4.0 X 10^3 Monocytes # (Auto) 0.9 0.0-1.0 X 10^3 Eosinophils # (Auto) 0.0 0.0-0.3 10^3/uL Basophils # (Auto) 0.0 0.0-0.1 10^3/uL Neutrophils % (Manual) 50 % Lymphocytes % (Manual) 30 % Monocytes % (Manual) 18 % Eosinophils % (Manual) 0 % Basophils % (Manual) 1 % Band Neutrophils 0 % Reactive Lymphocytes 1 % Blood Morphology Comment NORMAL Prothrombin Time 12.8 12.2-14.7 SEC INR Comment 0.9 0.8-1.4 Activated Partial Thromboplast Time 29 24-35 SEC Sodium Level 139 135-145 MMOL/L Potassium Level 3.4 L 3.6-5.0 MMOL/L Chloride Level 106 98-107 MMOL/L Carbon Dioxide Level 23 21-32 MMOL/L Anion Gap 10 5-14 MMOL/L Blood Urea Nitrogen 12 7-18 MG/DL Creatinine 0.91 0.60-1.30 MG/DL Estimat Glomerular Filtration Rate > 60 BUN/Creatinine Ratio 13 Glucose Level 91 70-105 MG/DL Lactic Acid Level 1.16 0.50-2.00 MMOL/L Calcium Level 8.9 8.5-10.1 MG/DL Corrected Calcium 8.7 8.5-10.1 MG/DL Magnesium Level 2.5 H 1.8-2.4 MG/DL Total Bilirubin 1.0 0.1-1.0 MG/DL Aspartate Amino Transf (AST/SGOT) 24 5-34 U/L Alanine Aminotransferase (ALT/SGPT) 24 0-55 U/L Alkaline Phosphatase 73 40-136 U/L Troponin I < 0.028 <0.028 NG/ML B-Type Natriuretic Peptide 99.9 <100.0 PG/ML Total Protein 7.3 6.4-8.2 GM/DL Albumin 4.2 3.2-4.5 GM/DL Micro Results Microbiology 02/02/19 Influenza Types A,B Antigen (TIM) - Final, Complete My Orders Orders - QUE GRACE DO Chest Pa/Lat (2 View) (02/02/19 21:04) BNP (02/02/19 21:04) Cbc With Automated Diff (02/02/19 21:04) Comprehensive Metabolic Panel (02/02/19 21:04) Lactic Acid Analyzer (02/02/19 21:04) Magnesium (02/02/19 21:04) Protime With Inr (02/02/19 21:04) Partial Thromboplastin Time (02/02/19 21:04) Troponin I (02/02/19 21:04) Blood Culture (02/02/19 21:04) Influenza A And B Antigens (02/02/19 21:04) Methylprednisolone Sod Succ (Solu-Medrol (02/02/19 21:04) Albuterol/Ipra Inhalation Soln (Duoneb I (02/02/19 21:15) Rt Request For Service (02/02/19 21:04) Ekg Tracing (02/02/19 21:04) Monitor-Rhythm Ecg Trace Only (02/02/19 21:04) Svn Small Volume Nebulizer (02/02/19 21:04) Manual Differential (02/02/19 21:12) Rx-Oseltamivir Caps (Rx-Tamiflu Caps) (02/02/19 22:07) Ceftriaxone For Iv Use (Rocephin For I (02/02/19 22:15) Benzonatate Capsule (Tessalon Perles) (02/02/19 23:00) Rx-Albuterol Nebs (Rx-Proventil Nebs) (02/02/19 22:51) Breathing Machine Home Use-Dme (02/02/19 22:51) Medications Given in ED Current Medications Medications Dose Ordered Sig/Lane Route Start Time Stop Time Status Last Admin Dose Admin Albuterol/ Ipratropium 3 ml ONCE ONCE INH 02/02/19 21:15 02/02/19 21:16 DC 02/02/19 21:50 3 ML Ceftriaxone Sodium 1000 mg/ Sterile Water 10 ml @ 200 mls/hr ONCE ONCE IV 02/02/19 22:15 02/02/19 22:17 DC 02/02/19 22:32 200 MLS/HR Vital Signs/I&O 02/02/19 02/02/19 02/02/19 20:55 20:55 21:50 Temp 99.8 Pulse 69 Resp 24 B/P (MAP) 156/115 (129) Pulse Ox 95 97 O2 Delivery Room Air Room Air Capillary Refill : ECG Initial ECG Impression Date: Feb 02, 2019 Initial ECG Impression Time: 21:03 Initial ECG Rate: 60 Initial ECG Rhythm: Normal Sinus Departure Impression Primary Impression: Influenza A Additional Impression: POSSIBLE PNEUMONIA Disposition: 01 HOME, SELF-CARE Condition: Improved Departure-Patient Inst. Referrals: TREVON ARGUETA MD (PCP/Family) Primary Care Physician Patient Instructions: Flu, Adult (DC), Pneumonia, Adult (DC) Add. Discharge Instructions: TYLENOL 1 GRAM MOTRIN 800 MG 4 TIMES A DAY FOR PAIN OR FEVER OVER 101 LOTS OF FLUIDS USE NEBULIZER EVERY 4 HOURS NEEDED FOR BREATHING TAKE TAMIFLU TWICE A DAY FOR 5 DAYS FOLLOW UP WITH YOUR DR IN 3-4 DAYS IF NO BETTER, RETURN TO ER IF WORSE Scripts Nebulizer (Compact Compressor Nebulizer) 1 Each Each EACH MC for BREATHING, #1 Prov: QUE GRACE DO 02/02/19 Benzonatate (TESSALON PERLES) 100 Mg Capsule 1-2 TAB PO TID for Cough, #30 CAP Prov: SANJAYQUE K DO 02/02/19 Guaifenesin/Dextromethorphan (Mucinex Dm ER 1,200-60 mg Tab) 1 Each Tbmp.12hr 1 EACH PO BID for 10 Days, #20 EA Prov: QUE GRACE DO 02/02/19 Methylprednisolone (Medrol) 4 Mg Tab.ds.pk 4 MG PO UD, #1 PKG Prov: QUE GRACE DO 02/02/19 Cefdinir (Cefdinir) 300 Mg Capsule 300 MG PO BID, #20 CAP FOR INFECTION Prov: QUE GRACE DO 02/02/19 Albuterol Sulfate (Albuterol Sulfate) 2.5 Mg/3 Ml Vial.neb 2.5 MG IH Q4H, #1 EA Prov: QUE GRACE DO 02/02/19 QUE GRACE DO Feb 02, 2019 21:13
[2019-02-02] MEDS ORDERED: RT-ALBUTEROL/IPRATROPIUM 3 ML (DUONEB) VIAL INH ONE (21:15)
[2019-02-02 21:26] LABS: BASOPHILS % (AUTO) 1 % (0-10); EOSINOPHILS % (AUTO) 1 % (0-10); HEMATOCRIT 41 % (40-54); HEMOGLOBIN 14.2 G/DL (13.3-17.7); LYMPHOCYTES # (AUTO) 1.5 X 10^3 (1.0-4.0); LYMPHOCYTES % (AUTO) 36 % (12-44); MEAN CORPUSCULAR HEMOGLOBIN 31 PG (25-34); MEAN CORPUSCULAR HGB CONC 35 G/DL (32-36); MEAN CORPUSCULAR VOLUME 88 FL (80-99); MEAN PLATELET VOLUME 10.7 FL (7.4-10.4); MONOCYTES # (AUTO) 0.9 X 10^3 (0.0-1.0); MONOCYTES % (AUTO) 22 % (0-12); NEUTROPHILS # (AUTO) 1.7 X 10^3 (1.8-7.8); NEUTROPHILS % (AUTO) 41 % (42-75); PLATELET COUNT 118 10^3/uL (130-400); RED CELL DISTRIBUTION WIDTH 14.3 % (10.0-14.5); WHITE BLOOD COUNT 4.2 10^3/uL (4.3-11.0)
[2019-02-02 21:37] LABS: INR 0.9 (0.8-1.4); PROTHROMBIN TIME PATIENT 12.8 SEC (12.2-14.7)
[2019-02-02 21:42] LABS: BAND NEUTROPHILS 0 %; BASOPHILS % (MANUAL) 1 %; EOSINOPHILS % (MANUAL) 0 %; LYMPHOCYTES % (MANUAL) 30 %; MONOCYTES % (MANUAL) 18 %; NEUTROPHILS % (MANUAL) 50 %
[2019-02-02 21:43] LABS: RBC MORPH NORMAL; REACTIVE LYMPHOCYTES 1 %
[2019-02-02 21:45] LABS: BUN/CREATININE RATIO 13; CALCIUM 8.9 MG/DL (8.5-10.1); CARBON DIOXIDE 23 MMOL/L (21-32); CHLORIDE 106 MMOL/L (98-107); CREATININE SERUM 0.91 MG/DL (0.60-1.30); GFR ESTIMATED > 60; GLUCOSE 91 MG/DL (70-105); MAGNESIUM 2.5 MG/DL (1.8-2.4); POTASSIUM 3.4 MMOL/L (3.6-5.0); SODIUM 139 MMOL/L (135-145)
[2019-02-02 21:46] LABS: ALANINE AMINOTRANSFERASE 24 U/L (0-55); ALBUMIN 4.2 GM/DL (3.2-4.5); ALKALINE PHOSPHATASE 73 U/L (40-136); TOTAL PROTEIN 7.3 GM/DL (6.4-8.2)
[2019-02-02] MEDS ORDERED: RX-OSELTAMIVIR 75 MG (TAMIFLU) BOX OF 10 PO STA (22:07)
[2019-02-02] MEDS ORDERED: cefTRIAXone FOR IV USE 1,000 MG in WATER (STERILE) FOR INJECTION 10 ML IV ONE (22:15)
[2019-02-02] MEDS ORDERED: RX-ALBUTEROL NEB 2.5 MG/3 ML PACK #5 IH STA (22:51)
[2019-02-02] MEDS ORDERED: GUAI1TBM19 PO (22:54)
[2019-02-02] MEDS ORDERED: CEFD300C3 PO (22:54)
[2019-02-02] MEDS ORDERED: METH4TAB PO (22:54)
[2019-02-02] MEDS ORDERED: ALBU2.5V4 IH (22:54)
[2019-02-02] MEDS ORDERED: BENZ100C18 PO (22:55)
[2019-02-02] MEDS ORDERED: BENZONATATE 100 MG (TESSALON) CAPSULE PO SCH (23:00)
[2019-02-02] MEDS ORDERED: NEBU1KIT3 MC (23:20)
--- NOTE | 2019-02-02 23:25 | NUR ---
No take home nebulizers available in house or with DME at this time. Dr Myles aware.
[2019-02-02 23:32] VITALS: BP 156/115
--- NOTE | 2019-02-03 07:29 | Diagnostic Imaging Report ---
INDICATION: Cough and shortness of breath. Comparison made with prior examination from 09/18/2018. FINDINGS: Heart size is normal. There is some venous congestion. There are some patchy bibasilar infiltrates. No pleural effusion or pneumothorax. The mediastinum is unremarkable. IMPRESSION: Patchy bibasilar infiltrates. Mild central pulmonary venous congestion. Dictated by: Dictated on workstation # [id number]
== END 2019-02-02 23:33 | disposition home or self-care (01) ==
LOC: EDUNIT# 20:52 → ER 20:53
DX: J10.1 Influenza due to other identified influenza virus with other respiratory manifestations (principal); I25.2 Old myocardial infarction; E78.00 Pure hypercholesterolemia, unspecified; I10 Essential (primary) hypertension; I25.10 Atherosclerotic heart disease of native coronary artery without angina pectoris; F41.9 Anxiety disorder, unspecified; F17.220 Nicotine dependence, chewing tobacco, uncomplicated; Z88.5 Allergy status to narcotic agent; Z87.19 Personal history of other diseases of the digestive system; Z86.14 Personal history of Methicillin resistant Staphylococcus aureus infection; Z80.0 Family history of malignant neoplasm of digestive organs; Z82.49 Family history of ischemic heart disease and other diseases of the circulatory system; Z86.718 Personal history of other venous thrombosis and embolism; Z87.442 Personal history of urinary calculi; Z90.49 Acquired absence of other specified parts of digestive tract; Z96.651 Presence of right artificial knee joint; Z95.5 Presence of coronary angioplasty implant and graft; Z98.890 Other specified postprocedural states; Z88.8 Allergy status to other drugs, medicaments and biological substances; Z79.82 Long term (current) use of aspirin; Z79.02 Long term (current) use of antithrombotics/antiplatelets; Z79.52 Long term (current) use of systemic steroids
CPT/HCPCS: 36415; 71046; 80053; 83605; 83735; 83880; 84484; 85007; 85027; 85610; 85730; 87040; 87804; 93005; 93041; 94640; 96365; 96375

== ENCOUNTER → 2019-04-25 | Outpatient (CLI) | payer BC ==
[~2019-04-25] MED LIST changes: +ALBU2.5V4 IH; +BENZ100C18 PO; +GUAI1TBM19 PO; +METH4TAB PO; +NEBU1KIT3 MC
--- NOTE | 2019-04-25 12:14 | Diagnostic Imaging Report ---
PROCEDURE: CT abdomen and pelvis without contrast. TECHNIQUE: Multiple contiguous axial images were obtained through the abdomen and pelvis without the use of intravenous contrast. Auto Exposure Controls were utilized during the CT exam to meet ALARA standards for radiation dose reduction. INDICATION: Abdominal pain for several months worse over the last month as well as nausea. COMPARISON: Correlation is made with prior exam from 11/26/2018. FINDINGS: The lung bases are clear. No discrete liver mass is identified. There may be a small stone within the gallbladder. No biliary ductal dilatation is seen. The pancreas and spleen are unremarkable. No adrenal mass is identified. There is a 16 mm cortical low density in the left kidney, similar to prior exam. This may represent a small cyst. No calculi or hydronephrosis is seen. Aorta is nonaneurysmal. Diverticulosis of the descending colon and sigmoid is again seen. There is no evidence of acute diverticulitis. There is no ascites. There is a small fat-containing umbilical hernia. Bladder is decompressed. Prostate is normal in size. Bony structures are nonacute. IMPRESSION: 1. Probable cholelithiasis. 2. Uncomplicated diverticulosis. 3. Fat-containing umbilical hernia. 4. No acute feature in the abdomen or pelvis is identified. Dictated by: Dictated on workstation # [id number]
== END ==
LOC: RAD 11:46
PROVIDERS: ATTEND Nurse Practitioner Family
DX: K57.30 Diverticulosis of large intestine without perforation or abscess without bleeding (principal); K42.9 Umbilical hernia without obstruction or gangrene
CPT/HCPCS: 74176

== ENCOUNTER 2019-10-29 11:20 | Outpatient (RCR) | payer BC | END 2019-11-01 08:10 | disposition home or self-care (01) | PROVIDERS: ATTEND Physician Assistant | DX: M17.12 Unilateral primary osteoarthritis, left knee (principal); Z96.652 Presence of left artificial knee joint ==

== ENCOUNTER 2019-11-29 08:25 | Outpatient (RCR) | payer BC, OTHER ==
[~2019-11-29 08:25] MED LIST changes: +ACHYD1T PO; -HYDR-3820 PO; -METO-370 PO; +METO50TA7 PO
== END 2020-01-21 11:05 | disposition home or self-care (01) ==
PROVIDERS: ATTEND Physician Assistant
DX: Z47.1 Aftercare following joint replacement surgery (principal); Z96.653 Presence of artificial knee joint, bilateral; K21.9 Gastro-esophageal reflux disease without esophagitis; I51.9 Heart disease, unspecified

== ENCOUNTER 2019-12-31 13:55 | Emergency (ER) | payer OTHER ==
[~2019-12-31] VITALS: Ht 180 cm; Wt 117.0 kg
[2019-12-31] MEDS ORDERED: fentaNYL INJECTION 100 MCG/2 ML AMP IVP ONE (14:15)
[2019-12-31] MEDS ORDERED: KETOROLAC 30 MG/ML VIAL IVP ONE (14:15)
--- NOTE | 2019-12-31 14:15 | ED Back Pain ---
General Chief Complaint: Back Problems Stated Complaint: BACK/GROIN PAIN Nursing Triage Note: PT STATES HE HAS BEEN HAVING EXTREME GROIN PAIN AND FLANK PAIN FOR ONE WEEK Nursing Sepsis Screen: No Definite Risk Source of Information: Patient Exam Limitations: No Limitations History of Present Illness Date Seen by Provider: Dec 31, 2019 Time Seen by Provider: 14:14 Initial Comments To ER with reports of suprapubic/low back pain for one week and has been intolerable. He's been treated with antibiotics by Dr. Argueta's office for 3 weeks now for prostatitis. Location: Lumbar Spine Timing/Duration: 1-2 Days Severity: Moderate Pain/Injury Location: Back Associated Symptoms: lower back pain Allergies and Home Medications Allergies Coded Allergies: Dkxiuym-Cka-Woh Reductase Inhibitor (Verified Allergy, Severe, MUSCLE WEAKNESS, PT TAKE LIPITOR AT HOME, 11/25/18) ezetimibe (Verified Allergy, Unknown, 11/25/18) morphine (Verified Adverse Reaction, Unknown, 11/25/18) Home Medications Albuterol Sulfate 2.5 Mg/3 Ml Vial.neb, 2.5 MG IH Q4H Prescribed by: QUE GRACE on 02/02/192253 Alprazolam 1 Mg Tablet, 1 MG PO BID PRN for ANXIETY, (Reported) Aspirin 81 Mg Tablet.dr, 81 MG PO DAILY, (Reported) Atorvastatin Calcium 10 Mg Tablet, 10 MG PO HS, (Reported) Benzonatate 100 Mg Capsule, 1-2 TAB PO TID Prescribed by: QUE GRACE on 02/02/192254 Cefdinir 300 Mg Capsule, 300 MG PO BID FOR INFECTION Prescribed by: QUE GRACE on 02/02/192253 Clopidogrel Bisulfate 75 Mg Tablet, 75 MG PO DAILY, (Reported) Gabapentin 300 Mg Capsule, 300 MG PO HS, (Reported) Guaifenesin/Dextromethorphan 1 Each Tbmp.12hr, 1 EACH PO BID Prescribed by: QUE GRACE on 02/02/192253 Hydrocodone Bitartrate 80 Mg Tab.er.24h, 80 MG PO HS, (Reported) Meloxicam 7.5 Mg Tablet, 7.5 MG PO BID, (Reported) Methylprednisolone 4 Mg Tab.ds.pk, 4 MG PO UD Prescribed by: QUE GRACE on 02/02/192253 Metoprolol Succinate 50 Mg Tab.er.24h, 50 MG PO DAILY, (Reported) Pantoprazole Sodium 40 Mg Tablet.dr, 40 MG PO DAILY, (Reported) Sulfamethoxazole/Trimethoprim 1 Each Tablet, 1 EACH PO BID Prescribed by: QUE GRACE on 11/26/1814 Tizanidine HCl 4 Mg Capsule, 4 MG PO BID Prescribed by: QUE GRACE on 11/26/1814 Trazodone HCl 150 Mg Tablet, 150 MG PO HS PRN for SLEEP, (Reported) Patient Home Medication List Home Medication List Reviewed: Yes Review of Systems Constitutional: see HPI; No chills, No fever EENTM: see HPI Respiratory: no symptoms reported Cardiovascular: no symptoms reported Gastrointestinal: abdominal pain; No nausea, No vomiting Genitourinary: see HPI Musculoskeletal: see HPI, back pain Skin: no symptoms reported Psychiatric/Neurological: No Symptoms Reported Past Zkdgffn-Cbpcxr-Zpgpyv Hx Patient Social History Alcohol Use: Denies Use Recreational Drug Use: No Smoking Status: Former Smoker Type Used: Smokeless Tobacco 2nd Hand Smoke Exposure: Yes Recent Foreign Travel: No Contact w/Someone Who Travel: No Recent Infectious Disease Expo: No Recent Hopitalizations: No Physical Abuse: No Sexual Abuse: No Mistreated: No Fear: No Immunizations Up To Date Tetanus Booster (TDap): More than 5yrs PED Vaccines UTD: No Date of Pneumonia Vaccine: Nov 03, 2014 Date of Influenza Vaccine: Aug 18, 2018 Seasonal Allergies Seasonal Allergies: Yes (at times) Past Medical History Surgeries: Yes Abdominal, Appendectomy, Cardiac, Coronary Stent, Joint Replacement, Orthopedic Respiratory: No Currently Using CPAP: No Currently Using BIPAP: No Cardiac: Yes (SCAR 2004; CARDIAC CATHS WITH CARDIAC STENTS X 4 ( 2004, 2014, 2017 )) Chronic Edema/Swelling, Coronary Artery Disease, Deep Vein Thrombosis, Heart Attack, High Cholesterol, Hypertension Neurological: No Reproductive Disorders: No Sexually Transmitted Disease: No HIV/AIDS: No Genitourinary: Yes Kidney Stones Gastrointestinal: Yes (ESOPHAGEAL DILATION; DIVERTICULITIS) Abdominal Hernia, Gastroesophageal Reflux, Diverticulosis Musculoskeletal: Yes Degenerate Disk Disease, Arthritis, Chronic Back Pain Endocrine: No HEENT: No Loss of Vision: Denies Hearing Impairment: Denies Cancer: No Psychosocial: Yes Anxiety Integumentary: Yes (MRSA) Blood Disorders: No Adverse Reaction/Blood Tranf: No Family Medical History Asthma G8 BROTHER Cancer of mouth G8 BROTHER Cardiovascular disease 19 MOTHER Cataracts G8 BROTHER Deafness or hearing loss G8 BROTHER Hypercholesterolemia G8 SISTER Myocardial infarction 19 FATHER No Pertinent Family Hx Physical Exam Vital Signs Vital Signs - First Documented 12/31/19 13:59 Temp 36.6 Pulse 78 Resp 20 B/P (MAP) 132/82 (99) Pulse Ox 95 O2 Delivery Room Air Capillary Refill : Less Than 3 Seconds Height, Weight, BMI Height: 5'11.00" Weight: 285lbs. 0.0oz. 129.959094su; 36.00 BMI Method:Stated General Appearance: No Apparent Distress, WD/WN Neck: Full Range of Motion, Normal Inspection Respiratory: Normal Breath Sounds, No Accessory Muscle Use, No Respiratory Distress Gastrointestinal: Non Tender, Soft, Tenderness Neurologic/Psychiatric: Alert, Oriented x3 Skin: Normal Color, Warm/Dry Progress/Results/Core Measures Results/Orders Lab Results Laboratory Tests Test 12/31/19 14:19 12/31/19 14:59 Range/Units White Blood Count 6.8 4.3-11.0 10^3/uL Red Blood Count 5.20 4.35-5.85 10^6/uL Hemoglobin 15.2 13.3-17.7 G/DL Hematocrit 46 40-54 % Mean Corpuscular Volume 88 80-99 FL Mean Corpuscular Hemoglobin 29 25-34 PG Mean Corpuscular Hemoglobin Concent 33 32-36 G/DL Red Cell Distribution Width 14.2 10.0-14.5 % Platelet Count 180 130-400 10^3/uL Mean Platelet Volume 10.9 H 7.4-10.4 FL Neutrophils (%) (Auto) 55 42-75 % Lymphocytes (%) (Auto) 32 12-44 % Monocytes (%) (Auto) 10 0-12 % Eosinophils (%) (Auto) 2 0-10 % Basophils (%) (Auto) 1 0-10 % Neutrophils # (Auto) 3.7 1.8-7.8 X 10^3 Lymphocytes # (Auto) 2.2 1.0-4.0 X 10^3 Monocytes # (Auto) 0.7 0.0-1.0 X 10^3 Eosinophils # (Auto) 0.1 0.0-0.3 10^3/uL Basophils # (Auto) 0.0 0.0-0.1 10^3/uL Sodium Level 139 135-145 MMOL/L Potassium Level 4.0 3.6-5.0 MMOL/L Chloride Level 106 98-107 MMOL/L Carbon Dioxide Level 24 21-32 MMOL/L Anion Gap 9 5-14 MMOL/L Blood Urea Nitrogen 22 H 7-18 MG/DL Creatinine 1.04 0.60-1.30 MG/DL Estimat Glomerular Filtration Rate > 60 BUN/Creatinine Ratio 21 Glucose Level 153 H 70-105 MG/DL Calcium Level 9.4 8.5-10.1 MG/DL Urine Color YELLOW Urine Clarity CLEAR Urine pH 5.5 5-9 Urine Specific [place] >=1.030 1.016-1.022 Urine Protein NEGATIVE NEGATIVE Urine Glucose (UA) NEGATIVE NEGATIVE Urine Ketones NEGATIVE NEGATIVE Urine Nitrite NEGATIVE NEGATIVE Urine Bilirubin NEGATIVE NEGATIVE Urine Urobilinogen 0.2 < = 1.0 MG/DL Urine Leukocyte Esterase NEGATIVE NEGATIVE Urine RBC (Auto) NEGATIVE NEGATIVE Urine RBC NONE /HPF Urine WBC NONE /HPF Urine Squamous Epithelial Cells RARE /HPF Urine Crystals NONE /LPF Urine Bacteria NEGATIVE /HPF Urine Casts NONE /LPF Urine Mucus NEGATIVE /LPF Urine Culture Indicated NO My Orders Orders - RUCHI MICHELLE APRN Basic Metabolic Panel (12/31/19 14:08) Ua Culture If Indicated (12/31/19 14:08) Ed Iv/Invasive Line Start (12/31/19 14:12) Ct Abd/Pelvis Wo(Kidney Stone) (12/31/19 14:12) Ketorolac Injection (Toradol Injection) (12/31/19 14:15) Fentanyl Injection (Sublimaze Injection (12/31/19 14:15) Cbc With Automated Diff (12/31/19 14:19) Hydrocodone/Apap 5/325 Tablet (Lortab 5 (12/31/19 15:15) Medications Given in ED Current Medications Medications Dose Ordered Sig/Lane Route Start Time Stop Time Status Last Admin Dose Admin Acetaminophen/ Hydrocodone Bitart 1 tab ONCE ONCE PO 12/31/19 15:15 12/31/19 15:16 DC 12/31/19 15:20 1 TAB Fentanyl Citrate 25 mcg ONCE ONCE IVP 12/31/19 14:15 12/31/19 14:16 DC 12/31/19 14:24 25 MCG Ketorolac Tromethamine 15 mg ONCE ONCE IVP 12/31/19 14:15 12/31/19 14:16 DC 12/31/19 14:24 15 MG Vital Signs/I&O 12/31/19 13:59 Temp 36.6 Pulse 78 Resp 20 B/P (MAP) 132/82 (99) Pulse Ox 95 O2 Delivery Room Air Blood Pressure Mean: 99 Departure Communication (Admissions) [id number] that he is already on gabapentin, Xanax, hydrocodone 10. From an emergency room standpoint I don't find any reason to add to his pain medication regimen. He does not list hydrocodone on his list of medications to us. Impression Primary Impression: Pelvic pain Disposition: HOME, SELF-CARE Condition: Stable Departure-Patient Inst. Decision time for Depature: 15:38 Referrals: AFIA AVERY MD (PCP) Primary Care Physician JOSE GARCIA MD Patient Instructions: Acute Pelvic Pain (DC) Add. Discharge Instructions: 1. Follow-up with primary care 2. Return to ER for any concerns 3. Take the hydrocodone that you have at home for pain All discharge instructions reviewed with patient and/or family. Voiced understanding. Copy Copies To 1: TREVON ARGUETA MD; JOSE GARCIA MD, PETER J APRN Dec 31, 2019 14:15
[2019-12-31 14:39] LABS: BASOPHILS % (AUTO) 1 % (0-10); EOSINOPHILS # (AUTO) 0.1 10^3/uL (0.0-0.3); EOSINOPHILS % (AUTO) 2 % (0-10); HEMATOCRIT 46 % (40-54); HEMOGLOBIN 15.2 G/DL (13.3-17.7); LYMPHOCYTES # (AUTO) 2.2 X 10^3 (1.0-4.0); LYMPHOCYTES % (AUTO) 32 % (12-44); MEAN CORPUSCULAR HEMOGLOBIN 29 PG (25-34); MEAN CORPUSCULAR HGB CONC 33 G/DL (32-36); MEAN CORPUSCULAR VOLUME 88 FL (80-99); MEAN PLATELET VOLUME 10.9 FL (7.4-10.4); MONOCYTES # (AUTO) 0.7 X 10^3 (0.0-1.0); MONOCYTES % (AUTO) 10 % (0-12); NEUTROPHILS # (AUTO) 3.7 X 10^3 (1.8-7.8); NEUTROPHILS % (AUTO) 55 % (42-75); PLATELET COUNT 180 10^3/uL (130-400); RED CELL DISTRIBUTION WIDTH 14.2 % (10.0-14.5); WHITE BLOOD COUNT 6.8 10^3/uL (4.3-11.0)
[2019-12-31 14:47] LABS: BUN/CREATININE RATIO 21; CALCIUM 9.4 MG/DL (8.5-10.1); CARBON DIOXIDE 24 MMOL/L (21-32); CHLORIDE 106 MMOL/L (98-107); CREATININE SERUM 1.04 MG/DL (0.60-1.30); GFR ESTIMATED > 60; GLUCOSE 153 MG/DL (70-105); SODIUM 139 MMOL/L (135-145)
[2019-12-31 15:07] LABS: BILIRUBIN,URINE NEGATIVE (NEGATIVE); CLARITY,URINE CLEAR; COLOR,URINE YELLOW; GLUCOSE, URINE (UA) NEGATIVE (NEGATIVE); KETONES,URINE NEGATIVE (NEGATIVE); LEUKOCYTE ESTERASE ,URINE NEGATIVE (NEGATIVE); NITRITE,URINE NEGATIVE (NEGATIVE); PH,URINE 5.5 (5-9); PROTEIN,URINE NEGATIVE (NEGATIVE)
--- NOTE | 2019-12-31 15:07 | Diagnostic Imaging Report ---
INDICATION: Low back pain with radiation to groin. TECHNIQUE: Multiple contiguous axial images were obtained through the abdomen and pelvis without the use of intravenous contrast. Auto Exposure Controls were utilized during the CT exam to meet ALARA standards for radiation dose reduction. COMPARISON: 04/25/2019. FINDINGS: The visualized portions of the lung bases are clear. There were no pleural fluid collections. There is no free intraperitoneal air. Incidental note made of coronary artery calcifications. The liver shows no focal lesion without contrast. There is an incidental gallstone in the gallbladder. The spleen, adrenals, and pancreas appear normal. Kidneys bilaterally show no intrarenal calculi or hydronephrosis. There is a hypodense lesion in the left kidney compatible with cysts, this has not changed from the prior study and measures about 11 mm. There are no stones along the course of the ureters of either side. There is no retroperitoneal mass or adenopathy. There is no ascites or abnormal fluid question. Visualized bowel loops show no sign of obstruction. There are uncomplicated left colonic diverticuli. There is no pelvic mass or free fluid. IMPRESSION: No evidence of urinary tract stone or hydronephrosis. Stable small cyst in left kidney. Incidental gallstone in the gallbladder. Uncomplicated clonic diverticuli. Dictated by: Dictated on workstation # [id number]
[2019-12-31 15:14] LABS: BACTERIA,URINE NEGATIVE /HPF; SQUAMOUS EPITHELIAL CELL,UR RARE /HPF
[2019-12-31] MEDS ORDERED: HYDROcodone/APAP 5 MG/325 MG (LORTAB) TAB PO ONE (15:15)
[2019-12-31 15:56] VITALS: BP 139/83
== END 2019-12-31 15:55 | disposition home or self-care (01) ==
LOC: EDUNIT# 13:55 → ER 13:56
DX: R10.2 Pelvic and perineal pain (principal); I10 Essential (primary) hypertension; I25.2 Old myocardial infarction; E78.00 Pure hypercholesterolemia, unspecified; I25.10 Atherosclerotic heart disease of native coronary artery without angina pectoris; K21.9 Gastro-esophageal reflux disease without esophagitis; F41.9 Anxiety disorder, unspecified; Z88.5 Allergy status to narcotic agent; Z88.8 Allergy status to other drugs, medicaments and biological substances; Z79.82 Long term (current) use of aspirin; Z79.02 Long term (current) use of antithrombotics/antiplatelets; Z87.891 Personal history of nicotine dependence; Z77.22 Contact with and (suspected) exposure to environmental tobacco smoke (acute) (chronic); Z95.5 Presence of coronary angioplasty implant and graft; Z86.711 Personal history of pulmonary embolism; Z82.49 Family history of ischemic heart disease and other diseases of the circulatory system; Z80.8 Family history of malignant neoplasm of other organs or systems
CPT/HCPCS: 36415; 74176; 80048; 81000; 85025

== ENCOUNTER → 2020-03-03 | Outpatient (CLI) | payer OTHER | LOC: RAD 12:48 | PROVIDERS: ATTEND Nurse Practitioner Family | DX: I70.213 Atherosclerosis of native arteries of extremities with intermittent claudication, bilateral legs (principal); I25.10 Atherosclerotic heart disease of native coronary artery without angina pectoris; I77.9 Disorder of arteries and arterioles, unspecified; I10 Essential (primary) hypertension; E78.5 Hyperlipidemia, unspecified | CPT/HCPCS: 93923 ==

== ENCOUNTER → 2020-03-26 | Outpatient (CLI) | payer OTHER | LOC: LAB 12:22 | PROVIDERS: ATTEND Specialist | DX: N42.81 Prostatodynia syndrome (principal) | CPT/HCPCS: 36415; 84153; 84154 ==

== ENCOUNTER 2020-06-11 08:01 | Outpatient (RCR) | payer OTHER ==
[~2020-06-11 08:01] MED LIST changes: +ASPI-1238 PO; -ASPI-983 PO; -PANT40TA3 PO; +PANT40TA52 PO
== END 2020-07-23 14:08 | disposition home or self-care (01) ==
PROVIDERS: ATTEND Nurse Practitioner Family
DX: M54.5 Low back pain (principal); Z91.09 Other allergy status, other than to drugs and biological substances; Z96.653 Presence of artificial knee joint, bilateral

== ENCOUNTER → 2020-08-28 | Outpatient (CLI) | payer OTHER ==
[~2020-08-28] VITALS: Ht 180 cm; Wt 139.0 kg
[~2020-08-28] MED LIST changes: +CATHETER FLUSH 10 ML SYR IV PRN; +REGADENOSON 0.4 MG/5 ML SYR (LEXISCAN) IV ONE
[2020-08-28 09:36] VITALS: BP 177/95
--- NOTE | 2020-08-31 19:35 | STRESS TEST ---
DATE OF SERVICE: 08/28/2020 RESTING AND POST REGADENOSON TECHNETIUM-99M TETROFOSMIN SPECT CT IMAGING ORDERING PHYSICIAN: Dr. Lopes. PRIMARY PHYSICIAN: Dr. Bill. CLINICAL DIAGNOSES: Coronary artery disease, hyperlipidemia, hypertension, frequent premature ventricular contractions. Baseline images were carried out after injection of 10.31 mCi of technetium-99m tetrofosmin. This was followed by 0.4 mg of regadenoson and 31 mCi of technetium-99m tetrofosmin for stress imaging. The electrocardiogram showed sinus rhythm at baseline and did not change significantly with regadenoson infusion. The patient tolerated the procedure well. Review of images at rest and following stress does not indicate any distinct perfusion defects consistent with significant myocardial ischemia or infarction. Gated images show normal global left ventricular systolic function with normal regional wall motion. Left ventricular ejection fraction is calculated to be 69%. Left ventricular end diastolic volume 82 mL. TID is absent (0.92). CONCLUSIONS: 1. No evidence of any significant myocardial ischemia or infarction on this study. 2. Normal regional wall motion. 3. Normal global left ventricular systolic function with a calculated ejection fraction of 69%. Job ID: [id number] DocumentID: [id number] Dictated Date: 08/31/2020 12:59:09 Electronics Processing Supervisor Date: 08/31/2020 19:33:44 Dictated By: LIBRADO LOPES MD, MA, FACP, FACC,
== END ==
LOC: CARD 08:15
PROVIDERS: ATTEND Internal Medicine Cardiovascular Disease
DX: I25.10 Atherosclerotic heart disease of native coronary artery without angina pectoris (principal); I65.29 Occlusion and stenosis of unspecified carotid artery; I49.3 Ventricular premature depolarization; E78.5 Hyperlipidemia, unspecified; I10 Essential (primary) hypertension
CPT/HCPCS: 78452; 93017; A9502

== ENCOUNTER 2020-12-22 15:05 | Observation (INO) | payer OTHER ==
[~2020-12-22] VITALS: Ht 180.3 cm; Wt 130.4 kg
[~2020-12-22 15:05] MED LIST changes: -CATHETER FLUSH 10 ML SYR IV PRN; -REGADENOSON 0.4 MG/5 ML SYR (LEXISCAN) IV ONE
[2020-12-22] MEDS ORDERED: NITROGLYCERIN 0.4 MG SL TABS BTL 25'S SL ONE (15:13)
[2020-12-22] MEDS ORDERED: ASPIRIN 81 MG CHEW (CHILDREN'S ASA) ONE (15:13)
[2020-12-22] MEDS: NITROGLYCERIN 0.4 MG SL TABS BTL 25'S SL PRN ×2 (15:20→15:31)
--- NOTE | 2020-12-22 15:24 | ED Chest Pain ---
General Stated Complaint: BACK PAIN/BILAT ARM WEAKNESS/HEADACHE Source: patient Exam Limitations: no limitations History of Present Illness Date Seen by Provider: Dec 22, 2020 Time Seen by Provider: 15:09 Initial Comments Patient presents to the ER by private conveyance with chief complaint of 6-7 out of 10 pain in his back radiating more to his left shoulder starting about 1:00, 2 hours prior to arrival. He had a small episode of this yesterday evening. The pain is worse with exertion. No shortness of breath cough fevers or chills. He does have a history of coronary disease stents and known to Dr. Lopes. Dr. Argueta is his primary care doctor. He is taking his routine medications including aspirin daily. He did not take any nitroglycerin today. He did not take anything else for the pain. He is having no nausea. He is had an umbilical hernia, appendix and bilateral knee replacement but still has his gallbladder. For lunch he had a couple chicken strips out of the air Fryer. No diarrhea or constipation. Allergies and Home Medications Allergies Coded Allergies: Ndolsph-Ucy-Pak Reductase Inhibitor (Verified Allergy, Severe, MUSCLE WEAKNESS, PT TAKE LIPITOR AT HOME, 11/25/18) ezetimibe (Verified Allergy, Unknown, 11/25/18) morphine (Verified Adverse Reaction, Unknown, 11/25/18) Home Medications Albuterol Sulfate 2.5 Mg/3 Ml Vial.neb, 2.5 MG IH Q4H Prescribed by: QUE GRACE on 02/02/192253 Alprazolam 1 Mg Tablet, 1 MG PO BID PRN for ANXIETY, (Reported) Aspirin 81 Mg Tablet.dr, 81 MG PO DAILY, (Reported) Atorvastatin Calcium 10 Mg Tablet, 10 MG PO HS, (Reported) Benzonatate 100 Mg Capsule, 1-2 TAB PO TID Prescribed by: QUE GRACE on 02/02/192254 Cefdinir 300 Mg Capsule, 300 MG PO BID FOR INFECTION Prescribed by: QUE GRACE on 02/02/192253 Clopidogrel Bisulfate 75 Mg Tablet, 75 MG PO DAILY, (Reported) Gabapentin 300 Mg Capsule, 300 MG PO HS, (Reported) Guaifenesin/Dextromethorphan 1 Each Tbmp.12hr, 1 EACH PO BID Prescribed by: QUE GRACE on 02/02/192253 Hydrocodone Bitartrate 80 Mg Tab.er.24h, 80 MG PO HS, (Reported) Meloxicam 7.5 Mg Tablet, 7.5 MG PO BID, (Reported) Methylprednisolone 4 Mg Tab.ds.pk, 4 MG PO UD Prescribed by: QUE GRACE on 02/02/192253 Metoprolol Succinate 50 Mg Tab.er.24h, 50 MG PO DAILY, (Reported) Pantoprazole Sodium 40 Mg Tablet.dr, 40 MG PO DAILY, (Reported) Sulfamethoxazole/Trimethoprim 1 Each Tablet, 1 EACH PO BID Prescribed by: QUE GRACE on 11/26/1814 Tizanidine HCl 4 Mg Capsule, 4 MG PO BID Prescribed by: QUE GRACE on 11/26/1814 Trazodone HCl 150 Mg Tablet, 150 MG PO HS PRN for SLEEP, (Reported) Patient Home Medication List Home Medication List Reviewed: Yes Review of Systems Review of Systems Constitutional: No chills, No diaphoresis EENTM: No Blurred Vision, No Double Vision Respiratory: Denies Cough, Denies Shortness of Air; SOA With Exertion Cardiovascular: See HPI, Chest Pain; Denies Edema, Denies Irregular Heart Rate, Denies Lightheadedness, Denies Palpitations, Denies Syncope Gastrointestinal: Denies Abdominal Pain, Denies Constipated, Denies Diarrhea, Denies Nausea Genitourinary: Denies Burning, Denies Discharge Musculoskeletal: see HPI, back pain (Chronic low back pain but the pain between her shoulder blades is new) All Other Systems Reviewed Negative Unless Noted: Yes Past Uczqohc-Fykqyi-Zwcwzq Hx Patient Social History Alcohol Use: Denies Use Smoking Status: Former Smoker Type Used: Smokeless Tobacco 2nd Hand Smoke Exposure: Yes Recent Hopitalizations: No Immunizations Up To Date Tetanus Booster (TDap): More than 5yrs PED Vaccines UTD: No Date of Pneumonia Vaccine: Nov 03, 2014 Date of Influenza Vaccine: Aug 18, 2018 Seasonal Allergies Seasonal Allergies: Yes (at times) Past Medical History Surgeries: Yes Abdominal, Appendectomy, Cardiac, Coronary Stent, Joint Replacement, Orthopedic Respiratory: No Currently Using CPAP: No Currently Using BIPAP: No Cardiac: Yes (SCAR 2004; CARDIAC CATHS WITH CARDIAC STENTS X 4 ( 2004, 2014, 2017 )) Chronic Edema/Swelling, Coronary Artery Disease, Deep Vein Thrombosis, Heart Attack, High Cholesterol, Hypertension Neurological: No Reproductive Disorders: No Sexually Transmitted Disease: No HIV/AIDS: No Genitourinary: Yes Kidney Stones Gastrointestinal: Yes (ESOPHAGEAL DILATION; DIVERTICULITIS) Abdominal Hernia, Gastroesophageal Reflux, Diverticulosis Musculoskeletal: Yes Degenerate Disk Disease, Arthritis, Chronic Back Pain Endocrine: No HEENT: No Loss of Vision: Denies Hearing Impairment: Denies Cancer: No Psychosocial: Yes Anxiety Integumentary: Yes (MRSA) Blood Disorders: No Adverse Reaction/Blood Tranf: No Family Medical History Asthma G8 BROTHER Cancer of mouth G8 BROTHER Cardiovascular disease 19 MOTHER Cataracts G8 BROTHER Deafness or hearing loss G8 BROTHER Hypercholesterolemia G8 SISTER Myocardial infarction 19 FATHER No Pertinent Family Hx Physical Exam Vital Signs Vital Signs - First Documented 12/22/20 15:07 Temp 36.3 Pulse 75 Resp 18 B/P (MAP) 134/96 (109) Pulse Ox 95 O2 Delivery Room Air Capillary Refill : Height, Weight, BMI Height: 5'11.00" Weight: 285lbs. 0.0oz. 129.920654kd; 42.90 BMI Method:Stated General Appearance: WD/WN, Moderate Distress HEENT: PERRL/EOMI, Pharynx Normal, Moist Mucous Membranes Neck: Full Range of Motion, Normal Inspection, Non Tender, Supple Respiratory: Chest Non Tender, Lungs Clear, Normal Breath Sounds, No Accessory Muscle Use, No Respiratory Distress Cardiovascular: Regular Rate, Rhythm, No Edema, Normal Peripheral Pulses Gastrointestinal: Normal Bowel Sounds, Non Tender, Soft Extremity: Normal Capillary Refill, Normal Inspection, Normal Range of Motion, No Pedal Edema, Other (Nontender vertebral spine all levels. No paraspinous tenderness to palpation) Neurologic/Psychiatric: Alert, Oriented x3 Skin: Normal Color, Warm/Dry Progress/Results/Core Measures Results/Orders Lab Results Laboratory Tests Test 12/22/20 15:15 Range/Units White Blood Count 7.6 4.3-11.0 10^3/uL Red Blood Count 4.84 4.30-5.52 10^6/uL Hemoglobin 14.5 13.3-17.7 g/dL Hematocrit 44 40-54 % Mean Corpuscular Volume 91 80-99 fL Mean Corpuscular Hemoglobin 30 25-34 pg Mean Corpuscular Hemoglobin Concent 33 32-36 g/dL Red Cell Distribution Width 13.7 10.0-14.5 % Platelet Count 173 130-400 10^3/uL Mean Platelet Volume 10.9 9.0-12.2 fL Immature Granulocyte % (Auto) 0 % Neutrophils (%) (Auto) 60 42-75 % Lymphocytes (%) (Auto) 29 12-44 % Monocytes (%) (Auto) 8 0-12 % Eosinophils (%) (Auto) 2 0-10 % Basophils (%) (Auto) 1 0-10 % Neutrophils # (Auto) 4.5 1.8-7.8 10^3/uL Lymphocytes # (Auto) 2.2 1.0-4.0 10^3/uL Monocytes # (Auto) 0.6 0.0-1.0 10^3/uL Eosinophils # (Auto) 0.1 0.0-0.3 10^3/uL Basophils # (Auto) 0.0 0.0-0.1 10^3/uL Immature Granulocyte # (Auto) 0.0 0.0-0.1 10^3/uL Prothrombin Time 13.2 12.2-14.7 SEC INR Comment 1.0 0.8-1.4 Activated Partial Thromboplast Time 28 24-35 SEC D-Dimer 0.29 0.00-0.49 UG/ML Sodium Level 142 135-145 MMOL/L Potassium Level 4.1 3.6-5.0 MMOL/L Chloride Level 106 98-107 MMOL/L Carbon Dioxide Level 24 21-32 MMOL/L Anion Gap 12 5-14 MMOL/L Blood Urea Nitrogen 17 7-18 MG/DL Creatinine 0.91 0.60-1.30 MG/DL Estimat Glomerular Filtration Rate > 60 BUN/Creatinine Ratio 19 Glucose Level 112 H 70-105 MG/DL Calcium Level 9.4 8.5-10.1 MG/DL Corrected Calcium 8.5-10.1 MG/DL Magnesium Level 1.9 1.6-2.4 MG/DL Total Bilirubin 1.0 0.1-1.0 MG/DL Aspartate Amino Transf (AST/SGOT) 30 5-34 U/L Alanine Aminotransferase (ALT/SGPT) 48 0-55 U/L Alkaline Phosphatase 81 40-136 U/L Myoglobin 71.1 10.0-92.0 NG/ML Troponin I < 0.028 <0.028 NG/ML Total Protein 7.6 6.4-8.2 GM/DL Albumin 4.6 H 3.2-4.5 GM/DL Lipase 41 8-78 U/L My Orders Orders - CRISTOPHER HARDWICK Ekg Tracing (12/22/20 15:08) Continuous Ekg Monitoring (12/22/20 15:08) Cbc With Automated Diff (12/22/20 15:17) Magnesium (12/22/20 15:17) Chest 1 View, Ap/Pa Only (12/22/20 15:17) Comprehensive Metabolic Panel (12/22/20 15:17) Myoglobin Serum (12/22/20 15:17) Protime With Inr (12/22/20 15:17) Partial Thromboplastin Time (12/22/20 15:17) O2 (12/22/20 15:17) Monitor-Rhythm Ecg Trace Only (12/22/20 15:17) Lipid Panel (12/23/20 06:00) Ed Iv/Invasive Line Start (12/22/20 15:17) Lipase (12/22/20 15:17) Fibrin Degradation Products (12/22/20 15:17) Troponin I (12/22/20 15:17) Nitroglycerin 0.4 Mg Btl 25's (Nitrostat (12/22/20 15:30) Aspirin Chewable Tablet (Baby Aspirin Ch (12/22/20 15:30) Nitroglycerin 0.4 Mg Btl 25's (Nitrostat (12/22/20 15:13) Aspirin Chewable Tablet (Baby Aspirin Ch (12/22/20 15:13) Ekg Tracing (12/22/20 15:31) Morphine Injection (Morphine Injection (12/22/20 15:32) Morphine Injection (Morphine Injection (12/22/20 16:05) Medications Given in ED Current Medications Medications Dose Ordered Sig/Lane Route Start Time Stop Time Status Last Admin Dose Admin Aspirin 324 mg ONCE ONCE PO 12/22/20 15:30 12/22/20 15:31 DC 12/22/20 15:20 324 MG Morphine Sulfate 10 mg STK-MED ONCE .ROUTE 12/22/20 15:32 12/22/20 15:37 DC 12/22/20 15:39 2 MG Nitroglycerin 0.4 mg UD PRN SL 12/22/20 15:30 12/22/20 15:31 0.4 MG Vital Signs/I&O 12/22/20 12/22/20 15:07 15:07 Temp 36.3 Pulse 75 Resp 18 B/P (MAP) 134/96 (109) Pulse Ox 95 O2 Delivery Room Air Room Air Progress Progress Note #1: Time: 15:22 Progress Note Certainly an atypical angina since he has had pain in his left chest left shoulder and left neck with previous heart attacks. The initial EKG is reassuring. Other possibilities include his gallbladder, pancreatitis, AAA, renal origin. Plan to get labs give him some aspirin and nitroglycerin to see if this helps with his pain first. We will give him a liter of fluids and Previous imaging shows a hypodense lesion in the left kidney compatible with cysts unchanged from previous studies. No history of kidney stones. History of bowel obstruction and diverticulosis. No history of AAA seen on [address] chest, abdomen and pelvis. Progress Note #2: Time: 15:40 Progress Note 2 doses of nitroglycerin brought the patient's blood pressure down to 115 but did not do anything for his pain. He still rates it as a 6 or 7 out of 10. He says the pain was feeling a little different radiating more to his left shoulder and left arm getting some paresthesias in the left arm. Because of the change we repeated an EKG which did not demonstrate any significant changes. Instead of giving more nitroglycerin were going to give him 2 of morphine. In the past he states he felt he got the morphine too quickly and got some side effects from it such as a head gill. He says he is tolerated morphine several times since then. Initial ECG Impression Date: Dec 22, 2020 Initial ECG Impression Time: 15:12 Initial ECG Rate: 76 Initial ECG Rhythm: Normal Sinus Initial ECG Intervals: Normal Initial ECG Impression: Normal Initial ECG Comparisson: No Previous ECG Available Comment Normal sinus rhythm without clinically relevant ST elevation or depression. EKG : EKG Time: 15:30 Rate: 79 Rhythm: Normal Sinus Intervals: Normal ECG Comparisson: Unchanged ECG Impression: Normal Comment Normal sinus rhythm without clinically relevant ST changes. Diagnostic Imaging Diagonstic Imaging: Xray Plain Films/CT/US/NM/MRI: chest Comments [facility]. [place], [place] NAME: BERTHA FELIZ [facility] REC#: [id number] PT STATUS: REG ER : 1960 PHYSICIAN: CRISTOPHER HARDWICK MD ADMIT DATE: 12/22/20/ER Draft Date of Exam:12/22/20 CHEST 1 VIEW, AP/PA ONLY INDICATION: Chest pain. FINDINGS: The heart size is at the upper limits of normal. The pulmonary vascularity is unremarkable. Mild density in the left base may represent atelectasis or scarring. Otherwise, no consolidation, pneumothorax, or significant adverse change is seen. IMPRESSION: Mild left basilar atelectasis and/or scarring with possible pleural thickening. Overall, there is no significant adverse change. Dictated on workstation # [id number] Dict: 12/22/20 1555 Trans: 12/22/20 1557 [id number] Interpreted by: SEBLE SHEN MD Electronically signed by: Reviewed: Reviewed by Me Departure Communication (Admissions) Time/Spoke to Admitting Phy: 15:35 1615: Discussed the case with Dr. Hoyt and she agrees to observe the patient with cardiac consultation. Time/Spoke to Consulting Phy: 16:[address] Godfrey and he will see the patient. He agrees to consult. Impression Primary Impression: Unstable angina pectoris Disposition: 01 HOME, SELF-CARE Condition: Stable Admissions Decision to Admit Reason: Admit from ER (General) Decision to Admit/Date: Dec 22, 2020 Time/Decision to Admit Time: 15:30 Departure-Patient Inst. Referrals: TREVON ARGUETA MD (PCP/Family) Primary Care Physician CRISTOPHER HARDWICK Dec 22, 2020 15:24
[2020-12-22] MEDS ORDERED: ASPIRIN 81 MG CHEW (CHILDREN'S ASA) PO ONE (15:30)
[2020-12-22] MEDS ORDERED: morphine INJ 10 MG/ML 1ML (SYR OR VIAL) ONE (15:32)
[2020-12-22 15:39] LABS: BASOPHILS % (AUTO) 1 % (0-10); EOSINOPHILS # (AUTO) 0.1 10^3/uL (0.0-0.3); EOSINOPHILS % (AUTO) 2 % (0-10); HEMATOCRIT 44 % (40-54); HEMOGLOBIN 14.5 g/dL (13.3-17.7); LYMPHOCYTES # (AUTO) 2.2 10^3/uL (1.0-4.0); LYMPHOCYTES % (AUTO) 29 % (12-44); MEAN CORPUSCULAR HEMOGLOBIN 30 pg (25-34); MEAN CORPUSCULAR HGB CONC 33 g/dL (32-36); MEAN CORPUSCULAR VOLUME 91 fL (80-99); MEAN PLATELET VOLUME 10.9 fL (9.0-12.2); MONOCYTES # (AUTO) 0.6 10^3/uL (0.0-1.0); MONOCYTES % (AUTO) 8 % (0-12); NEUTROPHILS # (AUTO) 4.5 10^3/uL (1.8-7.8); NEUTROPHILS % (AUTO) 60 % (42-75); PLATELET COUNT 173 10^3/uL (130-400); WHITE BLOOD COUNT 7.6 10^3/uL (4.3-11.0)
[2020-12-22 15:49] LABS: ALBUMIN 4.6 GM/DL (3.2-4.5); CHLORIDE 106 MMOL/L (98-107); POTASSIUM 4.1 MMOL/L (3.6-5.0); SODIUM 142 MMOL/L (135-145)
[2020-12-22 15:51] LABS: CALCIUM 9.4 MG/DL (8.5-10.1)
[2020-12-22 15:52] LABS: GLUCOSE 112 MG/DL (70-105); TOTAL PROTEIN 7.6 GM/DL (6.4-8.2)
[2020-12-22 15:53] LABS: CARBON DIOXIDE 24 MMOL/L (21-32)
[2020-12-22 15:55] LABS: ALKALINE PHOSPHATASE 81 U/L (40-136); CREATININE SERUM 0.91 MG/DL (0.60-1.30); GFR ESTIMATED > 60
[2020-12-22 15:56] LABS: BUN/CREATININE RATIO 19
[2020-12-22 15:58] LABS: ALANINE AMINOTRANSFERASE 48 U/L (0-55)
--- NOTE | 2020-12-22 15:58 | Diagnostic Imaging Report ---
INDICATION: Chest pain. FINDINGS: The heart size is at the upper limits of normal. The pulmonary vascularity is unremarkable. Mild density in the left base may represent atelectasis or scarring. Otherwise, no consolidation, pneumothorax, or significant adverse change is seen. IMPRESSION: Mild left basilar atelectasis and/or scarring with possible pleural thickening. Overall, there is no significant adverse change. Dictated by: Dictated on workstation # [id number]
[2020-12-22 15:59] LABS: MAGNESIUM 1.9 MG/DL (1.6-2.4)
[2020-12-22 16:00] LABS: LIPASE 41 U/L (8-78); PROTHROMBIN TIME PATIENT 13.2 SEC (12.2-14.7)
[2020-12-22] MEDS ORDERED: morphine INJ 10 MG/ML 1ML (SYR OR VIAL) IVP STA (16:05)
[2020-12-22] MEDS ORDERED: PATIENT MAY USE OWN MEDS, ALL PO SCH (17:30)
[2020-12-22 17:33] VITALS: BP 126/81
[2020-12-22] MEDS ORDERED: ACETAMINOPHEN 325 MG TABLET PO PRN (18:00)
[2020-12-22] MEDS ORDERED: ONDANSETRON 4 MG/2 ML (SDV) Z0FRAN IV PRN (18:00)
[2020-12-22] MEDS ORDERED: CATHETER FLUSH 10 ML SYR IV PRN (18:15)
[2020-12-22] MEDS ORDERED: ENOXAPARIN 100 MG/1 ML (LOVENOX) SYR SC SCH (19:15)
[2020-12-22] MEDS ORDERED: morphine INJ 4 MG/ML 1 ML (VIAL/SYRINGE) IV PRN (20:00)
[2020-12-22] MEDS: ENOXAPARIN 300 MG/3 ML (LOVENOX) MULTI-DOSE VIAL SQ SCH (20:16)
[2020-12-22] MEDS: NITROGLYCERIN 0.4 MG/PATCH (NITRO-DUR) TD SCH (20:17)
[2020-12-22] MEDS: CATHETER FLUSH 10 ML SYR IV SCH (22:00)
[2020-12-23] MEDS: NITROGLYCERIN 0.4 MG SL TABS BTL 25'S SL PRN ×2 (03:35→10:42)
[2020-12-23] MEDS: morphine INJ 4 MG/ML 1 ML (VIAL/SYRINGE) IV PRN ×2 (03:36→10:53)
[2020-12-23 04:13] LABS: BASOPHILS # (AUTO) 0.1 10^3/uL (0.0-0.1); BASOPHILS % (AUTO) 1 % (0-10); EOSINOPHILS # (AUTO) 0.2 10^3/uL (0.0-0.3); EOSINOPHILS % (AUTO) 2 % (0-10); HEMATOCRIT 41 % (40-54); HEMOGLOBIN 13.1 g/dL (13.3-17.7); LYMPHOCYTES # (AUTO) 2.9 10^3/uL (1.0-4.0); LYMPHOCYTES % (AUTO) 41 % (12-44); MEAN CORPUSCULAR HEMOGLOBIN 30 pg (25-34); MEAN CORPUSCULAR HGB CONC 32 g/dL (32-36); MEAN CORPUSCULAR VOLUME 91 fL (80-99); MEAN PLATELET VOLUME 11.2 fL (9.0-12.2); MONOCYTES # (AUTO) 0.7 10^3/uL (0.0-1.0); MONOCYTES % (AUTO) 10 % (0-12); NEUTROPHILS # (AUTO) 3.2 10^3/uL (1.8-7.8); NEUTROPHILS % (AUTO) 45 % (42-75); PLATELET COUNT 145 10^3/uL (130-400)
[2020-12-23 04:25] LABS: ALBUMIN 4.2 GM/DL (3.2-4.5); CHLORIDE 106 MMOL/L (98-107); SODIUM 141 MMOL/L (135-145)
[2020-12-23 04:27] LABS: TRIGLYCERIDES 115 MG/DL (<150); VLDL CHOLESTEROL 23 MG/DL (5-40)
[2020-12-23 04:28] LABS: GLUCOSE 94 MG/DL (70-105); TOTAL PROTEIN 7.3 GM/DL (6.4-8.2)
[2020-12-23 04:29] LABS: BILIRUBIN,TOTAL 1.1 MG/DL (0.1-1.0); CARBON DIOXIDE 26 MMOL/L (21-32)
[2020-12-23 04:31] LABS: ALKALINE PHOSPHATASE 70 U/L (40-136); CREATININE SERUM 0.83 MG/DL (0.60-1.30); GFR ESTIMATED > 60
[2020-12-23 04:32] LABS: CHOLESTEROL 123 MG/DL (< 200)
[2020-12-23 04:33] LABS: BUN/CREATININE RATIO 28; HDL CHOLESTEROL 34 MG/DL (40-60)
[2020-12-23 04:34] LABS: ALANINE AMINOTRANSFERASE 40 U/L (0-55); BAND NEUTROPHILS 2 %; LYMPHOCYTES % (MANUAL) 49 %; MONOCYTES % (MANUAL) 6 %; NEUTROPHILS % (MANUAL) 43 %; RBC MORPH NORMAL
[2020-12-23] MEDS: CATHETER FLUSH 10 ML SYR IV SCH ×2 (05:49→14:00)
[2020-12-23] MEDS ORDERED: NITROGLYCERIN PATCH REMOVAL TP SCH (06:00)
[2020-12-23] MEDS: ENOXAPARIN 300 MG/3 ML (LOVENOX) MULTI-DOSE VIAL SQ SCH (07:30)
--- NOTE | 2020-12-23 08:53 | History & Physical-Hospitalist ---
JEFFREYLidiaGLENDA COOK, 12/23/20 0853: History of Present Illness HPI/Chief Complaint Mr. Pozo is a 60-year-old male with past medical history significant for HTN, CAD, TX with stent placement in 2004, 2014, 2018, HLD, NIDDM2, and neuropathy who presented to the [facility] ED for "spells" of pain between his shoulder blades. The first time it began on 12/21 in the evening that lasted for 1-1.5 hours with sharp pain between his shoulder blades with nausea. It eventually resolved after resting. On 12/22, he had a similar episode while working on new antique chairs but also had left-sided arm pain and weakness in both arms. He presented to the ED after his pain pills at home did not help. He also noted severe nausea and diaphoresis on this episode. He also admitted to headaches during these "episodes". Source: patient Date Seen 12/23/20 Time Seen by a Provider: 08:40 Attending Physician Vianney Hoyt MD PCP Nacho Bill MD Referring Physician Date of Admission Dec 22, 2020 at 16:45 Home Medications & Allergies Home Medications Reviewed patient Home Medication Reconciliation performed by pharmacy medication reconciliations lawn care technician and/or nursing. Patients Allergies have been reviewed. Allergies Allergies Coded Allergies Eoiuyxd-Dkp-Rak Reductase Inhibitor (Verified Allergy, Severe, MUSCLE WEA KNESS, PT TAKE LIPITOR AT HOME, 11/25/18) ezetimibe (Verified Allergy, Unknown, 11/25/18) morphine (Verified Adverse Reaction, Unknown, 11/25/18) Past Kdysrvc-Lynugs-Nynuzk Hx Patient Social History Marrital Status: Alcohol Use: Denies Use Recreational Drug Use: No Smoking Status: Never a Smoker Type Used: Smokeless Tobacco 2nd Hand Smoke Exposure: Yes Recent Foreign Travel: No Contact w/other who traveled: No Recent Hopitalizations: No Recent Infectious Disease Expo: No Immunizations Up To Date Tetanus Booster (TDap): More than 5yrs Pediatric: No Date of Pneumonia Vaccine: Nov 03, 2014 Date of Influenza Vaccine: Jul 30, 2020 Seasonal Allergies Seasonal Allergies: Yes (at times) Past Medical History Surgeries: Abdominal, Appendectomy, Cardiac, Coronary Stent, Joint Replacement, Orthopedic Currently Using CPAP: No Currently Using BIPAP: No Cardiac: Chronic Edema/Swelling, Coronary Artery Disease, Deep Vein Thrombosis, Heart Attack, High Cholesterol, Hypertension Reproductive: No Sexually Transmitted Disease: No HIV/AIDS: No Genitourinary: Kidney Stones Gastrointestinal: Abdominal Hernia, Gastroesophageal Reflux, Diverticulosis Musculoskeletal: Degenerate Disk Disease, Arthritis, Chronic Back Pain Endocrine: Diabetes, Non-Insulin dep Loss of Vision: Denies Hearing Impairment: Denies Psychosocial: Anxiety History of Blood Disorders: No Adverse Reaction to Blood Meek: No Family History Asthma G8 BROTHER Cancer of mouth G8 BROTHER Cardiovascular disease 19 MOTHER Cataracts G8 BROTHER Deafness or hearing loss G8 BROTHER Hypercholesterolemia G8 SISTER Myocardial infarction 19 FATHER Review of Systems Constitutional: diaphoresis, weakness EENTM: No blurred vision, No throat pain Respiratory: No cough, No short of breath Cardiovascular: chest pain; No palpitations Gastrointestinal: nausea; No vomiting Genitourinary: No dysuria, No hematuria Musculoskeletal: No muscle pain, No muscle cramps Skin: No lesions, No rash Psychiatric/Neurological: Headache; Denies Tremors Physical Exam Physical Exam Vital Signs Vital Signs - First Documented 12/22/20 12/23/20 15:07 03:35 Temp 36.3 Pulse 75 Resp 18 B/P (MAP) 134/96 (109) Pulse Ox 95 O2 Delivery Room Air O2 Flow Rate 2.00 Capillary Refill : Less Than 3 Seconds Height, Weight, BMI Height: 5'11.00" Weight: 285lbs. 0.0oz. 129.231871gs; 39.71 BMI Method:Stated General Appearance: No Apparent Distress, WD/WN Eyes: Bilateral Eye PERRL, Bilateral Eye EOMI HEENT: No Pale Conjunctivae (L), No Pale Conjunctivae (R) Neck: Non Tender, Supple Respiratory: Lungs Clear, Decreased Breath Sounds Cardiovascular: Regular Rate, Rhythm, No Murmur Gastrointestinal: Normal Bowel Sounds, Non Tender, Soft Extremity: No Calf Tenderness, Pedal Edema (1+) Neurologic/Psychiatric: Alert, Oriented x3 Skin: Normal Color, Warm/Dry Lymphatic: No Adenopathy Results Results/Procedures Labs Laboratory Tests 12/22/20 15:15 12/23/20 03:41 Patient resulted labs reviewed. Imaging: Reviewed Imaging Report Assessment/Plan Admission Diagnosis Unstable angina * Patient has residual nausea and chest pain * Currently on 2L NC but no O2 at baseline * Troponin has been negative x3 * No EKG changes * On lovenox * Hx of TX and stent placement x3 * Consult cardiology, appreciate their assistance * Continue ASA and plavix * Pain control, nitro available NIDDM2 with neuropathy * Patient is on metformin at home * Stop metformin, start SSI * Hypoglycemia protocol * Pain management for neuropathy HTN HLD CAD * Continue home medications Diet: CHO 60, Na 2g PPx: lovenox FULL CODE Dispo: likely >2 midnights for further medical management and interventions if indicated Clinical Quality Measures AMI/AHF: ASA po Prior to arrival: No VIANNEY HOYT MD 12/23/20 1807: Past Lhrnpje-Ieaijc-Ecclsx Hx Past Med/Social Hx: Reviewed Nursing Past Med/Soc Hx Family History Asthma G8 BROTHER Cancer of mouth G8 BROTHER Cardiovascular disease 19 MOTHER Cataracts G8 BROTHER Deafness or hearing loss G8 BROTHER Hypercholesterolemia G8 SISTER Myocardial infarction 19 FATHER Assessment/Plan Admission Diagnosis Patient was admitted due to chest pain. He reported pain in his back and arm after doing woodworking and fixing 90 year old chairs his had bought. He has a significant cardiac history and was observed overnight for serial troponins. These were negative but given his history he underwent cardiac cath which revealed patent stents and mild obstrucive disease. It was recommended that he continue with medical management for treatment of his CAD. He is to follow up with Dr Bill on Monday and with cardiology per their recommendations. Admission Status: Observation Supervisory-Addendum Brief Verification & Attestation Participated in pt care: history, MDM, physical Personally performed: exam, history, MDM, supervision of care Care discussed with: Medical Student Procedures: n/a Results interpretation: Verified all documentation Verification and Attestation of Medical Student E/M Service A medical student performed and documented this service in my presence. I reviewed and verified all information documented by the medical student and made modifications to such information, when appropriate. I personally performed the physical exam and medical decision making. Vianney Hoyt, Dec 23, 2020,18:01 GLENDA DIGGS, Dec 23, 2020 08:53 VIANNEY HOYT MD Dec 23, 2020 18:07
[2020-12-23] MEDS ORDERED: CLOPIDOGREL 75 MG (PLAVIX) TABLET PO SCH (09:00)
[2020-12-23] MEDS ORDERED: ASPIRIN E.C. 81 MG (ECOTRIN) TAB PO SCH (09:00)
[2020-12-23] MEDS ORDERED: PANTOPRAZOLE 40 MG (PROTONIX) TAB PO SCH (09:00)
[2020-12-23] MEDS ORDERED: HEParin (CATH LAB) 2,000 ML IV ONE (09:43)
[2020-12-23] MEDS ORDERED: LIDOCAINE 1% INJ 20 ML 20 ML VIAL ONE (09:43)
[2020-12-23] MEDS: NITROGLYCERIN 0.4 MG/PATCH (NITRO-DUR) TD SCH (10:44)
[2020-12-23] MEDS ORDERED: MIDAZOLAM 5 MG/5 ML (VERSED) VIAL ONE (11:02)
[2020-12-23] MEDS ORDERED: fentaNYL INJECTION 100 MCG/2 ML AMP ONE (11:02)
[2020-12-23] MEDS ORDERED: NS IV 1000 ML 1,000 ML ONE (11:24)
--- NOTE | 2020-12-23 11:38 | Cardiac Procedure Note-CS/ASA ---
Pre-Procedure Note Pre-Op Procedure Note H&P Reviewed The H&P was reviewed, patient examined and no changes noted. Date H&P Reviewed: Dec 23, 2020 Time H&P Reviewed: 11:37 Conscious Sedation Pre-Proced Time 11:37 ASA Score 3 For ASA 3 and 4: Consider anesthesia and medical clearance. Also, for patients with a history of failed moderate sedation consider anesthesia. Airway Lungs Heart ASA score ASA 1: a normal healthy patient ASA 2: a patient with a mild systemic disease (mid diabetes, controlled hypertension, obesity x ASA 3: a patient with a severe systemic disease that limits activity (angina, COPD, prior Myocardial infarction) ASA 4: a patient with an incapacitating disease that is a constant threat to life (CHF, renal failure) ASA 5: a moribund patient not expected to survive 24 hrs. (ruptured aneurysm) ASA 6: a declared brain- patient whose organs are being harvested. For emergent operations, add the letter E after the classification Mallampati Classification Grade 3 Sedation Plan Analgesia, Amnesia, Plan communicated to team members, Discussed options with patient/fam, Discussed risks with patient/fam The patient is an appropriate candidate to undergo the planned procedure, sedation, and anesthesia. The patient immediately re-assessed prior to indication. NATALIA CHINCHILLA MD Dec 23, 2020 11:38 am
--- NOTE | 2020-12-23 11:48 | Consultation-Cardiology ---
HPI-Cardiology Cardiology Consultation Date of Consultation 12/23/20 Date of Admission Time Seen by Provider: 08:40 Indication: Chest pain HPI Patient is a 60 y/o male with hx of CAD, HTN, HLP, GILDARDO. Dr. Lopes is primary tier in. 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 Describes pain as sharp stabbing pain, radiating to back and down left arm, lasting for approx 1 hour. Associated nausea and diaphoresis. Describes episode similar to this occurring last week. Denies any active chest pain, reporting some generalized malaise. Home Medications & Allergies Allergies: Coded Allergies: [place]c-Kbf-Flt Reductase Inhibitor (Verified Allergy, Severe, MUSCLE WEAKNESS, PT TAKE LIPITOR AT HOME, 11/25/18) ezetimibe (Verified Allergy, Unknown, 11/25/18) morphine (Verified Adverse Reaction, Unknown, 11/25/18) Home Medication List Reviewed: Yes RIL-Pxzxud-Pubcpi Hx Patient Social History Marital Status: Recreational Drug Use: No Smoking Status: Never a Smoker Type Used: Smokeless Tobacco 2nd Hand Smoke Exposure: Yes Recent Hopitalizations: No Have you traveled recently?: No Immunizations Up To Date Tetanus Booster (TDap): More than 5yrs Date of Pneumonia Vaccine: Nov 03, 2014 Date of Influenza Vaccine: Jul 30, 2020 Past Medical History CAD, HTN, HLP Family Medical History Family History: Asthma G8 BROTHER Cancer of mouth G8 BROTHER Cardiovascular disease 19 MOTHER Cataracts G8 BROTHER Deafness or hearing loss G8 BROTHER Hypercholesterolemia G8 SISTER Myocardial infarction 19 FATHER Review of Systems-General Review of Systems Constitutional: diaphoresis, weakness EENTM: No blurred vision, No throat pain Respiratory: No cough, No short of breath Cardiovascular: chest pain; No palpitations Gastrointestinal: nausea; No vomiting Genitourinary: No dysuria, No hematuria Musculoskeletal: No muscle pain, No muscle cramps Skin: No lesions, No rash Psychiatric/Neurological: Headache; Denies Tremors All Other Systems Reviewed Negative Unless Noted: Yes Reviewed Test Results Reviewed Test Results Lab Laboratory Tests 12/22/20 15:15: White Blood Count 7.6, Red Blood Count 4.84, Hemoglobin 14.5, Hematocrit 44, Mean Corpuscular Volume 91, Mean Corpuscular Hemoglobin 30, Mean Corpuscular Hemoglobin Concent 33, Red Cell Distribution Width 13.7, Platelet Count 173, Mean Platelet Volume 10.9, Immature Granulocyte % (Auto) 0, Neutrophils (%) (Auto) 60, Lymphocytes (%) (Auto) 29, Monocytes (%) (Auto) 8, Eosinophils (%) (Auto) 2, Basophils (%) (Auto) 1, Neutrophils # (Auto) 4.5, Lymphocytes # (Auto) 2.2, Monocytes # (Auto) 0.6, Eosinophils # (Auto) 0.1, Basophils # (Auto) 0.0, Immature Granulocyte # (Auto) 0.0, Prothrombin Time 13.2, INR Comment 1.0, Activated Partial Thromboplast Time 28, D-Dimer 0.29, Sodium Level 142, Potassium Level 4.1, Chloride Level 106, Carbon Dioxide Level 24, Anion Gap 12, Blood Urea Nitrogen 17, Creatinine 0.91, Estimat Glomerular Filtration Rate > 60, BUN/Creatinine Ratio 19, Glucose Level 112H, Calcium Level 9.4, Corrected Calcium , Magnesium Level 1.9, Total Bilirubin 1.0, Aspartate Amino Transf (AST/SGOT) 30, Alanine Aminotransferase (ALT/SGPT) 48, Alkaline Phosphatase 81, Myoglobin 71.1, Troponin I < 0.028, Total Protein 7.6, Albumin 4.6H, Lipase 41 12/22/20 19:19: Troponin I < 0.028 12/23/20 03:41: White Blood Count 7.0, Red Blood Count 4.43, Hemoglobin 13.1L, Hematocrit 41, Mean Corpuscular Volume 91, Mean Corpuscular Hemoglobin 30, Mean Corpuscular Hemoglobin Concent 32, Red Cell Distribution Width 14.0, Platelet Count 145, Mean Platelet Volume 11.2, Immature Granulocyte % (Auto) 0, Neutrophils (%) (Auto) 45, Lymphocytes (%) (Auto) 41, Monocytes (%) (Auto) 10, Eosinophils (%) (Auto) 2, Basophils (%) (Auto) 1, Neutrophils # (Auto) 3.2, Lymphocytes # (Auto) 2.9, Monocytes # (Auto) 0.7, Eosinophils # (Auto) 0.2, Basophils # (Auto) 0.1, Immature Granulocyte # (Auto) 0.0, Sodium Level 141, Potassium Level 4.0, Chloride Level 106, Carbon Dioxide Level 26, Anion Gap 9, Blood Urea Nitrogen 23H, Creatinine 0.83, Estimat Glomerular Filtration Rate > 60, BUN/Creatinine Ratio 28, Glucose Level 94, Calcium Level 9.0, Corrected Calcium 8.8, Total Bilirubin 1.1H, Aspartate Amino Transf (AST/SGOT) 32, Alanine Aminotransferase (ALT/SGPT) 40, Alkaline Phosphatase 70, Troponin I < 0.028, Total Protein 7.3, Albumin 4.2, Neutrophils % (Manual) 43, Lymphocytes % (Manual) 49, Monocytes % (Manual) 6, Band Neutrophils 2, Blood Morphology Comment NORMAL, Triglycerides Level 115, Cholesterol Level 123, LDL Cholesterol Direct 84, VLDL Cholesterol 23, HDL Cholesterol 34L Physical Exam Physical Exam Vital Signs Vital Signs - First Documented 12/22/20 12/23/20 15:07 03:35 Temp 36.3 Pulse 75 Resp 18 B/P (MAP) 134/96 (109) Pulse Ox 95 O2 Delivery Room Air O2 Flow Rate 2.00 Capillary Refill : Less Than 3 Seconds Height, Weight, BMI Height: 5'11.00" Weight: 285lbs. 0.0oz. [id number]; 39.71 BMI Method:Stated General Appearance: No Apparent Distress, WD/WN Eyes: Bilateral Eye PERRL, Bilateral Eye EOMI HEENT: No Pale Conjunctivae (L), No Pale Conjunctivae (R) Neck: Non Tender, Supple Respiratory: Lungs Clear, Decreased Breath Sounds Cardiovascular: Regular Rate, Rhythm, No Murmur Gastrointestinal: Normal Bowel Sounds, Non Tender, Soft Extremity: No Calf Tenderness, Pedal Edema (1+) Neurologic/Psychiatric: Alert, Oriented x3 Skin: Normal Color, Warm/Dry Lymphatic: No Adenopathy A/P-Cardiology Admission Diagnosis Chest pain CAD HTN HLP Assessment/Plan Chest pain, resembling unstable angina, EKG reveals no acute ST changes, cardiac enzymes negative. Has been having increasing chest pain at home over the past week, planning for [facility] for further evaluation Coronary artery disease. Last card cath on 09/25/18: Left main coronary artery does not have significant disease. Left anterior descending artery has previously placed patent stents, Promus Premier 3.0 mm x 32 mm in the mid left anterior descending and a Taxus 2.5 x 16 mm in the first diagonal branch. The first obtuse marginal branch of the left circumflex artery had 70% stenosis to which successful balloon angioplasty was carried out with reduction of stenosis to less than 40%. The right coronary artery had 70% mid vessel stenosis to which successful stenting was carried out with Alma 4.0 x 18 mm stent. LVEF was 60% Mild bilat carotid art disease on u/s of 08/18/18 Hyperlipidemia, relative intolerance to statin. Currently on low dose statin and able to tolerate it well Chronic ventral abdominal hernia Impaired fasting glucose GERD H/o esophageal stricture that was dilated several years ago PVCs Hypertension, restart home blood pressure medication and continue to monitor. Obesity, with BMI approx 42 GILDARDO - unable to tolerate tx d/t dry mouth - following with Dr. Berger Thank you for allowing us to participate in the management of Mr. Pozo. This is Kira Quintanilla PA-C, as a scribe for Dr. Godfrey. This is Dr. Godfrey, I have seen and evaluated the patient with Kira, perform physical examination and interviewed the patient. Patient was having recurrent chest pain reporting that it was similar to the chest pain when he had his heart attack, unstable angina, cardiac enzymes were negative. He was very concerned about his recurrent chest pain associated with his extensive coronary artery disease. I discussed with him and his the management plan recommended cardiac catheterization, it was carried out showing [id number] coronary artery disease small vessel disease, nonobstructive disease, patent stents. I recommend medical therapy, no intervention is warranted. Monitor blood pressure and lipids and an outpatient. If patient continued to have recurrent chest pain we can consider using long- acting nitroglycerin. Clinical Quality Measures AMI/AHF: ASA po Prior to arrival: No KIRA MONTES DE OCA Dec 23, 2020 11:48 am NATALIA GODFREY MD Dec 23, 2020 12:15 pm
[2020-12-23] MEDS ORDERED: PATIENT MAY USE OWN MEDS, ALL PO SCH (12:00)
[2020-12-23] MEDS ORDERED: NS IV 1000 ML 1,000 ML IV SCH (12:00)
--- NOTE | 2020-12-23 12:08 | Discharge Inst-Post CATH ---
Discharge Inst-CATH/EP Problems Reviewed?: Yes Post Cardiac Cath/EP D/C Inst Follow Up/Plan Appointment with Dr. Lopes in 4 weeks <b>CARDIAC CATH/EP PROCEDURE DISCHARGE INSTRUCTIONS</b> ACTIVITY * Go Home directly and rest. * Limit activity of the leg (or wrist if it was used) for 7 days including aerobics, swimming, jogging, bicycling, etc. * Restrict stair-climbing for 7 days if possible, if not, climb up with your non-cath leg, then bring together on the same step. * Avoid lifting, pushing, pulling or excessive movement of the affected extremity for 7 days. * Customary sexual activity may be resumed after 2 days-use caution not to use a position that strains or causes pain to the affected extremity. * No driving for 24 hours. * NO SMOKING. * Avoid straining for bowel movements for 7 days. * Gentle walking on level ground is allowed. * Returning to work will depend on the type of procedure and the results. Your doctor will discuss this with you. CALL YOUR DOCTOR FOR ANY OF THE FOLLOWING: *If bleeding from the puncture site occurs- Apply gentle pressure to site with clean cloth and call your doctor or EMS. * If a knot or lump forms under the skin, increases in size, or causes pain. * If bruising appears to be worsening or moving further down your leg instead of disappearing. * Temperature above 101 F. CARE OF YOUR GROIN INCISION; * Bruising or purple discoloration of the skin near the puncture site is common. * You may shower only, no bathtub bathing for 5 days. Be careful to avoid slipping as your leg may feel stiff. * If a closure device was used on your femoral artery, please see the attached guide regarding care of the device and your leg. * Leave dressing on FOR 24 hours. CARE OF YOUR WRIST INCISION; * Bruising or purple discoloration of the skin near the puncture site is common. * You may shower. * DO NOT submerge wrist. * Leave dressing on FOR 24 hours. NATALIA CHINCHILLA MD Dec 23, 2020 12:07 pm
--- NOTE | 2020-12-23 12:13 | Cardiac Cath Report ---
Cardiac Cath Report Physician (s)/Guardian Family Member (s) Physician NATALIA CHINCHILLA MD Pre-Procedure Diagnosis Pre-Procedure Diagnosis: coronary artery disease, chest pain Post-Procedure Note Procedure Start Date: Dec 23, 2020 Name of Procedure: [facility] Findings/Procedure Note PROCEDURE NOTE: 60 years old gentleman with history of coronary artery disease, admitted with unstable angina, was having typical chest pain in presentation, no acute EKG changes, decided to proceed with cardiac catheterization possible PTCA. After explaining the procedure to the patient, all pros and cons were explained, all questions were answered. The patient signed the consent and then he was placed on the cardiac catheterization laboratory. Groin was prepped SL fashion local anesthesia was used. Sheath placed in the right femoral artery. Saeed right and left catheter were used to access the coronary system. Pigtail was used to access the left ventricular cavity. Left ventriculogram was done At the end of the procedure the sheath was removed. Closure device was deployed FINDINGS: Hemodynamics LV 101/14, end-diastolic pressure 14 Aorta 107/61 mean of 80 ANATOMY: Left Main is free of obstructive disease Left Anterior Descending is tortuous, has patent stent, small vessel disease in the diagonal artery nonobstructive disease Left Circumflex is moderate in size with no obstructive disease Right Coronory Artery is dominant artery with patent stent, mild disease distally nonobstructive disease LV Gram was done showing normal left ventricular size and systolic function estimated ejection fraction 60 percent CONCLUSION: 1. Patent stents in the LAD and right coronary artery, mild disease in the diagonal artery and distal right, nonobstructive disease 2. Patent obtuse marginal branch, no significant obstructive disease. 3. Normal left ventricle size and systolic function estimated ejection fraction 60 percent DISCUSSION AND RECOMMENDATION: Medical therapy is recommended, recommend using nitroglycerin and isosorbide for recurrent chest pain. No intervention is warranted Anesthesia Type: Conscious Sedation Estimated blood loss (mL): 25 ml Contrast Amount: 65 ml Total Radiation Dose: 546 mGy Post-Procedure Diagnosis Post-operative diagnosis: Chest pain Coronary artery disease Hypertension Hyperlipidemia NATALIA CHINCHILLA MD Dec 23, 2020 12:13 pm
[2020-12-23] MEDS ORDERED: BACL10TA PO (13:30)
[2020-12-23] MEDS ORDERED: L.AC1CAP6 PO (13:30)
[2020-12-23] MEDS ORDERED: HYDR-3820 PO (13:30)
[2020-12-23] MEDS ORDERED: GABA300C PO ×2 (13:30)
[2020-12-23] MEDS ORDERED: METF-397 PO (13:30)
[2020-12-23] MEDS ORDERED: TMSL.4C PO (13:30)
[2020-12-23] MEDS ORDERED: OMEP40CA27 PO (13:30)
== END 2020-12-23 17:30 | disposition home or self-care (01) ==
LOC: EDUNIT# 15:05 → ER 15:07 → ICU 16:45
PROVIDERS: ADMIT Family Medicine; ATTEND Family Medicine
DX: I25.110 Atherosclerotic heart disease of native coronary artery with unstable angina pectoris (principal); E78.5 Hyperlipidemia, unspecified; E11.40 Type 2 diabetes mellitus with diabetic neuropathy, unspecified; K21.9 Gastro-esophageal reflux disease without esophagitis; K57.90 Diverticulosis of intestine, part unspecified, without perforation or abscess without bleeding; I49.3 Ventricular premature depolarization; I10 Essential (primary) hypertension; E78.00 Pure hypercholesterolemia, unspecified; M19.90 Unspecified osteoarthritis, unspecified site; I25.2 Old myocardial infarction; F41.9 Anxiety disorder, unspecified; E66.9 Obesity, unspecified; G47.33 Obstructive sleep apnea (adult) (pediatric); Z68.39 Body mass index [BMI] 39.0-39.9, adult; Z86.718 Personal history of other venous thrombosis and embolism; Z79.82 Long term (current) use of aspirin; Z79.01 Long term (current) use of anticoagulants; Z87.891 Personal history of nicotine dependence; Z95.5 Presence of coronary angioplasty implant and graft; Z79.02 Long term (current) use of antithrombotics/antiplatelets; Z79.891 Long term (current) use of opiate analgesic; Z88.5 Allergy status to narcotic agent
CPT/HCPCS: 71045; 80053 ×2; 80061; 83690; 83735; 83874; 84484 ×2; 85007; 85025; 85027; 85379; 85610; 85730; 93005 ×2; 93041; 93458; 99284; C1760; C1894; G0378; 36415

== ENCOUNTER → 2021-03-15 | Outpatient (CLI) | payer OTHER ==
[~2021-03-15] MED LIST changes: +BACL10TA PO; +GABA300C PO; +HYDR-3820 PO; +L.AC1CAP6 PO; +METF-397 PO; +OMEP40CA27 PO; +TMSL.4C PO
== END ==
LOC: LAB 06:43
DX: N40.1 Benign prostatic hyperplasia with lower urinary tract symptoms (principal); E11.9 Type 2 diabetes mellitus without complications; E78.2 Mixed hyperlipidemia; R53.83 Other fatigue

== ENCOUNTER → 2021-03-15 | Outpatient (CLI) | payer OTHER ==
[2021-03-15 07:10] LABS: BASOPHILS # (AUTO) 0.1 10^3/uL (0.0-0.1); BASOPHILS % (AUTO) 1 % (0-10); EOSINOPHILS # (AUTO) 0.1 10^3/uL (0.0-0.3); EOSINOPHILS % (AUTO) 2 % (0-10); HEMATOCRIT 43 % (40-54); HEMOGLOBIN 14.2 g/dL (13.3-17.7); LYMPHOCYTES # (AUTO) 2.3 10^3/uL (1.0-4.0); LYMPHOCYTES % (AUTO) 37 % (12-44); MEAN CORPUSCULAR HEMOGLOBIN 30 pg (25-34); MEAN CORPUSCULAR HGB CONC 33 g/dL (32-36); MEAN CORPUSCULAR VOLUME 92 fL (80-99); MONOCYTES # (AUTO) 0.6 10^3/uL (0.0-1.0); MONOCYTES % (AUTO) 10 % (0-12); NEUTROPHILS % (AUTO) 49 % (42-75); PLATELET COUNT 141 10^3/uL (130-400)
[2021-03-15 07:31] LABS: ALBUMIN 4.2 GM/DL (3.2-4.5); CHLORIDE 103 MMOL/L (98-107); POTASSIUM 4.1 MMOL/L (3.6-5.0); SODIUM 137 MMOL/L (135-145)
[2021-03-15 07:33] LABS: TOTAL PROTEIN 7.1 GM/DL (6.4-8.2); TRIGLYCERIDES 93 MG/DL (<150); VLDL CHOLESTEROL 19 MG/DL (5-40)
[2021-03-15 07:34] LABS: CARBON DIOXIDE 26 MMOL/L (21-32); GLUCOSE 107 MG/DL (70-105)
[2021-03-15 07:37] LABS: ALKALINE PHOSPHATASE 68 U/L (40-136); CREATININE SERUM 0.81 MG/DL (0.60-1.30); GFR ESTIMATED > 60
[2021-03-15 07:38] LABS: BUN/CREATININE RATIO 27; CHOLESTEROL 133 MG/DL (< 200)
[2021-03-15 07:39] LABS: HDL CHOLESTEROL 38 MG/DL (40-60)
[2021-03-15 07:40] LABS: ALANINE AMINOTRANSFERASE 19 U/L (0-55)
== END ==
LOC: LAB
DX: N40.1 Benign prostatic hyperplasia with lower urinary tract symptoms (principal); E11.9 Type 2 diabetes mellitus without complications; E78.2 Mixed hyperlipidemia; R53.83 Other fatigue
CPT/HCPCS: 36415; 80053; 80061; 83036; 84153; 84443; 85025

== ENCOUNTER → 2021-07-23 | Outpatient (CLI) | payer OTHER ==
[~2021-07-23] MED LIST changes: -OMEP40CA27 PO; +OMEP40CA6 PO; -SULF1TAB35 PO; +SULF1TAB38 PO
[2021-07-23 08:13] LABS: HEMATOCRIT 44 % (40-54); HEMOGLOBIN 14.3 g/dL (13.3-17.7); MEAN CORPUSCULAR HEMOGLOBIN 30 pg (25-34); MEAN CORPUSCULAR HGB CONC 33 g/dL (32-36); MEAN CORPUSCULAR VOLUME 92 fL (80-99); PLATELET COUNT 182 10^3/uL (130-400); WHITE BLOOD COUNT 6.2 10^3/uL (4.3-11.0)
[2021-07-23 08:23] LABS: ALBUMIN 4.2 GM/DL (3.2-4.5); POTASSIUM 4.1 MMOL/L (3.6-5.0)
[2021-07-23 08:24] LABS: CALCIUM 9.6 MG/DL (8.5-10.1)
[2021-07-23 08:26] LABS: TOTAL PROTEIN 7.3 GM/DL (6.4-8.2)
[2021-07-23 08:28] LABS: BILIRUBIN,TOTAL 1.2 MG/DL (0.1-1.0)
[2021-07-23 08:29] LABS: CREATININE SERUM 0.83 MG/DL (0.60-1.30)
== END ==
LOC: RAD 07:52
DX: E78.2 Mixed hyperlipidemia (principal); E11.9 Type 2 diabetes mellitus without complications; R53.83 Other fatigue
CPT/HCPCS: 36415; 80053; 80061; 83036; 85027

== ENCOUNTER → 2021-08-13 | Outpatient (CLI) | payer OTHER | LOC: LAB 07:58 | DX: M06.9 Rheumatoid arthritis, unspecified (principal) | CPT/HCPCS: 36415; 85652; 86038; 86039; 86431 ==

== ENCOUNTER 2021-10-29 14:28 | Observation (INO) | payer OTHER ==
[~2021-10-29] VITALS: Ht 180 cm; Wt 127.0 kg
--- NOTE | 2021-10-29 14:39 | ED Chest Pain ---
General Stated Complaint: CP/BACK PAIN, BI LAT ARM NUMBNESS Source: patient Exam Limitations: no limitations History of Present Illness Date Seen by Provider: Oct 29, 2021 Time Seen by Provider: 14:29 Initial Comments Patient presents ER by private conveyance from home with chief complaint he has had 1 to 2 days progressively worsening across the upper anterior chest wall, 10 out of 10 pain extending to bilateral arms and into his neck. He is nauseated but not having any vomiting. He has had no cough or shortness of air. No fevers or chills. He had 2 doses of Covid vaccination as well as a booster shot. He had an influenza vaccine. No diarrhea rash. He says this is reminiscent of his heart attack in the past. He has had 2 stents placed and followed by Dr. Lopes. He has hypertension, hyperlipidemia, diabetes on Metformin. He is not a smoker. Cardiac catheterization by Dr. Godfrey in November 2020 demonstrating patent stents to the LAD and right coronary artery with mild disease in the diagonal artery and distal right nonobstructive disease. Patent obtuse marginal branch without significant obstructive disease. EF of 60%. He recommended at that time using nitroglycerin and isosorbide for recurrent chest pain no further intervention warranted. Allergies and Home Medications Allergies Coded Allergies: Zloezzz-Nuk-Laj Reductase Inhibitor (Verified Allergy, Severe, MUSCLE WEAKNESS, PT TAKE LIPITOR AT HOME, 11/25/18) ezetimibe (Verified Allergy, Unknown, 11/25/18) morphine (Verified Adverse Reaction, Unknown, 11/25/18) Patient Home Medication List Home Medication List Reviewed: Yes Alprazolam (Alprazolam) 1 Mg Tablet, 1 MG PO BID PRN for ANXIETY, (Reported) Entered as Reported by: DARY SUMNER on 10/16/17 1539 Aspirin (Aspirin EC) 81 Mg Tablet., 81 MG PO DAILY, (Reported) Entered as Reported by: DARY SUMNER on 10/16/17 1539 Atorvastatin Calcium (Atorvastatin Calcium) 10 Mg Tablet, 10 MG PO HS, (Reported ) Entered as Reported by: DARY SUMNER on 10/16/17 153 Baclofen (Baclofen) 10 Mg Tablet, 10 MG PO TID PRN for MUSCLE SPASMS, (Reported) Entered as Reported by: LIBBY WEATHERS on 12/23/20 1330 Clopidogrel Bisulfate (Clopidogrel) 75 Mg Tablet, 75 MG PO DAILY, (Reported) Entered as Reported by: DARY SUMNER on 10/16/17 1539 Gabapentin (Neurontin) 300 Mg Capsule, 600 MG PO DAILY, (Reported) Entered as Reported by: LIBBY WEATHERS on 12/23/20 133 Gabapentin (Neurontin) 300 Mg Capsule, 900 MG PO HS, (Reported) Entered as Reported by: LIBBY WEATHERS on 12/23/20 133 Hydrocodone/Acetaminophen (Hydrocodone-Acetamin 10-325 mg) 1 Each Tablet, 1 EA PO Q6H PRN for PAIN-MODERATE (5-7), (Reported) Entered as Reported by: LIBBY WEATHERS on 12/23/20 133 L.acidoph & Paracasei,B.lactis (Probiotic) 1 Each Capsule, 1 EACH PO DAILY, (Reported) Entered as Reported by: LIBBY WEATHERS on 12/23/20 133 Meloxicam (Meloxicam) 7.5 Mg Tablet, 3.75 MG PO BID, (Reported) Entered as Reported by: JHOANA LIZAMA on 09/19/18 0936 Metformin HCl (Metformin HCl) 500 Mg Tablet, 500 MG PO DAILY, (Reported) Entered as Reported by: LIBBY WEATHERS on 12/23/20 133 Metoprolol Succinate (Metoprolol Succinate) 50 Mg Tab.er.24h, 50 MG PO DAILY, (Reported) Entered as Reported by: DARY SUMNER on 10/16/17 1539 Omeprazole (Omeprazole) 40 Mg Capsule.dr, 40 MG PO DAILY, (Reported) Entered as Reported by: LIBBY WEATHERS on 12/23/20 133 Tamsulosin HCl (Flomax) 0.4 Mg Cap, 0.4 MG PO HS, (Reported) Entered as Reported by: LIBBY WEATHERS on 12/23/201329 Review of Systems Review of Systems Constitutional: No chills, No diaphoresis EENTM: No Blurred Vision, No Double Vision Respiratory: Denies Cough, Denies Shortness of Air Cardiovascular: See HPI, Chest Pain; Denies Edema, Denies Irregular Heart Rate, Denies Lightheadedness Gastrointestinal: See HPI; Denies Abdominal Pain, Denies Constipated, Denies Diarrhea; Nausea; Denies Poor Fluid Intake, Denies Vomiting Genitourinary: Denies Burning, Denies Discharge Musculoskeletal: No back pain, No joint pain All Other Systems Reviewed Negative Unless Noted: Yes Past Jyjbfce-Yzqard-Dkmzrj Hx Patient Social History Tobacco Use?: No Use of E-Cig and/or Vaping dev: No Substance use?: No Immunizations Up To Date Tetanus Booster (TDap): More than 5yrs PED Vaccines UTD: No Seasonal Allergies Seasonal Allergies: Yes (at times) Past Medical History Surgeries: Yes Abdominal, Appendectomy, Cardiac, Coronary Stent, Joint Replacement, Orthopedic Respiratory: No Currently Using CPAP: No Currently Using BIPAP: No Cardiac: Yes (CSAR 2004; CARDIAC CATHS WITH CARDIAC STENTS X 4 ( 2004, 2014, 2018 )) Chronic Edema/Swelling, Coronary Artery Disease, Deep Vein Thrombosis, Heart Attack, High Cholesterol, Hypertension Neurological: No Reproductive Disorders: No Sexually Transmitted Disease: No HIV/AIDS: No Genitourinary: Yes Kidney Stones Gastrointestinal: Yes (ESOPHAGEAL DILATION; DIVERTICULITIS) Abdominal Hernia, Gastroesophageal Reflux, Diverticulosis Musculoskeletal: Yes Degenerate Disk Disease, Arthritis, Chronic Back Pain Endocrine: No Diabetes, Non-Insulin dep HEENT: No Loss of Vision: Denies Hearing Impairment: Denies Cancer: No Psychosocial: Yes Anxiety Integumentary: Yes (MRSA) Blood Disorders: No Adverse Reaction/Blood Tranf: No Family Medical History Asthma G8 BROTHER Cancer of mouth G8 BROTHER Cardiovascular disease 19 MOTHER Cataracts G8 BROTHER Deafness or hearing loss G8 BROTHER Hypercholesterolemia G8 SISTER Myocardial infarction 19 FATHER Physical Exam Vital Signs Vital Signs - First Documented 10/29/21 14:40 Temp 36.9 Pulse 66 Resp 14 B/P (MAP) 144/87 (106) Pulse Ox 95 Capillary Refill : Height, Weight, BMI Height: 5'11.00" Weight: 285lbs. 0.0oz. 129.856114za; 39.71 BMI Method:Stated General Appearance: Anxious, Mild Distress, Obese HEENT: PERRL/EOMI, Pharynx Normal, Moist Mucous Membranes Neck: Full Range of Motion, Normal Inspection Respiratory: Chest Non Tender, Lungs Clear, Normal Breath Sounds, No Accessory Muscle Use, No Respiratory Distress Cardiovascular: Regular Rate, Rhythm, No Edema, Normal Peripheral Pulses Gastrointestinal: Normal Bowel Sounds, Non Tender, Soft Extremity: Normal Capillary Refill, Non Tender, No Pedal Edema Neurologic/Psychiatric: Alert, Oriented x3 Skin: Normal Color, Warm/Dry Progress/Results/Core Measures Results/Orders Lab Results Laboratory Tests Test 10/29/21 14:36 10/29/21 14:53 Range/Units White Blood Count 7.9 4.3-11.0 10^3/uL Red Blood Count 5.22 4.30-5.52 10^6/uL Hemoglobin 15.8 13.3-17.7 g/dL Hematocrit 47 40-54 % Mean Corpuscular Volume 90 80-99 fL Mean Corpuscular Hemoglobin 30 25-34 pg Mean Corpuscular Hemoglobin Concent 34 32-36 g/dL Red Cell Distribution Width 13.4 10.0-14.5 % Platelet Count 177 130-400 10^3/uL Mean Platelet Volume 10.4 9.0-12.2 fL Immature Granulocyte % (Auto) 0 % Neutrophils (%) (Auto) 60 42-75 % Lymphocytes (%) (Auto) 29 12-44 % Monocytes (%) (Auto) 8 0-12 % Eosinophils (%) (Auto) 2 0-10 % Basophils (%) (Auto) 1 0-10 % Neutrophils # (Auto) 4.7 1.8-7.8 10^3/uL Lymphocytes # (Auto) 2.3 1.0-4.0 10^3/uL Monocytes # (Auto) 0.6 0.0-1.0 10^3/uL Eosinophils # (Auto) 0.1 0.0-0.3 10^3/uL Basophils # (Auto) 0.1 0.0-0.1 10^3/uL Immature Granulocyte # (Auto) 0.0 0.0-0.1 10^3/uL Prothrombin Time 13.3 12.2-14.7 SEC INR Comment 1.0 0.8-1.4 Activated Partial Thromboplast Time 28 24-35 SEC Sodium Level 136 135-145 MMOL/L Potassium Level 4.2 3.6-5.0 MMOL/L Chloride Level 98 98-107 MMOL/L Carbon Dioxide Level 29 21-32 MMOL/L Anion Gap 9 5-14 MMOL/L Blood Urea Nitrogen 17 7-18 MG/DL Creatinine 0.95 0.60-1.30 MG/DL Estimat Glomerular Filtration Rate 80 BUN/Creatinine Ratio 18 Glucose Level 141 H 70-105 MG/DL Calcium Level 9.6 8.5-10.1 MG/DL Corrected Calcium 9.3 8.5-10.1 MG/DL Magnesium Level 2.0 1.6-2.4 MG/DL Total Bilirubin 1.0 0.1-1.0 MG/DL Aspartate Amino Transf (AST/SGOT) 16 5-34 U/L Alanine Aminotransferase (ALT/SGPT) 20 0-55 U/L Alkaline Phosphatase 68 40-136 U/L Myoglobin 39.2 10.0-92.0 NG/ML Troponin I < 0.028 <0.028 NG/ML B-Type Natriuretic Peptide 15.4 <100.0 PG/ML Total Protein 8.0 6.4-8.2 GM/DL Albumin 4.4 3.2-4.5 GM/DL Lipase 19 8-78 U/L Influenza Type A (RT-PCR) Not Detected Not Detecte Influenza Type B (RT-PCR) Not Detected Not Detecte SARS-CoV-2 RNA (RT-PCR) Not Detected Not Detecte My Orders Orders - CRISTOPHER HARDWICK Cbc With Automated Diff (10/29/21 14:36) Magnesium (10/29/21 14:36) Chest 1 View, Ap/Pa Only (10/29/21 14:36) Ekg Tracing (10/29/21 14:36) Comprehensive Metabolic Panel (10/29/21 14:36) Myoglobin Serum (10/29/21 14:36) Protime With Inr (10/29/21 14:36) Partial Thromboplastin Time (10/29/21 14:36) O2 (10/29/21 14:36) Monitor-Rhythm Ecg Trace Only (10/29/21 14:36) Lipid Panel (10/30/21 06:00) Ed Iv/Invasive Line Start (10/29/21 14:36) Lipase (10/29/21 14:36) Troponin I Rooks (10/29/21 14:36) Nitroglycerin 0.4 Mg Btl 25's (Nitrostat (10/29/21 14:45) Aspirin Chewable Tablet (Baby Aspirin Ch (10/29/21 14:45) Covid 19 Inhouse Test (10/29/21 14:39) Influenza A And B By Pcr (10/29/21 14:39) Ondansetron Injection (Zofran Injectio (10/29/21 14:45) Bnp Kia (10/29/21 15:25) Fentanyl Inj (Sublimaze Injection) (10/29/21 15:30) Medications Given in ED Current Medications Medications Dose Ordered Sig/Lane Route Start Time Stop Time Status Last Admin Dose Admin Aspirin 324 mg ONCE ONCE PO 10/29/21 14:45 10/29/21 14:46 DC 10/29/21 14:51 324 MG Fentanyl Citrate 50 mcg ONCE ONCE IVP 10/29/21 15:30 10/29/21 15:31 DC 10/29/21 15:33 50 MCG Nitroglycerin 0.4 mg UD PRN SL 10/29/21 14:45 10/29/21 15:13 0.4 MG Ondansetron HCl 4 mg ONCE ONCE IVP 10/29/21 14:45 10/29/21 14:46 DC 10/29/21 14:51 4 MG Vital Signs/I&O 10/29/21 14:40 Temp 36.9 Pulse 66 Resp 14 B/P (MAP) 144/87 (106) Pulse Ox 95 Progress Progress Note #1: Time: 14:42 Progress Note 324 mg of aspirin and nitroglycerin. EKG unrevealing. With his history and statement that it feels similar to his previous heart attack we will go down that route. We will also provide him with a Covid and influenza swab, chest x- ray and labs to help look for other etiologies. Progress Note #2: Time: 15:31 Progress Note After 2 doses of nitroglycerin the patient states his pain is unchanged. He took some hydrocodone at home earlier so we will give him 50 mcg of fentanyl for his pain. Blood pressure is in the 1 teens systolic after the second dose of nitroglycerin. Labs are largely unremarkable. Because of his risk factors and high heart risk score we will recommend him for an overnight observation. Oxygen was 91% on room air so he put him on 2 L by nasal cannula. Initial ECG Impression Date: Oct 29, 2021 Initial ECG Impression Time: 14:29 Initial ECG Rate: 65 Initial ECG Rhythm: Normal Sinus Initial ECG Intervals: Normal Initial ECG Impression: Normal, Nonspecific Changes Comment Normal sinus rhythm without clinically relevant ST changes Diagnostic Imaging Diagonstic Imaging: Xray Plain Films/CT/US/NM/MRI: chest Comments [facility]. [place], [place] NAME: BERTHA FELIZ [facility] REC#: [id number] PT STATUS: REG ER : 1960 PHYSICIAN: CRISTOPHER HARDWICK MD ADMIT DATE: 10/29/21/ER Signed Date of Exam:10/29/21 CHEST 1 VIEW, AP/PA ONLY EXAMINATION: Chest 1 view. HISTORY: Chest pain. COMPARISON: 12/22/2020. FINDINGS: There is cardiomegaly with mild central pulmonary vascular congestion. No large pleural effusion or pneumothorax. No pulmonary mass or focal consolidations. No acute osseous abnormalities. IMPRESSION: Cardiomegaly with central pulmonary vascular congestion. Dictated by: Dictated on workstation # [id number] Dict: 10/29/21 1501 Trans: 10/29/21 1506 [facility] [id number] Interpreted by: KATIA LOVE DO Electronically signed by: KATIA LOVE DO 10/29/21 1506 Reviewed: Reviewed by Me Departure Communication (Admissions) Time/Spoke to Admitting Phy: 16:[address] Wade who agrees with consultation to cardiology and observation trend troponins Time/Spoke to Consulting Phy: 16:[address] Orellana and he recommends starting ranolazine 1000 mg now and in the morning and he would see the patient in the morning. Impression Primary Impression: Unstable angina pectoris Disposition: ADMITTED INPATIENT Condition: Stable Admissions Decision to Admit Reason: Admit from ER (General) Decision to Admit/Date: Oct 29, 2021 Time/Decision to Admit Time: 16:00 Departure-Patient Inst. Referrals: TREVON ARGUETA MD (PCP/Family) Primary Care Physician CRISTOPHER HARDWICK Oct 29, 2021 14:39
[2021-10-29 14:45] LABS: BASOPHILS # (AUTO) 0.1 10^3/uL (0.0-0.1); BASOPHILS % (AUTO) 1 % (0-10); EOSINOPHILS # (AUTO) 0.1 10^3/uL (0.0-0.3); EOSINOPHILS % (AUTO) 2 % (0-10); HEMATOCRIT 47 % (40-54); HEMOGLOBIN 15.8 g/dL (13.3-17.7); LYMPHOCYTES # (AUTO) 2.3 10^3/uL (1.0-4.0); LYMPHOCYTES % (AUTO) 29 % (12-44); MEAN CORPUSCULAR HEMOGLOBIN 30 pg (25-34); MEAN CORPUSCULAR HGB CONC 34 g/dL (32-36); MEAN CORPUSCULAR VOLUME 90 fL (80-99); MEAN PLATELET VOLUME 10.4 fL (9.0-12.2); MONOCYTES # (AUTO) 0.6 10^3/uL (0.0-1.0); MONOCYTES % (AUTO) 8 % (0-12); NEUTROPHILS # (AUTO) 4.7 10^3/uL (1.8-7.8); NEUTROPHILS % (AUTO) 60 % (42-75); PLATELET COUNT 177 10^3/uL (130-400); WHITE BLOOD COUNT 7.9 10^3/uL (4.3-11.0)
[2021-10-29] MEDS ORDERED: ONDANSETRON 4 MG/2 ML (SDV) Z0FRAN IVP ONE (14:45)
[2021-10-29] MEDS ORDERED: ASPIRIN 81 MG CHEW (CHILDREN'S ASA) PO ONE (14:45)
[2021-10-29] MEDS: NITROGLYCERIN 0.4 MG SL TABS BTL 25'S SL PRN ×2 (14:51→15:13)
[2021-10-29 14:53] LABS: ALBUMIN 4.4 GM/DL (3.2-4.5)
[2021-10-29 14:54] LABS: POTASSIUM 4.2 MMOL/L (3.6-5.0)
[2021-10-29 14:55] LABS: CALCIUM 9.6 MG/DL (8.5-10.1)
[2021-10-29 14:56] LABS: PROTHROMBIN TIME PATIENT 13.3 SEC (12.2-14.7)
[2021-10-29 15:00] LABS: CREATININE SERUM 0.95 MG/DL (0.60-1.30)
--- NOTE | 2021-10-29 15:05 | Diagnostic Imaging Report ---
EXAMINATION: Chest 1 view. HISTORY: Chest pain. COMPARISON: 12/22/2020. FINDINGS: There is cardiomegaly with mild central pulmonary vascular congestion. No large pleural effusion or pneumothorax. No pulmonary mass or focal consolidations. No acute osseous abnormalities. IMPRESSION: Cardiomegaly with central pulmonary vascular congestion. Dictated by: Dictated on workstation # [id number]
[2021-10-29] MEDS ORDERED: fentaNYL INJ 100 MCG/2 ML AMP IVP ONE (15:30)
[2021-10-29 17:00] VITALS: BP 127/72
[2021-10-29] MEDS ORDERED: NITROGLYCERIN 0.4 MG SL TABS BTL 25'S SL PRN (17:15)
[2021-10-29] MEDS ORDERED: ONDANSETRON 4 MG/2 ML (SDV) Z0FRAN IV PRN ×2 (17:15→18:00)
[2021-10-29] MEDS ORDERED: fentaNYL INJ 100 MCG/2 ML AMP IV PRN (17:15)
[2021-10-29] MEDS ORDERED: ACETAMINOPHEN 500 MG TAB (TYLENOL) PO PRN (17:15)
[2021-10-29] MEDS ORDERED: ALPRAZolam 1 MG (XANAX) TAB PO PRN (17:15)
[2021-10-29 20:00] VITALS: BP 129/75
[2021-10-29] MEDS ORDERED: RANOLAZINE ER 500 MG TAB (RANEXA) PO SCH ×2 (21:00)
[2021-10-29] MEDS ORDERED: GABAPENTIN 100 MG (NEURONTIN) CAP PO SCH (21:00)
[2021-10-29] MEDS ORDERED: TAMSULOSIN 0.4 MG (FLOMAX) CAP PO SCH (21:00)
[2021-10-30] VITALS: BP 134/85
[2021-10-30 04:25] VITALS: BP 123/79
[2021-10-30] MEDS: inSUlin ASPART (NovoLOG) 1 UNIT/0.01 ML (CHARGE PER UNIT) SC SCH ×2 (04:26→06:18)
[2021-10-30 05:16] LABS: BASOPHILS # (AUTO) 0.1 10^3/uL (0.0-0.1); BASOPHILS % (AUTO) 1 % (0-10); EOSINOPHILS # (AUTO) 0.1 10^3/uL (0.0-0.3); EOSINOPHILS % (AUTO) 1 % (0-10); HEMATOCRIT 46 % (40-54); HEMOGLOBIN 15.3 g/dL (13.3-17.7); LYMPHOCYTES # (AUTO) 2.1 10^3/uL (1.0-4.0); LYMPHOCYTES % (AUTO) 25 % (12-44); MEAN CORPUSCULAR HEMOGLOBIN 30 pg (25-34); MEAN CORPUSCULAR HGB CONC 34 g/dL (32-36); MEAN CORPUSCULAR VOLUME 90 fL (80-99); MEAN PLATELET VOLUME 10.9 fL (9.0-12.2); MONOCYTES # (AUTO) 0.8 10^3/uL (0.0-1.0); MONOCYTES % (AUTO) 9 % (0-12); NEUTROPHILS # (AUTO) 5.3 10^3/uL (1.8-7.8); NEUTROPHILS % (AUTO) 64 % (42-75); PLATELET COUNT 164 10^3/uL (130-400); WHITE BLOOD COUNT 8.4 10^3/uL (4.3-11.0)
[2021-10-30 05:42] LABS: CALCIUM 9.6 MG/DL (8.5-10.1)
[2021-10-30 05:44] LABS: TRIGLYCERIDES 142 MG/DL (<150); VLDL CHOLESTEROL 28 MG/DL (5-40)
[2021-10-30 05:47] LABS: CREATININE SERUM 0.87 MG/DL (0.60-1.30)
[2021-10-30 05:49] LABS: CHOLESTEROL 181 MG/DL (< 200); HDL CHOLESTEROL 41 MG/DL (40-60)
[2021-10-30 08:00] VITALS: BP 118/72
[2021-10-30] MEDS ORDERED: ASPIRIN E.C. 81 MG (ECOTRIN) TAB PO SCH (09:00)
[2021-10-30] MEDS ORDERED: CLOPIDOGREL 75 MG (PLAVIX) TABLET PO SCH (09:00)
[2021-10-30] MEDS ORDERED: meTOproloL SUCCINATE 50 MG (TOPROL XL) TAB PO SCH (09:00)
[2021-10-30] MEDS ORDERED: GABAPENTIN 600 MG (NEURONTIN) TAB PO SCH (09:00)
--- NOTE | 2021-10-30 09:28 | Consultation-Cardiology ---
HPI-Cardiology Cardiology Consultation: Date of Consultation 10/30/2021 Date of Admission 10/29/2021 Attending Physician Nivia Wade MD Admitting Physician Nacho Bill MD Consulting Physician YVONNE KNAPP JR, MD HPI: Time Seen by a Provider: 09:27 Chief Complaint: Reason for consultation: Chest pain. I had the pleasure of seeing Veto on the cardiac stepdown unit at [facility] in [place], [place] this morning. He normally follows with one of my partners, Dr. Lopes. He has known history of coronary artery disease with previous stents. He just had a cardiac catheterization in November, that did not show any disease requiring revascularization at that time. For the past several days he has been having intermittent back pain with radiation towards his shoulders and chest. At times this might make him feel short of breath. The discomfort was happening off and on for several days and yesterday he decided to come to the emergency room for further evaluation. He has nitroglycerin at home but did not think to take any. When he was in the emergency room, he was given nitroglycerin and his chest discomfort eventually resolved. I also asked the emergency room physician to give him a dose of ranolazine. This morning his back pain and chest pain has completely resolved. When he had his stents, his symptoms were mainly substernal chest tightness with radiation to his left arm. He did not have any of this symptom prior to this admission. He denies dyspnea on exertion, paroxysmal nocturnal dyspnea, orthopnea, palpitations, lightheadedness, syncope, or ankle edema. Because of the chest discomfort, a cardiology consultation was requested. Certain portions of this document may have been dictated utilizing voice recognition technology. Inherent to this technology, typographical and grammatical errors may exist. As much as I am diligent to identify and correct these mistakes, some errors may remain in the document. Review of Systems-Cardiology Review of Systems Other comments Review of 10 organ systems is as per the history of present illness, otherwise negative. All Other Systems Reviewed Negative Unless Noted: Yes [id number] Hx Patient Social History Marrital Status: Smoking Status: Former Smoker 2nd Hand Smoke Exposure: Yes Have you traveled recently?: No Alcohol Use?: No Pt feels they are or have been: No Immunizations Up To Date Tetanus Booster (TDap): More than 5yrs Date of Pneumonia Vaccine: Nov 03, 2014 Date of Influenza Vaccine: Aug 16, 2021 Past Medical History PMH As described under Assessment. Family Medical History Family Medical History: His mother of a myocardial infarction at the age of 50. Family History: Asthma G8 BROTHER Cancer of mouth G8 BROTHER Cardiovascular disease 19 MOTHER Cataracts G8 BROTHER Deafness or hearing loss G8 BROTHER Hypercholesterolemia G8 SISTER Myocardial infarction 19 FATHER Allergies and Home Medications Allergies Coded Allergies: Ukwbbun-OPE-ItP Reductase Inhibitor (Verified Allergy, Severe, MUSCLE WEAKNESS, PT TAKE LIPITOR AT HOME, 11/25/18) ezetimibe (Verified Allergy, Unknown, 11/25/18) morphine (Verified Adverse Reaction, Unknown, 11/25/18) Patient Home Medication List Home Medication List Reviewed: Yes Alprazolam (Alprazolam) 1 Mg Tablet, 1 MG PO BID PRN for ANXIETY, (Reported) Entered as Reported by: DARY SUMNER on 10/16/17 153 Aspirin (Aspirin EC) 81 Mg Tablet.dr, 81 MG PO DAILY, (Reported) Entered as Reported by: DARY SUMNER on 10/16/17 153 Atorvastatin Calcium (Atorvastatin Calcium) 10 Mg Tablet, 10 MG PO HS, (Reported) Entered as Reported by: DARY SUMNER on 10/16/17 153 Baclofen (Baclofen) 10 Mg Tablet, 10 MG PO TID PRN for MUSCLE SPASMS, (Reported) Entered as Reported by: LIBBY WEATHERS on 12/23/20 133 Clopidogrel Bisulfate (Clopidogrel) 75 Mg Tablet, 75 MG PO DAILY, (Reported) Entered as Reported by: DARY SUMNER on 10/16/17 1539 Gabapentin (Neurontin) 300 Mg Capsule, 600 MG PO DAILY, (Reported) Entered as Reported by: LIBBY WEATHERS on 12/23/20 1330 Gabapentin (Neurontin) 300 Mg Capsule, 900 MG PO HS, (Reported) Entered as Reported by: LIBBY WEATHERS on 12/23/20 1330 Hydrocodone/Acetaminophen (Hydrocodone-Acetamin 10-325 mg) 1 Each Tablet, 1 EA PO Q6H PRN for PAIN-MODERATE (5-7), (Reported) Entered as Reported by: LIBBY WEATHERS on 12/23/20 1330 L.acidoph & Paracasei,B.lactis (Probiotic) 1 Each Capsule, 1 EACH PO DAILY, (Reported) Entered as Reported by: LIBBY WEATHERS on 12/23/20 1330 Meloxicam (Meloxicam) 7.5 Mg Tablet, 3.75 MG PO BID, (Reported) Entered as Reported by: JHOANA LIZAMA on 09/19/18 0936 Metformin HCl (Metformin HCl) 500 Mg Tablet, 500 MG PO DAILY, (Reported) Entered as Reported by: LIBBY WEATHERS on 12/23/20 1330 Metoprolol Succinate (Metoprolol Succinate) 50 Mg Tab.er.24h, 50 MG PO DAILY, (Reported) Entered as Reported by: DARY SUMNER on 10/16/17 1539 Omeprazole (Omeprazole) 40 Mg Capsule.dr, 40 MG PO DAILY, (Reported) Entered as Reported by: LIBBY WEATHERS on 12/23/20 1330 Ranolazine (Ranexa) 500 Mg Tab.er.12h, 1,000 MG PO BID Prescribed by: YVONNE KNAPP JR, MD on 10/30/21 0929 Tamsulosin HCl (Flomax) 0.4 Mg Cap, 0.4 MG PO HS, (Reported) Entered as Reported by: LIBBY WEATHERS on 12/23/20 1330 Exam Vital Signs Vital Signs Date Time Temp Pulse Resp B/P (MAP) Pulse Ox O2 Delivery O2 Flow Rate FiO2 10/30/21 08:00 36.3 76 18 118/72 (87) 91 Nasal Cannula 2.00 Physical Exam General: Alert. No acute distress. Well nourished and appears stated age. Eye: Extraocular movements are intact. Conjunctivae are clear. There are no xanthelasma. HENT: Normocephalic. Atraumatic. Carotid pulsations 2/2 without bruits. Neck: Jugular venous pressure does not appear elevated. No thyromegaly appreciated. Respiratory: Lungs are clear to auscultation. Respirations are non-labored. Breath sounds are equal. Symmetrical chest wall expansion. Cardiovascular: Normal rate. Regular rhythm. No murmur. No gallop. Point of maximal impulse is not appear displaced. Good pulses equal in all extremities. No edema. Gastrointestinal: Soft. Normal bowel sounds. Skin: Skin turgor is normal. There is no pallor. Musculoskeletal: No kyphosis or scoliosis appreciated. Neurologic: Alert and oriented to person, place, time. Cranial nerves 3-12 appear grossly intact. The patient has good motor tone strength in the upper and lower extremities bilaterally. Psychiatric: Cooperative. Appropriate mood & affect. Labs Laboratory Tests Test 10/29/21 14:36 10/29/21 14:53 10/29/21 20:40 10/29/21 21:43 Range/Units White Blood Count 7.9 4.3-11.0 10^3/uL Red Blood Count 5.22 4.30-5.52 10^6/uL Hemoglobin 15.8 13.3-17.7 g/dL Hematocrit 47 40-54 % Mean Corpuscular Volume 90 80-99 fL Mean Corpuscular Hemoglobin 30 25-34 pg Mean Corpuscular Hemoglobin Concent 34 32-36 g/dL Red Cell Distribution Width 13.4 10.0-14.5 % Platelet Count 177 130-400 10^3/uL Mean Platelet Volume 10.4 9.0-12.2 fL Immature Granulocyte % (Auto) 0 % Neutrophils (%) (Auto) 60 42-75 % Lymphocytes (%) (Auto) 29 12-44 % Monocytes (%) (Auto) 8 0-12 % Eosinophils (%) (Auto) 2 0-10 % Basophils (%) (Auto) 1 0-10 % Neutrophils # (Auto) 4.7 1.8-7.8 10^3/uL Lymphocytes # (Auto) 2.3 1.0-4.0 10^3/uL Monocytes # (Auto) 0.6 0.0-1.0 10^3/uL Eosinophils # (Auto) 0.1 0.0-0.3 10^3/uL Basophils # (Auto) 0.1 0.0-0.1 10^3/uL Immature Granulocyte # (Auto) 0.0 0.0-0.1 10^3/uL Prothrombin Time 13.3 12.2-14.7 SEC INR Comment 1.0 0.8-1.4 Activated Partial Thromboplast Time 28 24-35 SEC Sodium Level 136 135-145 MMOL/L Potassium Level 4.2 3.6-5.0 MMOL/L Chloride Level 98 98-107 MMOL/L Carbon Dioxide Level 29 21-32 MMOL/L Anion Gap 9 5-14 MMOL/L Blood Urea Nitrogen 17 7-18 MG/DL Creatinine 0.95 0.60-1.30 MG/DL Estimat Glomerular Filtration Rate 80 BUN/Creatinine Ratio 18 Glucose Level 141 H 70-105 MG/DL Calcium Level 9.6 8.5-10.1 MG/DL Corrected Calcium 9.3 8.5-10.1 MG/DL Magnesium Level 2.0 1.6-2.4 MG/DL Total Bilirubin 1.0 0.1-1.0 MG/DL Aspartate Amino Transf (AST/SGOT) 16 5-34 U/L Alanine Aminotransferase (ALT/SGPT) 20 0-55 U/L Alkaline Phosphatase 68 40-136 U/L Myoglobin 39.2 10.0-92.0 NG/ML Troponin I < 0.028 < 0.028 <0.028 NG/ML B-Type Natriuretic Peptide 15.4 <100.0 PG/ML Total Protein 8.0 6.4-8.2 GM/DL Albumin 4.4 3.2-4.5 GM/DL Lipase 19 8-78 U/L Influenza Type A (RT-PCR) Not Detected Not Detecte Influenza Type B (RT-PCR) Not Detected Not Detecte SARS-CoV-2 RNA (RT-PCR) Not Detected Not Detecte Glucometer 180 H 70-110 MG/DL Test 10/30/21 02:30 10/30/21 04:35 Range/Units Troponin I < 0.028 <0.028 NG/ML White Blood Count 8.4 4.3-11.0 10^3/uL Red Blood Count 5.06 4.30-5.52 10^6/uL Hemoglobin 15.3 13.3-17.7 g/dL Hematocrit 46 40-54 % Mean Corpuscular Volume 90 80-99 fL Mean Corpuscular Hemoglobin 30 25-34 pg Mean Corpuscular Hemoglobin Concent 34 32-36 g/dL Red Cell Distribution Width 13.3 10.0-14.5 % Platelet Count 164 130-400 10^3/uL Mean Platelet Volume 10.9 9.0-12.2 fL Immature Granulocyte % (Auto) 0 % Neutrophils (%) (Auto) 64 42-75 % Lymphocytes (%) (Auto) 25 12-44 % Monocytes (%) (Auto) 9 0-12 % Eosinophils (%) (Auto) 1 0-10 % Basophils (%) (Auto) 1 0-10 % Neutrophils # (Auto) 5.3 1.8-7.8 10^3/uL Lymphocytes # (Auto) 2.1 1.0-4.0 10^3/uL Monocytes # (Auto) 0.8 0.0-1.0 10^3/uL Eosinophils # (Auto) 0.1 0.0-0.3 10^3/uL Basophils # (Auto) 0.1 0.0-0.1 10^3/uL Immature Granulocyte # (Auto) 0.0 0.0-0.1 10^3/uL Sodium Level 137 135-145 MMOL/L Potassium Level 4.0 3.6-5.0 MMOL/L Chloride Level 99 98-107 MMOL/L Carbon Dioxide Level 26 21-32 MMOL/L Anion Gap 12 5-14 MMOL/L Blood Urea Nitrogen 18 7-18 MG/DL Creatinine 0.87 0.60-1.30 MG/DL Estimat Glomerular Filtration Rate 89 BUN/Creatinine Ratio 21 Glucose Level 122 H 70-105 MG/DL Calcium Level 9.6 8.5-10.1 MG/DL Triglycerides Level 142 <150 MG/DL Cholesterol Level 181 < 200 MG/DL LDL Cholesterol Direct 130 H 1-129 MG/DL VLDL Cholesterol 28 5-40 MG/DL HDL Cholesterol 41 40-60 MG/DL Radiology Electrocardiogram obtained in the emergency room on 10/29 shows sinus rhythm and is a normal tracing. Diagnosis/Problems Diagnosis/Problems (1) Chest pain Assessment & Plan: Exact etiology unclear. His electrocardiogram is normal and his troponin levels were undetectable. His symptoms are somewhat different than what he had prior to his stents. On the other hand, his symptoms did improve w ith ranolazine. He had a cardiac catheterization less than 1 year ago that did not show any coronary artery disease that required revascularization. I did review the films and he has a fair amount of moderate coronary artery disease and likely may have some small vessel disease. I recommend he be discharged home on ranolazine. I will send a prescription to his pharmacy. He should continue on aspirin and beta-sim. He needs to be on a higher dose of atorvastatin. I will also send a prescription for that. From a cardiac standpoint, he can be discharged home today. I have asked him to call our office on Monday to schedule a follow-up appointment with Dr. Lopes within the next few weeks. (2) Coronary artery disease without angina pectoris Assessment & Plan: As above, unclear whether or not he is having angina or some other noncardiac etiology of chest discomfort. We will proceed as above. I am not entirely sure why he is on both aspirin and clopidogrel since his most recent stents were in 2018. He can discuss stopping JUAN Keyla L with his regular gusset edger after discharge. Although we do sometimes keep people on prolonged dual antiplatelet therapy, beyond 3 years could increase his risk of hemorrhagic side effects without yielding any benefit. An alternative would be aspirin and low-dose rivaroxaban. (3) Primary hypertension Assessment & Plan: Blood pressures well controlled with metoprolol. This should be continued. (4) Mixed hyperlipidemia Assessment & Plan: His LDL level is too high. He is taking the lowest dose of atorvastatin. I agree with increasing this to 40 mg daily. It seems when he had an allergy to ezetimibe, he may have been taking Vytorin. I suspect his reaction was more to the statin medication as opposed to ezetimibe. If he has side effects from the higher dose of atorvastatin or does not reach his goal LDL of 70 mg/dL, a trial of ezetimibe might be reasonable. Alternatively, a PCSK9 inhibitor may be helpful. (5) Type 2 diabetes mellitus with complication Assessment & Plan: This will be managed by the hospitalist. I have added an HbA1c to his previous blood sample. (6) Obesity Assessment & Plan: He needs to work on weight loss. (7) Obstructive sleep apnea of adult Assessment & Plan: He has not been using a CPAP. This could be causing some of his symptoms. This probably needs to be revisited after discharge. YVONNE KNAPP JR, MD Oct 30, 2021 09:28
[2021-10-30] MEDS ORDERED: RANO500T3 PO (09:29)
[2021-10-30] MEDS ORDERED: ATOR40TA PO (09:51)
[2021-10-30] MEDS ORDERED: NITR0.4T42 SL (09:52)
--- NOTE | 2021-10-30 13:55 | Discharge Summary ---
Discharge Summary Hospital Course Problems/Dx: (1) Chest pain Status: Acute Qualifiers: Qualified Codes: I20.8 - Other forms of angina pectoris (2) Coronary artery disease without angina pectoris Status: Acute (3) Primary hypertension Status: Chronic (4) Mixed hyperlipidemia Status: Chronic (5) Type 2 diabetes mellitus with complication Status: Chronic (6) Obesity Status: Chronic (7) Obstructive sleep apnea of adult Status: Chronic Hospital Course Date of Admission: Oct 29, 2021 at 16:10 Admission Diagnosis : Chest pain Family Physician/Provider: Nacho Bill MD Date of Discharge: 10/30/21 Discharge Diagnosis: Coronary artery disease with stable angina Hospital Course: Veto Pozo is a 60 year old male who was admitted with chest pain. He has a history of coronary artery disease with stent placement. He follows with Dr. Lopes. Cardiology was consulted and Dr. Orellana assisted with his care. His troponin remained normal. His chest pain resolved. He was started on Ranexa. His Lipitor was increased. He was discharged home in stable condition. He should follow up with his PCP and [employer]. Labs and Pending Lab Test: Laboratory Tests 10/29/21 14:36: White Blood Count 7.9, Red Blood Count 5.22, Hemoglobin 15.8, Hematocrit 47, Mean Corpuscular Volume 90, Mean Corpuscular Hemoglobin 30, Mean Corpuscular Hemoglobin Concent 34, Red Cell Distribution Width 13.4, Platelet Count 177, Mean Platelet Volume 10.4, Immature Granulocyte % (Auto) 0, Neutrophils (%) (Auto) 60, Lymphocytes (%) (Auto) 29, Monocytes (%) (Auto) 8, Eosinophils (%) (Auto) 2, Basophils (%) (Auto) 1, Neutrophils # (Auto) 4.7, Lymphocytes # (Auto) 2.3, Monocytes # (Auto) 0.6, Eosinophils # (Auto) 0.1, Basophils # (Auto) 0.1, Immature Granulocyte # (Auto) 0.0, Prothrombin Time 13.3, INR Comment 1.0, Activated Partial Thromboplast Time 28, Sodium Level 136, Potassium Level 4.2, Chloride Level 98, Carbon Dioxide Level 29, Anion Gap 9, Blood Urea Nitrogen 17, Creatinine 0.95, Estimat Glomerular Filtration Rate 80, BUN/Creatinine Ratio 18, Glucose Level 141H, Calcium Level 9.6, Corrected Calcium 9.3, Magnesium Level 2 .0, Total Bilirubin 1.0, Aspartate Amino Transf (AST/SGOT) 16, Alanine Aminotransferase (ALT/SGPT) 20, Alkaline Phosphatase 68, Myoglobin 39.2, Troponin I < 0.028, B-Type Natriuretic Peptide 15.4, Total Protein 8.0, Albumin 4.4, Lipase 19 10/29/21 14:53: Influenza Type A (RT-PCR) Not Detected, Influenza Type B (RT-PCR) Not Detected, SARS-CoV-2 RNA (RT-PCR) Not Detected 10/29/21 20:40: Glucometer 180H 10/29/21 21:43: Troponin I < 0.028 10/30/21 02:30: Troponin I < 0.028 10/30/21 04:35: White Blood Count 8.4, Red Blood Count 5.06, Hemoglobin 15.3, Hematocrit 46, Mean Corpuscular Volume 90, Mean Corpuscular Hemoglobin 30, Mean Corpuscular Hemoglobin Concent 34, Red Cell Distribution Width 13.3, Platelet Count 164, Mean Platelet Volume 10.9, Immature Granulocyte % (Auto) 0, Neutrophils (%) (Auto) 64, Lymphocytes (%) (Auto) 25, Monocytes (%) (Auto) 9, Eosinophils (%) (Auto) 1, Basophils (%) (Auto) 1, Neutrophils # (Auto) 5.3, Lymphocytes # (Auto) 2.1, Monocytes # (Auto) 0.8, Eosinophils # (Auto) 0.1, Basophils # (Auto) 0.1, Immature Granulocyte # (Auto) 0.0, Sodium Level 137, Potassium Level 4.0, Chloride Level 99, Carbon Dioxide Level 26, Anion Gap 12, Blood Urea Nitrogen 18, Creatinine 0.87, Estimat Glomerular Filtration Rate 89, BUN/Creatinine Ratio 21, Glucose Level 122H, Mean Blood Glucose [Pending], Hemoglobin A1c [Pending], Calcium Level 9.6, Triglycerides Level 142, Cholesterol Level 181, LDL Cho lesterol Direct 130H, VLDL Cholesterol 28, HDL Cholesterol 41 10/30/21 10:41: Glucometer 168H Home Meds Active Nitroglycerin 0.4 Mg Tab.subl 0 Mg SL UD PRN Lipitor (Atorvastatin Calcium) 40 Mg Tablet 40 Mg PO HS Ranexa (Ranolazine) 500 Mg Tab.er.12h 1,000 Mg PO BID Reported Probiotic (L.acidoph & Paracasei,B.lactis) 1 Each Capsule 1 Each PO DAILY Neurontin (Gabapentin) 300 Mg Capsule 900 Mg PO HS TAKES 3 (300MG) CAPS Neurontin (Gabapentin) 300 Mg Capsule 600 Mg PO DAILY TAKES 2 (300MG) CAPS Omeprazole 40 Mg Capsule.dr 40 Mg PO DAILY Hydrocodone-Acetamin 10-325 mg (Hydrocodone/Acetaminophen) 1 Each Tablet 1 Ea PO Q6H PRN Baclofen 10 Mg Tablet 10 Mg PO TID PRN Flomax (Tamsulosin HCl) 0.4 Mg Cap 0.4 Mg PO HS Metformin HCl 500 Mg Tablet 500 Mg PO DAILY Meloxicam 7.5 Mg Tablet 3.75 Mg PO BID TAKES OF A 7.5MG TAB Clopidogrel (Clopidogrel Bisulfate) 75 Mg Tablet 75 Mg PO DAILY Metoprolol Succinate 50 Mg Tab.er.24h 50 Mg PO DAILY Aspirin EC (Aspirin) 81 Mg Tablet.dr 81 Mg PO DAILY Alprazolam 1 Mg Tablet 1 Mg PO BID PRN Assessment/Pt Instructions See instructions Discharge Planning: <30 minutes discharge planning Discharge Instructions Discharge Diet: Low Sodium Diet Activity as Tolerated: Yes Discharge Physical Examination Vital Signs Vital Signs Date Time Temp Pulse Resp B/P (MAP) Pulse Ox O2 Delivery O2 Flow Rate FiO2 10/30/21 08:00 36.3 76 18 118/72 (87) 91 Nasal Cannula 2.00 General Appearance: No Apparent Distress, Obese HEENT: PERRL/EOMI, Pharynx Normal Respiratory: Lungs Clear, Normal Breath Sounds, No Respiratory Distress Cardiovascular: Regular Rate, Rhythm, No Edema, No Murmur Gastrointestinal: Normal Bowel Sounds, Non Tender, Soft Extremity: Normal Inspection, Non Tender, No Pedal Edema Skin: Normal Color, Warm/Dry Neurologic/Psychiatric: Alert, Oriented x3, No Motor/Sensory Deficits, Normal Mood/Affect Allergies: Coded Allergies: Wuarrpt-NOA-CvL Reductase Inhibitor (Verified Allergy, Severe, MUSCLE WEAKNESS, PT TAKE LIPITOR AT HOME, 11/25/18) ezetimibe (Verified Allergy, Unknown, 11/25/18) morphine (Verified Adverse Reaction, Unknown, 11/25/18) Discharge Summary Date of Admission Oct 29, 2021 at 16:10 Date of Discharge Discharge Date: Oct 30, 2021 Discharge Time: 13:53 Admission Diagnosis Chest pain Consults/Procedures Consulations Cardiology Discharge Diagnosis (1) Chest pain Status: Acute Qualifiers: Qualified Codes: I20.8 - Other forms of angina pectoris (2) Coronary artery disease without angina pectoris Status: Acute (3) Primary hypertension Status: Chronic (4) Mixed hyperlipidemia Status: Chronic (5) Type 2 diabetes mellitus with complication Status: Chronic (6) Obesity Status: Chronic (7) Obstructive sleep apnea of adult Status: Chronic MARY GILMORE MD Oct 30, 2021 13:52
== END 2021-10-30 12:15 | disposition home or self-care (01) ==
LOC: EDUNIT# 14:28 → ER 14:30 → CSD 16:10 → ICU 16:10 → CSD 16:10 → UNDOADMIN 16:10
PROVIDERS: ADMIT Internal Medicine; ATTEND Internal Medicine
DX: I25.118 Atherosclerotic heart disease of native coronary artery with other forms of angina pectoris (principal); I25.110 Atherosclerotic heart disease of native coronary artery with unstable angina pectoris; I10 Essential (primary) hypertension; I82.409 Acute embolism and thrombosis of unspecified deep veins of unspecified lower extremity; I25.2 Old myocardial infarction; E78.5 Hyperlipidemia, unspecified; E11.8 Type 2 diabetes mellitus with unspecified complications; G47.33 Obstructive sleep apnea (adult) (pediatric); E78.00 Pure hypercholesterolemia, unspecified; K21.9 Gastro-esophageal reflux disease without esophagitis; M19.90 Unspecified osteoarthritis, unspecified site; G89.29 Other chronic pain; M54.9 Dorsalgia, unspecified; F41.9 Anxiety disorder, unspecified; Z79.84 Long term (current) use of oral hypoglycemic drugs; Z79.899 Other long term (current) drug therapy; Z79.891 Long term (current) use of opiate analgesic; Z79.82 Long term (current) use of aspirin; Z79.02 Long term (current) use of antithrombotics/antiplatelets; Z68.39 Body mass index [BMI] 39.0-39.9, adult; Z90.89 Acquired absence of other organs; Z80.8 Family history of malignant neoplasm of other organs or systems
CPT/HCPCS: 36415; 71045; 80048; 80053; 80061; 82947; 83036; 83690; 83735; 83874; 83880; 84484; 85025; 85610; 85730; 87636; 93005; 93041

== ENCOUNTER → 2022-01-20 | Outpatient (CLI) | payer OTHER ==
[~2022-01-20] MED LIST changes: +ATOR40TA PO; +NITR0.4T42 SL; +RANO500T3 PO
== END ==
LOC: LAB 08:56
DX: E11.9 Type 2 diabetes mellitus without complications (principal)
CPT/HCPCS: 36415; 83036

== ENCOUNTER 2022-04-21 11:42 | Emergency (ER) | payer OTHER ==
[~2022-04-21] VITALS: Ht 180 cm; Wt 131.0 kg
[2022-04-21] MEDS ORDERED: ORPHENADRINE 60 MG/2 ML (NORFLEX) AMP (ED ONLY) IM ONE (12:15)
[2022-04-21] MEDS ORDERED: KETOROLAC 60 MG/2 ML VIAL IM ONE (12:15)
--- NOTE | 2022-04-21 12:16 | ED Back Pain ---
General Chief Complaint: Back Problems Stated Complaint: BACK PAIN / BILAT LEG PAIN Nursing Triage Note: PT STATES HIS DR AND HE HAS "A LOT OF HEALTH ISSUES." CC TODAY OF PAIN IN LOW BACK AND BOTH LEGS. Source of Information: Patient Exam Limitations: No Limitations History of Present Illness Date Seen by Provider: Apr 21, 2022 Time Seen by Provider: 12:12 Initial Comments Patient is a 61-year-old male with a history of chronic back pain who presents ED with back pain and pain in both legs. Patient states this is chronic. This became worse last night. States he has a sharp shooting pain bilateral legs with neuropathy. Currently on gabapentin and hydrocodone. He states his primary care physician 2 weeks ago and took his last pain dose yesterday. Schedule follow-up with a new primary care physician here in a few weeks. Patient is requesting a refill of his pain medication till he can see his new primary care physician. Has follow-up with Dr. Fowler at [facility] neurosurgery but states due to his health issues they do not recommend surgery. Has seen pain specialist for his chronic back pain. Denies any current chest pain, shortness of breath, nausea, vomiting, diarrhea fever, chills. Patient denies of any bowel or urine incontinence, saddle paresthesia, lower extremity muscle weakness Allergies and Home Medications Allergies Coded Allergies: Yyvczxy-SSG-RjQ Reductase Inhibitor (Verified Allergy, Severe, MUSCLE WEAKNESS, PT TAKE LIPITOR AT HOME, 11/25/18) ezetimibe (Verified Allergy, Unknown, 11/25/18) morphine (Verified Adverse Reaction, Unknown, 11/25/18) Patient Home Medication List Home Medication List Reviewed: Yes Alprazolam (Alprazolam) 1 Mg Tablet, 1 MG PO BID PRN for ANXIETY, (Reported) Entered as Reported by: DARY SUMNER on 10/16/17 1539 Aspirin (Aspirin EC) 81 Mg Tablet., 81 MG PO DAILY, (Reported) Entered as Reported by: DARY SUMNER on 10/16/17 1539 Atorvastatin Calcium (Lipitor) 40 Mg Tablet, 40 MG PO HS Prescribed by: YVONNE KNAPP JR, MD on 10/30/21 0995 Baclofen (Baclofen) 10 Mg Tablet, 10 MG PO TID PRN for MUSCLE SPASMS, (Reported) Entered as Reported by: LIBBY WEATHERS on 12/23/20 1330 Clopidogrel Bisulfate (Clopidogrel) 75 Mg Tablet, 75 MG PO DAILY, (Reported) Entered as Reported by: DARY SUMNER on 10/16/17 1539 Gabapentin (Neurontin) 300 Mg Capsule, 600 MG PO DAILY, (Reported) Entered as Reported by: LIBBY WEATHERS on 12/23/20 133 Gabapentin (Neurontin) 300 Mg Capsule, 900 MG PO HS, (Reported) Entered as Reported by: LIBBY WEATHERS on 12/23/20 133 Hydrocodone/Acetaminophen (Hydrocodone-Acetamin 10-325 mg) 1 Each Tablet, 1 EA PO Q6H PRN for PAIN-MODERATE (5-7), (Reported) Entered as Reported by: LIBBY WEATHERS on 12/23/20 133 Hydrocodone/Acetaminophen (Hydrocodone-Acetamin 10-325 mg) 10 Mg-325 Mg Tablet, 1 EACH PO Q6H PRN for PAIN-MODERATE (5-7) Prescribed by: CAROLE BAIN on 04/21/22 1219 L.acidoph & ParacaseiB.lactis (Probiotic) 1 Each Capsule, 1 EACH PO DAILY, (Reported) Entered as Reported by: LIBBY WEATHERS on 12/23/20 133 Meloxicam (Meloxicam) 7.5 Mg Tablet, 3.75 MG PO BID, (Reported) Entered as Reported by: JHOANA LIZAMA on 09/19/18 0936 Metformin HCl (Metformin HCl) 500 Mg Tablet, 500 MG PO DAILY, (Reported) Entered as Reported by: LIBBY WEATHERS on 12/23/20 133 Metoprolol Succinate (Metoprolol Succinate) 50 Mg Tab.er.24h, 50 MG PO DAILY, (Reported) Entered as Reported by: DARY SUMNER on 10/16/17 1539 Nitroglycerin (Nitroglycerin) 0.4 Mg Tab.subl, 0 MG SL UD PRN for CHEST PAIN (ANGINA) Prescribed by: YVONNE KNAPP JR, MD on 10/30/21 0952 Omeprazole (Omeprazole) 40 Mg Capsule.dr, 40 MG PO DAILY, (Reported) Entered as Reported by: LIBBY WEATHERS on 12/23/20 133 Ranolazine (Ranexa) 500 Mg Tab.er.12h, 1,000 MG PO BID Prescribed by: YVONNE KNAPP JR, MD on 10/30/21 3785 Tamsulosin HCl (Flomax) 0.4 Mg Cap, 0.4 MG PO HS, (Reported) Entered as Reported by: LIBBY WEATHERS on 12/23/20 1330 Review of Systems Constitutional: No chills, No diaphoresis EENTM: No hearing loss, No ear pain, No blurred vision, No double vision, No vision loss, No throat pain, No throat swelling Respiratory: No cough, No short of breath Cardiovascular: No chest pain, No edema Gastrointestinal: No abdominal pain, No diarrhea, No nausea, No vomiting Genitourinary: No decreased output, No discharge Musculoskeletal: back pain, joint pain Skin: No change in color All Other Systems Reviewed Negative Unless Noted: Yes Past Pkbhjzb-Dlrxmz-Jkbdtx Hx Patient Social History Tobacco Use?: No Substance use?: No Alcohol Use?: No Immunizations Up To Date Tetanus Booster (TDap): More than 5yrs PED Vaccines UTD: No First/Initial COVID19 Vaccinat: YES Second COVID19 Vaccination Edward: YES Third COVID19 Vaccination Date: 09/19 Seasonal Allergies Seasonal Allergies: Yes (at times) Past Medical History Surgery/Hospitalization HX: PMH: DM, HIGH CHOL, CAD, HTN, GERD. CHRONIC BACK PAIN, HEART CATH WITH STENTS Surgeries: Yes Abdominal, Appendectomy, Cardiac, Coronary Stent, Joint Replacement, Orthopedic Respiratory: No Currently Using CPAP: No Currently Using BIPAP: No Cardiac: Yes (SCAR 2004; CARDIAC CATHS WITH CARDIAC STENTS X 4 ( 2004, 2014, 2018 )) Chronic Edema/Swelling, Coronary Artery Disease, Deep Vein Thrombosis, Heart Attack, High Cholesterol, Hypertension Neurological: No Reproductive Disorders: No Sexually Transmitted Disease: No HIV/AIDS: No Genitourinary: Yes Kidney Stones Gastrointestinal: Yes (ESOPHAGEAL DILATION; DIVERTICULITIS) Abdominal Hernia, Gastroesophageal Reflux, Diverticulosis Musculoskeletal: Yes Degenerate Disk Disease, Arthritis, Chronic Back Pain Endocrine: No Diabetes, Non-Insulin dep HEENT: No Loss of Vision: Denies Hearing Impairment: Denies Cancer: No Psychosocial: Yes Anxiety Integumentary: Yes (MRSA) Blood Disorders: No Adverse Reaction/Blood Tranf: No Family Medical History Asthma G8 BROTHER Cancer of mouth G8 BROTHER Cardiovascular disease 19 MOTHER Cataracts G8 BROTHER Deafness or hearing loss G8 BROTHER Hypercholesterolemia G8 SISTER Myocardial infarction 19 FATHER Physical Exam Vital Signs Vital Signs - First Documented 04/21/22 11:52 Temp 36.7 Pulse 79 Resp 22 B/P (MAP) 137/69 (91) O2 Delivery Room Air Capillary Refill : Less Than 3 Seconds Height, Weight, BMI Height: 5'11.00" Weight: 285lbs. 0.0oz. [id number]; 40.00 BMI Method:Stated General Appearance: No Apparent Distress, WD/WN HEENT: PERRL/EOMI, TMs Normal, Normal ENT Inspection, Pharynx Normal Neck: Full Range of Motion, Normal Inspection, Non Tender, Supple Cardiovascular: Regular Rate, Rhythm, No Edema, No Gallop, No JVD Respiratory: Chest Non Tender, Lungs Clear, Normal Breath Sounds, No Accessory Muscle Use Gastrointestinal: Normal Bowel Sounds, No Organomegaly, No Pulsatile Mass, Non Tender, Soft Back: Vertebral Tenderness (Thoracic lumbar midline tenderness. Bilateral lumbar paraspinal muscle tenderness) Extremity: Normal Capillary Refill, Normal Inspection, Normal Range of Motion, Non Tender Neurologic/Psychiatric: Alert, Oriented x3, No Motor/Sensory Deficits, Normal Mood/Affect, rehabilitation supervisor II-XII Norm as Tested Skin: Normal Color, Warm/Dry Progress/Results/Core Measures Results/Orders My Orders Orders - ROBERT VASQUES Ketorolac Injection (Toradol Injection) (04/21/22 12:15) Orphenadrine Inj (Ed Only) (Norflex Inje (04/21/22 12:15) Hydrocodone/Apap 10/325 Tablet (Lortab 1 (04/21/22 12:10) Medications Given in ED Current Medications Medications Dose Ordered Sig/Lane Route Start Time Stop Time Status Last Admin Dose Admin Ketorolac Tromethamine 30 mg ONCE ONCE IM 04/21/22 12:15 04/21/22 12:16 DC 04/21/22 12:25 30 MG Orphenadrine Citrate 60 mg ONCE ONCE IM 04/21/22 12:15 04/21/22 12:16 DC 04/21/22 12:25 60 MG Vital Signs/I&O 04/21/22 04/21/22 04/21/22 04/21/22 11:52 12:25 12:25 13:20 Temp 36.7 36.7 36.7 36.7 Pulse 79 79 Resp 22 22 B/P (MAP) 137/69 (91) 137/69 O2 Delivery Room Air Room Air Blood Pressure Mean: 91 Departure Communication (PCP) Patient reports chronic back pain. Acute exacerbation on chronic back pain. No bowel or urine incontinence, saddle paresthesia, lower extremity weakness. Patient states his primary care physician 2 weeks ago. Scheduled to follow-up with a new primary care physician here in a few weeks. Requesting few days worth of his pain medication which was provided. Was given dose of pain medication here with some improvement. Denies of any recent trauma or falls. Denies chest pain, shortness of breath, nausea vomiting, diarrhea, fever, chills, weight loss. Patient will follow up with his primary care physician for further evaluation. Patient has seen neurosurgery and pain specialist for this chronic pain and states pain medication is his only option secondary to his chronic health conditions. Impression Primary Impression: Acute exacerbation of chronic low back pain Disposition: HOME, SELF-CARE Condition: Stable Departure-Patient Inst. Decision time for Depature: 12:17 Referrals: [facility] [place] NO,LOCAL PHYSICIAN (PCP) Primary Care Physician Patient Instructions: Low Back Pain (DC) Scripts Hydrocodone/Acetaminophen (Hydrocodone-Acetamin 10-325 mg) 10 Mg-325 Mg Tablet 1 EACH PO Q6H PRN for PAIN-MODERATE (5-7), #20 TAB Prov: ROBERT VASQUES 04/21/22 ROBERT VASQUES Apr 21, 2022 12:16
[2022-04-21] MEDS ORDERED: HYDR-3820 PO (12:19)
[2022-04-21 13:20] VITALS: BP 137/69
== END 2022-04-21 13:20 | disposition home or self-care (01) ==
LOC: EDUNIT# 11:42 → ER 11:44
DX: M54.50 Low back pain, unspecified (principal); G89.29 Other chronic pain
CPT/HCPCS: 99284

== ENCOUNTER → 2023-05-03 | Outpatient (CLI) | payer OTHER ==
[~2023-05-03] MED LIST changes: +CATHETER FLUSH 10 ML SYR IVP PRN; +REGADENOSON 0.4 MG/5 ML SYR (LEXISCAN) IV ONE
[2023-05-03 13:12] VITALS: BP 119/79
--- NOTE | 2023-05-03 21:11 | STRESS TEST ---
DATE OF SERVICE: 05/03/2023 RESTING AND POST REGADENOSON TECHNETIUM-99M TETROFOSMIN SPECT CT IMAGING ORDERING PHYSICIAN: Antonette Loyola APRN other. OTHER PHYSICIAN: Dr. Iyer. CLINICAL DIAGNOSIS: Coronary artery disease. Baseline images were carried out after injection of 10.95 mCi of technetium-99m tetrofosmin. This was followed by 0.4 mg regadenoson and 32.7 mCi of technetium-99m tetrofosmin for stress imaging. The electrocardiogram showed sinus rhythm at baseline. It did not change significantly with regadenoson infusion. The patient tolerated the procedure well. Review of images at rest and following stress indicates a small transient perfusion defect in the tony-apical wall and SDS is 4. Gated images show normal global left ventricular systolic function with normal regional wall motion. Left ventricular ejection fraction is calculated to be 63%. CONCLUSION: 1. This study is suggestive of a small amount of tony-apical ischemia (SDS 4). 2. Normal regional wall motion. 3. Normal global left systolic function with ejection fraction 63%. 4. Overall, this appears to be a relatively low risk study. Job ID: [id number] DocumentID: [id number] Dictated Date: 05/03/2023 17:45:14 Medical Records Auditor Date: 05/03/2023 21:08:00 Dictated By: LIBRADO IYER MD; BLANCA; FACP; FACC;
== END ==
LOC: CARD 11:24
PROVIDERS: ATTEND Nurse Practitioner Family
DX: I25.10 Atherosclerotic heart disease of native coronary artery without angina pectoris (principal)
CPT/HCPCS: 78452; 93017

== ENCOUNTER → 2023-05-11 | Outpatient (CLI) | payer OTHER ==
[~2023-05-11] MED LIST changes: -CATHETER FLUSH 10 ML SYR IVP PRN; -REGADENOSON 0.4 MG/5 ML SYR (LEXISCAN) IV ONE
[2023-05-11 10:40] LABS: BASOPHILS # (AUTO) 0.1 10^3/uL (0.0-0.1); BASOPHILS % (AUTO) 1 % (0-10); EOSINOPHILS # (AUTO) 0.1 10^3/uL (0.0-0.3); EOSINOPHILS % (AUTO) 1 % (0-10); HEMATOCRIT 45 % (40-54); HEMOGLOBIN 14.8 g/dL (13.3-17.7); LYMPHOCYTES % (AUTO) 32 % (12-44); MEAN CORPUSCULAR HEMOGLOBIN 30 pg (25-34); MEAN CORPUSCULAR HGB CONC 33 g/dL (32-36); MEAN CORPUSCULAR VOLUME 90 fL (80-99); MEAN PLATELET VOLUME 10.9 fL (9.0-12.2); MONOCYTES # (AUTO) 0.6 10^3/uL (0.0-1.0); MONOCYTES % (AUTO) 10 % (0-12); NEUTROPHILS # (AUTO) 3.4 10^3/uL (1.8-7.8); NEUTROPHILS % (AUTO) 55 % (42-75); PLATELET COUNT 170 10^3/uL (130-400); WHITE BLOOD COUNT 6.2 10^3/uL (4.3-11.0)
[2023-05-11 10:51] LABS: ALBUMIN 4.5 GM/DL (3.2-4.5); BILIRUBIN,TOTAL 1.7 MG/DL (0.1-1.0); CALCIUM 10.1 MG/DL (8.5-10.1); CREATININE SERUM 1.02 MG/DL (0.60-1.30); POTASSIUM 4.6 MMOL/L (3.6-5.0); TOTAL PROTEIN 7.8 GM/DL (6.4-8.2)
== END ==
LOC: LAB 10:22
PROVIDERS: ATTEND Nurse Practitioner Family
DX: E11.9 Type 2 diabetes mellitus without complications (principal); R10.84 Generalized abdominal pain
CPT/HCPCS: 36415; 80053; 85025

== ENCOUNTER 2023-06-06 07:40 | Day surgery (SDC) | payer OTHER ==
[~2023-06-06] VITALS: Ht 180.3 cm; Wt 127.7 kg
[2023-06-06] VITALS (9 sets, daily range): BP systolic 97–141; BP diastolic 55–79
[2023-06-06] MEDS ORDERED: LIDOCAINE 1% INJ 20 ML VIAL ONE (07:53)
[2023-06-06] MEDS ORDERED: NS IV 1000 ML 1,000 ML ONE (07:53)
[2023-06-06] MEDS ORDERED: HEParin (CATH LAB) 2,000 ML IV ONE (07:53)
[2023-06-06] MEDS ORDERED: NS IV 1000 ML 1,000 ML IV SCH ×2 (08:00→11:45)
[2023-06-06 08:13] LABS: HEMATOCRIT 44 % (40-54); HEMOGLOBIN 14.6 g/dL (13.3-17.7); MEAN CORPUSCULAR HEMOGLOBIN 30 pg (25-34); MEAN CORPUSCULAR HGB CONC 33 g/dL (32-36); MEAN CORPUSCULAR VOLUME 89 fL (80-99); MEAN PLATELET VOLUME 11.4 fL (9.0-12.2); PLATELET COUNT 150 10^3/uL (130-400); WHITE BLOOD COUNT 8.4 10^3/uL (4.3-11.0)
[2023-06-06 08:25] LABS: PROTHROMBIN TIME PATIENT 13.2 SEC (12.2-14.7)
[2023-06-06] MEDS ORDERED: GBPN600T PO (08:25)
[2023-06-06] MEDS ORDERED: SUCR1TAB36 PO (08:25)
[2023-06-06] MEDS ORDERED: GABA800T10 PO (08:25)
[2023-06-06 08:36] LABS: ALBUMIN 4.4 GM/DL (3.2-4.5); BILIRUBIN,TOTAL 1.4 MG/DL (0.1-1.0); CALCIUM 9.1 MG/DL (8.5-10.1); CREATININE SERUM 0.93 MG/DL (0.60-1.30); POTASSIUM 3.8 MMOL/L (3.6-5.0); TOTAL PROTEIN 7.7 GM/DL (6.4-8.2)
[2023-06-06] MEDS ORDERED: VERAPAMIL 5 MG/2 ML (CALAN) VIAL IV ONE (10:35)
[2023-06-06] MEDS ORDERED: NITRO DRIP 25000 MCG/D5W 250 ML IV ONE (10:35)
[2023-06-06] MEDS ORDERED: MIDAZOLAM 5 MG/5 ML (VERSED) VIAL ONE (10:35)
[2023-06-06] MEDS ORDERED: HEParin 1000 UNIT/ML (10ML VIAL) FOR BOLUS ONE (10:35)
[2023-06-06] MEDS ORDERED: fentaNYL INJECTION 100 MCG/2 ML VIAL ONE (10:35)
--- NOTE | 2023-06-06 11:26 | Cardiac Procedure Note-CS/ASA ---
Pre-Procedure Note Pre-Op Procedure Note Date of Available H&P: May 31, 2023 Date H&P Reviewed: Jun 06, 2023 Time H&P Reviewed: 10:00 History & Physical: H&P Reviewed, No changes noted Moderate Sedation PreProcedure ASA Score 3 Airway Lungs Heart ASA score ASA 1: a normal healthy patient ASA 2: a patient with a mild systemic disease (mid diabetes, controlled hypertension, obesity ASA 3: a patient with a severe systemic disease that limits activity (angina, COPD, prior Myocardial infarction) ASA 4: a patient with an incapacitating disease that is a constant threat to life (CHF, renal failure) ASA 5: a moribund patient not expected to survive 24 hrs. (ruptured aneurysm) ASA 6: a declared brain- patient whose organs are being harvested. For emergent operations, add the letter E after the classification Mallampati Classification Grade 2 Sedation Plan Analgesia, Amnesia, Plan communicated to team members The patient is an appropriate candidate to undergo the planned procedure, sedation, and anesthesia. The patient immediately re-assessed prior to indication. LIBRADO IYER MD FACP FAC CCDS Jun 06, 2023 11:26
--- NOTE | 2023-06-06 11:31 | Cardiac Cath Report ---
CARDIAC CATHETERIZATION DATE OF PROCEDURE: 06-06-23 INDICATION: CAD, abnormal stress test HISTORY: The patient is a 62 year old male with CAD and abnormal stress test PROCEDURES PERFORMED: 1. Cor angio 2. LHC PROCEDURE DESCRIPTION: After informed consent and in the fasting state, left heart catheterization was performed through the R radial artery utilizing a 6 Occitan system by percutaneous approach. 6F TIG for LCA, 5F JR4 for RCA and for LHC. LV angio not done. All catheters were exchanged over a guidewire. HEMODYNAMICS: LVEDP 14 mmHg. No significant pressure gradient on pullback across the aortic valve CORONARY ANGIOGRAPHY: Left main coronary artery: Ok Left anterior descending coronary artery: Diffuse, moderate disease; patent mid- LAD stent Left circumflex coronary artery: Diffuse, moderate disease Right coronary artery: Dominant; diffuse, moderate disease; patent mid-vessel stent IMPRESSION: 1. Diffuse, moderate disease w/o evidence of significant obstructive disease. Patent stents in mid-LAD and mid-RCA 2. LVEDP 14 mmHg LIBRADO IYER MD FACP FAC CCD Jun 06, 2023 11:31
--- NOTE | 2023-06-06 11:39 | Discharge Inst-Cardiology ---
Discharge Inst-Cardiac Discharge Medications Continued Medications: Alprazolam (Alprazolam) 1 Mg Tablet 1 MG PO BID PRN for ANXIETY, TAB Aspirin (Aspirin EC) 81 Mg Tablet.dr 81 MG PO DAILY, TAB Atorvastatin Calcium (Lipitor) 40 Mg Tablet 40 MG PO HS, #30 TAB 6 Refills Clopidogrel Bisulfate (Clopidogrel) 75 Mg Tablet 75 MG PO DAILY, TAB Gabapentin (Gabapentin) 800 Mg Tablet 1800 MG PO HS, TAB Gabapentin (Gabapentin) 600 Mg Tablet 600 MG PO BID, TAB Hydrocodone/Acetaminophen (Hydrocodone-Acetamin 10-325 mg) 1 Each Tablet 1 EA PO Q6H PRN for PAIN-MODERATE (5-7), TAB L.acidoph & Paracasei,B.lactis (Probiotic) 1 Each Capsule 1 EACH PO DAILY, CAP Metformin HCl (Metformin HCl) 500 Mg Tablet 500 MG PO DAILY, TAB Metoprolol Succinate (Metoprolol Succinate) 50 Mg Tab.er.24h 50 MG PO DAILY, TAB Omeprazole (Omeprazole) 40 Mg Capsule.dr 40 MG PO DAILY, CAP Sucralfate (Carafate) 1 Gram Tablet 1 GM PO AC, TAB Tamsulosin HCl (Flomax) 0.4 Mg Cap 0.4 MG PO HS, CAP LIBRADO IYER MD FACP [facility] CCDS Jun 06, 2023 11:39
--- NOTE | 2023-06-06 11:40 | Discharge Inst-Post CATH ---
Discharge Inst-CATH/EP Post Cardiac Cath/EP D/C Inst Follow Up/Plan F/u with Dr Lopes in 2 months ACTIVITY * Go Home directly and rest. * Limit activity of the leg (or wrist if it was used) for 7 days including aerobics, swimming, jogging, bicycling, etc. * Restrict stair-climbing for 7 days if possible, if not, climb up with your n on-cath leg, then bring together on the same step. * Avoid lifting, pushing, pulling or excessive movement of the affected ex tremity for 7 days. * Customary sexual activity may be resumed after 2 days-use caution not to use a position that strains or causes pain to the affected extremity. * No driving for 24 hours. * NO SMOKING. * Avoid straining for bowel movements for 7 days. * Gentle walking on level ground is allowed. * Returning to work will depend on the type of procedure and the results. Your doctor will discuss this with you. CALL YOUR DOCTOR FOR ANY OF THE FOLLOWING: *If bleeding from the puncture site occurs- Apply gentle pressure to site with clean cloth and call your doctor or EMS. * If a knot or lump forms under the skin, increases in size, or causes pain. * If bruising appears to be worsening or moving further down your leg instead of disappearing. * Temperature above 101 F. CARE OF YOUR GROIN INCISION; * Bruising or purple discoloration of the skin near the puncture site is common. * You may shower only, no bathtub bathing for 5 days. Be careful to avoid slipping as your leg may feel stiff. * If a closure device was used on your femoral artery, please see the attached guide regarding care of the device and your leg. * Leave dressing on FOR 24 hours. CARE OF YOUR WRIST INCISION; * Bruising or purple discoloration of the skin near the puncture site is common. * You may shower. * DO NOT submerge wrist. * Leave dressing on FOR 24 hours. LIBRADO LOPES MD [facility] CCDS Jun 06, 2023 11:40
[2023-06-06] MEDS ORDERED: PATIENT MAY USE OWN MEDS, ALL PO SCH (11:45)
== END 2023-06-06 14:10 | disposition home or self-care (01) ==
LOC: CATH 07:40 → SDC 11:51 → CATH 14:10
PROVIDERS: ATTEND Internal Medicine Cardiovascular Disease
DX: I25.10 Atherosclerotic heart disease of native coronary artery without angina pectoris (principal); R94.39 Abnormal result of other cardiovascular function study; E66.9 Obesity, unspecified; Z68.39 Body mass index [BMI] 39.0-39.9, adult; I65.23 Occlusion and stenosis of bilateral carotid arteries; E78.2 Mixed hyperlipidemia; K21.9 Gastro-esophageal reflux disease without esophagitis; K43.9 Ventral hernia without obstruction or gangrene; I49.3 Ventricular premature depolarization; I10 Essential (primary) hypertension; M54.30 Sciatica, unspecified side; M54.32 Sciatica, left side; G47.33 Obstructive sleep apnea (adult) (pediatric); E11.40 Type 2 diabetes mellitus with diabetic neuropathy, unspecified; Z79.899 Other long term (current) drug therapy; Z87.19 Personal history of other diseases of the digestive system
CPT/HCPCS: 36415; 80053; 80061; 85027; 85610; 85730; 87081; 93005; 93458

== ENCOUNTER 2023-06-15 05:28 | Outpatient (CLI) | payer OTHER ==
[~2023-06-15] VITALS: Ht 180.3 cm; Wt 125.7 kg
[~2023-06-15 05:28] MED LIST changes: +GABA800T10 PO; +GBPN600T PO; +SUCR1TAB36 PO
[2023-06-15] MEDS ORDERED: HYDR12.56 PO (10:44)
== END 2023-06-15 11:03 | disposition home or self-care (01) ==
LOC: PREOP 05:28
PROVIDERS: ATTEND Surgery
DX: Z01.818 Encounter for other preprocedural examination (principal)

== ENCOUNTER 2023-06-22 07:46 | Inpatient (IN) | payer OTHER ==
[2023-06-22] VITALS (21 sets, daily range): BP systolic 102–188; BP diastolic 64–106
[~2023-06-22] VITALS: Ht 180.3 cm; Wt 132.4 kg
[~2023-06-22 07:46] MED LIST changes: +HYDR12.56 PO
[2023-06-22] MEDS ORDERED: LIDOCAINE 1% w/EPI 1:100,000 20 ML VIAL ONE ×2 (07:50→13:39)
[2023-06-22] MEDS ORDERED: ceFAZolin INJECTION 2,000 MG in NS (IVPB) 50 ML 50 ML IV ONE ×2 (08:15→14:45)
[2023-06-22] MEDS: LACTATED RINGERS 1,000 ML 1,000 ML IV PRN ×3 (08:35→14:55)
[2023-06-22] MEDS ORDERED: LIDOCAINE PF 2% 5 ML VIAL ONE ×2 (08:37→13:38)
[2023-06-22] MEDS ORDERED: ONDANSETRON INJECTION 4 MG/2 ML (SDV) ONE ×3 (08:37→13:38)
[2023-06-22] MEDS ORDERED: SEVOFLURANE (ULTANE) 15 ML INHAL SOLN ONE ×3 (08:37→13:38)
[2023-06-22] MEDS ORDERED: proPOfol INJECTION 200 MG/20 ML VIAL IV ONE ×2 (08:37→13:38)
[2023-06-22] MEDS ORDERED: MIDAZOLAM INJ 2 MG/2 ML VIAL ONE (08:37)
[2023-06-22] MEDS ORDERED: fentaNYL INJECTION 100 MCG/2 ML VIAL ONE ×2 (08:37→13:38)
--- NOTE | 2023-06-22 08:44 | Progress Note-Pre Operative ---
Pre-Operative Progress Note Date H&P Reviewed: Jun 22, 2023 Time H&P Reviewed: 08:12 History & Physical: H&P Reviewed, Patient Examed, No changes noted Pre-Operative Diagnosis: cholelithiasis JOYCELYN GHOTRA DO Jun 22, 2023 08:44
[2023-06-22] MEDS ORDERED: PHENYLEPHRINE 100 MCG/ML 10 ML (ANESTHESIA) SYR ONE (08:58)
--- NOTE | 2023-06-22 09:44 | Progress Note-Post Operative ---
Post-Operative Progess Note Surgeon (s)/Sorority Supervisor (s) Surgeon JOYCELYN GHOTRA DO Sorority Supervisor: Dr. Byrd to assist in retraction dissection and closure. Pre-Operative Diagnosis cholelithiasis Post-Operative Diagnosis same Procedure & Operative Findings Date of Procedure 06/22/23 Procedure Performed/Findings PROCEDURE: Laparoscopic cholecystectomy with intraoperative cholangiogram. COMPLICATIONS: None. PROCEDURE: The patient was taken to the operating suite and was prepped and draped in sterile fashion. A surgical pause was performed. Just superior to the umbilicus, a 12 mm incision was made. Dissection was taken down to the fascia, which was then scored and grasped with a Nikhil and the abdomen was then entered. A 0 Vicryl suture was placed in a [id number] fashion and a Stuart trocar was placed and secured. Pneumoperitoneum was achieved. Small bowel was adherent up to the abdominal wall around the 12 mm trochar. A 5mm trochar place in the subxyphoid and 2 in the right upper quadrant. The gallbladder was then grasped and elevated. The cystic duct, and cystic artery were then dissected out. Clip was placed on the distal portion of the cystic duct which was then partially transected. An arrow catheter was inserted into the duct. The cholangiogram was then performed. No filing defects and contrast made its way into the duodenum. Catheter removed. Clips were placed on proximal portion of the cystic duct and then the duct was then transected. Clips were placed along the proximal and distal portion of the cystic artery which was then transected. Hook cautery was used to dissect the gallbladder from the gallbladder fossa achieving hemostasis. The gallbladder was placed in an Endobag and removed through the 12 mm trocar site. The abdomen was then reinspected. Copious amounts of irrigation were used to irrigate the abdomen and there were no signs of active bleeding. Hemostasis had been achieved. The 12 mm fascial defect was then closed with 0 Vicryl suture that had been placed in a fjzxjt-eg-[id number] fashion. The abdomen was then desufflated, the trocars were removed. The abdomen was then washed and dried. The skin was then closed using 4-0 Monocryl in a subcuticular fashion. The abdomen was washed and dried and Skin Affix was place over incisions. Patient tolerated the procedure well without any complications and was taken to the recovery room in stable condition. Anesthesia Type general Estimated Blood Loss Estimated blood loss (mL): minimal Specimens/Packing Specimens Removed gallbladder JOYCELYN GHOTRA DO Jun 22, 2023 09:44
[2023-06-22] MEDS ORDERED: MEPERIDINE INJ 50 MG/ML VIAL IVP ONE (10:00)
[2023-06-22] MEDS ORDERED: fentaNYL INJECTION 100 MCG/2 ML VIAL IVP ONE (10:00)
--- NOTE | 2023-06-22 10:02 | Anesthesia-General Post-Op ---
General Patient Condition Mental Status/LOC: Same as Preop Cardiovascular: Satisfactory Nausea/Vomiting: Absent Respiratory: Satisfactory Pain: Controlled Complications: Absent Post Op Complications Complications None Follow Up Care/Instructions Patient Instructions None needed. Anesthesia/Patient Condition Patient Condition Patient is doing well, no complaints, stable vital signs, no apparent adverse anesthesia problems. No complications reported per nursing. GUILLERMO ISAACS CRNA Jun 22, 2023 10:02
[2023-06-22] MEDS ORDERED: ACHD5005 PO (10:03)
[2023-06-22] MEDS ORDERED: DOCU-143 PO (10:03)
--- NOTE | 2023-06-22 10:04 | Discharge Inst-Simple/Standard ---
Discharge Inst-Standard Discharge Medications New, Converted or Re-Newed RX: Transmitted to Pharmacy Patient Instructions/Follow Up Plan of Care/Instructions/FU: 2 weeks Dain. Restart Plavix in 3 days. Activity as Tolerated: No Discharge Diet: Regular Diet Other Inst to Patient Follow up Appt: Make appointment for 2 weeks. Instructions: No lifting greater than 10 pounds. No strenuous activity. May shower in 24 hours, no tub bath or soaking. Use incentive spirometer at home as directed. No Smoking Skin/Wound Care: You have special glue over incision, it will fall off on it's own. Symptoms to Report: Appetite Changes, Extremity Discoloration, Numbness/Tingling, Swelling Increased, Bleeding Excessive, Eyesight Changes, Pain Increased, Urine Color Change, Constipation(Persistent), Fever over 101 degree F, Pain/Pressure in chest, Urinating Difficulty, Cough Up/Vomit Blood, Heart Beat Irreg/Pounding, Pain/Pressure in jaw, Vaginal Bleeding Increase, Cramps in feet or legs, Lightheadedness, Pain/Pressure in shoulder, Diarrhea(Persistent), Memory Changes Suddenly, Questions/Concerns, Weight gain consecutive days, Dizziness/Fainting, Nausea/Vomiting, Shortness of Breath, Weight gain over 2 pounds. If eyes or skin turn yellow notify physician. If questions or concerns contact your physician Or seek help at emergency department. JOYCELYN GHOTRA DO Jun 22, 2023 10:04
[2023-06-22] MEDS ORDERED: ROCURONIUM 50 MG/5 ML VIAL IV ONE ×3 (10:05→14:59)
[2023-06-22] MEDS: morphine INJ 10 MG/ML 1ML (SYR OR VIAL) IVP ONE ×2 (10:37→10:43)
[2023-06-22] MEDS ORDERED: HYDROmorphone INJECTION 2 MG/ML VIAL ONE ×2 (11:17→16:43)
[2023-06-22] MEDS ORDERED: HYDROmorphone INJECTION 2 MG/ML VIAL IV ONE ×2 (11:30→16:45)
[2023-06-22] MEDS ORDERED: HYDROcodone/ACETAMINOPHEN 5 MG/325 MG TABLET PO ONE (11:45)
[2023-06-22] MEDS ORDERED: HYDROcodone/ACETAMINOPHEN 5 MG/325 MG TABLET ONE (11:46)
[2023-06-22] MEDS ORDERED: ONDANSETRON INJECTION 4 MG/2 ML (SDV) IVP ONE (12:15)
--- NOTE | 2023-06-22 13:38 | Progress Note - Surgery ---
Subjective Date Seen by a Provider: Jun 22, 2023 Time Seen by a Provider: 13:31 Subjective/Events-last exam Patient with severe pain. Despite pain medication. Abdomen more distended after surgery. O2 sat high 80's/low 90's on 3 L. at bedside. Objective Exam Vital Signs Date Time Temp Pulse Resp B/P (MAP) Pulse Ox O2 Delivery O2 Flow Rate FiO2 06/22/23 11:30 36.5 18 130/64 (86) 95 Nasal Cannula 2.00 06/22/23 11:25 Nasal Cannula 2.00 06/22/23 11:20 36.5 18 131/82 (98) 95 Nasal Cannula 3.00 06/22/23 11:10 36.5 18 140/87 (104) 95 Nasal Cannula 4.00 06/22/23 11:10 OxyMask 8.00 06/22/23 11:00 36.5 18 120/82 (95) 97 OxyMask 8.00 06/22/23 10:55 OxyMask 10.00 06/22/23 10:50 36.5 18 113/69 (84) 97 OxyMask 10.00 06/22/23 10:40 36.5 18 137/89 (105) 97 OxyMask 10.00 06/22/23 10:40 OxyMask 10.00 06/22/23 10:30 36.5 18 137/83 (101) 97 OxyMask 10.00 06/22/23 10:25 OxyMask 10.00 06/22/23 10:20 36.5 18 133/79 (97) 96 OxyMask 10.00 06/22/23 10:10 36.5 18 124/79 (94) 96 OxyMask 10.00 06/22/23 10:10 OxyMask 10.00 06/22/23 10:00 36.5 18 124/69 (87) 97 OxyMask 10.00 06/22/23 09:55 36.5 18 133/64 (87) 95 OxyMask 10.00 06/22/23 09:55 OxyMask 10.00 06/22/23 08:00 36.5 73 20 134/78 (96) 94 Room Air Capillary Refill : General Appearance: Moderate Distress HEENT: PERRL/EOMI, Normal ENT Inspection Neck: Full Range of Motion, Normal Inspection Respiratory: Chest Non Tender, No Accessory Muscle Use, Other (slight labored breathing) Cardiovascular: No JVD, Tachycardia Gastrointestinal: non tender, soft Extremity: Non Tender, No Calf Tenderness Neurologic/Psychiatric: Alert, Other (anxious) Skin: Normal Color, Warm/Dry Lymphatic: No Adenopathy Results Lab Laboratory Tests 06/22/23 08:32: Glucometer 152H 06/22/23 09:59: Glucometer 171H 06/22/23 12:47: Glucometer 253H Assessment/Plan Assessment/Plan Assessment/Plan s/p lap adán c ioc. severe abdominal pain. discussed with patient and that i am concerned that he could have acute pathology in his abdomen postoperatively. He had small bowel adhered to the abdominal wall which concern is that could have small perforation from this area. will plan diagnostic laparoscopy possible open all other indicated procedures. Will admit post operatively. Patient and agree with plan. Understand higher risk of anesthesia for aspiration JOYCELYN GHOTRA DO Jun 22, 2023 13:38
[2023-06-22] MEDS ORDERED: SUCCINYLCHOLINE INJ 20 MG/1 ML 10 ML VIAL ONE (13:41)
[2023-06-22] MEDS ORDERED: NS (IVPB) 50 ML 50 ML ONE (13:44)
[2023-06-22] MEDS ORDERED: ceFAZolin INJECTION 2,000 MG ONE (13:44)
[2023-06-22] MEDS ORDERED: GLYCOPYRROLATE INJ 0.2 MG/ML 2 ML VIAL ONE (13:45)
[2023-06-22] MEDS ORDERED: NEOSTIGMINE 1 MG/1ML 10 ML VIAL ONE (13:45)
[2023-06-22] MEDS ORDERED: metroNIDAZOLE 500MG/100ML IVPB 100 ML ONE (14:54)
[2023-06-22] MEDS ORDERED: ISOFLURANE (FORANE) 15 ML/15 MIN INHALATION ONE (15:58)
[2023-06-22] MEDS ORDERED: morphine INJ 10 MG/ML 1ML (SYR OR VIAL) IVP ONE (16:45)
[2023-06-22] MEDS ORDERED: ONDANSETRON INJECTION 4 MG/2 ML (SDV) IVP PRN (16:45)
--- NOTE | 2023-06-22 17:05 | Progress Note-Post Operative ---
Post-Operative Progess Note Surgeon (s)/Aerobics Instructor (s) Surgeon JOYCELYN GHOTRA DO Aerobics Instructor: Dr. Byrd to assist in retraction dissection and closure. Pre-Operative Diagnosis severe postoperative abdominal pain Post-Operative Diagnosis small bowel perforation Procedure & Operative Findings Date of Procedure 06/22/23 Procedure Performed/Findings diagnostic laparoscopy converted to open, lysis of adhesions, small bowel resection. Anesthesia Type general Estimated Blood Loss Estimated blood loss (mL): 150mL Specimens/Packing Specimens Removed small bowel with mesh JOYCELYN GHOTRA DO Jun 22, 2023 17:05
[2023-06-22] MEDS: ONDANSETRON INJECTION 4 MG/2 ML (SDV) IVP PRN ×3 (17:54→18:50)
[2023-06-22] MEDS: fentaNYL INJECTION 100 MCG/2 ML VIAL IVP PRN ×5 (18:15→22:44)
[2023-06-22] MEDS: LACTATED RINGERS 1,000 ML 1,000 ML IV SCH (18:16)
--- NOTE | 2023-06-22 18:37 | Consultation-Cardiology ---
HPI-Cardiology Cardiology Consultation Date of Consultation 06/22/23 Date of Admission Time Seen by Provider: 18:33 Indication: Sinus tachycardia HPI 62-year-old gentleman with history of coronary artery disease, hypertension hyperlipidemia, underwent laparoscopic cholecystectomy complicated by small bowel perforation and small bowel resection. Postoperatively he was tachycardic, complaining of generalized fatigue, abdominal pain, denied any chest pain. No shortness of breath. Lethargic. Home Medications & Allergies Allergies: Coded Allergies: Qliechy-VXV-XxR Reductase Inhibitor (Verified Allergy, Severe, MUSCLE WEAKNESS, PT TAKE LIPITOR AT HOME, 11/25/18) ezetimibe (Verified Allergy, Unknown, 11/25/18) Home Medication List Reviewed: Yes UQI-[id number]-Giiagy Hx Patient Social History Marital Status: Employed/Student: employed Recreational Drug Use: No Smoking Status: Never a Smoker Type Used: Smokeless Tobacco 2nd Hand Smoke Exposure: Yes Recent Hopitalizations: No Immunizations Up To Date Tetanus Booster (TDap): More than 5yrs Date of Pneumonia Vaccine: Nov 03, 2014 Date of Influenza Vaccine: Aug 16, 2021 Past Medical History Discussed Family Medical History Family History: Asthma G8 BROTHER Cancer of mouth G8 BROTHER Cardiovascular disease 19 MOTHER Cataracts G8 BROTHER Deafness or hearing loss G8 BROTHER Hypercholesterolemia G8 SISTER Myocardial infarction 19 FATHER Review of Systems-General Review of Systems Constitutional: malaise, weakness EENTM: see HPI, no symptoms reported Respiratory: no symptoms reported, see HPI Cardiovascular: see HPI Gastrointestinal: see HPI Genitourinary: no symptoms reported, see HPI Musculoskeletal: no symptoms reported, see HPI Skin: no symptoms reported, see HPI Psychiatric/Neurological: No Symptoms Reported, See HPI Reviewed Test Results Reviewed Test Results Lab Laboratory Tests Test 06/22/23 08:32 06/22/23 09:59 06/22/23 12:47 06/22/23 16:38 Range/Units Glucometer 152 H 171 H 253 H 187 H 70-110 MG/DL Physical Exam Physical Exam Vital Signs Vital Signs - First Documented 06/22/23 08:00 Temp 36.5 Pulse 73 Resp 20 B/P (MAP) 134/78 (96) Pulse Ox 94 O2 Delivery Room Air Capillary Refill : Height, Weight, BMI Height: 5'11.00" Weight: 285lbs. 0.0oz. 129.032690kr; 38.66 BMI Method:Stated General Appearance: Moderate Distress HEENT: PERRL/EOMI, Normal ENT Inspection Neck: Full Range of Motion, Normal Inspection Respiratory: Chest Non Tender, No Accessory Muscle Use, Other (slight labored breathing) Cardiovascular: No JVD, Tachycardia Extremity: Non Tender, No Calf Tenderness Neurologic/Psychiatric: Alert, Other (anxious) Skin: Normal Color, Warm/Dry Lymphatic: No Adenopathy A/P-Cardiology Admission Diagnosis Abdominal pain Coronary artery disease Sinus tachycardia Hypertension Assessment/Plan Status post cholecystectomy complicated by perforated small bowel and small bowel resection. Postop day #0 Still having abdominal pain, recovering slowly. Coronary artery disease, Cardiac catheterization done in August 2018 had patent stent 3 x 32 in the mid LAD and 2.5 x 16 in the first diagonal artery, the obtuse marginal branch has 70% stenosis and had balloon angioplasty done to it. The right coronary artery has 70% mid vessel stenosis with successful stenting using [place] 4 x 18 mm. Cardiac catheterization in 2020 showing patent stent with mild to moderate disease nonobstructive disease Cardiac catheterization done and May 2023 showing mild to moderate disease nonobstructive disease Patient has been maintained on aspirin. Sinus tachycardia, probably secondary to pain and postoperative We will start low-dose beta-sim and monitor closely Hypertension, patient is having significant pain. History of hypertension Starting low-dose beta-blockers Hyperlipidemia Intolerant to statin. Obstructive sleep apnea, unable to tolerate CPAP Chronic bilateral leg discomfort secondary to peripheral neuropathy Mild bilateral carotid stenosis I discussed with the patient the management plan, recommended stopping aspirin for now until he is fully recovered Monitor blood pressure and start low-dose beta-blockers. NATALIA CHINCHILLA MD Jun 22, 2023 18:37
[2023-06-22] MEDS ORDERED: RT-ALBUTEROL SULF 2.5 MG/3 ML PRE-MIX VIAL INH PRN (18:45)
[2023-06-22] MEDS: metroNIDAZOLE 500MG/100ML IVPB 100 ML IV SCH (21:47)
[2023-06-22] MEDS: HYDROcodone/ACETAMINOPHEN 5 MG/325 MG TABLET PO PRN (21:47)
--- NOTE | 2023-06-22 23:27 | Tele-ICU Progress Note ---
Subjective Date Seen by a Provider: Jun 22, 2023 Time Seen by a Provider: 23:21 Subjective/Events-last exam called for severe abd pain following lap adán, has small bowel perforation, now getting IV cefazolin, Flagyl, getting IV Fentanyl 25 mg every hour but still having pain, pt is awake, not sleepy, but has Hx of GILDARDO Also received dose of [place] Pt weighs 125 kg, Sepsis Event Evaluation Height, Weight, BMI Height: 5'11.00" Weight: 285lbs. 0.0oz. 129.273820rq; 38.66 BMI Method:Stated Exam Exam Patient acknowledged, consented, and participated in this virtual visit which was conducted using real time audio/video Vital Signs Date Time Temp Pulse Resp B/P (MAP) Pulse Ox O2 Delivery O2 Flow Rate FiO2 06/22/23 20:06 Nasal Cannula 2.00 06/22/23 19:22 93 Nasal Cannula 3.00 06/22/23 18:32 36.9 73 92 06/22/23 18:00 123 169/102 (124) 93 06/22/23 17:35 93 Nasal Cannula 3.00 06/22/23 17:35 Nasal Cannula 3.00 06/22/23 17:30 36.9 20 163/103 (123) 92 Nasal Cannula 3.00 06/22/23 17:20 18 175/102 (126) 93 Nasal Cannula 3.00 06/22/23 17:15 Nasal Cannula 4.00 06/22/23 17:10 22 161/94 (116) 93 Nasal Cannula 3.00 06/22/23 17:00 Nasal Cannula 4.00 06/22/23 17:00 108 28 148/84 (105) 06/22/23 17:00 20 154/95 (114) 94 Nasal Cannula 4.00 06/22/23 16:50 16 188/92 (124) 95 OxyMask 6.00 06/22/23 16:45 OxyMask 6.00 06/22/23 16:40 18 172/106 (128) 92 OxyMask 6.00 06/22/23 16:29 36.8 20 173/97 (122) 98 OxyMask 6.00 06/22/23 16:29 OxyMask 6.00 06/22/23 12:30 36.8 86 20 137/74 92 Nasal Cannula 2.00 06/22/23 12:00 36.3 75 20 120/74 91 Nasal Cannula 2.00 06/22/23 11:30 36.5 18 130/64 (86) 95 Nasal Cannula 2.00 06/22/23 11:30 36.5 75 20 102/74 95 Nasal Cannula 2.00 06/22/23 11:25 Nasal Cannula 2.00 06/22/23 11:20 36.5 18 131/82 (98) 95 Nasal Cannula 3.00 06/22/23 11:10 36.5 18 140/87 (104) 95 Nasal Cannula 4.00 06/22/23 11:10 OxyMask 8.00 06/22/23 11:00 36.5 18 120/82 (95) 97 OxyMask 8.00 06/22/23 10:55 OxyMask 10.00 06/22/23 10:50 36.5 18 113/69 (84) 97 OxyMask 10.00 06/22/23 10:40 36.5 18 137/89 (105) 97 OxyMask 10.00 06/22/23 10:40 OxyMask 10.00 06/22/23 10:30 36.5 18 137/83 (101) 97 OxyMask 10.00 06/22/23 10:25 OxyMask 10.00 06/22/23 10:20 36.5 18 133/79 (97) 96 OxyMask 10.00 06/22/23 10:10 36.5 18 124/79 (94) 96 OxyMask 10.00 06/22/23 10:10 OxyMask 10.00 06/22/23 10:00 36.5 18 124/69 (87) 97 OxyMask 10.00 06/22/23 09:55 36.5 18 133/64 (87) 95 OxyMask 10.00 06/22/23 09:55 OxyMask 10.00 06/22/23 08:00 36.5 73 20 134/78 (96) 94 Room Air Height & Weight Height: 5'11.00" Weight: 285lbs. 0.0oz. 129.068175ql; 38.66 BMI Method:Stated General Appearance: Moderate Distress HEENT: PERRL/EOMI, Normal ENT Inspection Neck: Full Range of Motion, Normal Inspection Respiratory: Chest Non Tender, Lungs Clear, No Accessory Muscle Use, Other (slight labored breathing) Cardiovascular: Regular Rate, Rhythm, No JVD, Tachycardia Gastrointestinal: non tender, soft, distended, other (distended since surgery) Extremity: Non Tender, No Calf Tenderness Neurologic/Psychiatric: Alert, Other (anxious) Skin: Normal Color, Warm/Dry Lymphatic: No Adenopathy Assessment/Plan Assessment/Plan has SB perforation, increased pain, mild increase in distension, will get CBC, BMP, LA, KUB Surgeon has ordered Dilaudid Spoke with mechanical engineering intern: Critically Ill Patient Time spent with patient (mins): 25 GWEN COOK MD Jun 22, 2023 23:27
[2023-06-22] MEDS ORDERED: ACETAMINOPHEN 325 MG TABLET PO PRN (23:30)
[2023-06-22] MEDS: meTOprolol INJECTION 5 MG/5 ML VIAL IV SCH (23:36)
[2023-06-22] MEDS: ceFAZolin INJECTION 2,000 MG in NS (IVPB) 50 ML 50 ML IV SCH (23:38)
[2023-06-22] MEDS: HYDROmorphone INJECTION 2 MG/ML VIAL IV PRN (23:45)
[2023-06-23 00:20] LABS: BASOPHILS % (AUTO) 0 % (0-10); EOSINOPHILS % (AUTO) 0 % (0-10); HEMATOCRIT 44 % (40-54); HEMOGLOBIN 14.6 g/dL (13.3-17.7); LYMPHOCYTES # (AUTO) 0.7 10^3/uL (1.0-4.0); LYMPHOCYTES % (AUTO) 9 % (12-44); MEAN CORPUSCULAR HEMOGLOBIN 30 pg (25-34); MEAN CORPUSCULAR HGB CONC 33 g/dL (32-36); MEAN CORPUSCULAR VOLUME 90 fL (80-99); MEAN PLATELET VOLUME 10.8 fL (9.0-12.2); MONOCYTES # (AUTO) 0.6 10^3/uL (0.0-1.0); MONOCYTES % (AUTO) 8 % (0-12); NEUTROPHILS # (AUTO) 6.6 10^3/uL (1.8-7.8); NEUTROPHILS % (AUTO) 83 % (42-75); PLATELET COUNT 142 10^3/uL (130-400); WHITE BLOOD COUNT 7.9 10^3/uL (4.3-11.0)
[2023-06-23 00:31] LABS: BAND NEUTROPHILS 20 %; LYMPHOCYTES % (MANUAL) 15 %; MONOCYTES % (MANUAL) 6 %; NEUTROPHILS % (MANUAL) 55 %; REACTIVE LYMPHOCYTES 4 %
[2023-06-23 00:40] LABS: POTASSIUM 4.4 MMOL/L (3.6-5.0)
[2023-06-23 00:41] LABS: CALCIUM 8.3 MG/DL (8.5-10.1)
[2023-06-23 00:45] LABS: CREATININE SERUM 0.87 MG/DL (0.60-1.30)
[2023-06-23] MEDS: LACTATED RINGERS 1,000 ML 1,000 ML IV SCH ×3 (00:51→19:05)
[2023-06-23] MEDS: fentaNYL INJECTION 100 MCG/2 ML VIAL IVP PRN (00:52)
--- NOTE | 2023-06-23 01:16 | Tele-ICU Progress Note ---
Subjective Date Seen by a Provider: Jun 23, 2023 Time Seen by a Provider: 01:14 Subjective/Events-last exam Pain a little better with IV Dilaudid, VS ok, KUB does not show an increase in free air LA 2.14, CBC, BMP no change will follow, spoke with RN Sepsis Event Evaluation Height, Weight, BMI Height: 5'11.00" Weight: 285lbs. 0.0oz. 129.187055xf; 38.66 BMI Method:Stated Focused Exam Lactate Level 06/23/23 00:11: Lactic Acid Level 2.14*H Lactic Acid Level Laboratory Tests Test 06/23/23 00:11 Lactic Acid Level 2.14 MMOL/L (0.50-2.00) *H Exam Exam Patient acknowledged, consented, and participated in this virtual visit which was conducted using real time audio/video Vital Signs Date Time Temp Pulse Resp B/P (MAP) Pulse Ox O2 Delivery O2 Flow Rate FiO2 06/23/23 00:00 38.0 06/22/23 23:55 Nasal Cannula 2.00 06/22/23 23:00 115 10 150/97 (114) 93 Room Air 06/22/23 22:00 116 13 142/84 (103) 94 Room Air 06/22/23 21:00 123 7 151/75 (100) 92 Room Air 06/22/23 20:06 Nasal Cannula 2.00 06/22/23 20:00 118 10 157/123 (134) 93 Room Air 06/22/23 19:22 93 Nasal Cannula 3.00 06/22/23 19:00 118 10 155/83 (107) 94 Room Air 06/22/23 19:00 121 06/22/23 18:32 36.9 73 92 06/22/23 18:00 123 169/102 (124) 93 06/22/23 17:35 93 Nasal Cannula 3.00 06/22/23 17:35 Nasal Cannula 3.00 06/22/23 17:30 36.9 20 163/103 (123) 92 Nasal Cannula 3.00 06/22/23 17:20 18 175/102 (126) 93 Nasal Cannula 3.00 06/22/23 17:15 Nasal Cannula 4.00 06/22/23 17:10 22 161/94 (116) 93 Nasal Cannula 3.00 8/24/23 17:00 Nasal Cannula 4.00 06/22/23 17:00 108 28 148/84 (105) 06/22/23 17:00 20 154/95 (114) 94 Nasal Cannula 4.00 06/22/23 16:50 16 188/92 (124) 95 OxyMask 6.00 06/22/23 16:45 OxyMask 6.00 06/22/23 16:40 18 172/106 (128) 92 OxyMask 6.00 06/22/23 16:29 36.8 20 173/97 (122) 98 OxyMask 6.00 06/22/23 16:29 OxyMask 6.00 06/22/23 12:30 36.8 86 20 137/74 92 Nasal Cannula 2.00 06/22/23 12:00 36.3 75 20 120/74 91 Nasal Cannula 2.00 06/22/23 11:30 36.5 18 130/64 (86) 95 Nasal Cannula 2.00 06/22/23 11:30 36.5 75 20 102/74 95 Nasal Cannula 2.00 06/22/23 11:25 Nasal Cannula 2.00 06/22/23 11:20 36.5 18 131/82 (98) 95 Nasal Cannula 3.00 06/22/23 11:10 36.5 18 140/87 (104) 95 Nasal Cannula 4.00 06/22/23 11:10 OxyMask 8.00 06/22/23 11:00 36.5 18 120/82 (95) 97 OxyMask 8.00 06/22/23 10:55 OxyMask 10.00 06/22/23 10:50 36.5 18 113/69 (84) 97 OxyMask 10.00 06/22/23 10:40 36.5 18 137/89 (105) 97 OxyMask 10.00 06/22/23 10:40 OxyMask 10.00 06/22/23 10:30 36.5 18 137/83 (101) 97 OxyMask 10.00 06/22/23 10:25 OxyMask 10.00 06/22/23 10:20 36.5 18 133/79 (97) 96 OxyMask 10.00 06/22/23 10:10 36.5 18 124/79 (94) 96 OxyMask 10.00 06/22/23 10:10 OxyMask 10.00 06/22/23 10:00 36.5 18 124/69 (87) 97 OxyMask 10.00 06/22/23 09:55 36.5 18 133/64 (87) 95 OxyMask 10.00 06/22/23 09:55 OxyMask 10.00 06/22/23 08:00 36.5 73 20 134/78 (96) 94 Room Air I & O 06/23/23 07:00 Intake Total 3900 ml Output Total 700 ml Balance 3200 ml Height & Weight Height: 5'11.00" Weight: 285lbs. 0.0oz. 129.308093lv; 38.66 BMI Method:Stated General Appearance: Moderate Distress HEENT: PERRL/EOMI, Normal ENT Inspection Neck: Full Range of Motion, Normal Inspection Respiratory: Chest Non Tender, Lungs Clear, No Accessory Muscle Use, Other (slight labored breathing) Cardiovascular: Regular Rate, Rhythm, No JVD, Tachycardia Gastrointestinal: non tender, soft, distended, other (distended since surgery) Extremity: Non Tender, No Calf Tenderness Neurologic/Psychiatric: Alert, Other (anxious) Skin: Normal Color, Warm/Dry Lymphatic: No Adenopathy Results Lab Laboratory Tests 06/23/23 00:11 Assessment/Plan Assessment/Plan Pain a little better with IV Dilaudid, VS ok, KUB does not show an increase in free air LA 2.14, CBC, BMP no change will follow, spoke with baker: Critically Ill Patient Time spent with patient (mins): 10 GWEN COOK MD Jun 23, 2023 01:16
[2023-06-23] MEDS: HYDROcodone/ACETAMINOPHEN 5 MG/325 MG TABLET PO PRN ×2 (01:59→06:11)
[2023-06-23] MEDS: ONDANSETRON INJECTION 4 MG/2 ML (SDV) IVP PRN ×3 (02:10→06:17)
--- NOTE | 2023-06-23 02:14 | OPERATIVE REPORT ---
DATE OF SERVICE: 06/22/2023 PREOPERATIVE DIAGNOSIS: Severe postoperative abdominal pain. POSTOPERATIVE DIAGNOSIS: Small bowel perforation. PROCEDURE: Diagnostic laparoscopy converted to open, lysis of adhesions, small bowel resection. SURGEON: Joycelyn Gautam DO AUTOMOTIVE DESIGN LAYOUT DRAFTER: Jaydon Byrd DO., assisted in retraction, dissection, and closure. ANESTHESIA: General. ESTIMATED BLOOD LOSS: 150 mL. COMPLICATIONS: None. INDICATIONS: The patient is a 62-year-old male who underwent laparoscopic cholecystectomy with intraoperative cholangiogram. He postoperatively was having severe abdominal pain and due to physical exam with noting a previous bowel adhered to mesh elected to proceed with diagnostic laparoscopy to reevaluate this area. The patient and the patient's understand risks and benefits and wishes to proceed. Consent was signed in chart. DESCRIPTION OF PROCEDURE: The patient was taken to the operating suite. He was prepped and draped in sterile fashion. Timeout was performed. Local anesthetic was infiltrated around the previous incisions. An 11 blade scalpel was used to open up the existing incisions and a katz trocar was inserted at the 12 mm incision site and 5 mm trocars were placed in the subxiphoid region and 2 ports in the right upper quadrant. The patient had blood in the gutter and above the liver, also gallbladder fossa. The abdomen was irrigated and suctioned. Clot in the gutter was washed and irrigated. The gallbladder fossa had no active bleeding. The abdomen was then continued to be inspected. When examining the umbilical area where the bowel or bowel loops were adhered, there was a piece of bowel that did have perforation. At this time, we converted to open. The midline incision was made extending the 12 mm trocar site. Multiple adhesions up to this, which both cautery and Metzenbaums were used to cut down adhesions [ ] there is a part where perforation was, this was significantly adhered to the mesh where this mesh had to be excised out with the bowel. Once all the adhesions were taken down, the small bowel was then ran from the ileocecal valve all the way to the ligament of Treitz, noting no other pathology. Where the bowel perforation was present along with the mesh that was removed adherent to it. A kcyl-ky-bghz anastomosis was created in a [ ] 2-step fashion using a linear stapler. LigaSure was then used to divide the mesentery. The mesentery was then closed using 3-0 Vicryl. The anastomosis was viable and had a patent anastomosis. The abdomen was then irrigated with copious amounts of irrigation. It was further inspected noting no other pathology. The midline incision was then closed using 1-0 looped PDS. The wound was then irrigated. The abdomen was then reinsufflated. The 5 mm camera was inserted, noting no other pathology. The abdomen was then desufflated. The incisions were closed with dean after area was irrigated and suctioned. The patient was taken to the recovery room in stable condition. Job ID: [id number] DocumentID: [id number] Dictated Date: 06/22/2023 20:46:09 Computer Hardware Technician Date: 06/23/2023 02:12:00 Dictated By: JOYCELYN GAUTAM DO
[2023-06-23] MEDS: HYDROmorphone INJECTION 2 MG/ML VIAL IV PRN ×2 (03:47→07:53)
--- NOTE | 2023-06-23 04:28 | Tele-ICU Progress Note ---
Subjective Date Seen by a Provider: Jun 23, 2023 Time Seen by a Provider: 04:24 Subjective/Events-last exam Still having problems with pain, anxiety, takes Xanax 1.0 mg at home WBC normal 7.9, lactated has come down to 1.92, VS ok but abd is distended Getting IV Dilaudid 1 mg and po Haverstraw Will give dose of Xanax 1 mg Sepsis Event Evaluation Height, Weight, BMI Height: 5'11.00" Weight: 285lbs. 0.0oz. 129.166589le; 38.66 BMI Method:Stated Focused Exam Lactate Level 06/23/23 00:11: Lactic Acid Level 2.14*H 06/23/23 02:16: Lactic Acid Level 1.92 Lactic Acid Level Laboratory Tests Test 06/23/23 02:16 Lactic Acid Level 1.92 MMOL/L (0.50-2.00) Exam Exam Patient acknowledged, consented, and participated in this virtual visit which was conducted using real time audio/video Vital Signs Date Time Temp Pulse Resp B/P (MAP) Pulse Ox O2 Delivery O2 Flow Rate FiO2 06/23/23 03:51 36.9 06/23/23 01:00 104 06/23/23 00:00 38.0 06/22/23 23:55 Nasal Cannula 2.00 06/22/23 23:00 115 10 150/97 (114) 93 Room Air 06/22/23 22:00 116 13 142/84 (103) 94 Room Air 06/22/23 21:00 123 7 151/75 (100) 92 Room Air 06/22/23 20:06 Nasal Cannula 2.00 06/22/23 20:00 118 10 157/123 (134) 93 Room Air 06/22/23 19:22 93 Nasal Cannula 3.00 06/22/23 19:00 118 10 155/83 (107) 94 Room Air 06/22/23 19:00 121 06/22/23 18:32 36.9 73 92 06/22/23 18:00 123 169/102 (124) 93 06/22/23 17:35 93 Nasal Cannula 3.00 06/22/23 17:35 Nasal Cannula 3.00 06/22/23 17:30 36.9 20 163/103 (123) 92 Nasal Cannula 3.00 8/24/23 17:20 18 175/102 (126) 93 Nasal Cannula 3.00 06/22/23 17:15 Nasal Cannula 4.00 06/22/23 17:10 22 161/94 (116) 93 Nasal Cannula 3.00 06/22/23 17:00 Nasal Cannula 4.00 06/22/23 17:00 108 28 148/84 (105) 06/22/23 17:00 20 154/95 (114) 94 Nasal Cannula 4.00 06/22/23 16:50 16 188/92 (124) 95 OxyMask 6.00 06/22/23 16:45 OxyMask 6.00 06/22/23 16:40 18 172/106 (128) 92 OxyMask 6.00 06/22/23 16:29 36.8 20 173/97 (122) 98 OxyMask 6.00 06/22/23 16:29 OxyMask 6.00 06/22/23 12:30 36.8 86 20 137/74 92 Nasal Cannula 2.00 06/22/23 12:00 36.3 75 20 120/74 91 Nasal Cannula 2.00 06/22/23 11:30 36.5 18 130/64 (86) 95 Nasal Cannula 2.00 06/22/23 11:30 36.5 75 20 102/74 95 Nasal Cannula 2.00 06/22/23 11:25 Nasal Cannula 2.00 06/22/23 11:20 36.5 18 131/82 (98) 95 Nasal Cannula 3.00 06/22/23 11:10 36.5 18 140/87 (104) 95 Nasal Cannula 4.00 06/22/23 11:10 OxyMask 8.00 06/22/23 11:00 36.5 18 120/82 (95) 97 OxyMask 8.00 06/22/23 10:55 OxyMask 10.00 06/22/23 10:50 36.5 18 113/69 (84) 97 OxyMask 10.00 06/22/23 10:40 36.5 18 137/89 (105) 97 OxyMask 10.00 06/22/23 10:40 OxyMask 10.00 06/22/23 10:30 36.5 18 137/83 (101) 97 OxyMask 10.00 06/22/23 10:25 OxyMask 10.00 06/22/23 10:20 36.5 18 133/79 (97) 96 OxyMask 10.00 06/22/23 10:10 36.5 18 124/79 (94) 96 OxyMask 10.00 06/22/23 10:10 OxyMask 10.00 06/22/23 10:00 36.5 18 124/69 (87) 97 OxyMask 10.00 06/22/23 09:55 36.5 18 133/64 (87) 95 OxyMask 10.00 06/22/23 09:55 OxyMask 10.00 06/22/23 08:00 36.5 73 20 134/78 (96) 94 Room Air I & O 06/23/23 07:00 Intake Total 3925 ml Output Total 1050 ml Balance 2875 ml Height & Weight Height: 5'11.00" Weight: 285lbs. 0.0oz. 129.124530jm; 38.66 BMI Method:Stated General Appearance: Moderate Distress HEENT: PERRL/EOMI, Normal ENT Inspection Neck: Full Range of Motion, Normal Inspection Respiratory: Chest Non Tender, Lungs Clear, No Accessory Muscle Use, Other (slight labored breathing) Cardiovascular: Regular Rate, Rhythm, No JVD, Tachycardia Gastrointestinal: non tender, soft, distended, other (distended since surgery) Extremity: Non Tender, No Calf Tenderness Neurologic/Psychiatric: Alert, Other (anxious) Skin: Normal Color, Warm/Dry Lymphatic: No Adenopathy Results Lab Laboratory Tests 06/23/23 00:11 Assessment/Plan Assessment/Plan Still having problems with pain, anxiety, takes Xanax 1.0 mg at home WBC normal 7.9, lactated has come down to 1.92, VS ok but abd is distended Getting IV Dilaudid 1 mg and po Haverstraw Will give dose of Xanax 1 mg Critical Care: Critically Ill Patient Time spent with patient (mins): 15 GWEN COOK MD Jun 23, 2023 04:28
[2023-06-23] MEDS ORDERED: ALPRAZolam 1 MG TABLET PO ONE (04:30)
[2023-06-23 05:44] LABS: POTASSIUM 4.2 MMOL/L (3.6-5.0)
[2023-06-23 05:45] LABS: CALCIUM 8.3 MG/DL (8.5-10.1)
[2023-06-23 05:50] LABS: CREATININE SERUM 0.83 MG/DL (0.60-1.30)
--- NOTE | 2023-06-23 05:59 | Diagnostic Imaging Report ---
INDICATION: Small bowel perforation. Increased abdominal distention. COMPARISON: None FINDINGS: 2 frontal radiographic views of the abdomen were obtained. Small bowel loops are nondilated. There is no large collection of free intraperitoneal air. Surgical skin dean are noted. Faint oblong slightly radiopaque structure projects over the lower abdomen and pelvis just the right lateral midline. It measures approximately 20 cm in length. IMPRESSION: 1. Nonobstructed small bowel gas pattern. 2. Faint oblong radiopaque structure projects over the right lower abdominal quadrant and pelvis. This may be external to the patient, but foreign body cannot be excluded. Clinical correlation is advised. Dictated by: Dictated on workstation # [id number]
[2023-06-23] MEDS: meTOprolol INJECTION 5 MG/5 ML VIAL IV SCH ×4 (06:12→23:20)
[2023-06-23] MEDS: metroNIDAZOLE 500MG/100ML IVPB 100 ML IV SCH ×3 (06:14→22:14)
--- NOTE | 2023-06-23 06:19 | Tele-ICU Progress Note ---
Subjective Date Seen by a Provider: Jun 23, 2023 Time Seen by a Provider: 06:18 Subjective/Events-last exam called for nausea, not responding to IV Zofran, will give IV Benadryl 25 mg Magdaleno Cook MD Sepsis Event Evaluation Height, Weight, BMI Height: 5'11.00" Weight: 285lbs. 0.0oz. 129.140946pu; 38.66 BMI Method:Stated Focused Exam Lactate Level 06/23/23 00:11: Lactic Acid Level 2.14*H 06/23/23 02:16: Lactic Acid Level 1.92 Exam Exam Patient acknowledged, consented, and participated in this virtual visit which was conducted using real time audio/video Vital Signs Date Time Temp Pulse Resp B/P (MAP) Pulse Ox O2 Delivery O2 Flow Rate FiO2 06/23/23 06:00 104 17 157/97 (117) 91 Room Air 06/23/23 05:00 103 10 152/116 (128) 91 Room Air 06/23/23 04:40 Nasal Cannula 2.00 06/23/23 04:00 105 19 163/95 (117) 92 Room Air 06/23/23 03:51 36.9 06/23/23 03:00 103 17 145/107 (120) 92 Room Air 06/23/23 02:00 105 18 137/81 (99) 92 Room Air 06/23/23 01:00 102 10 122/95 (104) 91 Room Air 06/23/23 01:00 104 06/23/23 00:00 38.0 06/23/23 00:00 105 28 166/102 (123) 92 Room Air 06/22/23 23:55 Nasal Cannula 2.00 06/22/23 23:00 115 10 150/97 (114) 93 Room Air 06/22/23 22:00 116 13 142/84 (103) 94 Room Air 06/22/23 21:00 123 7 151/75 (100) 92 Room Air 06/22/23 20:06 Nasal Cannula 2.00 06/22/23 20:00 118 10 157/123 (134) 93 Room Air 06/22/23 19:22 93 Nasal Cannula 3.00 06/22/23 19:00 118 10 155/83 (107) 94 Room Air 06/22/23 19:00 121 06/22/23 18:32 36.9 73 92 06/22/23 18:00 123 169/102 (124) 93 06/22/23 17:35 93 Nasal Cannula 3.00 06/22/23 17:35 Nasal Cannula 3.00 06/22/23 17:30 36.9 20 163/103 (123) 92 Nasal Cannula 3.00 06/22/23 17:20 18 175/102 (126) 93 Nasal Cannula 3.00 06/22/23 17:15 Nasal Cannula 4.00 06/22/23 17:10 22 161/94 (116) 93 Nasal Cannula 3.00 06/22/23 17:00 Nasal Cannula 4.00 06/22/23 17:00 108 28 148/84 (105) 06/22/23 17:00 20 154/95 (114) 94 Nasal Cannula 4.00 06/22/23 16:50 16 188/92 (124) 95 OxyMask 6.00 06/22/23 16:45 OxyMask 6.00 06/22/23 16:40 18 172/106 (128) 92 OxyMask 6.00 06/22/23 16:29 36.8 20 173/97 (122) 98 OxyMask 6.00 06/22/23 16:29 OxyMask 6.00 06/22/23 12:30 36.8 86 20 137/74 92 Nasal Cannula 2.00 06/22/23 12:00 36.3 75 20 120/74 91 Nasal Cannula 2.00 06/22/23 11:30 36.5 18 130/64 (86) 95 Nasal Cannula 2.00 06/22/23 11:30 36.5 75 20 102/74 95 Nasal Cannula 2.00 06/22/23 11:25 Nasal Cannula 2.00 06/22/23 11:20 36.5 18 131/82 (98) 95 Nasal Cannula 3.00 06/22/23 11:10 36.5 18 140/87 (104) 95 Nasal Cannula 4.00 06/22/23 11:10 OxyMask 8.00 06/22/23 11:00 36.5 18 120/82 (95) 97 OxyMask 8.00 06/22/23 10:55 OxyMask 10.00 06/22/23 10:50 36.5 18 113/69 (84) 97 OxyMask 10.00 06/22/23 10:40 36.5 18 137/89 (105) 97 OxyMask 10.00 06/22/23 10:40 OxyMask 10.00 06/22/23 10:30 36.5 18 137/83 (101) 97 OxyMask 10.00 06/22/23 10:25 OxyMask 10.00 06/22/23 10:20 36.5 18 133/79 (97) 96 OxyMask 10.00 06/22/23 10:10 36.5 18 124/79 (94) 96 OxyMask 10.00 06/22/23 10:10 OxyMask 10.00 06/22/23 10:00 36.5 18 124/69 (87) 97 OxyMask 10.00 06/22/23 09:55 36.5 18 133/64 (87) 95 OxyMask 10.00 06/22/23 09:55 OxyMask 10.00 06/22/23 08:00 36.5 73 20 134/78 (96) 94 Room Air I & O 06/23/23 07:00 Intake Total 3925 ml Output Total 1300 ml Balance 2625 ml Height & Weight Height: 5'11.00" Weight: 285lbs. 0.0oz. 129.121316mb; 38.66 BMI Method:Stated General Appearance: Moderate Distress HEENT: PERRL/EOMI, Normal ENT Inspection Neck: Full Range of Motion, Normal Inspection Respiratory: Chest Non Tender, Lungs Clear, No Accessory Muscle Use, Other (slight labored breathing) Cardiovascular: Regular Rate, Rhythm, No JVD, Tachycardia Gastrointestinal: non tender, soft, distended, other (distended since surgery) Extremity: Non Tender, No Calf Tenderness Neurologic/Psychiatric: Alert, Other (anxious) Skin: Normal Color, Warm/Dry Lymphatic: No Adenopathy Results Lab Laboratory Tests 06/23/23 00:11 06/23/23 04:33 Assessment/Plan Assessment/Plan called for nausea, not responding to IV Zofran, will give IV Benadryl 25 mg Critical Care: Critically Ill Patient Time spent with patient (mins): 15 GWEN COOK MD Jun 23, 2023 06:19
[2023-06-23] MEDS ORDERED: diphenhydrAMINE INJ 50 MG/ML VIAL IM ONE (06:30)
--- NOTE | 2023-06-23 07:52 | Anesthesia-General Post-Op ---
General Patient Condition Mental Status/LOC: Same as Preop Cardiovascular: Satisfactory Nausea/Vomiting: Absent Respiratory: Satisfactory Pain: Controlled Complications: Absent Post Op Complications Complications None Follow Up Care/Instructions Patient Instructions None needed. Anesthesia/Patient Condition Patient Condition Patient is doing well, no complaints, stable vital signs, no apparent adverse anesthesia problems. No complications reported per nursing. GUILLERMO ISAACS CRNA Jun 23, 2023 07:52
[2023-06-23] MEDS: ceFAZolin INJECTION 2,000 MG in NS (IVPB) 50 ML 50 ML IV SCH ×3 (07:53→23:21)
[2023-06-23] MEDS ORDERED: METOCLOPRAMIDE INJ 10 MG/2 ML IVP SCH (08:00)
--- NOTE | 2023-06-23 08:05 | Tele-ICU Progress Note ---
Subjective Date Seen by a Provider: Jun 23, 2023 Time Seen by a Provider: 08:04 Subjective/Events-last exam (Tele-ICU Physician , Progress Note ) Service provided via interactive audio and video telecommunications E-CARE system to a patient admitted to ICU bed in [facility]. Patient is seen today due to persistent need of ICU care Available chart/ vitals / labs / Images reviewed Video assessment done using teleICU camera, rest of exam as per RN Discussed with RN Events overnight : Afebrile hemodynamically stable Respiratory - I/O = Drips: LR 125 Pressors- no Hospital course: (06/22) 62 M admitted s/p Lap Cholecystectomy complicated by small bowel perforation s/p SBR A/P Status post cholecystectomy complicated by perforated small bowel and small bowel resection. - c/o abdominal pain, IV opioids - hydration ABX = flagyl , cefazolin CAD, s/p PTCAs - as per cards on case Sinus tachycardia, probably secondary to pain and postoperative -on beta-sim as per crds DM II - ISS GILDARDO - unable to tolerate CPAP - monitor Lines : periph , (Central Line Necessity Reviewed) George: + OG: Nutrition: Analgesia: Anxiety/ delirium VTE Prophylaxis: scd Stress Ulcer Prophylaxis: na Plans in collaboration with bedside consultants and IM MDs. Discussed with RN to reach out if any questions or concerns Case and care daily discussed on multidisciplinary rounds ( RN, PharmD, Meat Processor , Respiratory Therapy, piece worker ) A total of 20 minutes of critical care time was devoted to this patient today, required to treat and/or prevent further deterioration of critical care condition ( as above ) . I am remotely monitoring this patient from another state. I am unable to do the bedside exam, and history/physical and pertinent information is taken from other notes in the computer and bedside staff. Sepsis Event Evaluation Height, Weight, BMI Height: 5'11.00" Weight: 285lbs. 0.0oz. 129.815901pe; 38.66 BMI Method:Stated Focused Exam Lactate Level 06/23/23 00:11: Lactic Acid Level 2.14*H 06/23/23 02:16: Lactic Acid Level 1.92 Exam Exam Patient acknowledged, consented, and participated in this virtual visit which was conducted using real time audio/video Vital Signs Date Time Temp Pulse Resp B/P (MAP) Pulse Ox O2 Delivery O2 Flow Rate FiO2 06/23/23 07:54 37.0 06/23/23 07:00 94 06/23/23 06:00 104 17 157/97 (117) 91 Room Air 06/23/23 05:00 103 10 152/116 (128) 91 Room Air 06/23/23 04:40 Nasal Cannula 2.00 06/23/23 04:00 105 19 163/95 (117) 92 Room Air 06/23/23 03:51 36.9 06/23/23 03:00 103 17 145/107 (120) 92 Room Air 06/23/23 02:00 105 18 137/81 (99) 92 Room Air 06/23/23 01:00 102 10 122/95 (104) 91 Room Air 06/23/23 01:00 104 06/23/23 00:00 38.0 06/23/23 00:00 105 28 166/102 (123) 92 Room Air 06/22/23 23:55 Nasal Cannula 2.00 06/22/23 23:00 115 10 150/97 (114) 93 Room Air 06/22/23 22:00 116 13 142/84 (103) 94 Room Air 06/22/23 21:00 123 7 151/75 (100) 92 Room Air 06/22/23 20:06 Nasal Cannula 2.00 06/22/23 20:00 118 10 157/123 (134) 93 Room Air 06/22/23 19:22 93 Nasal Cannula 3.00 06/22/23 19:00 118 10 155/83 (107) 94 Room Air 06/22/23 19:00 121 06/22/23 18:32 36.9 73 92 06/22/23 18:00 123 169/102 (124) 93 06/22/23 17:35 93 Nasal Cannula 3.00 06/22/23 17:35 Nasal Cannula 3.00 06/22/23 17:30 36.9 20 163/103 (123) 92 Nasal Cannula 3.00 06/22/23 17:20 18 175/102 (126) 93 Nasal Cannula 3.00 06/22/23 17:15 Nasal Cannula 4.00 06/22/23 17:10 22 161/94 (116) 93 Nasal Cannula 3.00 06/22/23 17:00 Nasal Cannula 4.00 8/24/23 17:00 108 28 148/84 (105) 06/22/23 17:00 20 154/95 (114) 94 Nasal Cannula 4.00 06/22/23 16:50 16 188/92 (124) 95 OxyMask 6.00 06/22/23 16:45 OxyMask 6.00 06/22/23 16:40 18 172/106 (128) 92 OxyMask 6.00 06/22/23 16:29 36.8 20 173/97 (122) 98 OxyMask 6.00 06/22/23 16:29 OxyMask 6.00 06/22/23 12:30 36.8 86 20 137/74 92 Nasal Cannula 2.00 06/22/23 12:00 36.3 75 20 120/74 91 Nasal Cannula 2.00 06/22/23 11:30 36.5 18 130/64 (86) 95 Nasal Cannula 2.00 06/22/23 11:30 36.5 75 20 102/74 95 Nasal Cannula 2.00 06/22/23 11:25 Nasal Cannula 2.00 06/22/23 11:20 36.5 18 131/82 (98) 95 Nasal Cannula 3.00 06/22/23 11:10 36.5 18 140/87 (104) 95 Nasal Cannula 4.00 06/22/23 11:10 OxyMask 8.00 06/22/23 11:00 36.5 18 120/82 (95) 97 OxyMask 8.00 06/22/23 10:55 OxyMask 10.00 06/22/23 10:50 36.5 18 113/69 (84) 97 OxyMask 10.00 06/22/23 10:40 36.5 18 137/89 (105) 97 OxyMask 10.00 06/22/23 10:40 OxyMask 10.00 06/22/23 10:30 36.5 18 137/83 (101) 97 OxyMask 10.00 06/22/23 10:25 OxyMask 10.00 06/22/23 10:20 36.5 18 133/79 (97) 96 OxyMask 10.00 06/22/23 10:10 36.5 18 124/79 (94) 96 OxyMask 10.00 06/22/23 10:10 OxyMask 10.00 06/22/23 10:00 36.5 18 124/69 (87) 97 OxyMask 10.00 06/22/23 09:55 36.5 18 133/64 (87) 95 OxyMask 10.00 06/22/23 09:55 OxyMask 10.00 I & O 06/23/23 07:00 Intake Total 3925 ml Output Total 1300 ml Balance 2625 ml Height & Weight Height: 5'11.00" Weight: 285lbs. 0.0oz. 129.695591fa; 38.66 BMI Method:Stated General Appearance: Moderate Distress HEENT: PERRL/EOMI, Normal ENT Inspection Neck: Full Range of Motion, Normal Inspection Respiratory: Chest Non Tender, Lungs Clear, No Accessory Muscle Use, Other (s light labored breathing) Cardiovascular: Regular Rate, Rhythm, No JVD, Tachycardia Gastrointestinal: non tender, soft, distended, other (distended since surgery) Extremity: Non Tender, No Calf Tenderness Neurologic/Psychiatric: Alert, Other (anxious) Skin: Normal Color, Warm/Dry Lymphatic: No Adenopathy Results Lab Laboratory Tests 06/23/23 00:11 06/23/23 04:33 Assessment/Plan Assessment/Plan 1 GATITO CHERY MD Jun 23, 2023 08:05
--- NOTE | 2023-06-23 08:07 | Physical Therapy Progress Note ---
Therapy Progress Note Patient on Hold per RN due to uncontrolled pain and abdominal distention. Will attempt tomorrow CHINO Correa PT Jun 23, 2023 08:07
[2023-06-23 08:53] LABS: MEAN CORPUSCULAR HGB CONC 33 g/dL (32-36)
[2023-06-23 08:54] LABS: BASOPHILS % (AUTO) 0 % (0-10); EOSINOPHILS % (AUTO) 0 % (0-10); HEMATOCRIT 45 % (40-54); HEMOGLOBIN 14.9 g/dL (13.3-17.7); LYMPHOCYTES # (AUTO) 0.6 10^3/uL (1.0-4.0); LYMPHOCYTES % (AUTO) 6 % (12-44); MEAN CORPUSCULAR HEMOGLOBIN 30 pg (25-34); MEAN CORPUSCULAR VOLUME 90 fL (80-99); MEAN PLATELET VOLUME 10.8 fL (9.0-12.2); MONOCYTES # (AUTO) 0.8 10^3/uL (0.0-1.0); MONOCYTES % (AUTO) 8 % (0-12); NEUTROPHILS # (AUTO) 8.5 10^3/uL (1.8-7.8); NEUTROPHILS % (AUTO) 86 % (42-75); PLATELET COUNT 142 10^3/uL (130-400)
--- NOTE | 2023-06-23 08:54 | Cardiology Progress Note ---
Subjective Date Seen by Provider: Jun 23, 2023 Time Seen by Provider: 08:52 Subjective/Events-last exam Patient is laying down in bed, no new complaint. Still having abdominal pain, did not sleep well last night Review of Systems General: No Chills, No Night Sweats, No Fatigue, No Malaise, No Appetite, No Other HEENT: No Head Aches, No Visual Changes, No Eye Pain, No Ear Pain, No Dysphasia, No Sinus Congestion, No Post Nasal Drip, No Sore Throat, No Other Pulmonary: No Dyspnea, No Cough, No Pleuritic Chest Pain, No Other Cardiovascular: No: Chest Pain, Palpitations, Orthopnea, Paroxysmal Noc. Dyspnea, Edema, Lt Headedness, Other Focused Exam Lactate Level 06/23/23 00:11: Lactic Acid Level 2.14*H 06/23/23 02:16: Lactic Acid Level 1.92 Objective-Cardiology Exam Last Set of Vital Signs Vital Signs 06/23/23 06/23/23 06/23/23 06/23/23 07:54 08:00 08:45 08:50 Temp 37.0 Pulse 94 Resp 9 B/P (MAP) 154/97 (110) Pulse Ox 94 O2 Delivery Nasal Cannula O2 Flow Rate 2.00 I&O Intake and Output 06/23/23 00:00 Intake Total 3900 ml Output Total 700 ml Balance 3200 ml Intake Oral 50 ml IV Total 3850 ml Output Urine Total 700 ml Daily Weight Change No General: Alert, Oriented X3, Cooperative HEENT: Atraumatic, PERRLA Neck: Supple, No JVD, No Thyromegaly Lungs: Clear to Auscultation, Normal Air Movement Heart: Regular Rate, Normal S1, Normal S2, No Murmurs Abdomen: Other (Distended abdomen, no bowel sounds) Extremities: No Clubbing, No Cyanosis, No Edema, Normal Pulses, No Tenderness/Swelling Skin: No Rashes, No Significant Lesion Neuro: Normal Speech, Normal Tone, Sensation Intact Psych/Mental Status: Mental Status NL, Mood NL Results Lab Laboratory Tests 06/23/23 00:11 06/23/23 04:33 A/P-Cardiology Admission Diagnosis Abdominal pain Coronary artery disease Sinus tachycardia Hypertension Assessment/Plan Status post cholecystectomy complicated by perforated small bowel and small bowel resection. Postop day #1 Still having abdominal pain, recovering slowly. Coronary artery disease, Cardiac catheterization done in August 2018 had patent stent 3 x 32 in the mid LAD and 2.5 x 16 in the first diagonal artery, the obtuse marginal branch has 70% stenosis and had balloon angioplasty done to it. The right coronary artery has 70% mid vessel stenosis with successful stenting using Alma 4 x 18 mm. Cardiac catheterization in 2020 showing patent stent with mild to moderate disease nonobstructive disease Cardiac catheterization done and May 2023 showing mild to moderate disease nonobstructive disease Patient has been maintained on aspirin, on hold for now. Sinus tachycardia, probably secondary to pain and postoperative Tolerating Lopressor IV well. Continue to monitor Hypertension, patient is having significant pain. Better control on beta-blockers Continue to monitor Hyperlipidemia Intolerant to statin. Obstructive sleep apnea, unable to tolerate CPAP Chronic bilateral leg discomfort secondary to peripheral neuropathy Mild bilateral carotid stenosis I discussed with the patient the management plan, recommended stopping aspirin for now until he is fully recovered Monitor blood pressure and start low-dose beta-blockers. NATALIA CHINCHILLA MD Jun 23, 2023 08:54
[2023-06-23 09:21] LABS: ALBUMIN 3.9 GM/DL (3.2-4.5)
[2023-06-23 09:23] LABS: CALCIUM 8.7 MG/DL (8.5-10.1)
[2023-06-23 09:24] LABS: TOTAL PROTEIN 6.8 GM/DL (6.4-8.2)
[2023-06-23 09:26] LABS: BILIRUBIN,TOTAL 1.9 MG/DL (0.1-1.0)
[2023-06-23 09:28] LABS: CREATININE SERUM 0.9 MG/DL (0.60-1.30)
--- NOTE | 2023-06-23 09:40 | Consultation - Hospitalist ---
CARMEN ROMAN 06/23/23 0940: HPI History of Present Illness: HPI/Chief Complaint HPI: 62-year-old male patient presented for laparoscopic cholecystectomy with intraoperative cholangiogram with removal of gallbladder. Was planned for discharged yesterday, but started having severe pain with distention of the abdomen and then underwent another surgery for laparoscopic converted to open with lysis of adhesions & small bowel resection. After surgery, patient was consulted by cardiology for tachycardia likely due to post-op pain. On patient visit, he was sitting in bed with a pillow on his abdomen and a vomit bucket. Patient was still having abdominal pain and rated it as a 10/10. Reports no BM and no gas. Has had some water, but it upsets his stomach. Was currently having nausea, but reported no vomiting. Reported fever and had a wet rag on his head. was at the bedside. Source: patient, RN/MD, RN notes reviewed Exam Limitations: clinical condition Date Seen 06/23/23 Attending Physician Patricia Davies Aprn PCP Admitting Physician: Attending Physician: Yfn Gautam DO Referring Physician Date of Admission Home Medications & Allergies Home Medications Reviewed patient Home Medication Reconciliation performed by pharmacy medication reconciliations agricultural research technician and/or nursing. Patients Allergies have been reviewed. Allergies Allergies Coded Allergies Ruupkyz-APY-OsD Reductase Inhibitor (Verified Allergy, Severe, MUSCLE WEAKNESS, PT TAKE LIPITOR AT HOME, 11/25/18) ezetimibe (Verified Allergy, Unknown, 11/25/18) Past Ziidmvr-Tomgsk-Izwroz Hx Patient Social History Marrital Status: Employed/Student: employed Tobacco Use?: No Smoking Status: Never a Smoker Use of E-Cig and/or Vaping dev: No Substance use?: No Alcohol Use?: No Pt feels they are or have been: No Immunizations Up To Date Date of Influenza Vaccine: Aug 16, 2021 First/Initial COVID19 Vaccinat: YES Second COVID19 Vaccination Edward: YES Tetanus Booster (TDap): Less Than 5 Years Hepatitis A: No Hepatitis B: No PED Vaccines UTD: No Date of Pneumonia Vaccine: Nov 03, 2014 Seasonal Allergies Seasonal Allergies: Yes (at times) Current Status Advance Directives: No Advance Directive Location: Home Primary Language: Mohawk Preferred Spoken Language: Mohawk Is interpretation needed?: No Sensory deficits: Vision impairment, Hearing impairment Implanted or Applied Medical D: Orthopedic hardware, Stents Past Medical History Surgeries: Abdominal, Appendectomy, Cardiac, Coronary Stent, Joint Replacement, Orthopedic Sleep Apnea Currently Using CPAP: No Currently Using BIPAP: No Chronic Edema/Swelling, Coronary Artery Disease, Deep Vein Thrombosis, Heart Attack, High Cholesterol, Hypertension Sexually Transmitted Disease: No HIV/AIDS: No Kidney Stones Abdominal Hernia, Gastroesophageal Reflux, Diverticulosis Degenerate Disk Disease, Arthritis, Chronic Back Pain Diabetes, Non-Insulin dep Loss of Vision: Denies Hearing Impairment: Denies Anxiety Blood Disorders: No Adverse Reaction/Blood Tranf: No Family Medical History Asthma G8 BROTHER Cancer of mouth G8 BROTHER Cardiovascular disease 19 MOTHER Cataracts G8 BROTHER Deafness or hearing loss G8 BROTHER Hypercholesterolemia G8 SISTER Myocardial infarction 19 FATHER Review of Systems Constitutional: No chills; fever, weakness EENTM: no symptoms reported Respiratory: no symptoms reported Cardiovascular: no symptoms reported Gastrointestinal: abdominal pain (Everywhere), nausea Genitourinary: no symptoms reported Musculoskeletal: no symptoms reported Skin: no symptoms reported Psychiatric/Neurological: Anxiety Physical Exam Physical Exam Vital Signs Vital Signs - First Documented 06/22/23 08:00 Temp 36.5 Pulse 73 Resp 20 B/P (MAP) 134/78 (96) Pulse Ox 94 O2 Delivery Room Air Capillary Refill : Height, Weight, BMI Height: 5'11.00" Weight: 285lbs. 0.0oz. 129.635005tl; 38.66 BMI Method:Stated General Appearance: Moderate Distress Eyes: Bilateral Eye Normal Inspection, Bilateral Eye PERRL HEENT: PERRL/EOMI, Normal ENT Inspection Neck: Full Range of Motion, Normal Inspection Respiratory: Chest Non Tender, Lungs Clear, Normal Breath Sounds, No Accessory Muscle Use, No Respiratory Distress, Other (slight labored breathing) Cardiovascular: Regular Rate, Rhythm, No Gallop, No Murmur, Normal Peripheral Pulses, Tachycardia Gastrointestinal: Distended, Tenderness Extremity: Non Tender, No Calf Tenderness Neurologic/Psychiatric: Alert, Oriented x3, Normal Mood/Affect, Other (anxious) Skin: Normal Color, Warm/Dry Lymphatic: No Adenopathy Results Results/Procedures Labs Laboratory Tests 06/23/23 00:11 06/23/23 04:33 06/23/23 08:43 Patient resulted labs reviewed. Assessment/Plan Assessment and Plan Assess & Plan/Chief Complaint Assessment: Status post cholecystectomy complicated by perforated small bowel & small bowel resection Severe abdominal pain Sinus tachycardic with IV metoprolol HTN CAD Hyperlipidemia GILDARDO, no CPAP T2DM Peripheral neuropathy GERD Plan: Monitor in ICU Managed by surgery IVF NPO Pain management Critical Care Critically Ill Patient CHRISTIE CASTILLO DO 06/24/23 0601: HPI History of Present Illness: HPI/Chief Complaint Chief complaint: Medical management following complicated cholecystectomy HPI: This is a 62-year-old male clinic patient of [facility] who underwent a cholecystectomy but required open procedure due to small bowel perforation. Cardiology was consulted for tachycardia but it was assessed to be due to pain. is at the bedside and currently he remains stable. Dilaudid DENTAL OFFICE RECEPTIONIST has been very helpful Source: family, RN/MD Exam Limitations: clinical condition Past Heaurbs-Jafysi-Ndpzec Hx Patient Social History Marrital Status: Employed/Student: retired Smoking Status: Unknown if Ever Smoked Past Medical History Surgeries: Coronary Stent High Cholesterol, Hypertension Neuropathy Diabetes, Non-Insulin dep Family Medical History Asthma G8 BROTHER Cancer of mouth G8 BROTHER Cardiovascular disease 19 MOTHER Cataracts G8 BROTHER Deafness or hearing loss G8 BROTHER Hypercholesterolemia G8 SISTER Myocardial infarction 19 FATHER Review of Systems Constitutional: see HPI Gastrointestinal: abdominal pain (Everywhere), nausea Physical Exam Physical Exam General Appearance: No Apparent Distress, WD/WN, Anxious, Chronically ill Respiratory: Lungs Clear, Normal Breath Sounds Cardiovascular: Regular Rate, Rhythm Assessment/Plan Assessment and Plan Assess & Plan/Chief Complaint ICU Dilaudid DENTAL OFFICE RECEPTIONIST Pain control Supportive care Ambulate Supervisory-Addendum Brief Verification & Attestation Participated in pt care: history, MDM, physical Personally performed: exam, history, MDM, supervision of care Care discussed with: Medical Student Procedures: n/a Results interpretation: Verified all documentation Verification and Attestation of Medical Student E/M Service A medical student performed and documented this service in my presence. I reviewed and verified all information documented by the medical student and made modifications to such information, when appropriate. I personally performed the physical exam and medical decision making. Christie Castillo, Jun 24, 2023,05:57 CARMEN ROMAN Jun 23, 2023 09:40 CHRISTIE CASTILLO DO Jun 24, 2023 06:01
[2023-06-23] MEDS: PROMETHAZINE INJ 25 MG/ML VIAL IVP PRN ×2 (10:37→16:57)
--- NOTE | 2023-06-23 11:56 | Progress Note - Surgery ---
TONO MOONEY 06/23/23 1156: Subjective Time Seen by a Provider: 11:52 Subjective/Events-last exam 62-year-old male patient presented for laparoscopic cholecystectomy with intraoperative cholangiogram, had severe pain with distention of the abdomen, then underwent another surgery for small bowel resection. Post-op patient was tachycardic. Patient is having nausea currently, no vomiting reported. Patient reports fever and chills- has a wet rag on head. Diffuse abdominal pain, 10/10, and pain medication has not helped. Focused Exam Sepsis Stage: Ruled Out Lactate Level 06/23/23 00:11: Lactic Acid Level 2.14*H 06/23/23 02:16: Lactic Acid Level 1.92 Respiratory: No Accessory Muscle Use, No Respiratory Distress Cardiovascular: No Edema, Normal Peripheral Pulses Peripheral Pulses: 2+ Radial Pulses (R), 2+ Radial Pulses (L) Skin: normal color, warm/dry Objective Exam Vital Signs Date Time Temp Pulse Resp B/P (MAP) Pulse Ox O2 Delivery O2 Flow Rate FiO2 06/23/23 11:00 99 6 149/92 (110) 100 Nasal Cannula 2.00 06/23/23 10:00 96 15 161/101 (113) 93 Nasal Cannula 2.00 06/23/23 09:00 93 7 164/106 (121) 91 Nasal Cannula 2.00 06/23/23 08:50 Nasal Cannula 2.00 06/23/23 08:45 94 Nasal Cannula 4.00 06/23/23 08:00 Nasal Cannula 2.00 06/23/23 08:00 94 9 154/97 (110) 93 Room Air 06/23/23 07:54 37.0 06/23/23 07:00 94 06/23/23 07:00 99 18 170/94 (134) 94 Room Air 06/23/23 06:00 104 17 157/97 (117) 91 Room Air 06/23/23 05:00 103 10 152/116 (128) 91 Room Air 06/23/23 04:40 Nasal Cannula 2.00 06/23/23 04:00 105 19 163/95 (117) 92 Room Air 06/23/23 03:51 36.9 06/23/23 03:00 103 17 145/107 (120) 92 Room Air 06/23/23 02:00 105 18 137/81 (99) 92 Room Air 06/23/23 01:00 102 10 122/95 (104) 91 Room Air 06/23/23 01:00 104 06/23/23 00:00 38.0 06/23/23 00:00 105 28 166/102 (123) 92 Room Air 06/22/23 23:55 Nasal Cannula 2.00 06/22/23 23:00 115 10 150/97 (114) 93 Room Air 06/22/23 22:00 116 13 142/84 (103) 94 Room Air 06/22/23 21:00 123 7 151/75 (100) 92 Room Air 06/22/23 20:06 Nasal Cannula 2.00 06/22/23 20:00 118 10 157/123 (134) 93 Room Air 06/22/23 19:22 93 Nasal Cannula 3.00 06/22/23 19:00 118 10 155/83 (107) 94 Room Air 06/22/23 19:00 121 06/22/23 18:32 36.9 73 92 06/22/23 18:00 123 169/102 (124) 93 06/22/23 17:35 93 Nasal Cannula 3.00 06/22/23 17:35 Nasal Cannula 3.00 06/22/23 17:30 36.9 20 163/103 (123) 92 Nasal Cannula 3.00 06/22/23 17:20 18 175/102 (126) 93 Nasal Cannula 3.00 06/22/23 17:15 Nasal Cannula 4.00 06/22/23 17:10 22 161/94 (116) 93 Nasal Cannula 3.00 06/22/23 17:00 Nasal Cannula 4.00 06/22/23 17:00 108 28 148/84 (105) 06/22/23 17:00 20 154/95 (114) 94 Nasal Cannula 4.00 06/22/23 16:50 16 188/92 (124) 95 OxyMask 6.00 06/22/23 16:45 OxyMask 6.00 06/22/23 16:40 18 172/106 (128) 92 OxyMask 6.00 06/22/23 16:29 36.8 20 173/97 (122) 98 OxyMask 6.00 06/22/23 16:29 OxyMask 6.00 06/22/23 12:30 36.8 86 20 137/74 92 Nasal Cannula 2.00 06/22/23 12:00 36.3 75 20 120/74 91 Nasal Cannula 2.00 I & O 06/23/23 07:00 Intake Total 3925 ml Output Total 1300 ml Balance 2625 ml Capillary Refill : General Appearance: Mild Distress HEENT: PERRL/EOMI, Normal ENT Inspection Neck: Full Range of Motion, Normal Inspection Respiratory: Chest Non Tender, Lungs Clear, No Accessory Muscle Use, Other (slight labored breathing) Cardiovascular: Regular Rate, Rhythm, No JVD, Tachycardia Peripheral Pulses: 2+ Radial Pulses (R), 2+ Radial Pulses (L) Gastrointestinal: non tender, soft, distended, tenderness (diffuse tenderness, worse in RLQ), other Extremity: Non Tender, No Calf Tenderness Neurologic/Psychiatric: Alert, Oriented x3 Skin: Normal Color, Warm/Dry Lymphatic: No Adenopathy Results Lab Laboratory Tests 06/22/23 12:47: Glucometer 253H 06/22/23 16:38: Glucometer 187H 06/23/23 00:11: White Blood Count 7.9, Red Blood Count 4.94, Hemoglobin 14.6, Hematocrit 44, Mean Corpuscular Volume 90, Mean Corpuscular Hemoglobin 30, Mean Corpuscular Hemoglobin Concent 33, Red Cell Distribution Width 13.8, Platelet Count 142, Mean Platelet Volume 10.8, Immature Granulocyte % (Auto) 0, Neutrophils (%) (A uto) 83H, Lymphocytes (%) (Auto) 9L, Monocytes (%) (Auto) 8, Eosinophils (%) (Auto) 0, Basophils (%) (Auto) 0, Neutrophils # (Auto) 6.6, Lymphocytes # (Auto) 0.7L, Monocytes # (Auto) 0.6, Eosinophils # (Auto) 0.0, Basophils # (Auto) 0.0, Immature Granulocyte # (Auto) 0.0, Neutrophils % (Manual) 55, Lymphocytes % (Manual) 15, Monocytes % (Manual) 6, Band Neutrophils 20, Reactive Lymphocytes 4, Sodium Level 137, Potassium Level 4.4, Chloride Level 104, Carbon Dioxide Level 22, Anion Gap 11, Blood Urea Nitrogen 13, Creatinine 0.87, Estimat Glomerular Filtration Rate 96, BUN/Creatinine Ratio 15, Glucose Level 212H, Lactic Acid Level 2.14*H, Calcium Level 8.3L 06/23/23 02:16: Lactic Acid Level 1.92 06/23/23 04:33: Sodium Level 138, Potassium Level 4.2, Chloride Level 104, Carbon Dioxide Level 24, Anion Gap 10, Blood Urea Nitrogen 12, Creatinine 0.83, Estimat Glomerular Filtration Rate 98, BUN/Creatinine Ratio 14, Glucose Level 201H, Calcium Level 8.3L 06/23/23 08:43: Sodium Level 137, Potassium Level 4.0, Chloride Level 102, Carbon Dioxide Level 27, Anion Gap 8, Blood Urea Nitrogen 12, Creatinine 0.90, Estimat Glomerular Filtration Rate 95, BUN/Creatinine Ratio 13, Glucose Level 194H, Calcium Level 8.7, White Blood Count 10.0, Red Blood Count 5.01, Hemoglobin 14.9, Hematocrit 45, Mean Corpuscular Volume 90, Mean Corpuscular Hemoglobin 30, Mean Corpuscular Hemoglobin Concent 33, Red Cell Distribution Width 14.0, Platelet Count 142, Mean Platelet Volume 10.8, Immature Granulocyte % (Auto) 0, Neutrophils (%) (Auto) 86H, Lymphocytes (%) (Auto) 6L, Monocytes (%) (Auto) 8, Eosinophils (%) (Auto) 0, Basophils (%) (Auto) 0, Neutrophils # (Auto) 8.5H, Lymphocytes # (Auto) 0.6L, Monocytes # (Auto) 0.8, Eosinophils # (Auto) 0.0, Basophils # (Auto) 0.0, Immature Granulocyte # (Auto) 0.0, Percent Immature Platelet Fraction 4.6, Corrected Calcium 8.8, Total Bilirubin 1.9H, Aspartate Amino Transf (AST/SGOT) 38H, Alanine Aminotransferase (ALT/SGPT) 53, Alkaline Phosp hatase 52, Total Protein 6.8, Albumin 3.9 Microbiology 06/22/23 MRSA Screen - Final, Complete MRSA not isolated Assessment/Plan Assessment/Plan Assessment/Plan Diagnostic laparoscopy converted to open, lysis of adhesions, small bowel resection Severe abdominal pain Fever Sinus tachycardia Hypertension Hyperlipidemia Consult Cardiology IV Fluids NPO Pain Control IS JOYCELYN GAUTAM DO 06/23/23 1559: Subjective Date Seen by a Provider: Jun 23, 2023 Subjective/Events-last exam Patient with nausea. Still with abdominal pain, not quite controlled. Feels more swollen. No flatus or bm. WBC 10 and hgb stable. Objective Exam General Appearance: Other (laying in bed, uncomfortable) HEENT: PERRL/EOMI, Normal ENT Inspection Neck: Full Range of Motion, Normal Inspection Respiratory: Chest Non Tender, No Accessory Muscle Use, No Respiratory Distress Cardiovascular: Regular Rate, Rhythm, No JVD, Tachycardia (slight) Gastrointestinal: soft, distended, tenderness (incisional), other (no signs of infection) Extremity: Non Tender, No Calf Tenderness Neurologic/Psychiatric: Alert, Oriented x3 Skin: Normal Color, Warm/Dry Lymphatic: No Adenopathy Assessment/Plan Assessment/Plan Assessment/Plan s/p lap adán c ioc, diagnostic laparoscopy converted to open, lysis of adhesions, small bowel resection Severe abdominal pain Sinus tachycardia Hypertension Hyperlipidemia FCI antiplatlet use Consult Cardiology IV Fluids NPO Pain Control Try to get nausea controlled, may need to insert ng tube await bowel function IS scd's for dvt prophylaxis at this time, do not want to start Lovenox at this time yet due to bleeding in abdomen Supervisory-Addendum Brief Verification & Attestation Participated in pt care: history, MDM, physical Personally performed: exam, history, MDM, supervision of care Care discussed with: Medical Student Procedures: n/a Results interpretation: Verified all documentation Verification and Attestation of Medical Student E/M Service A medical student performed and documented this service in my presence. I reviewed and verified all information documented by the medical student and made modifications to such information, when appropriate. I personally performed the physical exam and medical decision making. Joycelyn Gautam, Jun 23, 2023,16:01 TONO MOONEY Jun 23, 2023 11:56 JOYCELYN GAUTAM DO Jun 23, 2023 15:59
--- NOTE | 2023-06-23 16:59 | Diagnostic Imaging Report ---
EXAMINATION: Chest, one view. HISTORY: Tube placement. COMPARISON: 10/29/2021. FINDINGS: Gastric tube is in the stomach. There is bibasilar atelectasis. No edema or pneumonia. No pleural effusion or pneumothorax. IMPRESSION: 1. Gastric tube is in the stomach. 2. Bibasilar atelectasis. Dictated by: Dictated on workstation # [id number]
[2023-06-24] MEDS: LACTATED RINGERS 1,000 ML 1,000 ML IV SCH ×3 (01:50→17:15)
[2023-06-24] MEDS: meTOprolol INJECTION 5 MG/5 ML VIAL IV SCH ×3 (05:47→19:02)
[2023-06-24] MEDS: metroNIDAZOLE 500MG/100ML IVPB 100 ML IV SCH ×3 (05:49→21:19)
--- NOTE | 2023-06-24 06:24 | Progress Note - Hospitalist ---
Subjective HPI/CC On Admission Date Seen by Provider: Jun 24, 2023 Time Seen by Provider: 11:00 Chief complaint: Medical management following complicated cholecystectomy HPI: This is a 62-year-old male clinic patient of [facility] who underwent a cholecystectomy but required open procedure due to small bowel perforation. Car diology was consulted for tachycardia but it was assessed to be due to pain. is at the bedside and currently he remains stable. Dilaudid UNIVERSITY PROFESSOR has been very helpful Subjective/Events-last exam Patient doing much better Pain is controlled We will move down to fourth floor at bedside Labs reviewed Blood pressure stable Review of Systems General: Fatigue, Malaise Gastrointestinal: Abdominal Pain Focused Exam Lactate Level 06/23/23 00:11: Lactic Acid Level 2.14*H 06/23/23 02:16: Lactic Acid Level 1.92 Objective Exam Vital Signs Vital Signs Date Time Temp Pulse Resp B/P (MAP) Pulse Ox O2 Delivery O2 Flow Rate FiO2 06/24/23 13:24 36.8 98 20 135/74 (94) 91 Nasal Cannula 3.00 Capillary Refill : General Appearance: No Apparent Distress, WD/WN, Chronically ill Respiratory: Lungs Clear, Normal Breath Sounds Cardiovascular: Regular Rate, Rhythm Neurologic/Psychiatric: Alert, Oriented x3 Results/Procedures Lab Laboratory Tests 06/24/23 07:30 Patient resulted labs reviewed. Assessment/Plan Assessment and Plan Assess & Plan/Chief Complaint Assessment: Status post cholecystectomy complicated by perforated small bowel & small bowel resection Severe abdominal pain on UNIVERSITY PROFESSOR pump Dilaudid Sinus tachycardic with IV metoprolol HTN CAD Hyperlipidemia GILDARDO, no CPAP T2DM Peripheral neuropathy GERD Plan: Moved to fourth floor Managed by surgery IVF NPO Pain management Lovenox if okay with general surgery Critical Care Critically Ill Patient CHRISTIE CASTILLO DO Jun 24, 2023 06:24
--- NOTE | 2023-06-24 07:32 | Progress Note - Surgery ---
TONO MOONEY 06/24/23 0732: Subjective Date Seen by a Provider: Jun 24, 2023 Time Seen by a Provider: 07:29 Subjective/Events-last exam Patient reports episodes of nausea. Abdominal pain present, but greatly improved since yesterday. Patient reports that abdominal distention and discomfort improved. No flatus or bm. Improved mood, reports feeling much better than yesterday. Focused Exam Sepsis Stage: Ruled Out Lactate Level 06/23/23 00:11: Lactic Acid Level 2.14*H 06/23/23 02:16: Lactic Acid Level 1.92 Respiratory: No Accessory Muscle Use, No Respiratory Distress Cardiovascular: No Edema, Normal Peripheral Pulses Peripheral Pulses: 2+ Radial Pulses (R), 2+ Radial Pulses (L) Skin: normal color, warm/dry Objective Exam Vital Signs Date Time Temp Pulse Resp B/P (MAP) Pulse Ox O2 Delivery O2 Flow Rate FiO2 06/24/23 07:00 98 06/24/23 06:00 95 13 130/84 (99) 97 Nasal Cannula 2.00 06/24/23 05:00 104 27 129/79 (96) 97 Nasal Cannula 2.00 06/24/23 04:34 Nasal Cannula 2.00 06/24/23 04:00 101 27 123/67 (85) 94 Nasal Cannula 2.00 06/24/23 03:00 103 14 128/88 (101) 93 Nasal Cannula 2.00 06/24/23 02:00 102 11 123/83 (96) 91 Nasal Cannula 2.00 06/24/23 01:00 105 06/24/23 01:00 103 12 130/89 (103) 92 Nasal Cannula 2.00 06/24/23 00:00 101 19 135/88 (104) 93 Nasal Cannula 2.00 06/23/23 23:28 Nasal Cannula 2.00 06/23/23 23:00 115 19 160/94 (116) 97 Nasal Cannula 2.00 06/23/23 22:00 107 10 152/90 (110) 93 Nasal Cannula 2.00 06/23/23 21:00 97 10 161/98 (119) 92 Nasal Cannula 2.00 06/23/23 20:00 97 9 161/98 (119) 92 Nasal Cannula 2.00 06/23/23 20:00 Nasal Cannula 2.00 06/23/23 19:00 98 32 160/103 (122) 95 Nasal Cannula 2.00 06/23/23 19:00 101 06/23/23 18:00 99 9 156/95 (113) 93 Nasal Cannula 2.00 06/23/23 17:00 101 12 147/91 (110) 91 Nasal Cannula 2.00 06/23/23 16:30 36.6 06/23/23 16:00 107 13 156/99 (116) 92 Nasal Cannula 2.00 06/23/23 16:00 Nasal Cannula 2.00 06/23/23 15:00 101 12 139/97 (112) 90 Nasal Cannula 2.00 06/23/23 14:00 100 9 147/94 (122) 92 Nasal Cannula 2.00 06/23/23 13:00 103 13 149/95 (119) 94 Nasal Cannula 2.00 06/23/23 12:30 99 06/23/23 12:00 101 20 134/99 (113) 91 Nasal Cannula 2.00 06/23/23 12:00 37.0 06/23/23 12:00 Nasal Cannula 2.00 06/23/23 11:00 99 149/92 (110) 100 Nasal Cannula 2.00 06/23/23 10:00 96 15 161/101 (113) 93 Nasal Cannula 2.00 06/23/23 09:00 93 7 164/106 (121) 91 Nasal Cannula 2.00 06/23/23 08:50 Nasal Cannula 2.00 06/23/23 08:45 94 Nasal Cannula 4.00 06/23/23 08:00 Nasal Cannula 2.00 06/23/23 08:00 94 9 154/97 (110) 93 Room Air 06/23/23 07:54 37.0 I & O 06/24/23 07:00 Intake Total 74 ml Output Total 2855 ml Balance -2781 ml Capillary Refill : General Appearance: No Apparent Distress, WD/WN, Anxious HEENT: PERRL/EOMI, Normal ENT Inspection Neck: Full Range of Motion, Normal Inspection Respiratory: Lungs Clear, Normal Breath Sounds Cardiovascular: Regular Rate, Rhythm Peripheral Pulses: 2+ Radial Pulses (R), 2+ Radial Pulses (L) Gastrointestinal: soft, no pulsatile mass, distended (minimal), tenderness (incisional) Extremity: Non Tender, No Calf Tenderness Neurologic/Psychiatric: Alert, Oriented x3 Skin: Normal Color, Warm/Dry Lymphatic: No Adenopathy Results Lab Laboratory Tests 06/23/23 08:43: White Blood Count 10.0, Red Blood Count 5.01, Hemoglobin 14.9, Hematocrit 45, Mean Corpuscular Volume 90, Mean Corpuscular Hemoglobin 30, Mean Corpuscular Hemoglobin Concent 33, Red Cell Distribution Width 14.0, Platelet Count 142, Mean Platelet Volume 10.8, Immature Granulocyte % (Auto) 0, Neutrophils (%) (Auto) 86H, Lymphocytes (%) (Auto) 6L, Monocytes (%) (Auto) 8, Eosinophils (%) (Auto) 0, Basophils (%) (Auto) 0, Neutrophils # (Auto) 8.5H, Lymphocytes # (Auto) 0.6L, Monocytes # (Auto) 0.8, Eosinophils # (Auto) 0.0, Basophils # (Auto) 0.0, Immature Granulocyte # (Auto) 0.0, Percent Immature Platelet Fraction 4.6, Sodium Level 137, Potassium Level 4.0, Chloride Level 102, Carbon Dioxide Level 27, Anion Gap 8, Blood Urea Nitrogen 12, Creatinine 0.90, Estimat Glomerular Filtration Rate 95, BUN/Creatinine Ratio 13, Glucose Level 194H, Calcium Level 8.7, Corrected Calcium 8.8, Total Bilirubin 1.9H, Aspartate Amino Transf (AST/SGOT) 38H, Alanine Aminotransferase (ALT/SGPT) 53, Alkaline Phosphatase 52, Total Protein 6.8, Albumin 3.9 Microbiology 06/22/23 MRSA Screen - Final, Complete MRSA not isolated Assessment/Plan Assessment/Plan Assessment/Plan s/p lap adán c ioc, diagnostic laparoscopy converted to open, lysis of adhesions, small bowel resection Severe abdominal pain Sinus tachycardia Hypertension Hyperlipidemia USP antiplatlet use Consult Cardiology IV Fluids NPO Continue NG Tube Pain Control Await bowel function IS Scd's for dvt prophylaxis at this time JOYCELYN GAUTAM DO 06/24/23 1300: Subjective Subjective/Events-last exam Nausea improved with NG tube. Pain improving. Less abdominal distention. No Flatus. Denies n/v fever sweats chills shortness of breath or chest pain at this time. Objective Exam General Appearance: No Apparent Distress, WD/WN HEENT: PERRL/EOMI, Normal ENT Inspection Neck: Full Range of Motion, Normal Inspection Respiratory: Chest Non Tender, No Accessory Muscle Use, No Respiratory Distress Cardiovascular: Regular Rate, Rhythm, No JVD Gastrointestinal: distended (minimal), tenderness (incisional, no signs of infection) Neurologic/Psychiatric: Alert, Oriented x3 Skin: Normal Color, Warm/Dry Lymphatic: No Adenopathy Assessment/Plan Assessment/Plan Assessment/Plan s/p lap adán c ioc, diagnostic laparoscopy converted to open, lysis of adhesions, small bowel resection Severe abdominal pain Sinus tachycardia Hypertension 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 I reviewed and verified all information documented by the medical student and made modifications to such information, when appropriate. I personally performed the physical exam and medical decision making. Joycelyn Gautam, Jun 24, 2023,13:00 TONO MOONEY Jun 24, 2023 07:32 JOYCELYN GAUTAM DO Jun 24, 2023 13:00
[2023-06-24 07:42] LABS: EOSINOPHILS % (AUTO) 0 % (0-10); MEAN CORPUSCULAR HEMOGLOBIN 30 pg (25-34); MONOCYTES # (AUTO) 0.7 10^3/uL (0.0-1.0); MONOCYTES % (AUTO) 7 % (0-12)
[2023-06-24 07:44] LABS: BASOPHILS % (AUTO) 0 % (0-10); HEMATOCRIT 40 % (40-54); LYMPHOCYTES # (AUTO) 1.1 10^3/uL (1.0-4.0); LYMPHOCYTES % (AUTO) 10 % (12-44); MEAN CORPUSCULAR HGB CONC 33 g/dL (32-36); MEAN CORPUSCULAR VOLUME 91 fL (80-99); MEAN PLATELET VOLUME 10.9 fL (9.0-12.2); NEUTROPHILS # (AUTO) 8.5 10^3/uL (1.8-7.8); NEUTROPHILS % (AUTO) 82 % (42-75); PLATELET COUNT 135 10^3/uL (130-400); WHITE BLOOD COUNT 10.4 10^3/uL (4.3-11.0)
[2023-06-24] MEDS: ceFAZolin INJECTION 2,000 MG in NS (IVPB) 50 ML 50 ML IV SCH ×3 (07:52→22:23)
[2023-06-24 08:52] LABS: ALBUMIN 3.4 GM/DL (3.2-4.5)
[2023-06-24 08:54] LABS: CALCIUM 8.9 MG/DL (8.5-10.1)
[2023-06-24 08:55] LABS: TOTAL PROTEIN 6.3 GM/DL (6.4-8.2)
[2023-06-24 08:57] LABS: BILIRUBIN,TOTAL 2.1 MG/DL (0.1-1.0)
[2023-06-24 08:59] LABS: CREATININE SERUM 0.82 MG/DL (0.60-1.30)
[2023-06-24] MEDS: PROMETHAZINE INJ 25 MG/ML VIAL IVP PRN ×2 (10:10→19:02)
--- NOTE | 2023-06-24 10:47 | Tele-ICU Progress Note ---
Subjective Date Seen by a Provider: Jun 24, 2023 Time Seen by a Provider: 10:46 Subjective/Events-last exam (Tele-ICU Physician , Progress Note ) Service provided via interactive audio and video telecommunications E-CARE system to a patient admitted to ICU bed in [facility]. Patient is seen today due to persistent need of ICU care Available chart/ vitals / labs / Images reviewed Video assessment done using teleICU camera, rest of exam as per RN Discussed with RN Events overnight : Afebrile hemodynamically stable Respiratory - 2L I/O = even Drips: LR 125 Pressors- no Hospital course: (06/22) 62 M admitted s/p Lap Cholecystectomy complicated by small bowel perforation s/p SBR 06/23 - pain , dlaudid RECEIVING LEAD , NG removed 06/24 - pain is better , nauseated A/P Status post cholecystectomy complicated by perforated small bowel and small bowel resection. - c/o abdominal pain, IV opioids - dilaudid PCP ( no basal rate ) - hydration ABX = flagyl , cefazolin CAD, s/p PTCAs - as per cards on case Sinus tachycardia, probably secondary to pain and postoperative -on beta-sim as per crds DM II - ISS GILDARDO - unable to tolerate CPAP - monitor Anxiety - requested xanax per patient , will use prn ativan if get worse Lines : periph , (Central Line Necessity Reviewed) George: + OG: Nutrition: npo ice chips Analgesia: Anxiety/ delirium VTE Prophylaxis: scd, LOVENOX WHEN OK WITH SX Stress Ulcer Prophylaxis: na Plans in collaboration with bedside consultants and IM MDs. Discussed with RN to reach out if any questions or concerns Case and care daily discussed on multidisciplinary rounds ( RN, PharmD, Division Plant Engineer , Respiratory Therapy, dental laboratory worker ) A total of 20 minutes of critical care time was devoted to this patient today, required to treat and/or prevent further deterioration of critical care condition ( as above ) . I am remotely monitoring this patient from another state. I am unable to do the bedside exam, and history/physical and pertinent information is taken from other notes in the computer and bedside staff. Sepsis Event Evaluation Height, Weight, BMI Height: 5'11.00" Weight: 285lbs. 0.0oz. [id number]; 38.66 BMI Method:Stated Focused Exam Lactate Level 06/23/23 00:11: Lactic Acid Level 2.14*H 06/23/23 02:16: Lactic Acid Level 1.92 Exam Exam Patient acknowledged, consented, and participated in this virtual visit which was conducted using real time audio/video Vital Signs Date Time Temp Pulse Resp B/P (MAP) Pulse Ox O2 Delivery O2 Flow Rate FiO2 06/24/23 10:00 98 10 141/80 (97) 97 Nasal Cannula 2.00 06/24/23 09:00 99 21 115/66 (80) 99 Nasal Cannula 2.00 06/24/23 08:00 94 14 139/90 (106) 97 Nasal Cannula 2.00 06/24/23 08:00 Nasal Cannula 2.00 06/24/23 07:42 36.3 06/24/23 07:00 96 14 114/78 (90) 98 Nasal Cannula 2.00 06/24/23 07:00 98 06/24/23 06:00 95 13 130/84 (99) 97 Nasal Cannula 2.00 06/24/23 05:00 104 27 129/79 (96) 97 Nasal Cannula 2.00 06/24/23 04:34 Nasal Cannula 2.00 06/24/23 04:00 101 27 123/67 (85) 94 Nasal Cannula 2.00 06/24/23 03:00 103 14 128/88 (101) 93 Nasal Cannula 2.00 06/24/23 02:00 102 11 123/83 (96) 91 Nasal Cannula 2.00 06/24/23 01:00 105 06/24/23 01:00 103 12 130/89 (103) 92 Nasal Cannula 2.00 06/24/23 00:00 101 19 135/88 (104) 93 Nasal Cannula 2.00 06/23/23 23:28 Nasal Cannula 2.00 06/23/23 23:00 115 19 160/94 (116) 97 Nasal Cannula 2.00 06/23/23 22:00 107 10 152/90 (110) 93 Nasal Cannula 2.00 06/23/23 21:00 97 10 161/98 (119) 92 Nasal Cannula 2.00 06/23/23 20:00 97 9 161/98 (119) 92 Nasal Cannula 2.00 06/23/23 20:00 Nasal Cannula 2.00 06/23/23 19:00 98 32 160/103 (122) 95 Nasal Cannula 2.00 06/23/23 19:00 101 06/23/23 18:00 99 9 156/95 (113) 93 Nasal Cannula 2.00 06/23/23 17:00 101 12 147/91 (110) 91 Nasal Cannula 2.00 06/23/23 16:30 36.6 06/23/23 16:00 107 13 156/99 (116) 92 Nasal Cannula 2.00 06/23/23 16:00 Nasal Cannula 2.00 06/23/23 15:00 101 12 139/97 (112) 90 Nasal Cannula 2.00 06/23/23 14:00 100 9 147/94 (122) 92 Nasal Cannula 2.00 06/23/23 13:00 103 13 149/95 (119) 94 Nasal Cannula 2.00 06/23/23 12:30 99 06/23/23 12:00 101 20 134/99 (113) 91 Nasal Cannula 2.00 06/23/23 12:00 37.0 06/23/23 12:00 Nasal Cannula 2.00 06/23/23 11:00 99 149/92 (110) 100 Nasal Cannula 2.00 I & O 06/24/23 07:00 Intake Total 74 ml Output Total 2855 ml Balance -2781 ml Height & Weight Height: 5'11.00" Weight: 285lbs. 0.0oz. 129.637782nd; 38.66 BMI Method:Stated General Appearance: No Apparent Distress, WD/WN, Anxious HEENT: PERRL/EOMI, Normal ENT Inspection Neck: Full Range of Motion, Normal Inspection Respiratory: Lungs Clear, Normal Breath Sounds Cardiovascular: Regular Rate, Rhythm Peripheral Pulses: 2+ Radial Pulses (R), 2+ Radial Pulses (L) Gastrointestinal: soft, no pulsatile mass, distended (minimal), tenderness (incisional) Extremity: Non Tender, No Calf Tenderness Neurologic/Psychiatric: Alert, Oriented x3 Skin: Normal Color, Warm/Dry Lymphatic: No Adenopathy Results Lab Laboratory Tests 06/23/23 00:11 06/23/23 04:33 06/23/23 08:43 06/24/23 07:30 Assessment/Plan Assessment/Plan 1 GATITO CHERY MD Jun 24, 2023 10:47
--- NOTE | 2023-06-24 11:24 | Physical Therapy Evaluation ---
PT Evaluation-General Medical Diagnosis Admission Date Jun 22, 2023 at 17:05 Medical Diagnosis: surgery Onset Date: Jun 23, 2023 Therapy Diagnosis Therapy Diagnosis: debility Height/Weight Height (Feet): 5 Height (Inches): 11.00 Weight (Pounds): 285 Weight (Ounces): 0.0 Precautions Precautions/Isolations: Aspiration, Fall Prevention, Standard Precautions Weight Bear Status Full Weight Bearing Full Weight Bearing Referral Physician: Dain Reason for Referral: Evaluation/Treatment Social History Home: Single Level Current Living Status: Spouse Entry Into Home: Stairs With Railing PT Steps Into Home: 6 Prior Prior Level of Function SCALE: Activities may be completed with or without assistive devices. 9-Cuwxqhfbjc-axeskha completes the activity by him/herself with no assistance from a helper. 5-Set-up or Clean-up Assistance-helper sets up or cleans up; patient completes activity. [place] assists only prior to or following the activity. 4-Supervision or Touching Assistance-helper provides verbal cues and/or touching/steadying and/or contact guard assistance as patient completes activity. Assistance may be provided throughout the activity or intermittently. 3-Partial/Moderate Assistance-helper does LESS THAN HALF the effort. [place] lifts, holds or supports trunk or limbs, but provides less than half the effort. 2-Substantial/Maximal Assistance-helper does MORE THAN HALF the effort. [place] lifts or holds trunk or limbs and provides more than half the effort. 7-Ksqxzafse-susyes does ALL the effort. Patient does none of the effort to comp lete the activity. Or, the assistance of 2 or more helpers is required for the patient to complete the activity. If activity was not attempted, code reason: 7-Patient Refused. 9-Not Applicable-not attempted and the patient did not perform the activity before the current illness, exacerbation or injury. 10-Not Attempted due to Environmental Limitations-(lack of equipment, weather restraints, etc.). 88-Not Attempted due to Medical Conditions or Safety Concerns. Bed Mobility: 6 Transfers (B,C,W/C): 6 Gait: 6 Stairs: 6 Stairs: Independent Prior Devices Use: Other-see list below Prior Device Use: occasionally SPC PT Evaluation-Current Subjective States that he is feeling better. Pain Numeric Pain Scale: 5-Moderate Pain Location Body Site: Abdomen ROM/Strength Strength Lower Extremities 4/5 grossly Transfers Roll Left to Right (QC): 5 Sit to Lying (QC): 5 Lying to Sitting/Side of Bed(Q: 5 Sit to Stand (QC): 5 Chair/Qlv-li-Xxfoj Xfer(QC): 5 Gait Does the Patient Walk?: Yes Mode of Locomotion: Walk Anticipated Mode of Locomotion: Walk Walk 10 feet (QC): 88 Walk 50 ft with 2 Turns(QC): 88 Walk 150 ft (QC): 88 Walking 10ft/uneven surface-QC: 88 Distance: 5' Gait Assistive Device: FWW Assessment/Needs 62 y.o. male s/p lap adán. The patient has functional mobility limitations secondary to pain and attachments. Rehab Potential: Good PT Assisted Goals Assisted Goals PT Carpenter Labor Supervisor Goals Time Frame: Jul 08, 2023 Roll Left & Right (QC): 6 Sit to Lying (QC): 6 Lying-Sitting on Side/Bed(QC): 6 Sit to Stand (QC): 6 Chair/Yoq-uv-Etpmo Xfer(QC): 6 Toilet Transfer (QC): 6 Car Transfer (QC): 6 Does the Patient Walk: Yes Walk 10 feet (QC): 6 Walk 50ft with 2 Turns (QC): 6 Walk 150 ft (QC): 6 Walking 10ft on Uneven Surface: 6 1 Step (curb) (QC): 6 4 Steps (QC): 6 12 Steps (QC): 6 Picking up an Object (QC): 6 PT Plan Problem List Problem List: Activity Tolerance, Functional Strength, Safety, Balance, Gait, Transfer, Bed Mobility Treatment/Plan Treatment Plan: Continue Plan of Care Treatment Plan: Bed Mobility, Education, Functional Activity Praneeth, Functional Strength, Gait, Therapeutic Exercise, Transfers Treatment Duration: Jul 08, 2023 Frequency: 6 times per week Estimated Hrs Per Day: .5 hour per day Time Time In: 1050 Time Out: 1115 DATE: Jun 24, 2023 Total Billed Treatment Time: 25 Total Billed Treatment 1, EV low complexity x Erik' MARY LEONARD PT Jun 24, 2023 11:24
[2023-06-24] MEDS ORDERED: ENOXAPARIN 40 MG/0.4 ML SYRINGE SC SCH (11:45)
--- NOTE | 2023-06-24 11:56 | Diagnostic Imaging Report ---
EXAMINATION: Chest radiograph, portable AP view. DATE: 06/24/2023 11:40 AM INDICATION: 62-year-old male, nasogastric tube placement. COMPARISON: June 23, 2023. FINDINGS: The nasogastric tube is in the stomach. Heart size and mediastinal contours are unchanged. There is no identified pneumothorax. There is nonspecific bibasilar airspace consolidation which is unchanged IMPRESSION: . 1. The nasogastric tube is in the stomach. 2. Unchanged bibasilar airspace consolidation which may reflect pleural effusions, infiltrate, and/or atelectasis. Dictated by: Dictated on workstation # [id number]
--- NOTE | 2023-06-24 13:08 | Cardiology Progress Note ---
Cardiology SOAP Progress Note Subjective: No cardiac complaints Objective: I&O/Vital Signs 06/24/23 06/24/23 06/24/23 06/24/23 10:00 11:00 12:00 12:00 Temp 36.4 Pulse 98 121 Resp 10 16 B/P (MAP) 141/80 (97) 126/72 (90) Pulse Ox 97 99 O2 Delivery Nasal Cannula Nasal Cannula Nasal Cannula O2 Flow Rate 2.00 2.00 2.00 06/24/23 06/24/23 06/24/23 06/24/23 12:17 13:22 13:24 15:38 Temp 36.8 36.8 37.6 Pulse 103 97 98 102 Resp 20 20 20 B/P (MAP) 135/74 (94) 135/74 (94) 136/78 (97) Pulse Ox 91 91 93 O2 Delivery Nasal Cannula Nasal Cannula High Flow N/C O2 Flow Rate 3.00 3.00 3.00 06/24/23 06/24/23 06/24/23 19:00 19:24 21:00 Temp 36.4 Pulse 103 107 Resp 20 B/P (MAP) 132/68 (89) Pulse Ox 92 O2 Delivery High Flow N/C Nasal Cannula O2 Flow Rate 4.00 2.00 06/24/23 00:00 Intake Total 74 ml Output Total 1975 ml Balance -1901 ml Weight (Pounds): 285 Weight (Ounces): 0.0 Weight (Calculated Kilograms): [id number] Constitutional: AAO x 3 Respiratory: lungs clear to auscultation Cardiovascular: regular rate-rhythm Gastrointestional: soft Neurologic/Psychiatric: alert, normal mood/affect, oriented x 3 Skin: normal color, warm/dry Results/Procedures: Labs Laboratory Tests 06/24/23 07:30: White Blood Count 10.4, Red Blood Count 4.37, Hemoglobin 13.0L, Hematocrit 40, Mean Corpuscular Volume 91, Mean Corpuscular Hemoglobin 30, Mean Corpuscular Hemoglobin Concent 33, Red Cell Distribution Width 14.3, Platelet Count 135, Mean Platelet Volume 10.9, Immature Granulocyte % (Auto) 0, Neutrophils (%) (Auto) 82H, Lymphocytes (%) (Auto) 10L, Monocytes (%) (Auto) 7, Eosinophils (%) (Auto) 0, Basophils (%) (Auto) 0, Neutrophils # (Auto) 8.5H, Lymphocytes # (Auto) 1.1, Monocytes # (Auto) 0.7, Eosinophils # (Auto) 0.0, Basophils # (Auto) 0.0, Immature Granulocyte # (Auto) 0.0, Percent Immature Platelet Fraction 4.1, Sodium Level 137, Potassium Level 4.0, Chloride Level 103, Carbon Dioxide Level 28, Anion Gap 6, Blood Urea Nitrogen 13, Creatinine 0.82, Estimat Glomerular Filtration Rate 98, BUN/Creatinine Ratio 16, Glucose Level 149H, Calcium Level 8.9, Corrected Calcium 9.4, Total Bilirubin 2.1H, Aspartate Amino Transf (AST/SGOT) 23, Alanine Aminotransferase (ALT/SGPT) 29, Alkaline Phosphatase 49, Total Protein 6.3L, Albumin 3.4 06/24/23 11:58: Glucometer 150H 06/24/23 18:03: Glucometer 107 Microbiology 06/22/23 MRSA Screen - Final, Complete MRSA not isolated A/P: Assessment/Dx: Abdominal pain Coronary artery disease Sinus tachycardia Hypertension Plan: Status post cholecystectomy complicated by perforated small bowel and small bowel resection. Postop day #2 Still having abdominal pain, recovering slowly. Coronary artery disease, Cardiac catheterization done in August 2018 had patent stent 3 x 32 in the mid LAD and 2.5 x 16 in the first diagonal artery, the obtuse marginal branch has 70% stenosis and had balloon angioplasty done to it. The right coronary artery has 70% mid vessel stenosis with successful stenting using [place] 4 x 18 mm. Cardiac catheterization in 2020 showing patent stent with mild to moderate disease nonobstructive disease Cardiac catheterization done and May 2023 showing mild to moderate disease nonobstructive disease Patient has been maintained on aspirin, on hold for now. Sinus tachycardia, probably secondary to pain and postoperative Tolerating Lopressor IV well. Continue to monitor Hypertension, patient is having significant pain. Better control on beta-blockers Continue to monitor Hyperlipidemia Intolerant to statin. Obstructive sleep apnea, unable to tolerate CPAP Chronic bilateral leg discomfort secondary to peripheral neuropathy Mild bilateral carotid stenosis Focused Exam Lactate Level 06/23/23 00:11: Lactic Acid Level 2.14*H 06/23/23 02:16: Lactic Acid Level 1.92 Raghav FANG MD Jun 24, 2023 13:07
[2023-06-24 13:24] VITALS: BP 135/74
[2023-06-24 15:38] VITALS: BP 136/78
[2023-06-24 19:24] VITALS: BP 132/68
[2023-06-25] VITALS (7 sets, daily range): BP systolic 122–166; BP diastolic 71–84
[2023-06-25] MEDS: meTOprolol INJECTION 5 MG/5 ML VIAL IV SCH ×5 (00:17→23:31)
[2023-06-25] MEDS: LACTATED RINGERS 1,000 ML 1,000 ML IV SCH ×3 (00:31→17:23)
[2023-06-25] MEDS: metroNIDAZOLE 500MG/100ML IVPB 100 ML IV SCH ×3 (05:12→21:17)
[2023-06-25] MEDS: PROMETHAZINE INJ 25 MG/ML VIAL IVP PRN ×3 (05:46→23:31)
[2023-06-25] MEDS: ceFAZolin INJECTION 2,000 MG in NS (IVPB) 50 ML 50 ML IV SCH ×3 (06:17→22:43)
--- NOTE | 2023-06-25 06:19 | Progress Note - Hospitalist ---
Subjective HPI/CC On Admission Date Seen by Provider: Jun 25, 2023 Time Seen by Provider: 11:00 Chief complaint: Medical management following complicated cholecystectomy HPI: This is a 62-year-old male clinic patient of [facility] who underwent a cholecystectomy but required open procedure due to small bowel perforation. Car diology was consulted for tachycardia but it was assessed to be due to pain. is at the bedside and currently he remains stable. Dilaudid ROLL REPAIRER has been very helpful Subjective/Events-last exam Patient dramatically improved Pain is improved NG tube is still in place Blood pressure reviewed Labs reviewed Review of Systems Gastrointestinal: Abdominal Pain Focused Exam Lactate Level 06/23/23 00:11: Lactic Acid Level 2.14*H 06/23/23 02:16: Lactic Acid Level 1.92 Objective Exam Vital Signs Vital Signs Date Time Temp Pulse Resp B/P (MAP) Pulse Ox O2 Delivery O2 Flow Rate FiO2 06/25/23 12:20 90 06/25/23 12:16 36.9 18 166/83 (110) 99 High Flow N/C 4.00 Capillary Refill : General Appearance: No Apparent Distress, WD/WN, Chronically ill Respiratory: Lungs Clear, Normal Breath Sounds Cardiovascular: Regular Rate, Rhythm Neurologic/Psychiatric: Alert, Oriented x3 Results/Procedures Lab Laboratory Tests 06/25/23 09:10 Patient resulted labs reviewed. Assessment/Plan Assessment and Plan Assess & Plan/Chief Complaint Assessment: Status post cholecystectomy complicated by perforated small bowel & small bowel resection Severe abdominal pain on ROLL REPAIRER pump Dilaudid Sinus tachycardic with IV metoprolol HTN CAD Hyperlipidemia GILDARDO, no CPAP T2DM Peripheral neuropathy GERD Plan: IVF NPO With NG tube Pain management Lovenox if okay with general surgery Critical Care Critically Ill Patient CHRISTIE CASTILLO DO Jun 25, 2023 06:19
--- NOTE | 2023-06-25 07:02 | Progress Note - Surgery ---
TONO MOONEY 06/25/23 0701: Subjective Date Seen by a Provider: Jun 25, 2023 Subjective/Events-last exam Minimal pain. Minimal nausea. No vomiting. Throat discomfort- requesting something to help with the dryness. Patient reports minimal ambulation since yesterday. No flatus or bm. Denies n/v fever sweats chills shortness of breath or chest pain at this time. Focused Exam Sepsis Stage: Ruled Out Lactate Level 06/23/23 00:11: Lactic Acid Level 2.14*H 06/23/23 02:16: Lactic Acid Level 1.92 Respiratory: No Accessory Muscle Use, No Respiratory Distress Cardiovascular: Regular Rate, Rhythm, Normal Peripheral Pulses Peripheral Pulses: 2+ Radial Pulses (R), 2+ Radial Pulses (L) Skin: normal color, warm/dry Objective Exam Vital Signs Date Time Temp Pulse Resp B/P (MAP) Pulse Ox O2 Delivery O2 Flow Rate FiO2 06/25/23 04:00 36.0 91 18 139/84 (102) 94 High Flow N/C 4.00 06/25/23 00:27 89 06/25/23 00:00 37.4 93 18 143/81 (101) 93 High Flow N/C 4.00 06/24/23 21:00 Nasal Cannula 2.00 06/24/23 19:24 36.4 107 20 132/68 (89) 92 High Flow N/C 4.00 06/24/23 19:00 103 06/24/23 15:38 37.6 102 20 136/78 (97) 93 High Flow N/C 3.00 06/24/23 13:24 36.8 98 20 135/74 (94) 91 Nasal Cannula 3.00 06/24/23 13:22 36.8 97 20 135/74 (94) 91 Nasal Cannula 3.00 06/24/23 12:17 103 06/24/23 12:00 Nasal Cannula 2.00 06/24/23 12:00 36.4 06/24/23 11:00 121 16 126/72 (90) 99 Nasal Cannula 2.00 06/24/23 10:00 98 10 141/80 (97) 97 Nasal Cannula 2.00 06/24/23 09:00 99 21 115/66 (80) 99 Nasal Cannula 2.00 06/24/23 08:00 94 14 139/90 (106) 97 Nasal Cannula 2.00 06/24/23 08:00 Nasal Cannula 2.00 06/24/23 07:42 36.3 I & O 06/25/23 07:00 Intake Total 0 ml Output Total 3200 ml Balance -3200 ml Capillary Refill : General Appearance: No Apparent Distress, WD/WN HEENT: PERRL/EOMI, Normal ENT Inspection Neck: Full Range of Motion, Normal Inspection Respiratory: Lungs Clear, Normal Breath Sounds Cardiovascular: Regular Rate, Rhythm, Normal Peripheral Pulses Peripheral Pulses: 2+ Radial Pulses (R), 2+ Radial Pulses (L) Gastrointestinal: distended (minimal), tenderness (incisional, no signs of infection) Extremity: Non Tender, No Calf Tenderness Neurologic/Psychiatric: Alert, Oriented x3, Normal Mood/Affect Skin: Normal Color, Warm/Dry Lymphatic: No Adenopathy Results Lab Laboratory Tests 06/24/23 07:30: White Blood Count 10.4, Red Blood Count 4.37, Hemoglobin 13.0L, Hematocrit 40, Mean Corpuscular Volume 91, Mean Corpuscular Hemoglobin 30, Mean Corpuscular Hemoglobin Concent 33, Red Cell Distribution Width 14.3, Platelet Count 135, Mean Platelet Volume 10.9, Immature Granulocyte % (Auto) 0, Neutrophils (%) (Auto) 82H, Lymphocytes (%) (Auto) 10L, Monocytes (%) (Auto) 7, Eosinophils (%) (Auto) 0, Basophils (%) (Auto) 0, Neutrophils # (Auto) 8.5H, Lymphocytes # (Auto) 1.1, Monocytes # (Auto) 0.7, Eosinophils # (Auto) 0.0, Basophils # (Auto) 0.0, Immature Granulocyte # (Auto) 0.0, Percent Immature Platelet Fraction 4.1, Sodium Level 137, Potassium Level 4.0, Chloride Level 103, Carbon Dioxide Level 28, Anion Gap 6, Blood Urea Nitrogen 13, Creatinine 0.82, Estimat Glomerular Filtration Rate 98, BUN/Creatinine Ratio 16, Glucose Level 149H, Calcium Level 8.9, Corrected Calcium 9.4, Total Bilirubin 2.1H, Aspartate Amino Transf (AST/SGOT) 23, Alanine Aminotransferase (ALT/SGPT) 29, Alkaline Phosphatase 49, Total Protein 6.3L, Albumin 3.4 06/24/23 11:58: Glucometer 150H 06/24/23 18:03: Glucometer 107 06/25/23 00:32: Glucometer 131H 06/25/23 05:27: Glucometer 128H Microbiology 06/22/23 MRSA Screen - Final, Complete MRSA not isolated Assessment/Plan Assessment/Plan Assessment/Plan s/p lap adán c ioc, diagnostic laparoscopy converted to open, lysis of adhesions, small bowel resection Severe abdominal pain Sinus tachycardia Hypertension Hyperlipidemia custodial antiplatlet use Consult Cardiology IV Fluids NPO Encourage ambulation Chloraseptic Continue NG Tube Pain Control Await bowel function IS Scd's for dvt prophylaxis at this time JOYCELYN GAUTAM DO 06/25/23 1029: Subjective Time Seen by a Provider: 08:30 Subjective/Events-last exam Pain controlled. No flatus. Using IS. Denies n/v fever sweats chills shortness of breath or chest pain at this time. Objective Exam General Appearance: No Apparent Distress, Obese HEENT: PERRL/EOMI, Normal ENT Inspection Neck: Full Range of Motion, Normal Inspection Respiratory: Chest Non Tender, No Accessory Muscle Use, No Respiratory Distress Cardiovascular: Regular Rate, Rhythm, No JVD Gastrointestinal: soft, distended (minimal), tenderness (incisional, no signs of infection) Extremity: Non Tender Neurologic/Psychiatric: Alert, Oriented x3 Skin: Normal Color, Warm/Dry Lymphatic: No Adenopathy Assessment/Plan Assessment/Plan Assessment/Plan s/p lap adán c ioc, diagnostic laparoscopy converted to open, lysis of adhesions, small bowel resection small bowel perforation Severe abdominal pain Sinus tachycardia Hypertension Hyperlipidemia custodial antiplatlet use Consult Cardiology IV Fluids NPO Encourage ambulation Chloraseptic Continue NG Tube clamp, if nauseated will put back to liws Pain Control Await bowel function IS Scd's for dvt prophylaxis at this time Supervisory-Addendum Brief Verification & Attestation Participated in pt care: history, MDM, physical Personally performed: exam, history, MDM, supervision of care Care discussed with: Medical Student Procedures: n/a Results interpretation: Verified all documentation Verification and Attestation of Medical Student E/M Service A medical student performed and documented this service in my presence. I reviewed and verified all information documented by the medical student and made modifications to such information, when appropriate. I personally performed the physical exam and medical decision making. Joycelyn Gautam, Jun 25, 2023,10:28 TONO MOONEY Jun 25, 2023 07:01 JOYCELYN GAUTAM DO Jun 25, 2023 10:29
[2023-06-25] MEDS ORDERED: PHENOL THROAT SPRAY 177 ML LIQUID MC PRN (08:45)
[2023-06-25 09:20] LABS: BASOPHILS % (AUTO) 0 % (0-10); EOSINOPHILS % (AUTO) 0 % (0-10); HEMATOCRIT 41 % (40-54); HEMOGLOBIN 13.1 g/dL (13.3-17.7); LYMPHOCYTES # (AUTO) 0.9 10^3/uL (1.0-4.0); LYMPHOCYTES % (AUTO) 9 % (12-44); MEAN CORPUSCULAR HEMOGLOBIN 29 pg (25-34); MEAN CORPUSCULAR HGB CONC 32 g/dL (32-36); MEAN CORPUSCULAR VOLUME 92 fL (80-99); MEAN PLATELET VOLUME 10.5 fL (9.0-12.2); MONOCYTES # (AUTO) 0.6 10^3/uL (0.0-1.0); MONOCYTES % (AUTO) 6 % (0-12); NEUTROPHILS # (AUTO) 8.5 10^3/uL (1.8-7.8); NEUTROPHILS % (AUTO) 84 % (42-75); PLATELET COUNT 142 10^3/uL (130-400); WHITE BLOOD COUNT 10.1 10^3/uL (4.3-11.0)
[2023-06-25 09:25] LABS: POTASSIUM 3.7 MMOL/L (3.6-5.0)
[2023-06-25 09:27] LABS: CALCIUM 8.8 MG/DL (8.5-10.1)
[2023-06-25 09:31] LABS: CREATININE SERUM 0.77 MG/DL (0.60-1.30)
[2023-06-25] MEDS ORDERED: PANTOPRAZOLE INJECTION 40 MG VIAL IV NR (15:00)
[2023-06-26] VITALS (7 sets, daily range): BP systolic 126–164; BP diastolic 68–93
[2023-06-26] MEDS: LACTATED RINGERS 1,000 ML 1,000 ML IV SCH ×3 (02:10→14:27)
[2023-06-26] MEDS: metroNIDAZOLE 500MG/100ML IVPB 100 ML IV SCH ×3 (05:20→20:54)
[2023-06-26] MEDS: meTOprolol INJECTION 5 MG/5 ML VIAL IV SCH ×4 (05:20→23:56)
[2023-06-26] MEDS: ceFAZolin INJECTION 2,000 MG in NS (IVPB) 50 ML 50 ML IV SCH ×3 (06:29→23:57)
--- NOTE | 2023-06-26 07:35 | Progress Note - Surgery ---
TONO MOONEY 06/26/23 0735: Subjective Date Seen by a Provider: Jun 26, 2023 Time Seen by a Provider: 07:31 Subjective/Events-last exam Pain controlled. 5 episodes of flatulence since yesterday. 1 bowel movement this morning. Using IS. Ambulating without discomfort or pain. Denies n/v fever sweats chills shortness of breath or chest pain at this time. Focused Exam Sepsis Stage: Ruled Out Respiratory: No Accessory Muscle Use, No Respiratory Distress Cardiovascular: No Edema, Normal Peripheral Pulses Peripheral Pulses: 2+ Radial Pulses (R), 2+ Radial Pulses (L) Skin: normal color, warm/dry Objective Exam Vital Signs Date Time Temp Pulse Resp B/P (MAP) Pulse Ox O2 Delivery O2 Flow Rate FiO2 06/26/23 03:25 36.9 92 18 152/79 (103) 96 Nasal Cannula 3.00 06/26/23 01:18 92 06/25/23 23:24 37.0 88 18 146/71 (96) 94 Nasal Cannula 4.00 4.00 06/25/23 21:10 Nasal Cannula 4.00 06/25/23 21:09 37.6 06/25/23 21:00 Nasal Cannula 2.00 06/25/23 20:05 38.0 06/25/23 19:59 38.0 90 18 142/78 (99) 94 High Flow N/C 4.00 06/25/23 19:19 92 06/25/23 16:21 36.9 93 18 151/80 (103) 93 High Flow N/C 3.00 06/25/23 12:20 90 06/25/23 12:16 36.9 95 18 166/83 (110) 99 High Flow N/C 4.00 06/25/23 10:00 Nasal Cannula 4.00 06/25/23 08:00 36.0 86 19 122/80 (94) 94 High Flow N/C 4.00 I & O 06/26/23 07:00 Intake Total 2080 ml Output Total 1660 ml Balance 420 ml Capillary Refill : General Appearance: No Apparent Distress, WD/WN, Chronically ill HEENT: PERRL/EOMI, Normal ENT Inspection Neck: Full Range of Motion, Normal Inspection Respiratory: Lungs Clear, Normal Breath Sounds Cardiovascular: Regular Rate, Rhythm, Normal Peripheral Pulses Peripheral Pulses: 2+ Radial Pulses (R), 2+ Radial Pulses (L) Gastrointestinal: soft, distended (minimal), tenderness (incisional, no signs of infection) Extremity: Normal Inspection, Non Tender Neurologic/Psychiatric: Alert, Oriented x3, No Motor/Sensory Deficits Skin: Normal Color, Warm/Dry Lymphatic: No Adenopathy Results Lab Laboratory Tests 06/25/23 09:10: White Blood Count 10.1, Red Blood Count 4.46, Hemoglobin 13.1L, Hematocrit 41, Mean Corpuscular Volume 92, Mean Corpuscular Hemoglobin 29, Mean Corpuscular Hemoglobin Concent 32, Red Cell Distribution Width 14.3, Platelet Count 142, Mean Platelet Volume 10.5, Immature Granulocyte % (Auto) 1, Neutrophils (%) (Auto) 84H, Lymphocytes (%) (Auto) 9L, Monocytes (%) (Auto) 6, Eosinophils (%) (Auto) 0, Basophils (%) (Auto) 0, Neutrophils # (Auto) 8.5H, Lymphocytes # (Auto) 0.9L, Monocytes # (Auto) 0.6, Eosinophils # (Auto) 0.0, Basophils # (Auto) 0.0, Immature Granulocyte # (Auto) 0.1, Sodium Level 140, Potassium Level 3.7, Chloride Level 100, Carbon Dioxide Level 30, Anion Gap 10, Blood Urea Nitrogen 14, Creatinine 0.77, Estimat Glomerular Filtration Rate 100, BUN/Creatinine Ratio 18, Glucose Level 129H, Calcium Level 8.8 06/25/23 11:21: Glucometer 121H 06/25/23 18:21: Glucometer 121H 06/25/23 23:28: Glucometer 116H 06/26/23 05:37: Glucometer 127H Microbiology 06/22/23 MRSA Screen - Final, Complete MRSA not isolated Assessment/Plan Assessment/Plan Assessment/Plan s/p lap adán c ioc, diagnostic laparoscopy converted to open, lysis of adhesions, small bowel resection small bowel perforation Sinus tachycardia Hypertension Hyperlipidemia parts counterman antiplatlet use Consult Cardiology IV Fluids Liquid Diet Encourage ambulation Gabapentin for neuropathy Remove NG Tube Pain Control- discontinue canoe inspector pump, begin oral pain medications IS Scd's for dvt prophylaxis at this time JOYCELYN GAUTAM DO 06/26/23 1551: Subjective Subjective/Events-last exam Pain controlled. Having bowel functino. Ng tube wants out. Denies n/v fever sweats chills shortness of breath or chest pain. Objective Exam General Appearance: No Apparent Distress, Chronically ill HEENT: PERRL/EOMI, Normal ENT Inspection Neck: Full Range of Motion, Normal Inspection Respiratory: Chest Non Tender, No Accessory Muscle Use, No Respiratory Distress Cardiovascular: Regular Rate, Rhythm, No JVD Gastrointestinal: soft, distended (minimal), tenderness (incisional, no signs of infection) Extremity: Normal Inspection, Non Tender Neurologic/Psychiatric: Alert, Oriented x3 Skin: Normal Color, Warm/Dry Lymphatic: No Adenopathy Assessment/Plan Assessment/Plan Assessment/Plan s/p lap adán c ioc, diagnostic laparoscopy converted to open, lysis of adhesions, small bowel resection small bowel perforation Sinus tachycardia Hypertension Hyperlipidemia care home antiplatlet use Consult Cardiology IV Fluids Liquid Diet Encourage ambulation Gabapentin for neuropathy Remove NG Tube Pain Control- discontinue canoe inspector pump, begin oral pain medications IS Restart plavix Scd's for dvt prophylaxis at this time Supervisory-Addendum Brief Verification & Attestation Participated in pt care: history, MDM, physical Personally performed: exam, history, MDM, supervision of care Care discussed with: Medical Student Procedures: n/a Results interpretation: Verified all documentation Verification and Attestation of Medical Student E/M Service A medical student performed and documented this service in my presence. I reviewed and verified all information documented by the medical student and made modifications to such information, when appropriate. I personally performed the physical exam and medical decision making. Joycelyn Gautam, Jun 26, 2023,15:51 TONO MOONEY Jun 26, 2023 07:35 JOYCELYN GAUTAM DO Jun 26, 2023 15:51
[2023-06-26] MEDS ORDERED: PANTOPRAZOLE INJECTION 40 MG VIAL IV SCH (09:00)
[2023-06-26] MEDS ORDERED: GABAPENTIN 600 MG TABLET PO SCH ×2 (09:00→21:00)
--- NOTE | 2023-06-26 09:04 | Physical Therapy Daily Note ---
PT Daily Note-Current Subjective Patient agrees to PT. Pain Section J - Health Conditions 1. Rarely or not at all 2. Occasionally 3. Frequently 4. Almost constantly 8. Unable to answer Pain Effect on Sleep: 1 Pain Interference with Therapy: 1 Pain Interference w/Day-to-Day: 1 Mental Status Patient Orientation: Normal For Age Attachments: NG Tube, Oxygen, IV Transfers SCALE: Activities may be completed with or without assistive devices. 5-Svnllxriii-dhzdfii completes the activity by him/herself with no assistance from a helper. 5-Set-up or Clean-up Assistance-helper sets up or cleans up; patient completes activity. Alto assists only prior to or following the activity. 4-Supervision or Touching Assistance-helper provides verbal cues and/or touching/steadying and/or contact guard assistance as patient completes activity. Assistance may be provided throughout the activity or intermittently. 3-Partial/Moderate Assistance-helper does LESS THAN HALF the effort. Alto lifts, holds or supports trunk or limbs, but provides less than half the effort. 2-Substantial/Maximal Assistance-helper does MORE THAN HALF the effort. Alto lifts or holds trunk or limbs and provides more than half the effort. 6-Pxugplmir-ddhsie does ALL the effort. Patient does none of the effort to complete the activity. Or, the assistance of 2 or more helpers is required for the patient to complete the activity. If activity was not attempted, code reason: 7-Patient Refused. 9-Not Applicable-not attempted and the patient did not perform the activity before the current illness, exacerbation or injury. 10-Not Attempted due to Environmental Limitations-(lack of equipment, weather restraints, etc.). 88-Not Attempted due to Medical Conditions or Safety Concerns. Sit to Stand (QC): 6 Weight Bearing Full Weight Bearing Full Weight Bearing Gait Training Distance: 400' Walk 10 feet (QC): 6 Walk 50 ft with 2 Turns(QC): 6 Walk 150 ft (QC): 6 Gait Assistive Device: FWW safe and functional with no deviation Assessment Patient is currently at [facility] with gross motor skills. Patient and spouse instructed to ambulate PRN in hallway with or without FWW. PT to dismiss patient from services at this time. PT Residential Goals Infertility Medical Assistant Goals PT Infertility Medical Assistant Goals Time Frame: Jul 08, 2023 Roll Left & Right (QC): 6 Sit to Lying (QC): 6 Lying-Sitting on Side/Bed(QC): 6 Sit to Stand (QC): 6 Chair/Ptz-lv-Vgsmx Xfer(QC): 6 Toilet Transfer (QC): 6 Car Transfer (QC): 6 Does the Patient Walk: Yes Walk 10 feet (QC): 6 Walk 50ft with 2 Turns (QC): 6 Walk 150 ft (QC): 6 Walking 10ft on Uneven Surface: 6 1 Step (curb) (QC): 6 4 Steps (QC): 6 12 Steps (QC): 6 Picking up an Object (QC): 6 PT Plan Treatment/Plan Treatment Plan: Discontinue PT Treatment Plan: Bed Mobility, Education, Functional Activity Praneeth, Functional Strength, Gait, Therapeutic Exercise, Transfers Treatment Duration: Jul 08, 2023 Frequency: 6 times per week Estimated Hrs Per Day: .5 hour per day Time Time In: 813 Time Out: 823 DATE: Jun 26, 2023 Total Billed Treatment Time: 10 Total Billed Treatment 1 visit FA 10 min CHINO FELTON PT Jun 26, 2023 09:04
[2023-06-26] MEDS: CLOPIDOGREL 75 MG TABLET PO SCH (09:06)
--- NOTE | 2023-06-26 09:56 | Cardiology Progress Note ---
Subjective Date Seen by Provider: Jun 26, 2023 Time Seen by Provider: 08:20 Subjective/Events-last exam Patient sitting up in chair, reporting improvement of his abdominal pain. Denies any chest pain Objective-Cardiology Exam Last Set of Vital Signs Vital Signs 06/26/23 06/26/23 06/26/23 07:47 11:13 12:57 Temp 37.0 Pulse 92 Resp 20 B/P (MAP) 135/75 (95) Pulse Ox 94 O2 Delivery High Flow N/C O2 Flow Rate 2.00 FiO2 21 I&O Intake and Output 06/26/23 00:00 Intake Total 1360 ml Output Total 2510 ml Balance -1150 ml Intake Oral 360 ml IV Total 1000 ml Output Urine Total 1560 ml Gastric Drainage Total 950 ml # Bowel Movements 1 General: Alert, Oriented X3, Cooperative HEENT: Atraumatic, PERRLA Neck: Supple, No JVD, No Thyromegaly Lungs: Clear to Auscultation, Normal Air Movement Heart: Regular Rate, Normal S1, Normal S2, No Murmurs Abdomen: Other (Distended abdomen, no bowel sounds) Extremities: No Clubbing, No Cyanosis, No Edema, Normal Pulses, No Tenderness/Swelling Skin: No Rashes, No Significant Lesion Neuro: Normal Speech, Normal Tone, Sensation Intact Psych/Mental Status: Mental Status NL, Mood NL A/P-Cardiology Admission Diagnosis Abdominal pain Coronary artery disease Sinus tachycardia Hypertension Assessment/Plan Status post cholecystectomy complicated by perforated small bowel and small bowel resection. Reporting improvement of abdominal discomfort, recovering slowly. NG tube in place Coronary artery disease, Cardiac catheterization done in August 2018 had patent stent 3 x 32 in the mid LAD and 2.5 x 16 in the first diagonal artery, the obtuse marginal branch has 70% stenosis and had balloon angioplasty done to it. The right coronary artery has 70% mid vessel stenosis with successful stenting using Alma 4 x 18 mm. Cardiac catheterization in 2020 showing patent stent with mild to moderate disease nonobstructive disease Cardiac catheterization done and May 2023 showing mild to moderate disease nonobstructive disease Sinus tachycardia, probably secondary to pain and postoperative Tolerating Lopressor IV well. Continue to monitor Hypertension, controlled, using IV Lopressor. Will change to PO home meds once tolerating PO. Hyperlipidemia Intolerant to statin. Obstructive sleep apnea, unable to tolerate CPAP Chronic bilateral leg discomfort secondary to peripheral neuropathy Mild bilateral carotid stenosis Supervisory-Addendum Brief Supervisory Addendum Participated in pt care: history, MDM, physical Personally performed: exam, history, MDM Care discussed with: CAROLE Notes: Patient was seen and evaluated with Kira, examination performed, management plan was discussed, agree with the current scribed note, I made few changes to the note using Italic font Patient was seen at bedside sitting comfortably, feeling better No pain was reported today Heart rate and blood pressure are stable, continue to monitor Okay for discharge from cardiology standpoint Restart aspirin when deemed reasonable by the surgeon KIRA MONTES DE OCA Jun 26, 2023 09:56 NATALIA CHINCHILLA MD Jun 26, 2023 13:33
--- NOTE | 2023-06-26 10:59 | Progress Note ---
Subjective Subjective/Events-last exam Doing well this AM. He was able to have NG removed this AM. Tolerating CLD at this time. + Flatus Review of Systems Pulmonary: No Dyspnea, No Cough Cardiovascular: No: Chest Pain, Palpitations, Edema Gastrointestinal: Abdominal Pain (incisional); No: Nausea, Vomiting Objective Exam Last Set of Vital Signs Vital Signs Date Time Temp Pulse Resp B/P (MAP) Pulse Ox O2 Delivery O2 Flow Rate FiO2 06/26/23 08:29 36.7 84 18 164/93 (116) 94 Room Air 06/26/23 07:47 2.00 06/26/23 07:47 21 Capillary Refill : I&O Intake and Output 06/26/23 00:00 Intake Total 1360 ml Output Total 2510 ml Balance -1150 ml Intake Oral 360 ml IV Total 1000 ml Output Urine Total 1560 ml Gastric Drainage Total 950 ml # Bowel Movements 1 General: Alert, Oriented X3, No Acute Distress Lungs: Clear to Auscultation, Normal Air Movement Heart: Regular Rate, No Murmurs Abdomen: Soft, Other (Incisional abdominal pain) Results/Procedures Lab Laboratory Tests 06/25/23 11:21: Glucometer 121H 06/25/23 18:21: Glucometer 121H 06/25/23 23:28: Glucometer 116H 06/26/23 05:37: Glucometer 127H Microbiology 06/22/23 MRSA Screen - Final, Complete MRSA not isolated Assessment/Plan Assessment/Plan Assessment & Plan partial Small bowel resection following perforation after open adán HTN Tachycardia CAD GILDARDO DMII - Advance diet per surgery - Will monitor blood sugars as patient starts eating - VS stable - Possible home tomorrow KI COUCH MD Jun 26, 2023 10:59
[2023-06-26] MEDS: HYDROcodone/ACETAMINOPHEN 5 MG/325 MG TABLET PO PRN ×2 (11:47→22:24)
[2023-06-27] MEDS: LACTATED RINGERS 1,000 ML 1,000 ML IV SCH ×2 (01:44→08:04)
[2023-06-27 03:18] VITALS: BP 153/79
[2023-06-27] MEDS: metroNIDAZOLE 500MG/100ML IVPB 100 ML IV SCH (05:49)
[2023-06-27] MEDS: meTOprolol INJECTION 5 MG/5 ML VIAL IV SCH (05:49)
--- NOTE | 2023-06-27 06:58 | Progress Note - Surgery ---
TONO MOONEY 06/27/23 0658: Subjective Date Seen by a Provider: Jun 27, 2023 Time Seen by a Provider: 06:57 Subjective/Events-last exam Pain controlled. Ambulating without discomfort. Having bowel function. Handled liquids fine yesterday. Denies n/v, fever, sweats, chills, shortness of breath, or chest pain. Focused Exam Sepsis Stage: Ruled Out Respiratory: No Accessory Muscle Use, No Respiratory Distress Cardiovascular: Regular Rate, Rhythm, Normal Peripheral Pulses Peripheral Pulses: 2+ Radial Pulses (R), 2+ Radial Pulses (L) Skin: normal color, warm/dry Objective Exam Vital Signs Date Time Temp Pulse Resp B/P (MAP) Pulse Ox O2 Delivery O2 Flow Rate FiO2 06/27/23 03:18 36.8 87 22 153/79 (103) 93 Nasal Cannula 2.00 06/27/23 01:00 81 06/26/23 23:52 36.8 81 20 147/80 (102) 91 Nasal Cannula 2.00 06/26/23 21:00 Nasal Cannula 2.00 06/26/23 20:23 37.0 90 18 126/68 (87) 92 Room Air 06/26/23 19:00 88 06/26/23 16:00 37.2 92 18 146/80 (102) 96 High Flow N/C 2.00 06/26/23 12:57 92 06/26/23 11:13 37.0 97 20 135/75 (95) 94 High Flow N/C 2.00 06/26/23 09:00 Nasal Cannula 2.00 06/26/23 08:29 36.7 84 18 164/93 (116) 94 Room Air 06/26/23 07:47 Nasal Cannula 2.00 06/26/23 07:47 36.9 87 96 21 06/26/23 07:42 96 Nasal Cannula 4.00 06/26/23 07:37 90 I & O 06/27/23 06:59 Intake Total 3130 ml Balance 3130 ml Capillary Refill : General Appearance: No Apparent Distress, WD/WN HEENT: PERRL/EOMI, Normal ENT Inspection, Pharynx Normal Neck: Full Range of Motion, Normal Inspection Respiratory: Chest Non Tender, No Accessory Muscle Use, No Respiratory Distress Cardiovascular: Regular Rate, Rhythm, No JVD Peripheral Pulses: 2+ Radial Pulses (R), 2+ Radial Pulses (L) Gastrointestinal: non tender, soft, distended (minimal), tenderness (incisional, no signs of infection) Extremity: Normal Inspection, Normal Range of Motion, Non Tender Neurologic/Psychiatric: Alert, Oriented x3, No Motor/Sensory Deficits Skin: Normal Color, Warm/Dry Lymphatic: No Adenopathy Results Lab Laboratory Tests 06/26/23 11:10: Glucometer 191H 06/26/23 17:30: Glucometer 136H 06/26/23 23:55: Glucometer 112H 06/27/23 05:56: Glucometer 129H Microbiology 06/22/23 MRSA Screen - Final, Complete MRSA not isolated Assessment/Plan Assessment/Plan Assessment/Plan s/p lap adán c ioc, diagnostic laparoscopy converted to open, lysis of adhesions, small bowel resection small bowel perforation Sinus tachycardia Hypertension Hyperlipidemia snf antiplatlet use Consult Cardiology IV Fluids Encourage ambulation Pain Control IS Restart plavix Scd's for dvt prophylaxis at this time Advance diet- if handling diet well- discharge patient JOYCELYN GAUTAM DO 06/27/23 1303: Subjective Subjective/Events-last exam Pain controlled. Tolerating diet. Wanting to go home. No complaints. Denies n/v fever sweats chills shortness of breath or chest pain. Objective Exam General Appearance: No Apparent Distress, WD/WN HEENT: PERRL/EOMI, Normal ENT Inspection Neck: Full Range of Motion, Normal Inspection Respiratory: Chest Non Tender, No Accessory Muscle Use, No Respiratory Distress Cardiovascular: Regular Rate, Rhythm Gastrointestinal: non tender, soft; No distended (minimal); tenderness (incisional, no signs of infection) Extremity: Normal Inspection, Non Tender Neurologic/Psychiatric: Alert, Oriented x3 Skin: Normal Color, Warm/Dry Lymphatic: No Adenopathy Assessment/Plan Assessment/Plan Assessment/Plan s/p lap adán c ioc, diagnostic laparoscopy converted to open, lysis of adhesions, small bowel resection small bowel perforation Sinus tachycardia Hypertension Hyperlipidemia snf antiplatlet use Consult Cardiology IV Fluids Encourage ambulation Pain Control IS Plavix Scd's for dvt prophylaxis at this time Advance diet- if handling diet well- discharge patient\ Follow up arranged. Supervisory-Addendum Brief Verification & Attestation Participated in pt care: history, MDM, physical Personally performed: exam, history, MDM, supervision of care Care discussed with: Medical Student Procedures: n/a Results interpretation: Verified all documentation Verification and Attestation of Medical Student E/M Service A medical student performed and documented this service in my presence. I reviewed and verified all information documented by the medical student and made modifications to such information, when appropriate. I personally performed the physical exam and medical decision making. Joycelyn Gautam, Jun 27, 2023,13:02 TONO MOONEY Jun 27, 2023 06:58 JOYCELYN GAUTAM DO Jun 27, 2023 13:03
[2023-06-27] MEDS: ceFAZolin INJECTION 2,000 MG in NS (IVPB) 50 ML 50 ML IV SCH (07:25)
[2023-06-27 07:43] VITALS: BP 124/76
[2023-06-27] MEDS: CLOPIDOGREL 75 MG TABLET PO SCH (08:05)
--- NOTE | 2023-06-27 08:37 | Cardiology Progress Note ---
Subjective Date Seen by Provider: Jun 27, 2023 Time Seen by Provider: 08:36 Subjective/Events-last exam Patient was seen at bedside, sitting comfortably. No new complaint Review of Systems General: No Chills, No Night Sweats, No Fatigue, No Malaise, No Appetite, No Other HEENT: No Head Aches, No Visual Changes, No Eye Pain, No Ear Pain, No Dysphasia, No Sinus Congestion, No Post Nasal Drip, No Sore Throat, No Other Pulmonary: No Dyspnea, No Cough, No Pleuritic Chest Pain, No Other Cardiovascular: No: Chest Pain, Palpitations, Orthopnea, Paroxysmal Noc. Dyspnea, Edema, Lt Headedness, Other Objective-Cardiology Exam Last Set of Vital Signs Vital Signs 06/26/23 06/27/23 06/27/23 07:47 03:18 07:43 Temp 36.4 Pulse 80 Resp 14 B/P (MAP) 124/76 (92) Pulse Ox 94 O2 Delivery Room Air O2 Flow Rate 2.00 FiO2 21 I&O Intake and Output 06/27/23 00:00 Intake Total 2700 ml Output Total 200 ml Balance 2500 ml Intake Oral 2600 ml IV Total 100 ml Gastric Drainage Total 200 ml # Voids 12 # Bowel Movements 6 General: Alert, Oriented X3, No Acute Distress HEENT: Atraumatic, PERRLA Neck: Supple, No JVD, No Thyromegaly Lungs: Clear to Auscultation, Normal Air Movement Heart: Regular Rate, Normal S1, Normal S2, No Murmurs Abdomen: Soft, Other (Incisional abdominal pain) Extremities: No Clubbing, No Cyanosis, No Edema, Normal Pulses, No Tenderness/Swelling Skin: No Rashes, No Significant Lesion Neuro: Normal Speech, Normal Tone, Sensation Intact Psych/Mental Status: Mental Status NL, Mood NL A/P-Cardiology Admission Diagnosis Abdominal pain Coronary artery disease Sinus tachycardia Hypertension Assessment/Plan Status post cholecystectomy complicated by perforated small bowel and small bowel resection. Reporting improvement of abdominal discomfort, Tolerating food. Had a bowel movement Coronary artery disease, Cardiac catheterization done in August 2018 had patent stent 3 x 32 in the mid LAD and 2.5 x 16 in the first diagonal artery, the obtuse marginal branch has 70% stenosis and had balloon angioplasty done to it. The right coronary artery has 70% mid vessel stenosis with successful stenting using Alma 4 x 18 mm. Cardiac catheterization in 2020 showing patent stent with mild to moderate disease nonobstructive disease Cardiac catheterization done and May 2023 showing mild to moderate disease nonobstructive disease Sinus tachycardia, probably secondary to pain and postoperative Tolerating Lopressor IV well. Continue to monitor Hypertension, controlled, Restart Toprol-XL 50 mg daily Hyperlipidemia Restart Lipitor 40 Obstructive sleep apnea, unable to tolerate CPAP Chronic bilateral leg discomfort secondary to peripheral neuropathy Mild bilateral carotid stenosis NATALIA CHINCHILLA MD Jun 27, 2023 08:37
[2023-06-27] MEDS ORDERED: GABAPENTIN 600 MG TABLET PO SCH (09:00)
[2023-06-27] MEDS ORDERED: PANTOPRAZOLE 40 MG TABLET PO SCH (09:00)
[2023-06-27 11:12] VITALS: BP 157/85
--- NOTE | 2023-06-27 11:53 | Progress Note ---
Subjective Subjective/Events-last exam Patient doing well. Tolerated breakfast. Been up walking in the halls. Ready to go home Review of Systems General: No Fatigue Pulmonary: No Dyspnea, No Cough Cardiovascular: No: Chest Pain, Palpitations, Edema Gastrointestinal: Abdominal Pain (incisional); No: Nausea, Vomiting Objective Exam Last Set of Vital Signs Vital Signs Date Time Temp Pulse Resp B/P (MAP) Pulse Ox O2 Delivery O2 Flow Rate FiO2 06/27/23 11:12 37.0 84 14 157/85 (109) 93 Room Air 06/27/23 09:12 2.00 06/26/23 07:47 21 Capillary Refill : I&O Intake and Output 06/27/23 00:00 Intake Total 2700 ml Output Total 200 ml Balance 2500 ml Intake Oral 2600 ml IV Total 100 ml Gastric Drainage Total 200 ml # Voids 12 # Bowel Movements 6 General: Alert, Oriented X3, No Acute Distress Lungs: Clear to Auscultation, Normal Air Movement Heart: Regular Rate, No Murmurs Abdomen: Soft, Other (mild incisional ttp, healing C/D/I) Extremities: No Edema, No Tenderness/Swelling Results/Procedures Lab Laboratory Tests 06/26/23 17:30: Glucometer 136H 06/26/23 23:55: Glucometer 112H 06/27/23 05:56: Glucometer 129H Microbiology 06/22/23 MRSA Screen - Final, Complete MRSA not isolated Assessment/Plan Assessment/Plan Assessment & Plan partial Small bowel resection following perforation after open adán HTN Tachycardia CAD GILDARDO DMII - Advance diet per surgery - Will monitor blood sugars as patient starts eating - VS stable - Possible home tomorrow 06/27 - Ok to d/c from medical standpoint KI COUCH MD Jun 27, 2023 11:53
[2023-06-27 14:58] VITALS: BP 157/85
== END 2023-06-27 13:40 | disposition home or self-care (01) | DRG 417 ==
LOC: SDC 07:46 → ICU 16:30 → SDC 17:04 → ICU 17:05 → 4TH 06-24 12:59
PROVIDERS: ADMIT Surgery; ATTEND Surgery
PROC: BF101ZZ Fluoroscopy of Bile Ducts using Low Osmolar Contrast (ICD-10-PCS; 2023-06-22)
PROC: 0DB80ZZ Excision of Small Intestine, Open Approach (ICD-10-PCS; 2023-06-22)
PROC: 0DN80ZZ Release Small Intestine, Open Approach (ICD-10-PCS; 2023-06-22)
PROC: 0DJW4ZZ Inspection of Peritoneum, Percutaneous Endoscopic Approach (ICD-10-PCS; 2023-06-22)
PROC: 0FT44ZZ Resection of Gallbladder, Percutaneous Endoscopic Approach (ICD-10-PCS; principal; 2023-06-22 08:41)
DX: K80.10 Calculus of gallbladder with chronic cholecystitis without obstruction (principal); K63.1 Perforation of intestine (nontraumatic); K66.0 Peritoneal adhesions (postprocedural) (postinfection); G89.18 Other acute postprocedural pain; R00.0 Tachycardia, unspecified; K21.9 Gastro-esophageal reflux disease without esophagitis; E11.9 Type 2 diabetes mellitus without complications; E66.01 Morbid (severe) obesity due to excess calories; I25.10 Atherosclerotic heart disease of native coronary artery without angina pectoris; I10 Essential (primary) hypertension; E78.00 Pure hypercholesterolemia, unspecified; G47.33 Obstructive sleep apnea (adult) (pediatric); I65.23 Occlusion and stenosis of bilateral carotid arteries; E11.42 Type 2 diabetes mellitus with diabetic polyneuropathy; H91.90 Unspecified hearing loss, unspecified ear; H54.7 Unspecified visual loss; Z68.38 Body mass index [BMI] 38.0-38.9, adult; Z79.84 Long term (current) use of oral hypoglycemic drugs; Z95.5 Presence of coronary angioplasty implant and graft; Z79.899 Other long term (current) drug therapy; Z79.02 Long term (current) use of antithrombotics/antiplatelets; Z86.718 Personal history of other venous thrombosis and embolism; Z79.82 Long term (current) use of aspirin; Z88.5 Allergy status to narcotic agent; Z91.09 Other allergy status, other than to drugs and biological substances
CPT/HCPCS: 36415; 71045; 74018; 76000; 80048; 80053; 82947; 83605; 85007; 85025; 85027; 87081; 88304; 94664; 94760